=== PATIENT | female | born 1960 | race Caucasian/White ===

== ENCOUNTER 2022-07-31 17:14 | Emergency (ER) | payer MEDICARE, SELFPAY ==
[2022-07-31 18:49] VITALS: BP 125/75; PULSE 125; RESP 18; TEMP 39; O2SAT 95; BMI 28.0
[2022-07-31 18:57] LABS: UTC Influenza A Antigen Negative (Negative); UTC Influenza B Antigen Negative (Negative)
--- NOTE | 2022-07-31 19:20 | EXP.UTC ---
Discharge Plan Disposition Patient Disposition: Home, Self-Care Condition: Good Prescriptions Prescriptions: New benzonatate 100 mg capsule 100 mg PO TID PRN (Reason: cough) Qty: 30 0RF cefdinir 300 mg capsule 300 mg PO BID 7 Days Qty: 14 0RF No Action metformin 500 MG tablet 500 mg PO BID insulin glargine [Lantus U-100 Insulin] 100 UNIT/ML solution 60 unit SQ BID glipizide 10 MG tablet 10 mg PO BID ergocalciferol (vitamin D2) 400 UNIT tablet 400 unit PO DAILY aspirin [Aspir-81] 81 MG tablet,delayed release (DR/EC) 81 mg PO DAILY tramadol [Ultram] 50 MG tablet 50 mg PO BIDP PRN (Reason: PAIN) metoclopramide HCl 10 MG tablet 10 mg PO BID liraglutide [Victoza 2-Yayo] 0.6 MG/0.1 ML pen injector 1.8 ml SQ DAILY red yeast rice 600 MG tablet 600 mg PO DAILY Referrals Follow up/Referrals: Julian Martinez [Primary Care Provider] - See instructions Activity Restrictions/Add. Instructions Additional Instructions/Restrictions: Take medication as prescribed Start oral antibiotics tomorrow Return if needed *Monitor Temp, Over the counter Motrin or Tylenol as directed/as needed Tylenol every 4 hours and Motrin every 6 hours (as long as your family doctor has told you that you can take it) for fever or pain. and straight to ER if unable to lower temp less than 101.0 after medication given *Warm salt water gargles may help to soothe the throat *Throat Lozenges? *Warm fluids like tea with honey may help to soothe the throat? *Sleep elevated *Humidifier/Vaporizer Use your inhaler as prescribed Follow up IMMEDIATELY for new or worsening symptoms or no Noticeable improvement over the next 48-72 hours. 911 for difficulty breathing or swallowing You were tested for today for COVID19 your test result should be back in the next 24-48 hours, you may check your result on the [facility] My Health Portal Make sure to take your Vitamins Vit. C Vit D and Zinc if you can take them Clinical Impressions Clinical Impression: Sinusitis, Bronchitis Instructions Patient Instructions: Sinusitis, Acute Bronchitis, DI for Sinusitis, DI for Fever (Symptom) -- Adult Discharge ED Provider: Irish Allen [facility] [place] HPI General Stated complaint: fever,cough, back pain Mode of Arrival: Ambulatory Source of Information: Patient Limitations: No Limitations Time Seen by Provider: 07/31/22 19:20 Description of Symptoms (Recalled from Triage Doc. by RN): pt comes in with c/o high fever, cough. symptoms began 3 days ago. HEENT Symptoms (Recalled from RN notes): Yes Resp Symptoms (Recalled from RN notes): Yes Skin Symptoms (Recalled from RN notes): No MS Symptoms (Recalled from RN notes): No Functional Status (Recalled from RN notes): n/a History of Present Illness Provider Complaint: Patient states that she has been having sinus pain and pressure, cough, sore throat, fever, headache and hurts at times in her back when she coughs States that today she was feeling worse and was still having fever so she came in to get checked out and wanted to get tested for flu and covid Related Data Home Medications Medication Instructions Recorded Confirmed aspirin 81 mg tablet,delayed 81 mg PO DAILY . 05/02/18 05/02/18 release (Aspir-) ergocalciferol (vitamin D2) 10 mcg 400 unit PO DAILY Supplement 05/02/18 05/02/18 (400 unit) tablet glipizide 10 mg tablet 10 mg PO BID Diabetes 05/02/18 05/02/18 insulin glargine 100 unit/mL 60 unit SQ BID Diabetes 05/02/18 05/02/18 subcutaneous solution (Lantus U-100 Insulin) liraglutide 0.6 mg/0.1 mL (18 mg/3 1.8 ml SQ DAILY Diabetes 05/02/18 05/02/18 mL) subcutaneous pen injector (Victoza 2-Yayo) metformin 500 mg tablet 500 mg PO BID Diabetes 05/02/18 05/02/18 metoclopramide HCl 10 mg tablet 10 mg PO BID Nausea & vomiting 05/02/18 05/02/18 red yeast rice 600 mg tablet 600 mg PO DAILY HIGH CHOLESTEROL\ 05/02/18 05/02/18 tra
[2022-07-31 20:00] VITALS: BP 125/75; PULSE 100; RESP 18; TEMP 37.9
== END 2022-07-31 20:01 | disposition home or self-care (01) ==
PROVIDERS: Emergency Provider Nurse Practitioner; PCP Internal Medicine Cardiovascular Disease
DX: U07.1 COVID-19 (principal)
CPT/HCPCS: 87804; 96372; 99212; C9803; G0463; J0696; U0003; U0005

== ENCOUNTER 2025-08-22 14:41 | Emergency (ER) | payer MEDICARE, SELFPAY ==
[2025-08-22 14:47] VITALS: BP 116/75; PULSE 83; O2SAT 98
[2025-08-22 14:50] VITALS: BP 116/75; PULSE 89; RESP 16; TEMP 36.6; O2SAT 95; BMI 22.4
--- OUTSIDE RECORDS SUMMARY | 2025-08-22 15:04 | XMS_ITS | Clinical Summary ---
Author Organization [employer] [facility] are Address [address] [place] [id number] Phone Care Team Providers Care Lease Operator Name Role Phone Unavailable Unavailable Conditions or Problems No information available. Medications No information available. Medications Administered No information available. Allergies, Adverse Reactions, Alerts No information available. Results No information available. Plan of Care No information available. Procedures No information available. Vital Signs No information available. Immunizations No information available. Advance Directives No information available.
--- OUTSIDE RECORDS SUMMARY | 2025-08-22 15:05 | XMS_ITS | Encounter Summary ---
Author Organization [place] [address] Care Team Providers Care Radiophone Operator Name Role Phone Julian Galvin MD Primary Care Provider [phone] Vincenzo Montiel DPM Unavailable Unavailab le Reason for Visit * Reason Comments Medication Refill Encounter Details Date Type Department Care Team (Late Contact Info) Description 08/01/2025 Refill SEP Juvencio [facility] [address] [address] Julian Galvin MD [facility] [address] Medication Refill Social History Tobacco Use Types Packs/Day Years Used Date Smoking Tobacco: Never Smokeless Tobacco: Never Alcohol Use Standard Drinks/Week Comments No 0 (1 standard drink = 0.6 oz pur e alcohol) [facility] Utilities Answer Date Recorded In the past 12 months has [employer], gas, oil, or water [employer] threatened to shut off services in your home? No 11/13/2023 Overall Financial Resource Strain (CARDIA) Answe r Date Recorded How hard is it for you to pa y for the very basics like food, housing, medical care, and heating? Not hard at all 11/13/2023 PHQ-2 Answer Date Recorded PHQ-2 Total Score 0 02/18/2024 [facility] [place] [facility] - Occupational Stress Questionnaire Answer Date Recorded Do you feel stress - tense, restless, nervous, or anxious, or unable to sleep at night because your mind is troubled all the time - these days? Very much 11/13/2023 Exercise Vital Sign Answer Date Recorde d On average, how many days pe r week do you engage in moderate to strenuous exercise (like a brisk walk)? 0 days 11/13/2023 On average, how many minutes do you engage in exercise at this level? 0 min 11/13/2023 Hunger Vital Sign Answer Date Recorded Within the past 12 months, y ou worried that your food would run out before you got the money to buy more. Never true 11/13/19 24 Within the past 12 months, t he food you bought just didn't last and you didn't have money to get more. Never true 11/13/2023 PRAPARE - Transportation Answer Date Re corded In the past 12 months, has l ack of transportation kept you from medical appointments or from getting medications? No 12/2023 In the past 12 months, has l ack of transportation kept you from meetings, work, or from getting things needed for daily living? No 11/13/2023 [facility] IP Transportation Answer D ate Recorded In the past 12 months, has l ack of reliable transportation kept you from medical appointments, meetings, work or from getting things needed for daily living? 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 Answer Date of Assessment Author No 11/24/2020 1:52 PM Radha Ross CCMA * Is the person blind or does he/she have serious difficulty seeing even when wearing glasses? Answer Date of Assessment Author No 11/24/2020 1:52 PM Radha Ross CCMA * Does this person have serious difficulty walking or climbing stairs? Answer Date of Assessment Author No 11/24/2020 1:52 PM Radha Ross CCMA * Does this person have difficulty dressing or bathing? Answer Date of Assessment Author No 11/24/2020 1:52 PM Radha Ross CCMA * Because of a physical, mental or emotional condition, does this person have difficulty doing errands alone such as visiting a doctor's office or shopping? Answer Date of Assessment Author No 11/24/2020 1:52 PM ASUNCION Radha Godinez CCMA documented as of this encounter Mental Status * Because of a physical, mental or emotional condition, does this person have serious difficulty concentrating, remembering or making decisions? Answer Entry Date Author No 11/24/2020 1:52 PM ASUNCION Radha Godinez CCMA documented in this encounter Ordered Prescriptions Prescription Sig Dispense Quantity Refills Last Filled Start Date End Date traMADoL (ULTRAM) 50 mg Oral Tablet TAKE 1 TABLET BY MOUTH 3 TIMES DAILY NEEDED. FOR PAIN 90 Tablet 2 08/03/2025 documented in this encounter Miscellaneous Notes * Telephone Encounter - Judith Godinez CCMA - 08/03/2025 8:05 AM EDT Last Office Visit reviewing controlled substances: 05/07/2025 Approved Ambien, Gabapentin, Lyrica, Butalbital = must be in last 6 months. All other controlled medications = must be in last 3 months. If visit is not up to date, please call and schedule appointment. Next appointment scheduled?: No SONIDO Last Reviewed by Prescriber: PDMP not electronically reviewed on this encounter. Date of last completed CSA if not included in flowsheet below: 09/18/2012 02/24/2021 2:00 PM 12/19/2021 2:00 PM 07/06/2022 2:00 PM CONTROLLED SUBSTANCE Is Consent for treatment completed? Yes Date consent completed 09/18/2012 SONIDO Reference Number [id number] SONIDO Results as expected as expected as expected If had complete compliance panel: 01/21/2025 Last resulted compliance panel date: 01/21/2025 (If patient had partial drug screen or in-house drug screen, please document date of that below): documented in this encounter Plan of Treatment Upcoming Encounters Date Type Department Care Team (Late st Contact Info) Description 08/25/2025 1:15 PM EDT Appointment [facility] [address] [place] [address] Julian Galvin MD [place] [facility] [place] [phone] 08/25/2025 1:30 PM EDT Appointment [facility] [address] [place] [address] Julian Galvin MD [place] [facility] [place] [phone] documented as of this encounter Goals Goal Patient Goal Type Associated Problems Recent Progress Patient-Stated? Author Blood Pressure < 140/90 Blood Pressure 118/72(2024 10:16 AM EDT) No Haven Patrick LPN BMI (Calculated) < 30 General 22.4(05/07/20 9:09 AM EDT) No Haven Patrick LPN Eat better, exercise, reach an ideal body weight General No Haven Patrick LPN Get CGM supplies through [facility] General Not on track( 023 11:54 AM EDT) Yes Su Lucero, RN HEMOGLOBIN A1C < 7.0 Result Component 9.2( 10:03 AM EDT) No Haven Patrick LPN documented as of this encounter Visit Diagnoses Not on filedocumented in this encounter Discontinued Medications Medication Sig Discontinue Reason Start Date End Da te traMADoL (ULTRAM) 50 mg Oral Tablet Take 1 Tablet by mouth 3 times daily as needed. 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
--- OUTSIDE RECORDS SUMMARY | 2025-08-22 15:05 | XMS_ITS ---
Author Organization [facility] Care Team Providers Care Non Destructive Testing Technician Name Role Phone GregorioRonald rodriguezley Unavailable Unavailable Woompath, Avashkar Unavailable Unavailable Sharon, Bahar Unavailable Unavailable Calico, Deysi Unavailable Unavailable Miranda, Hilaria Unavailable Unavailable Sheets, Sheron Unavailable Unavailable Brennan, Senia Unavailable Unavailable Pavlou, Anayeli Unavailable Unavailable Mac, Robert Unavailable Unavailable Rendon, Sangeeta Unavailable Unavailable Lu, Vincenzo Unavailable Unavailable Allergies and adverse reactions Code CodeSystem Substance Reaction Severity StartDate Concern Status 894032571 SNOMED CT Statins Mild 03/19/2018 active 7052 RXNORM Morphine Moderate 03/19/2018 active Darvon Mild 03/19/2018 active Care Team Name Role Address Phone Organization Dates Anayeli Griffiths PCP [address], [place], [address], [place] (Office): : : [facility] 11/17/2023 - 11/23/2023 Tigist Brendondory [address] [place], [place], [facility], [facility] (Office): [facility] 11/17/2023 - 11/23/2023 Genesis Dodd [address] [place] [address], [facility], [facility] (Office): : : [facility] 11/17/2023 - 11/23/2023 Josiah Doughertytal [address] [place], [facility], [facility] (Office): : [facility] 11/17/2023 - 11/23/2023 Deysi Hill [address] [place] [address], [place], [place], [facility], [facility] (Office): : [facility] 11/17/2023 - 11/23/2023 Hilaria Miranda [address] [place], [place], [facility], [facility] (Office): [facility] 11/17/2023 - 11/23/2023 Sheron Sheets [address] [facility], [address], [place], [place], [facility], [facility] (Office): [facility] 11/17/2023 - 11/23/2023 Senia Amin [address] [facility] [address] [place] [address], [facility], [facility] (Office): : [facility] [place] 11/17/2023 - 11/23/2023 Robert Mac [address] [place] [address], [address], [facility] (Office): : [facility] [place] 11/17/2023 - 11/23/2023 Sangeetaanna marie Mcintyres [address] [place], [place], [facility], [facility] (Office): [facility] [place] 11/17/2023 - 11/23/2023 Vincenzo Lu [address] [place] [address], [facility] (Office): [facility] [place] 11/17/2023 - 11/23/2023 Immunizations Immunization Status Vaccine Details Vaccine Code CodeSystem Date Notes Influenza cancelled Influenza, high-dose, split virus, quadrivalent, injectable, preservative free 197 CVX created date: 11/18/2023 consent date: 11/18/2023 Influenza completed Influenza, high-dose, split virus, quadrivalent, injectable, preservative free 197 CVX created date: 11/18/2023 administer ed date: 07/18/2023 Influenza completed Influenza, high-dose, split virus, quadrivalent, injectable, preservative free 197 CVX created date: 03/19/2018 administer ed date: 08/21/2017 hospital record TB 1 Step Mantoux (PPD) completed tuberculin skin test; unspecified formulation lotNumber: [id number] expiry: 10/23/2026 Mfg: sanifipaster Given 0.1 ml Left Forearm intradermally 98 CVX created date: 11/18/2023 consent date: 11/18/2023 administer ed date: 11/18/2023 Tetanus completed Td(adult) unspecified formulation 139 CVX created date: 11/18/2023 administer ed date: 10/26/2017 TB 2 Step Mantoux Skin Test completed tuberculin skin test; unspecified formulation lotNumber: [id number] expiry: 06/20/2020 Mfg: TUBERSOL Given 0.1 ml Left Forearm intradermally Step 2 of Multi-step with next step required 98 CVX created date: 03/27/2018 consent date: 03/26/2018 administer ed date: 03/27/2018 TB 2 Step Mantoux Skin Test completed tuberculin skin test; unspecified formulation Given 0.1 ml Left Forearm intradermally Step 1 of Multi-step with next step required 98 CVX created date: 03/21/2018 consent date: 03/21/2018 administer ed date: 03/19/2018 Shingles completed created date: 03/21/2018 administer ed date: 10/26/2017 Pneumovax 13 completed pneumococcal conjugate vaccine, 13 valent 133 CVX created date: 11/18/2023 administer ed date: 08/19/2019 Pneumovax 23 completed pneumococcal polysaccharide vaccine, 23 valent 33 CVX created date: 03/19/2018 administer ed date: 03/21/2010 SARS-COV-2 (COVID-19) cancelled SARS-COV-2 (COVID-19) vaccine, mRNA, spike protein, LNP, preservative free, 30 mcg/0.3mL dose, saúl-sucrose formulation 217 CVX created date: 11/18/2023 consent date: 11/18/2023 SARS-COV-2 (COVID-19) completed SARS-COV-2 (COVID-19) vaccine, mRNA, spike protein, LNP, preservative free, 30 mcg/0.3mL dose, saúl-sucrose formulation [facility]: [employer] Step 1 of Multi-step with next step required 217 CVX created date: 11/18/2023 administer ed date: 10/26/2021 PFIZER3/17/ /05/2112 SARS-COV-2 (COVID-19) completed SARS-COV-2 (COVID-19) vaccine, mRNA, spike protein, LNP, preservative free, 30 mcg/0.3mL dose, saúl-sucrose formulation g: [employer] Step 2 of Multi-step with next step required 217 CVX created date: 11/18/2023 administer ed date: 02/16/2021 PFIZER3// SARS-COV-2 (COVID-19) completed SARS-COV-2 (COVID-19) vaccine, mRNA, spike protein, LNP, preservative free, 30 mcg/0.3mL dose, saúl-sucrose formulation [facility]: [employer] Step 1 of Multi-step with next step required 217 CVX created date: 11/18/2023 administer ed date: 01/26/2021 PFIZER3/17/ 214/05/2112 Pneumococcal 20 cancelled Pneumococcal conjugate vaccine 20-valent (PCV20), polysaccharide [id number] conjugate, adjuvant, preservative free 216 CVX created date: 11/18/2023 consent date: 11/18/2023 Medications Section Medication Name Status Code CodeSystem Dose Route Frequency Admin Type Sig Text Start Date End Date Indication Empaglifloz in Oral Tablet 25 MG active 59552 66 RXNORM 1 table t Oral one time a day Routin e Give 1 table t by mouth one time a day for dm 2023 - dm Montelukast Sodium Oral Tablet 10 MG active 4 RXNORM 1 table t Oral at bedtime Routin e Give 1 table t by mouth at bedti me for aller gies 2023 - allergies Ferrous Sulfate Oral Tablet 325 (65 Fe) MG active 98461 5 RXNORM 1 table t Oral one time a day Routin e Give 1 table t by mouth one time a day for supp 2023 - supp Calcium Carbonate-V itamin D Oral Tablet 500-5 MG-MCG active 16259 3 RXNORM 1 table t Oral two times a day Routin e Give 1 table t by mouth two times a day for supp 2023 - supp oxyCODONE HCl Oral Tablet 5 MG active 90561 21 RXNORM 2 table t Oral as needed PRN Give 2 table t by mouth every 6 hours as neede d for pain 2 tabs for sever pain 2023 - pain Ibuprofen Oral Tablet 400 MG active 5 RXNORM 1 table t Oral as needed PRN Give 1 table t by mouth every 6 hours as neede d for pain 2023 - pain Aspirin 81 Oral Tablet Chewable active 81 mg Oral one time a day Routin e Give 81 mg by mouth one time a day for blood thine r may be chewe d or swall owed 2023 - blood thiner Cyanocobala min Oral Tablet 1000 MCG active 46249 3 RXNORM 1 table t Oral one time a day Routin e Give 1 table t by mouth one time a day for supp 2023 - supp Sertraline HCl Oral Tablet 50 MG active 18231 1 RXNORM 1 table t Oral one time a day Routin e Give 1 table t by mouth one time a day for mood 2023 - mood Metoclopram cassia HCl Oral Tablet 5 MG active 51013 8 RXNORM 1 table t Oral three times a day Routin e Give 1 table t by mouth three times a day for gerd 2023 - gerd metFORMIN HCl Oral Tablet 1000 MG active 04048 4 RXNORM 1 table t Oral two times a day Routin e Give 1 table t by mouth two times a day for dm2 2023 - dm2 Modafinil Oral Tablet 100 MG active 68116 8 RXNORM 1 table t Oral one time a day Routin e Give 1 table t by mouth one time a day relat ed to SLEEP APNEA , UNSPE CIFIE D (G47. 30) 2023 - - Ozempic (2 MG/DOSE) Subcutaneou s Solution Pen-injecto r 8 MG/3ML active 84295 65 RXNORM 2 mg Subcut aneous one time a day Routin e Injec t 2 mg subcu taneo usly one time a day every Sun for dm2 2023 - dm2 Pantoprazol e Sodium Oral Tablet Delayed Release 40 MG active 57337 0 RXNORM 1 table t Oral two times a day Routin e Give 1 table t by mouth two times a day for gerd 2023 - gerd Tubersol Solution 5 UNIT/0.1ML active 87814 5 RXNORM 0.1 ml Intrad ermal one time a day Routin e Injec t 0.1 ml intra derma lly one time a day every 12 month (s) start ing on the 1st for 1 day(s ) for ppd 2024 - ppd Methocarbam ol Oral Tablet 500 MG active 77319 3 RXNORM 1 table t Oral as needed PRN Give 1 table t by mouth every 8 hours as neede d for spasa ms relat ed to MUSCL E WEAKN ESS (GENE RALIZ ED) (M62. 81) spsas ms 2023 - spasams oxyCODONE HCl Oral Tablet 5 MG active 56250 21 RXNORM 1 table t Oral as needed PRN Give 1 table t by mouth every 6 hours as neede d for pain 1 tab for mod pain 2023 - pain Ondansetron HCl Oral Tablet 4 MG active 98983 2 RXNORM 1 table t Oral as needed PRN Give 1 table t by mouth every 4 hours as neede d for nause a 2023 - nausea Ezetimibe Oral Tablet 10 MG active 25740 6 RXNORM 1 table t Oral one time a day Routin e Give 1 table t by mouth one time a day relat ed to HYPER LIPID EMIA, UNSPE CIFIE D (E78. 5) 2023 - - Lidocaine HCl External Patch 4 % active 34819 94 RXNORM n/a n/a Topica l one time a day Routin e Apply to L chest topic ally one time a day relat ed to MULTI PLE FRACT URES OF RIBS, LEFT SIDE, SUBSE QUENT ENCOU NTER FOR FRACT URE WITH ROUTI NE HEALI NG (S22. 42XD) and remov e per sched ule 2023 - - Pregabalin Oral Capsule 75 MG active 66796 0 RXNORM 1 capsu le Oral three times a day Routin e Give 1 capsu le by mouth three times a day relat ed to TYPE 2 DIABE FAITH MELLI TUS WITH DIABE TIC POLYN EUROP ATHY (E11. 42) 2023 - - Lantus Subcutaneou s Solution active 15 unit Subcut aneous two times a day Routin e Injec t 15 unit subcu taneo usly two times a day for dm 2023 - dm Midodrine HCl Oral Tablet 5 MG active 97863 0 RXNORM 5 mg Oral as needed PRN Give 5 mg by mouth every 8 hours as neede d for HTN Hold if SBP <100 2023 - HTN Tylenol Extra Strength Oral Tablet 500 MG active 08712 9 RXNORM 1000 mg Oral three times a day Routin e Give 1000 mg by mouth three times a day for pain 2023 - pain Vitamin D3 Oral Tablet active 2000 unit Oral one time a day Routin e Give 2000 unit by mouth one time a day for supp 2023 - supp Mental Status Section Date Assessment Total Score Description 11/23/2023 BIMS 15 cognitively int act CAM 0 No delirium ind icated PHQ-9 00 11/23/2023 BIMS 15 cognitively int act CAM 0 No delirium ind icated PHQ-9 00 Insurance Providers Problems Problem # Description Date of onset Resolved Date Code CodeSystem Concern Status 1 HISTORY OF FALLING 11/17/[address] active 2 MILD INTERMITTENT ASTHMA, UNCOMPLICATED 11/17/[address] active 3 MULTIPLE FRACTURES OF RIBS, LEFT SIDE, SUBSEQUENT ENCOUNTER FOR FRACTURE WITH ROUTINE HEALING 11/17/[address] active 4 MUSCLE WEAKNESS (GENERALIZED) 11/17/[address] active 5 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 11/17/[address] active 6 NEED FOR ASSISTANCE WITH PERSONAL CARE 11/17/[address] active 7 OTHER FATIGUE 11/17/[address] active 8 RETENTION OF URINE, UNSPECIFIED 11/17/[address] active 9 TYPE 2 DIABETES MELLITUS WITH HYPERGLYCEMIA 11/17/[address] active 10 UNSPECIFIED MOOD [AFFECTIVE] DISORDER 11/17/[address] active 11 DIFFICULTY IN WALKING, NOT ELSEWHERE CLASSIFIED 03/19/20 18 11/19/[address] completed 12 ENCOUNTER FOR OTHER SPECIFIED SURGICAL AFTERCARE 03/19/20 18 11/19/[address] completed 13 FUSION OF SPINE, LUMBAR REGION 03/19/20 18 11/17/[address] completed 14 GASTRO-ESOPHAGEAL REFLUX DISEASE WITHOUT ESOPHAGITIS 03/19/[address] active 15 HYPERLIPIDEMIA, UNSPECIFIED 03/19/[address] active 16 LIVER DISEASE, UNSPECIFIED 03/19/[address] active 17 LOW BACK PAIN 03/19/20 18 08/12/[address] completed 18 MUSCLE WEAKNESS (GENERALIZED) 03/19/20 18 11/19/[address] completed 19 OTHER CERVICAL DISC DEGENERATION, UNSPECIFIED CERVICAL REGION 03/19/[address] active 20 SLEEP APNEA, UNSPECIFIED 03/19/[address] active 21 SPINAL STENOSIS, SITE UNSPECIFIED 03/19/[address] active 22 TYPE 2 DIABETES MELLITUS WITH DIABETIC POLYNEUROPATHY 03/19/[address] active 23 UNSTEADINESS ON FEET 03/19/20 18 11/19/[address] completed Reason for Referral No Reasons for Referral Entered Social History Social History Observation Description Start Date End Date Code Code System Current Smoking Status Tobacco smoking consumption unknown 755418647 SNOMED CT Sex Assigned At Female 1960 81758-4 [facility] Gender Identity Sexual Orientation Vital Signs Code Code System Vitals Name Values and Units Timing Information 2339-0 [facility] Blood Sugar Qercz=973.0 Units=mg/dL 11/23/2023 9279-1 [facility] Respiratory Rate Value=16.0 Units=/m in 11/23/2023 8310-5 [facility] Body Temperature Value=98.5 Units= F 11/23/2023 8867-4 [facility] Heart rate Value=70.0 Units=/min 10/2024 05878-6 [facility] O2 % BldC Oximetry Value=97.0 Units= % 11/23/2023 26783-0 [facility] Pain Level Value=0.0 11/23/2023 8462-4 [facility] Blood Pressure-Diastolic Value=68 Un its=mmHg 11/23/2023 8480-6 [facility] Blood Pressure-Systolic Jcwyk=532 Un its=mmHg 11/23/2023 80994-0 [facility] Weight Tibpx=779.2 Units=Lbs 06/2024 8302-2 [facility] Height Value=63.0 Units=Inches 11/17/2023
--- OUTSIDE RECORDS SUMMARY | 2025-08-22 15:05 | XMS_ITS | Clinical Summary ---
Author Organization [facility] Address [address] [place] [address] Phone Care Team Providers Care Security Coordinator Name Role Phone Bindu YU, Nicole [facility] [phone] Conditions or Problems Problem Name Problem Code Onset Date Status Entry Date Provider Comment Standard Description Annotate NECK PAIN 90096806 (SNOMED CT) Active Nicole Ruano MD Neck pain Medications Medication Instructions Start Date Stop Date Generic Name NDC Provider FERROUS SULFATE 325 (65 Fe) MG TABS [facility] 9 FERROUS SULFATE 59307005853 Irish Gresham MA LOPID 600 MG TABS [facility] 9 GEMFIBROZIL 77269720078 Irish Gresham MA NEURONTIN 600 MG TABS [facility] 9 GABAPENTIN 99510053396 Irish Gresham MA ULTRAM 50 MG ORAL TABLET [facility] 9 TRAMADOL HCL 40367998665 Irish Gresham MA LIPITOR 20 MG TABS [facility] 9 ATORVASTATIN CALCIUM 98663548933 Irish Gresham MA PROTONIX 40 MG PACK [facility] 9 PANTOPRAZOLE SODIUM 84829321769 Irish Gresham MA METFORMIN HCL 1000 MG TABS [facility] 9 METFORMIN HCL 57994848649 Irish Gresham MA MOBIC 15 MG ORAL TABLET [facility] 9 MELOXICAM 90373655301 Irish Gresham MA Medications Administered No information available. Allergies, Adverse Reactions, Alerts Allergy Name Reaction Description Start Date Severity Statu s Provider FERMIN Critical Irish Gresham MA Results No information available. Plan of Care No information available. Procedures No information available. Vital Signs Date Name Value Unit Description BMI (Body Mass Index) 29.23 kg/m2 Bod y Mass Index (Ratio) BP Diastolic 60 mm[Hg] blood pressu re, diastolic BP Systolic 110 mm[Hg] blood pressur e, systolic Height 63 [in_us] height E&M Weight Measured 165 [lb_av] weight E& M Weight Measured 165 [lb_av] weight E& M Immunizations No information available. Advance Directives No information available.
--- OUTSIDE RECORDS SUMMARY | 2025-08-22 15:05 | XMS_ITS | Encounter Summary ---
Author Organization [place] [address] Care Team Providers Care Rental Boats Caretaker Name Role Phone Julian Galvin MD Primary Care Provider [phone] Vincenzo Montiel DPM Unavailable Unavailab le Encounter Details Date Type Department Care Team (Late st Contact Info) Description 05/07/2025 Results Follow-Up SEP [facility] [address] [address] Julian Galvin MD [address] [facility] [place] [address] LIPID PANEL REFLEX, CBC WITH DIFF, IRON+TIBC, Additional followed-up results: 3 Social History Tobacco Use Types Packs/Day Years Used Date Smoking Tobacco: Never Smokeless Tobacco: Never Alcohol Use Standard Drinks/Week Comments No 0 (1 standard drink = 0.6 oz pur e alcohol) [facility] Utilities Answer Date Recorded In the past 12 months has [employer], gas, oil, or water [email or web address] threatened to shut off services in your home? No 11/13/2023 Overall Financial Resource Strain (CARDIA) Answe r Date Recorded How hard is it for you to pa y for the very basics like food, housing, medical care, and heating? Not hard at all 11/13/2023 PHQ-2 Answer Date Recorded PHQ-2 Total Score 0 02/18/2024 [facility] [place] of Occupat ional Health - Occupational Stress [...] things needed for daily living? No 11/13/2023 [facility] IP Transportation Answer D ate Recorded In [...] No 11/24/2020 1:52 PM Radha Ross CCMA documented as of this encounter Mental Status * Because of a physical, mental or emotional condition, does this person have serious difficulty concentrating, remembering or making decisions? Answer Entry Date Author No 11/24/2020 1:52 PM Radha Ross CCMA documented in this encounter Plan of Treatment Upcoming Encounters Date Type Department Care Team (Late st Contact Info) Description 08/25/2025 1:15 PM EDT Appointment [facility] [address] [place] [address] Julian Galvin [place] [address] 08/25/2025 1:30 PM EDT Appointment [facility] [address] 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
--- OUTSIDE RECORDS SUMMARY | 2025-08-22 15:05 | XMS_ITS | Clinical Summary ---
Author Organization [facility] Address [facility] [place] [address] Care Team Providers Care Speech Therapist Name Role Phone Julian Galvin MD Primary Care Provider [phone] Source Comments This information has been disclosed to you from confidential records protectedfrom disclosure by state law. You shall make no further disclosure of thisinformation without the specific, written, and informed release of theindividual to whom it pertains, or as otherwise permitted by law. A generalauthorization for the release of medical or other information is not sufficientfor the purposes of therelease of HIV test results or diagnoses. [id number] Social History Tobacco Use Types Packs/Day Years Used Date Smoking Tobacco: Never Assessed Comments Unknown Sex and Gender Information Value Date Recorded Sex Assigned at Not on file Legal Sex Female 5:24 PM EST Gender Identity Not on file Sexual Orientation Not on file Plan of Treatment Not on file Care Teams Speech Therapist Relationship Specialty Start Date End Date Julian Galvin MD [address] [place] [address] PCP - General 08/22/10
--- NOTE | 2025-08-22 15:06 | ED_ITS ---
<Statement entered by Erin Wahl DO - 08/25/25 23:43> I was consulted by the JIMBO, and we discussed the complexity of problems being addressed. I approve the treatment and management plan for this patient's care in the emergency department, thus performing a substantial portion of the medical decision making. Erin Wahl DO Discharge Plan Disposition Patient Disposition: Home, Self-Care Prescriptions Prescriptions: No Action metformin 500 MG tablet 500 mg PO BID insulin glargine [Lantus U-100 Insulin] 100 UNIT/ML solution 60 unit SQ BID glipizide 10 MG tablet 10 mg PO BID ergocalciferol (vitamin D2) 400 UNIT tablet 400 unit PO DAILY aspirin [Aspir-81] 81 MG tablet,delayed release (DR/EC) 81 mg PO DAILY tramadol [Ultram] 50 MG tablet 50 mg PO BIDP PRN (Reason: PAIN) metoclopramide HCl 10 MG tablet 10 mg PO BID liraglutide [Victoza 2-Yayo] 0.6 MG/0.1 ML pen injector 1.8 ml SQ DAILY red yeast rice 600 MG tablet 600 mg PO DAILY benzonatate 100 mg capsule 100 mg PO TID PRN (Reason: cough) Qty: 30 0RF cefdinir 300 mg capsule 300 mg PO BID 7 Days Qty: 14 0RF Referrals Follow up/Referrals: Julian Martinez [Primary Care Provider, Medical] - See instructions Activity Restrictions/Add. Instructions Additional Instructions/Restrictions: Today you were evaluated in the emergency department for bilateral eye pain. You were diagnosed with bilateral corneal abrasion, you were given erythromycin ointment in the ED. Please use 2-3 times a day times several days. Follow-up with the eye doctor in 1 week. Return to the ED for worsening of condition. Clinical Impressions Clinical Impression: Corneal abrasion, bilateral Instructions Patient Instructions: DI for Corneal Abrasion Print Language Print Language: Belgian Discharge ED Provider: Varun Martinez Adult HPI General Chief complaint: Skin/Abscess/Foreign Body Stated complaint: bleach in eyes-bilateral Time Seen by Provider: 08/22/25 14:47 History of Present Illness HPI narrative: patient is a 64-year-old female PMHx vasovagal syncope who presents to the ED for complaints of getting bleach water in her eye. Patient states she was pressure washing when the bleach water fell from the ceiling, getting into her both eyes. Related Data Home Medications ?Medication ?Instructions ?Recorded ?Confirmed aspirin 81 mg tablet,delayed 81 mg PO DAILY . 05/02/18 05/02/18 release (Aspir-) ergocalciferol (vitamin D2) 10 mcg 400 unit PO DAILY S upplement 05/02/18 05/02/18 (400 unit) tablet glipizide 10 mg tablet 10 mg PO BID Diabetes 05/02/18 insulin glargine 100 unit/mL 60 unit SQ BID Diabetes 0 05/02/18 05/02/18 subcutaneous solution (Lantus U-100 Insulin) liraglutide 0.6 mg/0.1 mL (18 mg/3 1.8 ml SQ DAILY Ginny betes 05/02/18 05/02/18 mL) subcutaneous pen injector (Victoza 2-Yayo) metformin 500 mg tablet 500 mg PO BID Diabetes 05/0205/02/18 metoclopramide HCl 10 mg tablet 10 mg PO BID Nausea & vomiting 05/02/18 05/02/18 red yeast rice 600 mg tablet 600 mg PO DAILY HIGH CHOL ESTEROL\ 05/02/18 05/02/18 tramadol 50 mg tablet (Ultram) 50 mg PO BIDP PRN PAIN 05/02/18 05/02/18 Previous Rx's ?Medication ?Instructions ?Recorded benzonatate 100 mg capsule 100 mg PO TID PRN cough #30 caps 07/31/22 cefdinir 300 mg capsule 300 mg PO BID 7 days #14 cap s 07/31/22 Allergies Allergy/AdvReac Type Severity Reaction Status Date / Time DARVON Allergy Intermediate MIGRAINE Uncoded 10/30/17 15:25 SYMPTOMS STATINS AdvReac Uncoded 05/02/18 20:37 PFSH [facility] Disclaimer: The information contained in this section may have been updated after the patient was seen, as this information can be updated by other users. Social History Smoking Status: Never smoker alcohol intake: never current occupational status: unemployed Travel in the last 8 weeks?: None Have you lived/traveled outside [place] in past 30 days?: No Contact w/someone who lives/traveled outside [place] past 30 days?: No Exposure to someone with infectious disease in past 14 days?: No Do you have a fever (greater than 100.4 F or 38 C)?: No Have you tested positive for COVID-19?: No Exposed to someone with COVID-19 in past 14 days?: No Do you have a sore throat?: No Do you have a cough?: No Do you have any weakness?: No Do you have any diarrhea?: No Are you experiencing any unusual bleeding?: No Do you have any muscle aches/pain?: No Do you have any abdominal pain?: No Are you experiencing loss of taste or smell?: No ROS Obtained: Yes Systems reviewed as appropriate & no additional complaints except as documented Physical Exam General General appearance: alert Head Head exam: normocephalic Eye Eye exam: Present PERRL Neck Neck exam: Present full ROM Respiratory Respiratory exam: Present normal lung sounds bilaterally Cardiovascular Cardiovascular exam: Present regular rate Abdominal Exam Abdominal exam: Present soft Extremities Exam Extremities exam: Present full ROM Back Exam Back exam: Present full ROM Neurological Exam Neurological exam: Present alert and oriented X3 Skin Skin exam: Present warm and dry Medical Decision Making Medical Records Screening: Per USPSTF and CDC recommendations, given the prevalence of disease in our region, it is our hospital?s policy to screen for HIV and viral Hepatitis for all patients aged 18 and over and those with ongoing risk factors. Jordan Inquiry Pt receiving controlled substance: No Vital Signs: 08/22/25 14:47 08/22/25 14:50 08/22/25 14:50 Temperature 97.9 F 97.9 F Temperature Source Oral Oral Pulse Rate 83 89 Pulse Rate [Right] 89 Respiratory Rate 16 16 Blood Pressure 116/75 116/75 Blood Pressure [Right Arm] 116/75 Blood Pressure Mean Blood Pressure Mean [Right Arm] 88 Blood Pressure Source Automatic Cuff Blood Pressure Source [Right Arm] Automatic Cuff Blood Pressure Position Supine Blood Pressure Position [Right Arm] Supine 02 Sat by Pulse Oximetry 98 95 95 Oxygen Delivery Method Room Air Room Air 08/22/25 15:25 08/22/25 15:30 08/22/25 16:30 Temperature 98 F Temperature Source Oral Pulse Rate 77 Pulse Rate [Right] Respiratory Rate 17 Blood Pressure 142/71 H 132/75 Blood Pressure [Right Arm] Blood Pressure Mean 80 Blood Pressure Mean [Right Arm] Blood Pressure Source Automatic Cuff Blood Pressure Source [Right Arm] Blood Pressure Position Supine Blood Pressure Position [Right Arm] 02 Sat by Pulse Oximetry 95 Oxygen Delivery Method Room Air Room Air Orders (Tests/Meds): ED MEDICATIONS Discontinued Medications Generic Name Dose Route Start Last Admin Trade Name Jeremy PRN Reason Stop Dose Admin Erythromycin 0.5 gm 08/22/25 16:00 08/22/25 16:28 Erythromycin Base 1 Gm Oint...G. OP 08/22/25 16:01 0.5 gm ONCE ONE Administration Eye Irrigation Solution 120 ml 08/22/25 16:00 08/22/25 16:28 Eye Wash Irrigation Soln 118ml Bottle OP 08/22/25 16:01 20 ml ONCE ONE Administration Fluorescein Sodium 1 mg 08/22/25 15:53 08/22/25 15:55 Fluorescein Sodium 1mg Strip OP 08/22/25 15:54 Not Given ONCE ONE Fluorescein Sodium 1 mg 08/22/25 16:00 08/22/25 16:28 Fluorescein Sodium 1mg Strip OP 08/22/25 16:01 1 mg ONCE ONE Administration Tetracaine HCl 0 ml 08/22/25 15:53 08/22/25 15:55 Tetracaine 0.5% Opth Stacey 15ml OP 08/22/25 15:54 Not Given ONCE ONE Tetracaine HCl 0 ml 08/22/25 16:00 08/22/25 16:26 Tetracaine 0.5% Opth Stacey 15ml OP 08/22/25 16:01 15 ml ONCE ONE Administration Medical Decision Narrative: In summary, patient is a 64-year-old female PMHx vasovagal syncope who presents to the ED for complaints of getting bleach water in her eye. Patient states she was pressure washing when the bleach water fell from the ceiling, getting into her both eyes. Patient states she immediately rinsed both eyes for 10 minutes with water, called poison control who advised her to come to the ED. Patient states that she is having significant pain, worse in her right eye. No previous history of eye issues. Denies fever, chills, headache, visual disturbances, chest pain, shortness of breath. The pH in the left eye is 6, the pH in the right eye is 7. We contacted poison control, they advised to rinse with Torres lens. We used the Torres lens and 1 L fluid in each eye. Retested pH, left eye 7, right eye 7. Eye was numbed with tetracaine, used a fluorescein strip, used a Singleton lamp, patient has a small corneal abrasion on the right eye at approximately 10:00. Patient has a small corneal abrasion on the left eye at approximately 5:00. No visual disturbances. Eye was rinsed with eyewash, I placed erythromycin ointment in the patient's eye. Upon reassessment, patient states her condition has improved. Her bilateral eye pain has improved after the tetracaine. Given this, I feel the patient safe to be discharged home at this time. I gave her the tube of erythromycin ointment, we discussed using it 2-3 times a day times several days. Advised patient she will need to follow-up with the eye doctor next week. We discussed return precautions to the ED and patient verbalized understanding. She was ambulatory without difficulty from the ED. Critical Care Critical Care Time Critical Care Time: No
--- OUTSIDE RECORDS SUMMARY | 2025-08-22 15:07 | XMS_ITS | Continuity of Care Document ---
Author Organization [facility] Address [address] [place] [address] Phone Care Team Providers Care Auto Driver Name Role Phone Jesu Galvin MD Primary Care Provider [phone] Vincenzo Montiel DPM Unavailable Unavailab le Encounters Date Type Department Care Team Description 08/01/2025 Refill [facility] [address] [place] [address] Jesu Galvin MD Medication Refill 05/25/2025 10:20 AM EDT Office Visit [address] [place] [address] Jesu Galvin MD Primary narcolepsy with cataplexy (Primary Dx); Poorly controlled type 2 diabetes mellitus (HCC) 05/07/2025 Results Follow-Up [address] [place] [address] Jesu Galvin MD LIPID PANEL REFLEX, CBC WITH DIFF, IRON+TIBC, Additional followed-up results: 3 05/07/2025 Telephone [facility] [address] [place] [address] Jesu Galvin MD Results (External Results Request - Diabetes Eye Exam ) 05/07/2025 9:20 AM EDT Office Visit [address] [place] [address] Jesu Galvin MD Medicare annual wellness visit, subsequent (Primary Dx); Full code status; Living will, counseling/discussion; Visit for screening mammogram; Drug-induced myopathy; Alcohol screening; Chronic right-sided low back pain with right-sided sciatica; DDD (degenerative disc disease), cervical; Dyslipidemia; Gastroesophageal reflux disease without esophagitis; Living will in place; Mild intermittent asthma without complication; 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 with type 2 diabetes mellitus (HCC); Primary narcolepsy with cataplexy; EAGLE (obstructive sleep apnea); Primary osteoarthritis involving multiple joints; Recurrent major depressive disorder, in partial remission; Screening for depression; Spinal stenosis of lumbar region with neurogenic claudication; Statin intolerance; Type 2 diabetes mellitus with peripheral neuropathy (HCC); Well controlled type 2 diabetes mellitus (HCC); Post-menopausal; Screening for osteoporosis; History of anemia; Vitamin D deficiency 05/04/[address] [place] [address] Jesu Galvin MD Medication Refill 04/07/2025 10:15 AM EDT Office Visit [address] [place] [address] Peg Cadena MD Acute bacterial sinusitis (Primary Dx) 04/06/2025 Nurse Triage [facility] Nurse Now [address] [place] [phone] Yancy Ramon RN 04/03/2025 Results Follow-Up [address] [place] [address] Peg Cadena MD XR CHEST PA AND LATERAL 04/03/2025 1:30 PM EDT Ancillary Procedure [facility] [place] [address] [place] [address] Head, face & neck injury, initial encounter; Rib pain on left side; Cough, unspecified type 04/03/2025 11:30 AM EDT Office Visit [address] [place] [address] Peg Cadena MD Head, face & neck injury, initial encounter (Primary Dx); Rib pain on left side; Cough, unspecified type 01/26/2025 Patient Outreach [facility] [address] [place] [id number] Jesu Galvin MD Central Order Completion Outreach (mammogram) 01/19/2025 3:40 PM EDT Office Visit [address] [place] [address] Jesu Galvin MD Well controlled type 2 diabetes mellitus (HCC) (Primary Dx); Vitamin D deficiency; Type 2 diabetes mellitus with peripheral neuropathy (HCC); Statin intolerance; Spinal stenosis of lumbar region with neurogenic claudication; Recurrent major depressive disorder, in partial remission; Primary narcolepsy with cataplexy; 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 with type 2 diabetes mellitus (HCC); Chronic right-sided low back pain with right-sided sciatica; DDD (degenerative disc disease), cervical; Drug-induced myopathy; Dyslipidemia; Fatty liver; Gastroesophageal reflux disease without esophagitis; EAGLE (obstructive sleep apnea); Mild intermittent asthma without complication; History of anemia; Encounter for long-term current use of high risk medication 12/31/2024 2:15 PM EST Office Visit [address] [place] [address] Suzie Platt APRN Bronchitis (Primary Dx) 12/23/2024 Orders Only [address] [place] [address] Peg Cadena MD Pneumonia of both lungs due to infectious organism, unspecified part of lung (Primary Dx) 12/22/2024 Orders Only [address] [place] [address] Peg Cadena MD UTI (urinary tract infection), uncomplicated (Primary Dx) 12/19/2024 10:30 AM EST Office Visit [address] [place] [address] Peg Cadena MD UTI (urinary tract infection), uncomplicated (Primary Dx); Pneumonia of both lungs due to infectious organism, unspecified part of lung; Poorly controlled type 2 diabetes mellitus (HCC); Burning with urination; Cough, unspecified type 12/05/2024 [address]phone [facility] [address] [place] [address] Jesu Galvin MD Medication Management (Pharmacy change- Several medications ) 12/05/[address] [place] [address] Jesu Galvin MD Refill (LANTUS SOLOSTAR U-100 INSULIN 100 unit/mL (3 mL) SubQ Insulin Pen) 12/02/2024 Refill [facility] [address] [place] [address] Jesu Galvin MD Medication Refill 11/28/2024 Refill [facility] [address] [place] [address] Jesu Galvin MD Medication Refill 11/20/[address] [place] [address] Jesu Galvin MD Medication Management (sertraline (ZOLOFT) 50 mg Oral Tablet) 11/19/2024 Orders Only [address] [place] [address] Judith Hannah APRN Gastroesophageal reflux disease without esophagitis 11/19/2024 Refill [facility] [address] [place] [address] Jesu Galvin MD Medication Refill 11/15/2024 Refill [facility] [address] [place] [address] Jesu Galvin MD Medication Refill; Central Patient Navigator Outreach (Med Refill 30 day ) 10/23/2024 Patient Outreach [facility] [address] [place] [address] Jesu Galvin MD Central Patient Navigator Outreach (MAMMO) 10/11/2024 Refill [facility] [address] [place] [address] Jesu Galvin MD Medication Refill 09/29/[address] [place] [address] Jesu Galvin MD Medication Management (freestyle apoorva 3 meter and everything that goes with it ) 09/24/[address] [place] [address] Jesu Galvin MD Medication Refill 09/17/[address] [place] [address] Jesu Galvin MD Other ([facility]) 09/11/[address] [place] [address] Jesu Galvin MD Medication Refill (sertraline ); Medication Management (sertraline ) 09/09/[address] [place] [address] Jesu Galvin MD Medication Refill 09/09/[address] [place] [address] Jesu Galvin MD Refill (Several ) 09/07/[address] [place] [address] Jesu Galvin MD Medication Refill 09/04/2024 Orders Only [address] [place] [address] Peg Cadena MD 09/02/2024 1:37 PM EDT - 09/02/2024 11:59 PM EDT Hospital Encounter [facility] [address] [place] [address] Rib injury; Injury of back, initial encounter Discharge Disposition: Home or Self Care 09/02/2024 11:15 AM EDT Office Visit [address] [place] [address] Peg Cadena MD UTI (urinary tract infection), uncomplicated (Primary Dx); Type 2 diabetes mellitus with peripheral neuropathy (HCC); Injury of back, initial encounter; Rib injury 08/06/[address] [place] [address] Suzie Platt, BOX FABRICATOR Results 07/16/[address] [place] [address] Jesu Galvin MD Medication Refill 07/15/[address] [place] [address] Jesu Galvin MD Medication Refill 07/09/[address] [place] [address] Jesu Galvin MD Medication Refill 07/03/[address] [place] [address] Jesu Galvin MD Medication Refill 07/02/[address] [place] [address] Jesu Galvin MD Results 07/02/2024 2:07 PM EDT - 07/02/2024 11:59 PM EDT Hospital Encounter [facility] [address] [place] [address] Jesu Galvin MD Flank pain Discharge Disposition: Home or Self Care 07/02/2024 11:10 AM EDT Office Visit [address] [place] [address] Jesu Galvin MD Flank pain (Primary Dx) 06/23/2024 4:50 PM EDT Office Visit [address] [place] [address] Jesu Galvin MD Cough, unspecified type (Primary Dx); UTI (urinary tract infection), uncomplicated; COVID-19 virus infection 06/16/2024 Refill [facility] [address] [place] [address] Jesu Galvin MD Medication Refill 05/21/2024 Nurse Triage [facility] [address] [facility] [place] [address] Alyssa Choudhary RN 05/05/2024 3:40 PM EDT Office Visit [address] [place] [address] Jesu Galvin MD Atypical syncope (Primary Dx) 04/29/2024 8:23 AM EDT - 04/29/2024 11:59 PM EDT Hospital Encounter [facility] [address] [place] [address] Jesu Galvin MD Atypical syncope Discharge Disposition: Home or Self Care 04/29/2024 8:23 AM EDT - 04/29/2024 11:59 PM EDT Hospital Encounter [facility] [address] [place] [address] Jesu Galvin MD Primary narcolepsy with cataplexy; Atypical syncope Discharge Disposition: Home or Self Care 04/29/2024 8:23 AM EDT - 04/29/2024 11:59 PM EDT Hospital Encounter [facility] [address] [place] [address] Jesu Galvin MD Primary narcolepsy with cataplexy; Atypical syncope Discharge Disposition: Home or Self Care 04/24/2024 Refill [facility] [address] [place] [address] Jesu Galvin MD Medication Refill 04/24/2024 4:30 PM EDT Office Visit [address] [place] [address] Jesu Galvin MD UTI (urinary tract infection), uncomplicated (Primary Dx) 04/14/2024 Patient Outreach [facility] [address] [place] [address] Jesu Galvin MD Central Order Completion Outreach (mammogram) 04/03/2024 3:40 PM EDT Office Visit [address] [place] [address] Jesu Galvin MD Atypical syncope (Primary Dx); Primary narcolepsy with cataplexy 03/27/2024 11:40 AM EDT Office Visit [address] [place] [address] Jesu Galvin MD Primary narcolepsy with cataplexy (Primary Dx); Atypical syncope; Polypharmacy 03/26/[address] [place] [address] Jesu Galvin MD 911/Red Flag (spells where she passes out, pt believes its due to anxiety. adv ED, pt declined.3 times on mother's day, 2 times on 03/25 ) 03/13/2024 Patient Outreach [facility] [address] [place] [address] Jesu Galvin MD Results (cologuard ) 02/18/2024 9:20 AM EDT Office Visit [address] 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 with type 2 diabetes mellitus (HCC); Recurrent major depressive disorder, in partial remission; Screening for depression; Spinal stenosis of lumbar region with neurogenic claudication; Statin intolerance; Type 2 diabetes mellitus with peripheral neuropathy (HCC); Vitamin D deficiency; Narcolepsy due to underlying condition without cataplexy; EAGLE (obstructive sleep apnea); Well controlled type 2 diabetes mellitus (HCC); Colon cancer screening 01/30/[address] [place] [address] Jesu Galvin MD Medication Refill 12/20/2023 Telephone [facility] Business Office [address] [facility] [address] [place] [address] Rubi Ferguson Radha Follow-up 12/19/2023 Refill [facility] [address] [place] [address] Jesu Galvin MD Medication Refill 12/13/[address] [place] [address] Jesu Galvin MD Results (All labs but compliance panel ) 12/05/2023 2:00 PM EST Office Visit [address] [place] [address] Jesu Galvin MD Hospital discharge follow-up (Primary Dx); History of falling; Closed fracture of multiple ribs of left side with routine healing, subsequent encounter; Visit for screening mammogram; Vitamin D deficiency; Poorly controlled type 2 diabetes mellitus (HCC); Polyneuropathy ; Chronic right-sided low back pain with right-sided sciatica; History of anemia 11/26/2023 Orders Only [address] [place] [address] Olvin Cadena MD Closed fracture of multiple ribs, unspecified laterality, sequela (Primary Dx) 11/26/2023 Patient Outreach [facility] [address] [facility] [address] [place] [address] Petra Bolivar, МАРИНА Hospital Follow Up; CM - Medication Reconciliation; Skin Ulcer; CM- Consultation 11/22/2023 External Contact [facility] [address] [place] [address] Sheron Marinelli APRN History of falling (Primary Dx); Closed fracture of multiple ribs of left side, sequela; Urinary retention; Hypotension, unspecified hypotension type; Type 2 diabetes mellitus with diabetic nephropathy, unspecified whether longterm insulin use (HCC); Anemia, unspecified type; History of asthma; Gastroesophageal reflux disease with esophagitis, unspecified whether hemorrhage; Hyperlipidemia, unspecified hyperlipidemia type; EAGLE (obstructive sleep apnea); Primary narcolepsy without cataplexy 11/21/2023 Patient Outreach [facility] [address] [place] [address] Petra Bolivar, RN - SNF Navigator 11/19/2023 External Contact [address] [address] Anayeli Griffiths MD Closed fracture of multiple ribs of left side with routine healing, subsequent encounter (Primary Dx); Type 2 diabetes mellitus with peripheral neuropathy (HCC); Poorly controlled type 2 diabetes mellitus (HCC); Urinary retention; Narcolepsy due to underlying condition without cataplexy; Iron deficiency anemia, unspecified iron deficiency anemia type; Mild intermittent asthma without complication; Hypotension, unspecified hypotension type; Dyslipidemia; Gastroesophageal reflux disease without esophagitis 11/19/2023 Patient Outreach [facility] [address] [place] [address] Petra Bolivar, RN Care Management - Chart Review 11/19/2023 Telephone [facility] Nurse Now [facility] [place] [address] Anabel Holland, RN Status Update 11/17/2023 Orders Only [address] [address] Genesis Dodd DO Polyneuropathy (Primary Dx); Primary osteoarthritis involving multiple joints 11/17/2023 Telephone [facility] Nurse Now [facility] [place] [address] Corinna Alexandra, МАРИНА Message Only; New Patient 11/09/2023 7:30 PM EST - 11/17/2023 2:26 PM EST Hospital Encounter [facility] PULMON[facility] [place] [address] [address] [place] MD Hunt, Alexandra R, MD Curi, Kristo, MD Fall, initial encounter (Primary Dx); Closed fracture of multiple ribs of left side, initial encounter; Unspecified mood (affective) disorder; Type 2 diabetes mellitus with hyperglycemia, with long-term current use of insulin (HCC) Discharge Disposition: Detention Facility 11/11/2023 11:50 AM EST Ancillary Procedure [facility] [place] [address] 11/12/2023 2:25 AM EST Anesthesia Event [facility] [place] [address] Geo Rodriguez MD 11/11/2023 6:25 PM EST - 11/11/2023 6:40 PM EST Surgery [facility] [place] [address] Anesthesia, Physician, EPIDURAL INJECTION / REPLACEMENT (DO NOT SCHEDULE IN MAIN OR / OOO ROOM ONLY) 11/09/2023 Travel 10/31/2023 Telephone [facility] [place] [address] [place] [address] Jesu Galvin MD Other (order for Glucose Dexcom G7) 10/12/2023 Patient Outreach [facility] [address] [facility] [address] [place], [place] [id number] Jesu Galvin MD Central Order Completion Outreach (mammogram) 10/10/2023 Refill [facility] [address] [place] [address] Jesu Galvin MD Medication Refill 09/25/2023 Refill [facility] [place] [address] [place] [address] Jesu Galvin MD Medication Refill 09/25/2023 Telephone [facility] [place] [address] [place] [address] Jesu Galvin MD Results 09/24/2023 Travel 09/24/2023 10:30 AM EST - 09/24/2023 10:55 AM EST Surgery [facility] [place] [address] [place] [address] Joel [place] MD CATARACT EXTRACTION WITH PHACOEMULSIFICATION AND INTRAOCULAR LENS 09/24/2023 10:33 AM EST Anesthesia Event [facility] [place] [address] [place] [address] Devonte Villatoro DO [place], Timothy D, MD 09/24/2023 9:17 AM EST - 09/24/2023 11:15 AM EST Hospital Encounter [facility] [place] [address] [place] [address] Joel [place] MD Discharge Disposition: Home or Self Care 09/20/2023 Orders Only [place] [address] [place] [address] Jesu Galvin MD UTI (urinary tract infection), uncomplicated (Primary Dx) 09/19/2023 Refill [place] [place] [address] [place] [address] Jesu Galvin MD Medication Refill 09/19/2023 9:20 AM EST Clinical Support [facility] [place] [address] [place] [address] Magda Bear CCMA Dysuria (Primary Dx) 09/13/2023 Telephone [place] [address] [place] [address] Jesu Galvin MD Other 09/11/2023 Telephone [facility] [place] [address] [place] [address] Jesu Galvin MD Other ([facility]) 09/03/2023 Travel 09/03/2023 10:30 AM EDT - 09/03/2023 10:55 AM EDT Surgery [facility] [place] [address] [address] Joel [place] MD CATARACT EXTRACTION WITH PHACOEMULSIFICATION AND INTRAOCULAR LENS 09/03/2023 11:00 AM EDT Anesthesia Event [facility] [place] [address] [place], [place] [id number] Jer Dinh MD Dickinson, Timothy D, MD 09/03/2023 9:25 AM EDT - 09/03/2023 11:48 AM EDT Hospital Encounter [facility] [place] [address] [place] [id number] Joel [place] MD Discharge Disposition: Home or Self Care 08/27/2023 Travel 08/27/2023 2:20 PM EDT Office Visit [address] [place] [address] Jesu Galvin MD Cataract of both eyes, unspecified cataract type (Primary Dx); Pre-op exam; Poorly controlled type 2 diabetes mellitus (HCC) 08/22/[address] [place] [address] Jesu Galvin MD Medication Refill 08/02/[address] [place] [address] Jesu Galvin MD Symptom Call 07/31/[address] [place] [address] Jesu Galvin MD Paperwork/forms ([facility] - status update requested on this) 07/30/2023 2:40 PM EDT Office Visit [address] [place] [address] Jesu Galvin MD Rhinosinusitis (Primary Dx); Encounter for screening mammogram for breast cancer; Cough, unspecified type 07/30/[address] [place] [address] Jesu Galvin MD Symptom Call ( Dry cough, sore throat/) 07/25/[address] [place] [address] Jesu Galvin MD Paperwork/forms 07/13/2023 Orders Only [facility] [address] [facility] [place] [address] Provider, Unknown 07/11/[address] [place] [address] Jesu Galvin MD Medication Refill 07/05/2023 10:30 AM EDT - 07/05/2023 11:59 PM EDT Hospital Encounter [facility] [address] [place] [address] Jesu Galvin MD Left foot pain Discharge Disposition: Home or Self Care 07/04/2023 3:00 PM EDT Office Visit [address] [place] [address] Jesu Galvin MD Hospital discharge follow-up (Primary Dx); Diabetic ketoacidosis without coma associated with type 2 diabetes mellitus (HCC); Poorly controlled type 2 diabetes mellitus (HCC); UTI (urinary tract infection), uncomplicated; Dehydration; Poorly controlled diabetes mellitus (HCC); Drug-induced myopathy; Dyslipidemia; Vasovagal syncope; Left foot pain 07/02/[address] [place] [address] Jesu Galvin MD Release of Information ([facility] requesting medical records for pt- please advise.); Paperwork/forms ([facility] Supplies/Office notes ) 06/25/2023 Patient Outreach [facility] [address] [place] [address] Aisha Jewell, RN Hospital Follow Up 06/22/2023 5:03 PM EDT - 06/23/2023 3:30 PM EDT [facility] [address] [place] [place] [address] Dunia Diaz MD Varnell, Krista M, MD Cho, Soung H, MD Banks, David, MD Urinary tract infection without hematuria, site unspecified (Primary Dx); Hyperglycemia Discharge Disposition: Home or Self Care 06/22/2023 Travel 06/22/[address] [place] [address] Jesu Galvin MD Symptom Call (911- vomiting x 2 days - advised ER) 06/13/[address] [place] [address] Jesu Galvin MD Medication Refill (modafiniL (PROVIGIL) 100 mg Oral Tablet /Sig - Route: Take 200 mg by mouth 2 times daily. - Oral //) 06/07/[address] [place] [address] Jesu Galvin MD Medication Refill (ozempic and provigil) 06/07/[address] [place] [address] Jesu Galvin MD Medication Problem (Multiple Meds.) 06/06/2023 Patient Outreach [address] [place] [address] Su Lucero, treating inspector; CM- Telephonic Outreach; CM-Resource Coordination 06/01/[address] [place] [address] Jesu Galvin MD Medication Management (Recommendation for pt) 05/23/[address] [place] [address] Jesu Galvin MD Medication Refill 05/22/2023 Patient Outreach [address] [place] [address] NicSu vera, treating inspector; Care Management - Face To Face; CM-Resource Coordination 05/22/[address] [place] [address] Jesu Galvin MD Referral (FreeStyle Glucose Meter & sensor ) 05/16/[address] [place] [address] Jesu Galvin MD Medication Refill 05/14/2023 3:45 PM EDT Office Visit [address] [place] [address] uS Lucero, RN Encounter for support and coordination of transition of care (Primary Dx) 05/11/[address] [place] [address] Jesu Galvin MD Medication Management (flash glucose sensor (FREESTYLE APOORVA 2 SENSOR) [facility]) 04/26/2023 Orders Only [address] [place] [address] Jesu Galvin MD UTI (urinary tract infection), uncomplicated (Primary Dx) 04/24/2023 Patient Outreach [address] [place] [address] Luh Kim, PharmD Medication Management 04/24/2023 2:30 PM EDT Clinical Support [address] [place] [address] Alannah García Dysuria (Primary Dx) 04/24/[address] [place] [address] Jesu Galvin MD Follow-up (UTI) 04/18/[address] [place] [address] Jesu Galvin MD Medication Refill 04/18/2023 3:20 PM EDT Office Visit [address] [place] [address] Jesu Galvin MD Poorly controlled type 2 diabetes mellitus (HCC) (Primary Dx); Polyneuropathy; Vasovagal syncope; Grief reaction; Chronic right-sided low back pain with right-sided sciatica; DDD (degenerative disc disease), cervical; Diabetic polyneuropathy associated with type 2 diabetes mellitus (HCC); Spinal stenosis of lumbar region with neurogenic claudication; Type 2 diabetes mellitus with peripheral neuropathy (HCC) 04/16/2023 Orders Only [address] [place] [address] Jesu Galvin MD Iron deficiency (Primary Dx) 04/04/2023 Refill [facility] [address] [place] [address] Jesu Galvin MD Medication Refill 04/03/2023 9:20 AM EDT Clinical Support [address] [place] [address] Alannah García Malaise and fatigue 04/02/2023 3:20 PM EDT Office Visit [address] [place] [address] Jesu Galvin MD Malaise and fatigue (Primary Dx); BRBPR (bright red blood per rectum); UTI (urinary tract infection), uncomplicated; Incontinence of feces, unspecified fecal incontinence type; Poorly controlled type 2 diabetes mellitus (HCC) 03/30/[address] [place] [address] Jesu Galvin MD Other (Lost phone. ) 03/29/[address] [place] [address] Jesu Galvin MD Other (lost phone) 03/27/2023 2:14 PM EDT - 03/27/2023 11:59 PM EDT Hospital Encounter [facility] [address] [place] [address] Jesu Galvin MD Discharge Disposition: Home or Self Care 03/23/[address] [place] [address] Jesu Galvin MD Other (CT scan; insurance issues) 03/22/2023 Travel 03/21/2023 Refill [facility] [address] [place] [address] Jesu Galvin MD Medication Refill 03/13/2023 Patient Outreach [place] [address] [address] [place] [address] Jesu Galvin MD Central Order Completion Outreach (mammogram) 02/21/2023 2:20 PM EDT Clinical Support [address] [place] [address] Alannah García UTI (urinary tract infection), uncomplicated (Primary Dx) 02/21/[address] [place] [address] Jesu Galvin MD Symptom Call (Burning on urination ) 02/15/2023 11:10 AM EDT Office Visit [address] [place] [address] Jesu Galvin MD Pneumonia of right lower lobe due to infectious organism (Primary Dx); Subacute cough 02/15/[address] [place] [address] Jesu Galvin MD Appointment Needed (1 wk f/u Pneumonia /) 02/08/2023 10:20 AM EDT Office Visit [address] [place] [address] Jesu Galvin MD Hospital discharge follow-up (Primary Dx); Community acquired pneumonia of right lower lobe of lung; Poorly controlled type 2 diabetes mellitus (HCC); Sepsis, due to unspecified organism, unspecified whether acute organ dysfunction present (HCC) 02/07/2023 Patient Outreach [facility] [address] [place] [address] Jesu Galvin MD Central Order Completion Outreach (mammogram) 02/06/2023 Patient Outreach [facility] [address] [place] [address] Lynne Rodriguez, RN Hospital Follow Up (2nd attempt) 01/29/2023 9:02 PM EDT - 02/05/2023 4:05 PM EDT Hospital Encounter [facility] [address] [address] [place] [place] [address] Jose Solis MD Alexis, Jacques Feres, MD Pneumonia of right lower lobe due to infectious organism (Primary Dx); Delirium; Syncope and collapse Discharge Disposition: Home or Self Care 01/29/2023 Travel 01/29/2023 4:50 PM EDT Office Visit [address] [place] [address] Jesu Galvin MD Pneumonia of right lower lobe due to infectious organism (Primary Dx); Acute cough; Poorly controlled type 2 diabetes mellitus (HCC) 01/15/2023 10:00 AM EST Office Visit [address] [place] [address] Jesu Galvin MD Medicare annual wellness visit, subsequent (Primary Dx); Poorly controlled type 2 diabetes mellitus (HCC); Visit for screening mammogram; Adverse effect of antihyperlipidemic and antiarteriosclerotic drugs, initial encounter; Alcohol screening; Chronic right-sided low back pain with right-sided sciatica; DDD (degenerative disc disease), cervical; Diabetic polyneuropathy associated with type 2 diabetes mellitus (HCC); Drug-induced myopathy; Dyslipidemia; Fatty liver; Full code status; Gastroesophageal reflux disease without esophagitis; History of cervical dysplasia; Living will in place; Mild intermittent asthma without complication; 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 with type 2 diabetes mellitus (HCC); Polyneuropathy (HCC); EAGLE (obstructive sleep apnea); Primary osteoarthritis involving multiple joints; Retinal edema; Screening for depression; Spinal stenosis of lumbar region with neurogenic claudication; Type 2 diabetes mellitus with peripheral neuropathy (HCC); Vitamin D deficiency; Chronic fatigue; Chest pain, unspecified type; Poorly controlled type 2 diabetes mellitus (HCC); Encounter for long-term current use of high risk medication 12/13/2022 Patient Outreach [facility] [address] [place] [address] Jane Rodarte, PharmJavy Medication Management (SUPD) 11/28/2022 8:30 AM EST Office Visit [address] [place] [address] Suzie Platt APRN Herpes simplex vulvovaginitis (Primary Dx); Vaginal yeast infection; Inguinal lymphadenopathy 11/27/2022 Patient Outreach [address] [place] [address] Su Lucero, RN CM- Longitudinal Graduation; CM- Telephonic Outreach 11/22/[address] [place] [address] Jesu Galvin MD Medication Refill 11/22/[address] [place] [address] Peg Cadena MD Medication Refill 11/14/[address] [place] [address] Jesu Galvin MD Non-scheduled Referral 10/13/[address] [place] [address] Jesu Galvin MD Symptom Call 09/15/[address] [place] [address] Jesu Galvin MD Prior Authorization (modafiniL (PROVIGIL) 100 mg Oral Tablet 30 Tablet 2 09/14/2022 10/14/2022 /Sig - Route: Take 1 Tablet by mouth daily for 30 days. - Oral //); Follow-up 09/11/[address] [place] [address] Jesu Galvin MD Medication Management (solriamfetoL (SUNOSI) 75 mg Oral Tablet /) 09/07/[address] [place] [address] Jesu Galvin MD Medication Management (statin ) 08/25/2022 Patient Outreach [address] [place] [address] Su Lucero, treating inspector; Care Management - Face To Face; CM-Medication Assistance 08/18/2022 Patient Outreach [address] [place] [address] Su Lucero, treating inspector; CM-Medication Assistance; CM- Telephonic Outreach 08/17/[address] [place] [address] Jesu Galvin MD Medication Management 08/15/2022 Refill [facility] [address] [place] [address] Olvin Cadena MD Medication Refill 08/08/2022 1:40 PM EDT Clinical Support [address] [place] [address] Tricia Mckinley RMA Poorly controlled type 2 diabetes mellitus (HCC) (Primary Dx) 08/07/2022 3:30 PM EDT Office Visit [address] [place] [address] NicSu vera, RN Encounter for support and coordination of transition of care (Primary Dx) 08/07/2022 4:00 PM EDT Office Visit [address] [place] [address] Jesu Galvin MD History of COVID-19 (Primary Dx); Poorly controlled type 2 diabetes mellitus (HCC) 08/04/[address] [place] [address] Jesu Galvin MD Symptom Call (Acute chest pain, coughing, nose running, fever 102. Patient diagnosed with Bronchitis/Sinusitis x 4 days ) 07/31/[address] [place] [address] Jesu Galvin MD Release of Information (Insurance information /) 07/24/[address] [place] [address] Jesu Galvin MD Medication Management 07/11/[address] [place] [address] Jesu Galvin MD Medication Management (SUNOSI 75 mg Oral Tablet/flash glucose scanning reader (FREESTYLE APOORVA [address] READ[address]) [facility]) 07/05/2022 Refill [facility] [address] [place] [address] Peg Cadena MD Medication Refill 07/05/2022 Refill [facility]P [address] [place] [address] Jesu Galvin MD Medication Refill 06/29/[address] [place] [address] Jesu Galvin MD Medication Refill (Free style karen patch ) 06/28/[address] [place] [address] Olvin Cadena MD Medication Refill 06/28/[address] [place] [address] Peg Cadena MD Medication Refill 06/28/[address] [place] [address] Jesu Galvin MD Medication Refill 06/20/[address] [place] [address] Jesu Galvin MD Medication Refill 06/13/[address] [place] [address] Peg Cadena MD Medication Refill 06/05/2022 2:30 PM EDT Clinical Support [address] [place] [address] Anita Wyman, A Type 2 diabetes mellitus without complication, unspecified whether clay miner insulin use (HCC) (Primary Dx) 05/31/[address] [place] [address] Jesu Galvin MD Medication Management (freestyle apoorva 2) 05/25/2022 Orders Only [address] [place] [address] Su Lucero, RN Poorly controlled type 2 diabetes mellitus (HCC) (Primary Dx) 05/21/[address] [place] [address] Peg Cadena MD Medication Refill 05/19/2022 10:15 AM EDT Office Visit [address] [place] [address] Su Lucero, RN Encounter for support and coordination of transition of care (Primary Dx) 05/17/[address] [place] [address] Jesu Galvin MD Medication Refill 05/17/[address] [place] [address] Jesu Galvin MD Prior Authorization (Blood-Glucose Sensor (DEXCOM G6 SENSOR) ) 05/17/[address] [place] [address] Olvin Cadena MD Medication Refill 05/11/2022 Orders Only [address] [place] [address] Suzie Platt APRN 05/09/2022 Travel 05/09/2022 8:30 AM EDT - 05/09/2022 11:59 PM EDT Hospital Encounter [facility] [place] [address] [place] [address] Suzie Platt APRN Postmenopausal; Screening for osteoporosis Discharge Disposition: Home or Self Care 05/04/2022 Patient Outreach [facility] [address] [place] [id number] Jesu Galvin MD Results (IRIS) 05/03/2022 3:00 PM EDT Office Visit [address] [place] [address] Su Lucero, RN Poorly controlled type 2 diabetes mellitus (HCC) (Primary Dx) 05/03/2022 3:40 PM EDT Office Visit [address] [place] [address] Suzie Platt APRN Encounter for routine gynecological examination with Papanicolaou smear of cervix (Primary Dx); Vaginal prolapse 04/25/2022 9:00 AM EDT Office Visit [address] [place] [address] Su Lucero, RN Type 2 diabetes mellitus without complication, unspecified whether clay miner insulin use (HCC) (Primary Dx); Encounter for support and coordination of transition of care 04/25/2022 8:40 AM EDT Office Visit [address] [place] [address] Peg Cadena MD Seasonal allergic rhinitis, unspecified trigger (Primary Dx); Type 2 diabetes mellitus with peripheral neuropathy (HCC) 04/17/[address] [place] [address] Jesu Galvin MD Prior Authorization (Dexcom) 04/12/2022 Patient Outreach [address] [place] [address] Su Lucero, treating inspector; CM- Telephonic Outreach 04/07/[address] [place] [address] Jesu Galvin MD Results (pt returning call ) 03/30/[address] [place] [address] Jesu Galvin MD Symptom Call (Vomitting and dizziness ) 03/29/2022 2:00 PM EDT Office Visit [address] [place] [address] Suzie Platt APRN Cervical cancer screening (Primary Dx); Postmenopausal; Screening for osteoporosis 03/22/2022 Patient Outreach [address] [place] [address] Su Lucero RN CM- Telephonic Outreach; CM-Resource Coordination 03/21/[address] [place] [address] Jesu Galvin MD Other (dexcom); Orders (Freestyle Apoorva ) 03/20/2022 Patient Outreach [address] [place] [address] Su Lucero RN Cm- Longitudinal Initiation; CM- In office handoff; CM- Telephonic Outreach (patient left before RN could speak with her /) 03/20/2022 8:00 AM EDT Office Visit [address] [place] [address] Jesu Galvin MD Low vitamin B12 level (Primary Dx); Poorly controlled type 2 diabetes mellitus (HCC); Diabetic polyneuropathy associated with type 2 diabetes mellitus (HCC); Type 2 diabetes mellitus with peripheral neuropathy (HCC); 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 with type 2 diabetes mellitus (HCC); EAGLE (obstructive sleep apnea); Polyneuropathy (HCC); Mild intermittent asthma without complication; Dyslipidemia; Primary osteoarthritis involving multiple joints; History of cervical dysplasia; DDD (degenerative disc disease), cervical; Gastroesophageal reflux disease without esophagitis; Fatty liver; Statin intolerance; Chronic right-sided low back pain with right-sided sciatica; Spinal stenosis of lumbar region with neurogenic claudication; Vitamin D deficiency; Narcolepsy due to underlying condition without cataplexy; Retinal edema; Poorly controlled type 2 diabetes mellitus (HCC) 03/18/[address] [place] [address] Olvin Cadena MD Medication Refill 03/15/[address] [place] [address] Jesu Galvin MD Symptom Call (not improving still dizzy and swollen glands ) 03/09/[address] [place] [address] Peg Cadena MD Medication Refill 03/06/[address] [place] [address] Jesu Galvin MD Other (Missed call from the office has appt at 4:40) 03/06/[address] [place] [address] Jesu Galvin MD Prior Authorization (Cologuard ) 03/06/2022 4:40 PM EDT Office Visit [address] [place] [address] Jesu Galvin MD Poorly controlled type 2 diabetes mellitus (HCC) (Primary Dx); Dysuria; Rhinosinusitis; Vertigo 02/17/[address] [place] [address] Jesu Galvin MD Medication Refill 02/07/[address] [place] [address] Jesu Galvin MD Other (fbw and dexcom) 01/23/[address] [place] [address] Jesu Galvin MD Follow-up ([facility] ) 01/15/[address] [place] [address] Olvin Cadena MD Medication Refill 12/19/2021 1:20 PM EST Office Visit [address] [place] [address] Jesu Galvin MD Medicare annual wellness visit, subsequent (Primary Dx); Polyneuropathy; Poorly controlled type 2 diabetes mellitus (HCC); Diabetic polyneuropathy associated with type 2 diabetes mellitus (HCC); Type 2 diabetes mellitus with peripheral neuropathy (HCC); 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 with type 2 diabetes mellitus (HCC); Mild intermittent asthma without complication; Dyslipidemia; Primary osteoarthritis involving multiple joints; History of cervical dysplasia; Gastroesophageal reflux disease without esophagitis; DDD (degenerative disc disease), cervical; Fatty liver; Statin intolerance; Screening for depression; Alcohol screening; Chronic right-sided low back pain with right-sided sciatica; Spinal stenosis of lumbar region with neurogenic claudication; Full code status; Living will on file; Retinal edema; Vitamin D deficiency; Narcolepsy due to underlying condition without cataplexy 12/13/[address] [place] [address] Jesu Galvin MD Results (Vit B / Lipid / A1C / CMP) 12/05/[address] [place] [address] Jesu Galvin MD Medication Refill 12/05/2021 11:20 AM EST Office Visit [address] [place] [address] Jesu Galvin MD Cough (Primary Dx); Poorly controlled type 2 diabetes mellitus (HCC); Dyslipidemia; Tinnitus of right ear 10/27/[address] [place] [address] Peg Cadena MD Medication Refill 10/27/[address] [place] [address] Olvin Cadena MD Medication Refill 10/19/2021 Travel 10/19/2021 9:20 AM EST Office Visit [address] [place] [address] Jesu Galvin MD Cellulitis of right eyelid (Primary Dx); Tinnitus of right ear; Poorly controlled type 2 diabetes mellitus (HCC); Dyslipidemia 10/17/2021 11:40 AM EST Office Visit [address] [place] [address] Peg Cadena MD Cellulitis of right eyelid (Primary Dx); Acute bacterial conjunctivitis of right eye 09/26/2021 Orders Only [address] [place] [address] Olvin Cadena MD Dysuria (Primary Dx) 09/26/2021 3:30 PM EST Clinical Support [address] [place] [address] Tricia Mckinley RMA UTI (urinary tract infection), uncomplicated (Primary Dx) 09/26/[address] [place] [address] Jesu Galvin MD Symptom Call (Urgency and burning with urination ) 09/23/[address] [place] [address] Jesu Galvin MD Medication Management (statin ) 09/14/[address] [place] [address] Jesu Galvin MD Medication Management (pt need med dose change for early refill ) 09/14/[address] [place] [address] Olvin Cadena MD Medication Refill 09/11/[address] [place] [address] Peg Cadena MD Medication Refill 09/11/[address] [place] [address] Jesu Galvin MD Medication Refill 08/27/[address] [place] [address] Jesu Galvin MD Medication Refill 08/10/[address] [place] [address] Jesu Galvin MD Cough 08/09/2021 Patient Outreach [facility] [address] [place] [address] Jesu Galvin MD Results (cologuard ) 07/28/2021 3:00 PM EDT Office Visit [address] [place] [address] Peg Cadena MD Mild persistent asthma with exacerbation (Primary Dx); Acute bacterial sinusitis; Cough 07/14/[address] [place] [address] Jesu Galvin MD Results 07/08/2021 Patient Outreach [place] [address] [facility] [place] [address] Jesu Galvin MD Results (Cologuard Results) 07/06/2021 Refill [facility] [address] [place] [address] Olvin Cadena MD Medication Refill 06/23/2021 Patient Outreach [facility] [address] [facility] [place] [address] Jesu Galvin MD Results (Cologuard Results) 06/04/[address] [place] [address] Suzie Platt APRN Medication Refill 06/03/[address] [place] [address] Jesu Galvin MD Medication Refill 06/02/2021 2:00 PM EDT - 06/02/2021 11:59 PM EDT Hospital Encounter [facility] [place] [address] [address] [facility] [place] [address] Jesu Galvin MD Encounter for screening mammogram for malignant neoplasm of breast Discharge Disposition: Home or Self Care 05/23/2021 3:00 PM EDT Office Visit [address] [place] [address] Jesu Galvin MD Poorly controlled type 2 diabetes mellitus (HCC) (Primary Dx); Colon cancer screening; UTI (urinary tract infection), uncomplicated; Dyslipidemia; Diabetic polyneuropathy associated with type 2 diabetes mellitus (HCC); Tinnitus of right ear; Polyneuropathy; Type 2 diabetes mellitus with peripheral neuropathy (HCC); Chronic right-sided low back pain with right-sided sciatica; EAGLE (obstructive sleep apnea); Narcolepsy due to underlying condition without cataplexy; Encounter for long-term current use of high risk medication 05/22/2021 Refill [facility] [address] [place] [address] Jesu Galvin MD Medication Refill 05/22/[address] [place] [address] Olvin Cadena MD Medication Refill 04/26/[address] [place] [address] Jesu Galvin MD Medication Refill 04/25/[address] [place] [address] Jesu Galvin MD Prior Authorization (COLOGUARD ) 04/18/[address] [place] [address] Jesu Galvin MD Medication Refill 04/15/2021 Travel 04/15/2021 8:20 AM EDT Clinical Support [address] [place] [address] Peg Cadena MD Gastroesophageal reflux disease, unspecified whether esophagitis present (Primary Dx); Immunity status testing; Vitamin D deficiency; Poorly controlled type 2 diabetes mellitus (HCC); Dyslipidemia 03/25/[address] [place] [address] Jesu Galvin MD COVID-19 Rapid Testing (needs covis test for travel going to [place] clic non symptomatic ) 03/21/[address] [place] [address] Jesu Galvin MD Medication Refill 03/11/2021 11:20 AM EDT Office Visit [address] [place] [address] [place], Suzie, BOX FABRICATOR Dysuria (Primary Dx); Acute lower UTI 03/11/[address] [place] [address] Jesu Galvin MD Results (urine test results) 03/11/2021 Travel 03/06/[address] [place] [address] Jesu Galvin MD Medication Refill 02/24/2021 2:20 PM EDT Office Visit [address] [place] [address] Jesu Galvin MD Encounter for long-term current use of high risk medication (Primary Dx); Diabetic polyneuropathy associated with type 2 diabetes mellitus (HCC); Narcolepsy due to underlying condition without cataplexy; Malaise and fatigue; Poorly controlled type 2 diabetes mellitus (HCC) 01/24/[address] [place] [address] Jesu Galvin MD Medication Refill 01/11/2021 Travel 01/11/2021 10:40 AM EST Office Visit [facility] N[facility] [address] [place] [address] Petra Roe MD Incomplete bladder emptying (Primary Dx); Urinary urgency; Urge urinary incontinence; ANITA (stress urinary incontinence, female); Poorly controlled type 2 diabetes mellitus (HCC) 12/27/[address] [place] [address] Jesu Galvin MD Medication Reaction (modafinil 100 mg ) 11/24/2020 2:00 PM EST Office Visit [address] [place] [address] Jesu Galvin MD Medicare annual wellness visit, subsequent (Primary Dx); Diabetic polyneuropathy associated with type 2 diabetes mellitus (HCC); Vitamin D deficiency; Narcolepsy due to underlying condition without cataplexy; Type 2 diabetes mellitus with peripheral neuropathy (HCC); Spinal stenosis of lumbar region with neurogenic claudication; Screening for depression; Retinal edema; Primary osteoarthritis involving multiple joints; Poorly controlled type 2 diabetes mellitus (HCC); Polyneuropathy (HCC); EAGLE (obstructive sleep apnea); 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 with type 2 diabetes mellitus (HCC); Mild intermittent asthma without complication; Living will on file; Gastroesophageal reflux disease without esophagitis; Full code status; Fatty liver; Dyslipidemia; DDD (degenerative disc disease), cervical; Chronic right-sided low back pain with right-sided sciatica; Alcohol screening 11/23/[address] [place] [address] Olvin Cadena MD Medication Refill 11/22/2020 2:20 PM EST Clinical Support [address] [place] [address] Alannah García Need for hepatitis B vaccination (Primary Dx); Poorly controlled diabetes mellitus (HCC) 11/19/[address] [place] [address] Jesu Galvin MD Other (Blood Type) 10/28/2020 2:00 PM EST Clinical Support [address] [place] [address] Alannah García History of UTI (Primary Dx) 10/26/[address] [place] [address] Jesu Galvin MD Medication Refill 09/28/[address] [place] [address] Jesu Galvin MD Results (lab results on 09/23/20) 09/27/2020 Orders Only [place] [address] [place] [address] [place], Suzie, BOX FABRICATOR UTI (urinary tract infection), uncomplicated (Primary Dx) 09/27/2020 Travel 09/27/2020 2:15 PM EST - 09/27/2020 11:59 PM EST Hospital Encounter [facility] [place] [facility] [place] [address] [place], Suzie, BOX FABRICATOR Recurrent UTI (urinary tract infection) Discharge Disposition: Home or Self Care 09/23/2020 10:30 AM EST Office Visit [facility] [place] [address] [place] [address] [place], Suzie, BOX FABRICATOR Recurrent UTI (urinary tract infection) (Primary Dx) 09/23/2020 Travel 09/13/2020 4:40 PM EST Office Visit [place] [address] [place] [address] Jesu Galvin MD Cough (Primary Dx); Rhinosinusitis 09/13/2020 Travel 09/13/2020 Telephone [facility] [place] [address] [place] [address] Jesu Galvin MD Symptom Call (Cough, Diarrhea, Headache) 09/05/2020 Refill [place] [address] [place] [address] Olvin Cadena MD Medication Refill 08/30/2020 Orders Only [facility] [address] [place] [address] Petra Roe MD E. coli UTI (Primary Dx) 08/26/2020 Travel 08/26/2020 10:00 AM EDT Office Visit [facility] [address] [place] [address] Petra Roe MD Incomplete bladder emptying (Primary Dx); Urinary urgency; Urge urinary incontinence; ANITA (stress urinary incontinence, female); Frequent UTI 08/13/2020 Travel 07/29/2020 Abstract [facility] [address] [place] [address] Mesha Turner, NOEMI 07/21/2020 Travel 07/21/2020 2:20 PM EDT Office Visit [address] [place] [address] Jesu Galvin MD Burning with urination (Primary Dx); Need for hepatitis B vaccination 07/12/[address] [place] [address] Jesu Galvin MD Medication Refill (traMADoL (ULTRAM) 50 mg Oral Tablet [[id number]]) 07/06/[address] [place] [address] Sheila Almaraz MD Medication Refill 06/04/2020 Orders Only [facility] [address] [place] [address] Jesu Galvin MD Screening for colon cancer; Screening for cancer of the rectum 06/01/[address] [place] [address] Jesu Galvin MD Medication Refill 05/25/[address] [place] [address] Jesu Galvin MD Medication Refill 05/21/[address] [place] [address] Jesu Galvin MD Medication Management (Insulin glargine (LANTUS SOLOSTAR U-100 INSULIN) 100 unit/mL (3 mL) SubQ Insulin Pen) 05/19/[address] [place] [address] Jesu Galvin MD Medication Refill (2 refills ) 05/19/2020 Travel 05/19/2020 3:20 PM EDT Office Visit [address] [place] [address] Jesu Galvin MD Urinary incontinence, unspecified type (Primary Dx); Poorly controlled type 2 diabetes mellitus (HCC); UTI (urinary tract infection), uncomplicated 05/18/2020 Travel 05/18/2020 12:42 PM EDT - 05/18/2020 11:59 PM EDT Hospital Encounter [facility] [place] [facility] [address] [place], [place] [id number] Jesu Galvin MD Visit for screening mammogram; Family history of breast cancer Discharge Disposition: Home or Self Care 05/17/[address] [place] [address] Jesu Galvin MD Medication Refill (victoza, lantus); Medication Refill 05/17/[address] [place] [address] Jesu Galvin MD Medication Refill 05/08/2020 Refill [place] [address] [place] [address] Jesu Galvin MD Medication Refill 05/06/2020 Travel 05/04/2020 Travel 04/29/[address] [place] [address] Jesu Galvin MD Medication Refill 04/27/[address] [place], [place] [id number] Johnson Young MD Colonoscopy 04/15/2020 11:00 AM EDT Office Visit [address] [place] [address] Jesu Galvin MD Rhinosinusitis (Primary Dx) 04/15/2020 Travel 04/15/[address] 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 with type 2 diabetes mellitus (HCC); Poorly controlled type 2 diabetes mellitus (HCC); Retinal edema; Dyslipidemia 03/29/2020 Travel 02/23/[address] [place] [address] Jesu Galvin MD Medication Refill 02/10/[address] [place] [address] Jesu Galvin MD Medication Refill 01/29/[address] [place] [address] Olvin Cadena MD Medication Refill 01/21/2020 Travel 01/21/2020 2:00 PM EDT - 01/21/2020 11:59 PM EDT Hospital Encounter [facility] Physical Therapy [place] [address] [place] [address] Sterling Flores PT Open fracture of left wrist with routine healing, subsequent encounter Discharge Disposition: Home or Self Care 01/16/2020 Patient Outreach [facility] [address] [place] [id number] Jesu Galvin MD Central Patient Navigator Outreach 01/14/2020 Travel 12/29/2019 Travel 12/29/2019 10:41 AM EST - 12/29/2019 11:59 PM EST Hospital Encounter [facility] Physical Therapy [place] [id number] [place] [place] [id number] Pramod Grove PTA Open fracture of left wrist with routine healing, subsequent encounter Discharge Disposition: Home or Self Care 12/19/2019 Telephone [place] [address] [place] [address] Jesu Galvin MD Results 12/19/2019 Telephone [facility] [address] [place] [address] Jesu Galvin MD Symptom Call (vomiting, diarrhea, stomach cramps) 12/17/2019 Travel 12/17/2019 11:51 AM EST - 12/17/2019 11:59 PM EST Hospital Encounter [facility] Physical Therapy [address] [place] [address] Pramod Grove PTA Open fracture of left wrist with routine healing, subsequent encounter Discharge Disposition: Home or Self Care 12/10/2019 12:14 PM EST - 12/10/2019 11:59 PM [facility] Hospital Encounter [facility] Physical Therapy [address] [place], [place] [address] Sterling Flores, SHIRLEY Open fracture of left wrist with routine healing, subsequent encounter Discharge Disposition: Home or Self Care 12/05/2019 Telephone [facility] [id number] [place] [address] Lyly Alexandra RN Results (IRIS Results. ) 12/04/2019 3:22 PM EST - 12/04/2019 11:59 PM EST Hospital Encounter [facility] [place] [address] Type 2 diabetes mellitus with peripheral neuropathy (HCC); Encounter for long-term current use of high risk medication Discharge Disposition: Home or Self Care 12/04/2019 10:00 AM EST Office Visit [facility] [address] [place] [address] Jesu Galvin MD Type 2 diabetes mellitus without complication, unspecified whether clay miner insulin use (HCC) (Primary Dx); Well adult exam; Exercise counseling; Encounter for dietary counseling and surveillance; Full code status; Living will, counseling/discussion; Screening for depression; Alcohol screening; Anemia, unspecified type; Colon cancer screening; Vitamin D deficiency; Immunity status testing; Dyslipidemia; Poorly controlled type 2 diabetes mellitus (HCC); Type 2 diabetes mellitus with peripheral neuropathy (HCC); Statin intolerance; Encounter for long-term current use of high risk medication; Spinal stenosis of lumbar region with neurogenic claudication; Retinal edema; Polyneuropathy (HCC); EAGLE (obstructive sleep apnea); Open fracture of left wrist with routine healing, subsequent encounter; 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 with type 2 diabetes mellitus (HCC); Mild intermittent asthma without complication; History of cervical dysplasia; Gastroesophageal reflux disease without esophagitis; Fatty liver; Diabetic polyneuropathy associated with type 2 diabetes mellitus (HCC); DDD (degenerative disc disease), cervical; Chronic right-sided low back pain with right-sided sciatica; Polyneuropathy 12/03/2019 11:45 AM EST - 12/03/2019 11:59 PM EST Hospital Encounter [facility] Physical Therapy [address] [place], [place] [address] Pramod Grove PTA Open fracture of left wrist with routine healing, subsequent encounter Discharge Disposition: Home or Self Care 11/26/2019 10:25 AM EST - 11/26/2019 11:59 PM [facility] Hospital Encounter [facility] Physical Therapy [address] [place], [place] [address] Sterling Flores PT Open fracture of left wrist, initial encounter Discharge Disposition: Home or Self Care 11/14/2019 Refill [facility] [place] [place] [address] Jesu Galvin MD Medication Refill 11/11/2019 Abstract [facility] [place] [address] [place] [address] Sheila Almaraz MD 11/02/2019 Refill [facility] [place] [place] [address] Olvin Cadena MD Medication Refill 10/28/2019 Refill [facility] [place] [place] [address] Olvin Cadena MD Medication Refill 09/15/2019 Refill [facility] [address] [place] [address] Jesu Galvin MD Medication Refill 09/02/2019 Telephone [facility] [address] [place], [place] [id number] Jesu Galvin MD Diabetes (Due lab work) 08/27/2019 Refill [facility] [address] [place] [address] Olvin Cadena MD Medication Refill 08/04/2019 Orders Only SEP [facility] [address] [place] [address] Kathe Valdez RN Poorly controlled diabetes mellitus (HCC) (Primary Dx) 07/09/[address] [place] [address] Jesu Galvin MD Medication Refill 06/24/2019 1:40 PM EDT Office Visit [address] [place] [address] Sheila Almaraz MD Well woman exam with routine gynecological exam (Primary Dx); Diabetic polyneuropathy associated with type 2 diabetes mellitus (HCC); 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 with type 2 diabetes mellitus (HCC); Type 2 diabetes mellitus with peripheral neuropathy (HCC); Hyperlipidemia with target LDL less than 70; Screening for deficiency anemia; Screening for thyroid disorder; Vitamin D deficiency; Fatty liver; Bartholin gland cyst; Generalized osteoarthritis of multiple sites; Irritable bowel syndrome with constipation and diarrhea; Abnormal cytological finding in specimen from cervix uteri 05/23/[address] [place] [address] Jesu Galvin MD Medication Refill 05/10/2019 Refill [facility] [address] [place] [address] Jesu Galvin MD Medication Refill 05/02/2019 Refill [facility] [address] [place] [address] Jesu Galvin MD Medication Refill 04/15/2019 11:00 AM EDT - 04/15/2019 11:59 PM EDT Hospital Encounter [facility] [address] [place] [address] Jesu Galvin MD Visit for screening mammogram Discharge Disposition: Home or Self Care 04/02/2019 10:20 AM EDT Office Visit [address] [place] [address] Jesu Galvin MD Allergic rhinitis, unspecified seasonality, unspecified trigger (Primary Dx); Post-nasal drainage; Cough 03/17/[address] [place] [address] Jesu Galvin MD Other 03/13/2019 11:41 AM EDT - 03/13/2019 11:59 PM EDT Hospital Encounter [facility] [address] [place] [id number] Acute bronchitis, unspecified organism Discharge Disposition: Home or Self Care 03/12/2019 11:40 AM EDT Office Visit [address] [place] [address] Dary Pyle APRN Acute bronchitis, unspecified organism (Primary Dx); Type 2 diabetes mellitus with peripheral neuropathy (HCC) 03/05/[address] [place] [address] Jesu Galvin MD Diarrhea 03/01/[address] [place] [address] Dary Pyle APRN Superintendent Horticulture Note 02/24/[address] [place] [address] Jesu Galvin MD Medication Refill 02/17/2019 5:00 PM EDT Office Visit [address] [place] [address] Jesu Galvin MD Rhinosinusitis (Primary Dx); Poorly controlled diabetes mellitus (HCC) 02/06/[address] [place] [address] Jesu Galvin MD Medication Refill 01/01/2019 10:04 PM EST - 01/01/2019 11:59 PM EST Hospital Encounter [facility] [address] [place] [address] High risk medications (not anticoagulants) long-term use Discharge Disposition: Home or Self Care 01/01/2019 2:40 PM EST Clinical Support [address] [place] [address] Alannah García High risk medications (not anticoagulants) long-term use (Primary Dx) 01/01/2019 Orders Only [address] [place] [address] Jesu Galvin MD Polyneuropathy 12/27/[address] [place] [address] Jesu Galvin MD Medication Refill 12/25/[address] [place] [address] Jesu Galvin MD Medication Refill 12/25/2018 4:00 PM EST Office Visit [address] [place] [address] Jesu Galvin MD Rash (Primary Dx) 12/02/[address] [place] [address] Jesu Galvin MD Orders (knee brace) 11/29/[address] [place] [address] Jesu Galvin MD Other 11/22/[address] [place] [address] Jesu Galvin MD Medication Management 11/21/2018 5:00 PM EST Office Visit [address] [place] [address] Jesu Galvin MD Poorly controlled type 2 diabetes mellitus (HCC) (Primary Dx); Folliculitis; Diabetic polyneuropathy associated with type 2 diabetes mellitus (HCC) 11/07/[address] [place] [address] Jesu Galvin MD Medication Refill 10/15/2018 Patient Outreach [place] [address] [facility] [address] [place] [address] Che Santo LPN Care Management - Chart Review (Colorectal Cancer Screening ) 10/12/[address] [place] [address] Jesu Galvin MD Medication Refill 10/10/2018 11:20 AM EST Office Visit [address] [place] [address] Suzie Platt APRN Rhinosinusitis (Primary Dx) 09/19/2018 Telephone [facility] IP [address] [facility] [place] [address] Denise Simpson, МАРИНА 09/13/[address] [place] [address] Jesu Galvin MD Medication Refill 09/12/2018 8:40 AM EDT Office Visit [address] [place] [address] Jesu Galvin MD Well controlled diabetes mellitus (HCC) (Primary Dx); Gastroesophageal reflux disease without esophagitis; Vasovagal syncope; Grief reaction; Visit for screening mammogram; 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 with type 2 diabetes mellitus (HCC); Type 2 diabetes mellitus with peripheral neuropathy (HCC); Spinal stenosis of lumbar region with neurogenic claudication; Primary osteoarthritis involving multiple joints; Polyneuropathy (HCC); EAGLE (obstructive sleep apnea); Mild intermittent asthma without complication; Living will, counseling/discussion; History of cervical dysplasia; Fatty liver; Dyslipidemia; Diabetic polyneuropathy associated with type 2 diabetes mellitus (HCC); DDD (degenerative disc disease), cervical; Chronic right-sided low back pain with right-sided sciatica; Chronic pain syndrome; Bereavement reaction; Alcohol screening; Need for shingles vaccine 09/01/[address] [place] [address] Jesu Galvin MD Medication Refill 08/28/[address] [place] [address] Jesu Galvin MD Medication Refill 08/24/[address] [place] [address] Jesu Galvin MD Medication Refill 08/12/[address] [place] [address] Jesu Galvin MD Medication Refill 08/12/[address] [place] [address] Jesu Galvin MD Medication Refill 07/04/2018 2:20 PM EDT Office Visit [address] [place] [address] Jesu Galvin MD Bereavement reaction 06/10/[address] [place] [address] Jesu Galvin MD Medication Refill 06/04/[address] [place] [address] Jesu Galvin MD Medication Refill 05/29/2018 Orders Only [address] [place] [address] Jesu Galvin MD Thyroid nodule (Primary Dx) 05/28/2018 1:01 PM EDT - 05/28/2018 11:59 PM EDT Hospital Encounter [facility] [place] [address] [place] [address] Jesu Galvin MD Thyroid nodule Discharge Disposition: Home or Self Care 05/22/2018 1:20 PM EDT Office Visit [address] [place] [address] Jesu Galvin MD Thyroid nodule (Primary Dx); Vasovagal syncope; Grief reaction 05/16/[address] [place] [address] Jesu Galvin MD Medication Refill 05/06/2018 1:40 PM EDT Office Visit [address] [place] [address] Jesu Galvin MD Well adult exam (Primary Dx); Polyneuropathy; Diabetic polyneuropathy associated with type 2 diabetes mellitus (HCC); Poorly controlled diabetes mellitus (HCC); DDD (degenerative disc disease), cervical; DDD (degenerative disc disease), lumbar; Gastroesophageal reflux disease without esophagitis; Visit for screening mammogram; Type 2 diabetes mellitus with peripheral neuropathy (HCC); Hospital discharge follow-up; Vasovagal syncope; Bereavement reaction; Spinal stenosis of lumbar region with neurogenic claudication; Chronic right-sided low back pain with right-sided sciatica; EAGLE (obstructive sleep apnea); Mild intermittent asthma without complication; Dyslipidemia; Primary osteoarthritis involving multiple joints; History of cervical dysplasia; Fatty liver; Statin intolerance; Chronic pain syndrome; Screening for depression; Alcohol screening; Exercise counseling; Encounter for dietary counseling and surveillance; Full code status; Living will, counseling/discussion 05/02/[address] [place] [address] Jesu Galvin MD Medication Refill 05/01/[address] [place] [address] Jesu Galvin MD Medication Refill 04/14/[address] [place] [address] Jesu Galvin MD Medication Refill 04/05/[address] [place] [address] Jesu Galvin MD Medication Refill 04/02/2018 External Contact [facility] [address] [facility] [place] [address] Peg Mendoza MD S/P lumbar laminectomy (Primary Dx); Poorly controlled diabetes mellitus (HCC); Diabetic polyneuropathy associated with type 2 diabetes mellitus (HCC); EGALE (obstructive sleep apnea); Bereavement reaction 04/01/2018 External Contact [facility] [address] [facility] [place] [address] Peg Mendoza MD Confusion caused by a drug (HCC) (Primary Dx); Chronic right-sided low back pain with right-sided sciatica; Type 2 diabetes mellitus with peripheral neuropathy (HCC) 03/29/2018 10:06 AM EDT - 03/29/2018 1:19 PM EDT Emergency [facility] [place] [address] Chantel Echeverria MD Altered level of consciousness (Primary Dx) Discharge Disposition: Detention Facility 03/25/2018 External Contact [facility] [address] [facility] [place] [address] Peg Mendoza MD Chronic right-sided low back pain with right-sided sciatica (Primary Dx); Chronic pain syndrome; Diabetic polyneuropathy associated with type 2 diabetes mellitus (HCC) 03/20/2018 External Contact [facility] [address] [facility] [place] [address] Peg Mendoza MD Chronic right-sided low back pain with right-sided sciatica (Primary Dx); Spinal stenosis of lumbar region with neurogenic claudication; Chronic pain syndrome; Diabetic polyneuropathy associated with type 2 diabetes mellitus (HCC); Type 2 diabetes mellitus with peripheral neuropathy (HCC); EAGLE (obstructive sleep apnea); Bereavement reaction 03/20/2018 Abstract [facility] [address] [place] [address] Jesu Galvin MD 03/14/2018 5:34 AM EDT - 03/19/2018 2:00 PM EDT Hospital [facility] IP [address] [place] [address] Zachery Mccoy MD Discharge Disposition: Detention Facility 03/14/2018 7:30 AM EDT - 03/14/2018 12:45 PM EDT Surgery [facility] [address] [place] [address] Zachery Mccoy MD POSTERIOR LUMBAR INTERBODY FUSION (PLIF) 03/14/2018 7:25 AM EDT Anesthesia Event [facility] [address] [place] [address] John Alexandre MD Zehnder Agustina, BOX FABRICATOR 03/06/2018 12:00 PM EDT - 03/06/2018 11:59 PM EDT Hospital Encounter [facility] [address] [place] [address] Pat, Carrie Preop testing (Primary Dx); DDD (degenerative disc disease), cervical; Vitamin D deficiency Discharge Disposition: Home or Self Care 03/02/2018 Refill [facility] [place] [address] [place] [address] Jesu Galvin MD Medication Refill 03/01/2018 Orders Only [facility]P [facility] [address] [place] [address] Jesu Galvin MD Poorly controlled diabetes mellitus (HCC) (Primary Dx) 02/28/2018 Telephone [place] [address] [place] [address] Jesu Galvin MD Paperwork/forms 02/28/2018 Telephone [place] [address] [place] [address] Jesu Galvin MD Paperwork/forms 02/28/2018 10:00 AM EDT Office Visit [place] [address] [place] [address] Jesu Galvin MD Pre-op examination (Primary Dx); DDD (degenerative disc disease), lumbar; Poorly controlled diabetes mellitus (HCC); Dyslipidemia 02/26/2018 12:45 PM EDT Office Visit [facility] Sleep Medicine [address] [address] Harriett Jackson MD Obstructive sleep apnea (Primary Dx); Poorly controlled diabetes mellitus (HCC) 02/26/2018 Telephone [facility] Sleep Disorder Center [address] [place] [address] Holley Cao Annie 02/25/[address] [place] [address] Jesu Galvin MD Medication Management 02/18/2018 Refill [facility] [address] [place] [address] Jesu Galvin MD Medication Refill 02/16/2018 Refill [facility] [address] [place] [address] Jesu Galvin MD Medication Refill 02/13/2018 3:40 PM EDT Office Visit [address] [place] [address] Suzie Platt APRN Chronic right-sided low back pain with right-sided sciatica (Primary Dx) 02/13/2018 Refill [facility] [address] [place] [address] Sheila Almaraz MD Medication Refill 02/09/2018 Refill [facility] [address] [place] [address] Jesu Galvin MD Medication Refill 02/04/2018 Refill [facility] [address] [place] [address] Jesu Galvin MD Medication Refill 01/28/2018 Refill [facility] [address] [place] [address] Jesu Galvin MD Medication Refill 01/26/2018 Refill [facility] [address] [place] [address] Jesu Galvin MD Medication Refill 01/23/2018 8:00 PM EDT - 01/23/2018 11:59 PM EDT Hospital Encounter [facility] Sleep Disorder Center [place] [address] [place] [address] Obstructive sleep apnea (Primary Dx) Discharge Disposition: Home or Self Care 01/18/2018 Refill [facility] [address] [place] [address] Jesu Galvin MD Medication Refill 12/25/2017 5:10 PM EST Office Visit [address] [place] [address] Suzie Platt APRN Herpes zoster without complication (Primary Dx) 12/25/2017 1:30 PM EST Office Visit [facility] Sleep Medicine [address] [id number] Harriett Jackson MD Obstructive sleep apnea (Primary Dx); Poorly controlled diabetes mellitus (HCC); Diabetic polyneuropathy associated with type 2 diabetes mellitus (HCC) 12/11/[address] [place] [address] Jesu Galvin MD Other 11/15/2017 Refill [facility] [address] [place] [address] Jesu Galvin MD Medication Refill 11/15/[address] [place] [address] Jesu Galvin MD Medication Refill 11/10/2017 Refill [facility] [address] [place] [address] Sheila Almaraz MD Medication Refill 11/08/2017 Refill [facility] [address] [place] [address] Jesu Galvin MD Medication Refill 10/26/[address] [place] [address] Jesu Galvin MD Results 10/26/2017 3:03 PM EST - 10/26/2017 11:59 PM EST Hospital Encounter [facility] [place] [address] Polyneuropathy (HCC); Primary osteoarthritis involving multiple joints; DDD (degenerative disc disease), cervical; DDD (degenerative disc disease), lumbar; Encounter for long-term current use of high risk medication Discharge Disposition: Home or Self Care 10/26/2017 8:20 AM EST Office Visit [address] [place] [address] Jesu Galvin MD Diabetic polyneuropathy associated with type 2 diabetes mellitus (HCC) (Primary Dx); Poorly controlled diabetes mellitus (HCC); EAGLE (obstructive sleep apnea); Polyneuropathy (HCC); Mild intermittent asthma without complication; Dyslipidemia; Primary osteoarthritis involving multiple joints; History of cervical dysplasia; DDD (degenerative disc disease), cervical; DDD (degenerative disc disease), lumbar; Gastroesophageal reflux disease without esophagitis; Statin intolerance; Screening for depression; Alcohol screening; Encounter for dietary counseling and surveillance; Exercise counseling; Visit for screening mammogram; Right foot pain; Encounter for long-term current use of high risk medication; Need for prophylactic vaccination with combined [id number] is (DTP) vaccine; Dysuria 10/22/2017 2:20 PM EST Office Visit [address] [place] [address] Jesu Galvin MD Chronic right-sided low back pain with right-sided sciatica (Primary Dx) 10/15/2017 Refill [address] [address] [place] [address] Jesu Galvin MD Medication Refill 09/30/[address] [place] [address] Jesu Galvin MD Medication Refill 09/25/2017 Patient Outreach [place] [address] [place] [address] Carmen Borrero emergency response officer Orders (lab orders) 09/03/[address] [place] [address] Jesu Galvin MD Medication Refill 08/27/[address] [place] [address] Jesu Galvin MD 08/21/[address] [place] [address] Jesu Galvin MD Medication Refill 08/09/[address] [place] [address] Jesu Galvin MD Medication Refill 06/14/2017 3:40 PM EDT Office Visit [address] [place] [address] Jesu Galvin MD Acute right-sided low back pain with bilateral sciatica (Primary Dx) 06/09/[address] [place] [address] Jesu Galvin MD Medication Refill 06/01/2017 Patient Outreach [address] [place] [address] Haven Patrick LPN Care Transition; Care Management - Chart Review 05/30/[address] [place] [address] Jesu Galvin MD Medication Refill 05/30/[address] [place] [address] Sheila Almaraz MD Medication Refill 05/27/[address] [place] [address] Sheila Almaraz MD Medication Refill 04/17/2017 Patient Outreach [address] [place] [address] Haven Patrick LPN Care Transition; Care Management - Chart Review 04/16/[address] [place] [address] Jesu Galvin MD Visit Follow Up 04/12/2017 4:05 PM EDT - 04/12/2017 11:59 PM EDT Hospital Encounter [facility]G LAB RUFUS PROCESSING [facility] [place] [id number] Diabetic polyneuropathy associated with type 2 diabetes mellitus (HCC); Polyneuropathy; Dyslipidemia Discharge Disposition: Home or Self Care 04/12/2017 8:40 AM EDT Office Visit [address] [place] [address] Jesu Galvin MD Well adult exam (Primary Dx); Diabetic polyneuropathy associated with type 2 diabetes mellitus (HCC); Visit for screening mammogram; Polyneuropathy; Dyslipidemia; Poorly controlled diabetes mellitus (HCC); Mild intermittent asthma without complication; Primary osteoarthritis involving multiple joints; DDD (degenerative disc disease), cervical; DDD (degenerative disc disease), lumbar; Gastroesophageal reflux disease without esophagitis; Fatty liver; Statin intolerance; Chronic pain syndrome; Alcohol screening; Screening for depression; Encounter for dietary counseling and surveillance; Exercise counseling; EAGLE (obstructive sleep apnea); Cough 04/04/[address] [place] [address] Jesu Galvin MD Medication Refill 03/18/[address] [place] [address] Jesu Galvin MD Medication Refill 03/12/2017 4:40 PM EDT Office Visit [place] [address] Jesu Galvin MD Flank pain (Primary Dx) 03/06/2017 Patient Outreach [address] [place] [address] Haven Patrick LPN Care Transition; Care Management - Chart Review; Diabetes 02/01/2017 Patient Outreach [address] [place] [address] Haven Patrick LPN Care Transition; Care Management - Chart Review; Diabetes 01/29/2017 9:40 AM EDT Office Visit [address] [place] [address] Dary Pyle, RANDA Isabel, left (Primary Dx); Well controlled type 2 diabetes mellitus (HCC) 01/16/2017 Patient Outreach [address] [place] [address] Haven Patrick LPN Care Transition; Care Management - Chart Review; Diabetes 01/10/[address] [place] [address] Anh Lew, EDELMIRA 01/10/[address] [place] [address] Jesu Galvin MD Medication Refill 01/09/2017 Orders Only [facility] [address] [place] [address] Provider, Unknown 12/26/[address] [place] [address] Jesu Galvin MD Otalgia 12/22/2016 4:50 PM EST Office Visit [address] [place] [address] Jesu Galvin MD Acute bacterial sinusitis (Primary Dx) 12/22/[address] [place] [address] Jesu Galvin MD Influenza 12/15/[address] [place] [address] Jesu Galvin MD Medication Refill 12/07/[address] [place] [address] Jesu Galvin MD Medication Refill 12/04/[address] [place] [address] Jesu Galvin MD Visit Follow Up 12/01/2016 4:57 PM EST - 12/01/2016 11:59 PM EST Hospital Encounter EDG LAB RUFUS PROCESSING [facility] [address] [place] [address] Well controlled type 2 diabetes mellitus (HCC) Discharge Disposition: Home or Self Care 12/01/2016 10:40 AM EST Office Visit [address] [place] [address] Jesu Galvin MD Well controlled type 2 diabetes mellitus (HCC) (Primary Dx); Diabetic polyneuropathy associated with type 2 diabetes mellitus (HCC); Polyneuropathy; Visit for screening mammogram; Statin intolerance; Primary osteoarthritis involving multiple joints; Mild intermittent asthma without complication; Gastroesophageal reflux disease without esophagitis; Fatty liver; Dyslipidemia; DDD (degenerative disc disease), lumbar; DDD (degenerative disc disease), cervical; Chronic pain syndrome; Screening for depression 11/30/[address] [place] [address] Jesu Galvin MD 11/28/2016 Patient Outreach [address] [place] [address] Haven Patrick LPN Care Transition; Care Management - Chart Review; Asthma; Diabetes 11/23/[address] [place] [address] Jesu Galvin MD Visit Follow Up 10/19/2016 Patient Outreach [address] [place] [address] Haven Patrick LPN Care Transition; Care Management - Chart Review; Diabetes 10/16/[address] [place] [address] Jesu Galvin MD Medication Refill 10/16/[address] [place] [address] Sheila Almaraz MD Medication Refill 10/15/[address] [place] [address] Jesu Galvin MD Medication Refill 10/11/2016 Patient Outreach [address] [place] [address] Haven Patrick LPN Care Transition; Care Management - Chart Review; Diabetes 09/29/2016 Patient Outreach [address] [place] [address] Haven Patrick LPN Care Transition; Care Management - Chart Review; Diabetes 09/20/2016 Patient Outreach [address] [place] [address] Haven Patrick LPN Care Transition; Care Management - Chart Review; Diabetes 08/21/[address] [place] [address] Jesu Galvin MD Medication Refill 08/10/2016 9:00 AM EDT Office Visit [address] [place] [address] Dary Pyle APRN Acute non-recurrent maxillary sinusitis (Primary Dx); Need for influenza vaccination 07/21/[address] [place] [address] Jesu Galvin MD Medication Refill 07/18/[address] [place] [address] Sheila Almaraz MD Medication Refill 07/13/[address] [place] [address] Jesu Galvin MD Medication Refill 07/13/[address] [place] [address] Jesu Galvin MD Neck Pain; Headache 06/27/2016 Orders Only [facility] [address] [place] [address] Provider, Unknown 06/14/[address] [place] [address] Jesu Galvin MD Medication Refill 06/09/[address] [place] [address] Jesu Galvin MD Medication Refill 06/09/[address] [place] [address] Jesu Galvin MD Medication Refill 06/05/[address] [place] [address] Sheila Almaraz MD Medication Refill 05/24/[address] [place] [address] Jesu Galvin MD Medication Refill 05/24/[address] [place] [address] Jesu Galvin MD Medication Refill 05/20/[address] [place] [address] Jesu Galvin MD Medication Refill 05/01/2016 11:00 AM EDT Office Visit [address] [place] [address] Dary Pyle APRN Acute bacterial sinusitis (Primary Dx); Acute bronchitis, unspecified organism 04/26/[address] [place] [address] Jesu Galvin MD Medication Refill 04/21/2016 Orders Only [address] [place] [address] Jesu Galvin MD Acute bronchitis, unspecified organism (Primary Dx) 04/21/[address] [place] [address] Jesu Galvin MD Other 04/17/2016 4:00 PM EDT Office Visit [address] [place] [address] Jesu Galvin MD Other allergic rhinitis (Primary Dx); Acute bronchitis, unspecified organism 04/05/2016 3:25 PM EDT - 04/05/2016 11:59 PM EDT Hospital Encounter EDG LAB RUFUS PROCESSING [facility] [address] [place] [id number] Screening for HIV (human immunodeficiency virus); Need for hepatitis C screening test; Well controlled type 2 diabetes mellitus (HCC); Dyslipidemia Discharge Disposition: Home or Self Care 04/05/2016 10:00 AM EDT Office Visit [address] [place] [address] Jesu Galvin MD Well adult exam (Primary Dx); Health care maintenance; Visit for screening mammogram; Screening for depression; Alcohol screening; Encounter for dietary counseling and surveillance; Exercise counseling; Need for hepatitis C screening test; Screening for HIV (human immunodeficiency virus); Chronic pain syndrome; DDD (degenerative disc disease), cervical; DDD (degenerative disc disease), lumbar; Diabetic polyneuropathy associated with type 2 diabetes mellitus (HCC); Dyslipidemia; Fatty liver; Gastroesophageal reflux disease without esophagitis; History of cervical dysplasia; Mild intermittent asthma without complication; EAGLE (obstructive sleep apnea); Polyneuropathy; Primary osteoarthritis involving multiple joints; Statin intolerance; Well controlled type 2 diabetes mellitus (HCC) 03/31/[address] [place] [address] Sheila Almaraz MD Medication Refill 03/14/[address] [place] [address] Jesu Galvin MD Medication Refill 03/06/[address] [place] [address] Jesu Galvin MD Medication Management 03/03/[address] [place] [address] Jesu Galvin MD Medication Refill 03/02/[address] [place] [address] Jesu Galvin MD Medication Refill 02/28/2016 Refill [facility] [address] [place] [address] Jesu Galvin MD Medication Refill 02/26/2016 Refill [facility] [address] [place] [address] Sheila Almaraz MD Medication Refill 02/09/2016 Refill [facility] [address] [place] [address] Jesu Galvin MD Medication Refill 01/31/2016 Refill [facility] [address] [place] [address] Jesu Galvin MD Medication Refill 01/29/2016 Refill [facility] [address] [place] [address] Jesu Galvin MD Medication Refill 01/27/2016 Refill [facility] [address] [place] [address] Sheila Almaraz MD Medication Refill 12/27/[address] [place] [address] Jesu Galvin MD Other 12/23/[address] [place] [address] Jesu Galvin MD Other 12/22/2015 Patient Outreach [address] [place] [address] Galina Melvin, treating inspector 12/21/[address] [place] [address] Jesu Galvin MD Other 12/20/2015 10:58 AM EST - 12/20/2015 11:59 PM EST Hospital Encounter [facility] ED XRAY [address] [place] [address] Jesu Galvin MD Cough Discharge Disposition: Home or Self Care 12/20/2015 9:20 AM EST Office Visit [address] [place] [address] Jesu Galvin MD Statin intolerance (Primary Dx); Well controlled type 2 diabetes mellitus (HCC); Primary osteoarthritis involving multiple joints; Polyneuropathy; EAGLE (obstructive sleep apnea); Mild intermittent asthma without complication; History of cervical dysplasia; Gastroesophageal reflux disease without esophagitis; Fatty liver; Dyslipidemia; Diabetic polyneuropathy associated with type 2 diabetes mellitus (HCC); DDD (degenerative disc disease), lumbar; DDD (degenerative disc disease), cervical; Chronic pain syndrome; Health care maintenance; Cough 12/15/2015 11:40 AM EST Office Visit [address] [place] [address] Jesu Galvin MD Cough (Primary Dx); Diabetic polyneuropathy associated with type 2 diabetes mellitus (HCC); Acute bronchitis, unspecified organism 12/13/[address] [place] [address] Jesu Galvin MD Other 12/08/[address] [place] [address] Sheila Almaraz MD Medication Refill 12/04/[address] [place] [address] Jesu Galvin MD Medication Refill 11/29/[address] [place] [address] Jesu Galvin MD Results 11/26/[address] [place] [address] Jesu Galvin MD Medication Refill 10/25/[address] [place] [address] Jesu Galvin MD Other 10/15/[address] [place] [address] Sheila Almaraz MD Medication Refill 10/11/[address] [place] [address] Jesu Galvin MD Medication Management 10/03/[address] [place] [address] Jesu Galvin MD Medication Refill 10/01/2015 4:40 PM EST Office Visit [address] [place] [address] Jesu Gavlin MD Acute bronchitis, unspecified organism (Primary Dx) 09/24/2015 4:37 PM EST - 09/24/2015 11:59 PM EST Hospital Encounter EDG LAB RUFUS PROCESSING [facility] [place] [address] Dyslipidemia; Poorly controlled type 2 diabetes mellitus (HCC) Discharge Disposition: Home or Self Care 09/24/2015 Patient Outreach [address] [place] [address] Galina Melvin, МАРИНА Care Management - Face To Face 09/24/2015 10:40 AM EST Office Visit [address] [place] [address] Jesu Galvin MD Poorly controlled type 2 diabetes mellitus (HCC) (Primary Dx); History of cervical dysplasia; DDD (degenerative disc disease), cervical; Polyneuropathy; Primary osteoarthritis involving multiple joints; DDD (degenerative disc disease), lumbar; Dyslipidemia; Mild intermittent asthma without complication; Gastroesophageal reflux disease without esophagitis; Polypharmacy; Fatty liver; Diabetic polyneuropathy associated with type 2 diabetes mellitus (HCC) 09/13/[address] [place] [address] Jesu Galvin MD Medication Refill 09/13/[address] [place] [address] Jesu Galvin MD Medication Refill 09/12/[address] [place] [address] Jesu Galvin MD Medication Refill 09/10/[address] [place] [address] Jesu Galvin MD Medication Refill 08/21/[address] [place] [address] Jesu Galvni MD Medication Refill 08/19/2015 Patient Outreach [address] [place] [address] Galina Melvin, treating inspector (Diabetes follow up call) 08/09/[address] [place] [address] Jesu Galvin MD Medication Refill 08/06/2015 3:20 PM EDT Clinical Support [address] [place] [address] GroMackenzie amaral, CCMA Pain of right upper extremity (Primary Dx) 08/06/[address] [place] [address] Jesu Galvin MD Shoulder Pain 07/17/[address] [place] [address] Jesu Galvin MD Medication Refill 06/28/2015 12:10 PM EDT Office Visit [facility] Gen Surgery [address] [address] Eliseo Flowers MD Arm mass, left (Primary Dx) 06/25/[address] [place] [address] Sheila Almaraz MD Visit Follow Up 06/15/2015 10:05 AM EDT - 06/15/2015 10:50 AM EDT Surgery EDG [address] [place] [address] Eliseo Flowers MD EXCISION OF MASS OR SKIN LESION 06/15/2015 10:12 AM EDT Anesthesia Event EDG [address] [place] [address] Rosalio Payne MD Klanke, Justin L, MD 06/15/2015 8:18 AM EDT - 06/15/2015 11:28 AM EDT Hospital Encounter EDG [address] [place] [address] Eliseo Flowers MD Discharge Disposition: Home or Self Care 06/11/2015 8:13 PM EDT - 06/11/2015 11:59 PM EDT Hospital Encounter EDG LAB RUFUS PROCESSING [facility] [place] [address] Type 2 diabetes mellitus with other specified complication (HCC); HLD (hyperlipidemia); Cramp of both lower extremities Discharge Disposition: Home or Self Care 06/11/2015 1:00 PM EDT Office Visit [facility] [address] [place] [address] Sheila Almaraz MD Pre-op evaluation (Primary Dx); Type 2 diabetes mellitus with other specified complication (HCC); HLD (hyperlipidemia) 06/02/2015 Telephone [facility] Gen Surg EDG [address] [facility] [address] [place] [address] Eliseo Flowers MD Surgery; Visit Follow Up 05/27/2015 Orders Only [facility] [place] [address] [place] [address] Jesu Galvin MD Benign neoplasm of choroid, unspecified laterality (Primary Dx) 05/20/2015 Patient Outreach [facility] [address] [place] [address] Galina Melvin, МАРИНА Care Management - Face To Face (Diabetes education and management) 05/20/2015 10:40 AM EDT Office Visit [facility] [address] [place] [address] Jesu Galvin MD Poorly controlled type 2 diabetes mellitus (HCC) (Primary Dx); Gastroparesis; Dyspepsia 05/10/2015 2:20 PM EDT Office Visit [facility] Gen Surgery [facility] [address] [place] [address] Eliseo Flowers MD Arm mass, left (Primary Dx) 04/25/[address] [place] [address] Jesu Galvin MD Medication Refill 04/22/2015 Refill [place] [address] [place] [address] Jesu Galvin MD Medication Refill 04/21/2015 2:15 PM EDT Office Visit [facility] Pod[place] [address] [facility] [address] [place] [address] Vincenzo Montiel DPM Plantar fascial fibromatosis (Primary Dx); Arch pain, unspecified laterality 04/20/2015 9:04 AM EDT - 04/20/2015 9:10 AM EDT Hospital Encounter [facility] [address] [facility] [place] [address] Jesu Galvin MD Nausea and vomiting; Other constipation; Epigastric pain; Diabetes mellitus type 2 with neurological manifestations (HCC) Discharge Disposition: Home or Self Care 04/20/2015 9:44 AM EDT - 04/20/2015 11:59 PM EDT Hospital Encounter [facility] [address] [place] [address] Jesu Galvin MD Other screening mammogram Discharge Disposition: Home or Self Care 04/20/2015 9:11 AM EDT - 04/20/2015 9:43 AM EDT Hospital Encounter [facility] [address] [place] [address] Jesu Galvin MD Nausea and vomiting; Epigastric pain Discharge Disposition: Home or Self Care 04/15/2015 4:45 PM EDT Office Visit [place] [address] [place] [address] Jesu Galvin MD Nausea and vomiting (Primary Dx); Other constipation; Gastroesophageal reflux disease with esophagitis; Visit for screening mammogram; Epigastric pain; Diabetes mellitus type 2 with neurological manifestations (HCC) 04/09/[address] [place] [address] Jesu Galvin MD Other (leg cramps) 04/07/2015 7:46 PM EDT - 04/07/2015 11:59 PM EDT Hospital Encounter EDG LAB RUFUS PROCESSING [facility] [place] [address] Diabetes mellitus type 2 with neurological manifestations (HCC); Encounter for long-term (current) use of other medications Discharge Disposition: Home or Self Care 04/07/2015 2:40 PM EDT Office Visit [address] [place] [address] Jesu Galvin MD Diabetes mellitus type 2 with neurological manifestations (HCC) (Primary Dx); Polyneuropathy; Encounter for long-term (current) use of other medications; Foot pain, unspecified laterality; Lipoma 04/06/[address] [place] [address] Jesu Galivn MD Medication Refill 04/01/[address] [place] [address] Jesu Galvin MD Medication Refill 03/31/[address] [place] [address] Jesu Galvin MD Medication Refill 02/24/2015 Patient Outreach [address] [place] [address] Galina Melvin, МАРИНА Care Management - Face To Face (Diabetes education and management) 02/24/2015 1:40 PM EDT Office Visit [address] [place] [address] Jesu Galvin MD Polyneuropathy in diabetes(357.2) (HCC) (Primary Dx); Diabetes mellitus with complication (HCC); Poorly controlled diabetes mellitus (HCC) 02/13/[address] [place] [address] Sheila Almaraz MD Visit Follow Up (labs) 02/09/2015 9:15 PM EDT - 02/09/2015 11:59 PM EDT Hospital Encounter [facility]G LAB RUFUS PROCESSING [facility] [address] [place] [address] Dyslipidemia; Anemia; DM w/o complication type II; Screening for malignant neoplasm of the cervix Discharge Disposition: Home or Self Care 02/09/2015 1:00 PM EDT Office Visit [address] [place] [address] Sheila Almaraz MD Screening for malignant neoplasm of the cervix (Primary Dx); Diabetes mellitus type 2, uncontrolled (HCC) 01/27/[address] [place] [address] Jesu Galvin MD Medication Refill 01/16/[address] [place] [address] Jesu Galvin MD Medication Refill 01/12/[address] [place] [address] Jesu Galvin MD Medication Refill 01/07/[address] [place] [address] Jesu Galvin MD Herpes Zoster 01/06/2015 11:15 AM EST Office Visit [address] [place] [address] Jesu Galvin MD DM w/o complication type II (Primary Dx); Shingles; Sinusitis; Dyslipidemia; Anemia; AR (allergic rhinitis) 01/04/[address] [place] [address] Jesu Galvin MD Medication Refill 12/18/[address] [place] [address] Jesu Galvin MD Medication Refill 11/19/2014 Refill [facility] [address] [place] [address] Jesu Galvin MD Medication Refill 11/09/2014 4:30 PM EST Office Visit [address] [place] [address] Olvin Cadena MD Influenza A (Primary Dx); Bronchitis 10/29/[address] [place] [address] Jesu Galvin MD Medication Refill 10/26/[address] [place] [address] Jesu Galvin MD Visit Follow Up 10/15/[address] [place] [address] Jesu Galvin MD Medication Refill 09/10/[address] [place] [address] Jesu Galvin MD Medication Refill 09/09/2014 3:52 PM EDT - 09/09/2014 11:59 PM EDT Hospital Encounter EDG LAB RUFUS PROCESSING [facility] [place] [address] DM w/o complication type II; Other screening mammogram; Diabetes mellitus (HCC); Anemia; Dyslipidemia; GERD (gastroesophageal reflux disease); Neck pain Discharge Disposition: Home or Self Care 09/09/2014 9:40 AM EDT Office Visit [address] [place] [address] Jesu Galvin MD Other screening mammogram (Primary Dx); Diabetes mellitus (HCC); Anemia; DM w/o complication type II; Dyslipidemia; GERD (gastroesophageal reflux disease); Neck pain 08/13/[address] [place] [address] Jesu Galvin MD Medication Refill 08/10/[address] [place] [address] Jesu Galvin MD Medication Problem 07/18/[address] [place] [address] Jesu Galvin MD Medication Refill 06/15/2014 3:34 PM EDT - 06/15/2014 11:59 PM EDT Hospital Encounter [facility] [address] [place] [address] Jesu Galvin MD Neck pain Discharge Disposition: Home or Self Care 06/12/[address] [place] [address] Jesu Galvin MD Medication Refill 06/10/2014 11:15 AM EDT Office Visit [address] [place] [address] Jesu Galvin MD Diabetes mellitus (HCC) (Primary Dx); Neck pain 06/08/2014 Orders Only [address] [place] [address] Jesu Galvin MD Dyslipidemia (Primary Dx) 06/06/[address] [place] [address] Jesu Galvin MD Medication Refill 06/01/2014 6:50 PM EDT - 06/01/2014 11:59 PM EDT Hospital Encounter [facility] LAB RUFUS PROCESSING [facility] [address] [place] [id number] DM w/o complication type II Discharge Disposition: Home or Self Care 06/01/2014 9:40 AM EDT Office Visit [address] [place] [address] Jesu Galvin MD DM w/o complication type II (Primary Dx); Anemia; Dyslipidemia; GERD (gastroesophageal reflux disease) 05/26/[address] [place] [address] Jesu Galvin MD Other 05/22/2014 11:37 PM EDT - 05/23/2014 1:07 AM EDT Emergency [facility] [address] [place] [address] Riaz Ruiz MD Cervical strain, acute, initial encounter (Primary Dx) Discharge Disposition: Home or Self Care 05/08/2014 Telephone [place] [address] [place] [address] Galina Melvin, МАРИНА Visit Follow Up 04/25/2014 Refill SEP [address] [place] [address] Jesu Galvin MD Medication Refill 04/23/2014 Refill SEP [address] [place] [address] Jesu Galvin MD Medication Refill 04/14/2014 Refill SEP [address] [place] [address] Jesu Galvin MD Medication Refill 03/27/[address] [place] [address] Jesu Galvin MD Medication Refill 03/25/[address] [place] [address] Jesu Galvin MD Medication Refill 02/17/2014 11:00 AM EDT Office Visit [address] [place] [address] Jesu Galvin MD Diabetes mellitus (HCC) (Primary Dx); Dyslipidemia; Neck pain; Neuropathy 02/11/[address] [place] [address] Jesu Galvin MD Medication Management 02/09/2014 7:32 PM EDT - 02/09/2014 11:59 PM EDT Hospital Encounter [facility]G LAB RUFUS PROCESSING [facility] [place] [address] Type II or unspecified type diabetes mellitus without mention of complication, not stated as uncontrolled (HCC) (Primary Dx); Other and unspecified hyperlipidemia Discharge Disposition: Home or Self Care 02/09/2014 11:45 AM EDT Office Visit [address] [place] [address] Jesu Galvin MD Low back pain (Primary Dx); Neck pain; Drowsiness 02/07/[address] [place] [address] Jesu Galvin MD Medication Refill 01/19/[address] [place] [address] Jesu Galvin MD Medication Refill 01/14/[address] [place] [address] Jesu Galvin MD Medication Refill 12/21/[address] [place] [address] Jesu Galvin MD Medication Refill 12/14/[address] [place] [address] Jesu Galvin MD Medication Refill 11/18/[address] [place] [address] Jesu Galvin MD Medication Refill 10/22/[address] [place] [address] Jesu Galvin MD Medication Refill 09/22/2013 Orders Only [address] [place] [address] Jesu Galvin MD Shingles (Primary Dx) 09/18/[address] [place] [address] Jesu Galvin MD Medication Refill 09/18/[address] [place] [address] Jesu Galvin MD Letter for School/Work 09/17/2013 9:20 AM EST Office Visit [address] [place] [address] Jesu Galvin MD Cellulitis (Primary Dx); Dyslipidemia; DM w/o complication type II 09/16/[address] [place] [address] Jesu Galvin MD Otalgia 09/01/2013 Refill SEP [address] [place] [address] Jesu Galvin MD Medication Refill 08/27/2013 9:04 AM EDT - 08/27/2013 11:59 PM EDT Hospital Encounter [facility] [address] [place] [address] Jesu Galvin MD Other screening mammogram Discharge Disposition: Home or Self Care 08/12/2013 3:00 PM EDT Office Visit [address] [place] [address] Jesu Galvin MD Diabetes mellitus (Primary Dx); Anemia; Low back pain; Back pain; Peripheral neuropathy 08/06/[address] [place] [address] Jesu Galvin MD Medication Refill 07/21/[address] [place] [address] Alannah Gaitan, RMA Other 05/30/2013 Refill SEP [address] [place] [address] Jesu Galvin MD Medication Refill 05/23/[address] [place] [address] Jesu Galvin MD Referral 05/21/2013 5:13 PM EDT - 05/21/2013 11:59 PM EDT Hospital Encounter EDG LAB RUFUS PROCESSING [facility] [place] [address] Diabetes mellitus (HCC) Discharge Disposition: Home or Self Care 05/21/2013 8:40 AM EDT Office Visit [address] [place] [address] Jesu Galvin MD Diabetes mellitus (HCC) (Primary Dx); Arthritis; Low back pain; Foot pain; Dyslipidemia; Neuropathy; Narcolepsy; EAGLE (obstructive sleep apnea) 05/14/[address] [place] [address] Jesu Galvin MD Other (wants phone call concerning feet from Dr. Galvin) 04/21/2013 Refill SEP [address] [place] [address] MA Medication Refill 04/21/2013 Refill [facility] [address] [address] Pramod Jolly MD Medication Refill 03/19/2013 Telephone [facility] [address] [address] Pramod Jolly MD Medication Refill 03/18/[address] [place] [address] Jesu Galvin MD Medication Refill 03/11/2013 Refill SEP [address] [place] [address] Jesu Galvin MD Medication Refill 03/07/2013 11:29 PM EDT - 03/10/2013 4:29 PM EDT Hospital Encounter [facility] [address] [place] [address] Rico Real MD Hollis, Robert E., MD Chest pain (Primary Dx) Discharge Disposition: Home or Self Care 02/12/2013 1:40 PM EDT Office Visit [address] [place] [address] Jesu Galvin MD Diabetes mellitus (HCC) (Primary Dx); Arthritis 02/03/[address] [place] [address] Jesu Galvin MD Other (Finished antibotics this am and still has bronchitis would you call in more antibotics hurts to breath cough non productive no fever ) 01/29/2013 4:28 PM EDT - 01/29/2013 11:59 PM EDT Hospital Encounter EDG LAB RUFUS PROCESSING [facility] [place] [address] DM w/o complication type II; Anemia; Elevated liver function tests; Dyslipidemia Discharge Disposition: Home or Self Care 01/29/2013 8:00 AM EDT Office Visit [address] [place] [address] Jesu Galvin MD DM w/o complication type II (Primary Dx); Other screening mammogram; Dyslipidemia; Anemia; Elevated liver function tests 01/02/[address] [place] [address] Jesu Galvin MD Medication Refill 12/24/[address] [place] [address] Jesu Galvin MD Other 11/04/[address] [place] [address] Jesu Galvin MD Medication Refill 09/20/[address] [place] [address] MA Medication Management 09/18/2012 6:34 PM EST - 09/18/2012 11:59 PM EST Hospital Encounter EDG LAB RUFUS PROCESSING [facility] [place] [address] Diabetes mellitus (HCC); Dyslipidemia Discharge Disposition: Home or Self Care 09/18/2012 1:00 PM EST Office Visit [address] [place] [address] Jesu Galvin MD Low back pain (Primary Dx); Arthritis; Encounter for long-term (current) use of other medications; DDD (degenerative disc disease); Radiculopathy; Diabetes mellitus (HCC); Dyslipidemia; Anemia 07/25/[address] [place] [address] Jesu Galvin MD Medication Refill 06/12/2012 3:34 PM EDT - 06/12/2012 11:59 PM EDT Hospital Encounter [facility] [address] [place] [address] Jesu Galvin MD Low back pain Discharge Disposition: Home or Self Care 06/07/2012 11:45 AM EDT Office Visit [address] [place] [address] Jesu Galvin MD Low back pain (Primary Dx) 06/06/[address] [place] [address] Jesu Galvin MD Back Pain; Leg Pain 05/10/2012 3:00 PM EDT Office Visit [address] [place] [address] Jesu Galvin MD Low back pain (Primary Dx) 05/07/[address] [place] [address] MA Tingling 05/02/2012 7:01 PM EDT - 05/02/2012 11:59 PM EDT Hospital Encounter EDG LAB RUFUS PROCESSING [facility] [place] [address] Diabetes mellitus (HCC); Elevated liver enzymes; Dyslipidemia Discharge Disposition: Home or Self Care 05/02/2012 1:00 PM EDT Office Visit [address] [place] [address] Jesu Galvin MD Other screening mammogram (Primary Dx); Eczema, allergic; Dyslipidemia; Elevated liver enzymes; Diabetes mellitus (HCC); Back pain; Dental caries 03/13/[address] [place] [address] Jesu Galvin MD Other 02/13/[address] [place] [address] MA Other 02/08/2012 6:25 PM EDT - 02/08/2012 11:59 PM EDT Hospital Encounter EDG LAB RUFUS PROCESSING [facility] [place] [address] Elevated LFTs Discharge Disposition: Home or Self Care 02/08/2012 10:40 AM EDT Office Visit [address] [place] [address] Jesu Galvin MD Diabetes mellitus (HCC); Elevated LFTs 01/26/[address] [place] [address] MA Blood Sugar Problem 01/24/[address] [place] [address] Jesu Galvin MD Other 01/07/[address] [place] [address] Jesu Galvin MD Medication Refill 12/27/[address] [place] [address] MA Results 12/21/2011 3:29 PM EST - 12/21/2011 11:59 PM EST Hospital Encounter EDG LAB RUFUS PROCESSING [facility] [place] [address] Elevated liver function tests Discharge Disposition: Home or Self Care 12/21/[address] [place] [address] Jesu Galvin MD Referral 12/21/2011 12:00 PM EST Office Visit [address] [place] [address] Johnson Young MD Elevated liver function tests (Primary Dx) 12/20/2011 Refill SEP [address] [place] [address] Jesu Galvin MD Medication Refill 12/20/[address] [place] [address] MA Blood Sugar Problem 12/13/[address] [place] [address] Jesu Galvin MD Results 12/11/2011 Refill SEP [address] [place] [address] Jesu Galvin MD Medication Refill 12/06/2011 4:02 PM EST - 12/06/2011 11:59 PM EST Hospital Encounter EDG LAB RUFUS PROCESSING [facility] [place] [address] Elevated liver function tests Discharge Disposition: Home or Self Care 12/06/2011 9:40 AM EST Clinical Support [address] [place] [address] Alannah García Elevated liver function tests (Primary Dx) 12/03/2011 Refill SEP [address] [place] [address] Jesu Galvin MD Medication Refill 11/29/[address] [place] [address] MA Referral 11/24/[address] [place] [address] MA Results 11/20/2011 4:16 PM EST - 11/20/2011 11:59 PM EST Hospital Encounter EDG LAB RUFUS PROCESSING [facility] [place] [address] Elevated liver function tests Discharge Disposition: Home or Self Care 11/20/2011 10:40 AM EST Clinical Support [address] [place] [address] Alannah García Elevated liver function tests (Primary Dx) 11/16/2011 6:52 PM EST - 11/16/2011 11:59 PM EST Hospital Encounter EDG LAB RUFUS PROCESSING [facility] [address] [place] [address] Diabetes mellitus (HCC); Dyslipidemia; Anemia Discharge Disposition: Home or Self Care 11/16/2011 10:00 AM EST Office Visit [address] [place] [address] Jesu Galvin MD Folliculitis; Rash; Diabetes mellitus (HCC); Dyslipidemia; Anemia; Other screening mammogram; Rotator cuff disorder; Need for prophylactic vaccination and inoculation against influenza 11/01/[address] [place] [address] Jesu Galvin MD Medication Refill 10/12/[address] [place] [address] Jesu Galvin MD Medication Refill 10/08/[address] [place] [address] Jesu Galvin MD Medication Refill 09/22/[address] [place] [address] Magda Dodson MA Other 09/12/[address] [place] [address] Jesu Galvin MD Medication Refill 08/11/[address] [place] [address] Jesu Galvin MD Medication Refill 05/12/[address] [place] [address] Jesu Galvin MD Other (sores in head) 05/08/[address] [place] [address] Jesu Galvin MD Medication Refill 04/14/2011 7:43 PM EDT - 04/14/2011 11:59 PM EDT Hospital Encounter EDG LAB RUFUS PROCESSING [facility] [address] [place] [address] DM w/o complication type II (HCC); Dyslipidemia Discharge Disposition: Home or Self Care 04/14/2011 9:40 AM EDT Office Visit [address] [place] [address] Jesu Galvin MD Screening mammogram for high-risk patient (Primary Dx); Dyslipidemia; DM w/o complication type II (HCC); Hamstring injury 02/09/[address] [place] [address] Jesu Galvin MD Other 12/23/[address] [place] [address] MA Other (Sore in nose) 12/13/2010 Refill SEP [address] [place] [address] Jesu Galvin MD Medication Refill 12/12/2010 Refill SEP [address] [place] [address] Jesu Galvin MD Medication Refill 12/05/[address] [place] [address] MA Medication Refill 11/28/2010 10:00 AM EST Office Visit [address] [place] [address] Jesu Galvin MD Flu (Primary Dx) 10/20/[address] [place] [address] Mackenzie Caicedo CCMA Other 10/19/2010 11:00 AM EST Office Visit [address] [place] [address] Ekaterina Alarcon, RANDA Conjunctivitis of both eyes (Primary Dx) 10/14/[address] [place] [address] Maxine Parada LPN Medication Refill 09/27/[address] [place] [address] Magda Dodson MA Medication Change 09/21/2010 11:00 AM EST - 09/21/2010 11:59 PM EST Hospital Encounter EDG LAB RUFUS PROCESSING [facility] [place] [address] Jesu Galvin MD Hyperlipidemia NEC/NOS; DM w/o complication type II, uncontrolled (HCC); Joint pain-unspec; Encounter for long-term (current) use of other medications Discharge Disposition: Home or Self Care 09/21/2010 10:45 AM EST Clinical Support [address] [place] [address] Alannah García Other and unspecified hyperlipidemia; DM w/o complication type II, uncontrolled (HCC); Encounter for long-term (current) use of anticoagulants; Pain in joint, site unspecified 09/16/2010 1:40 PM EDT Office Visit [address] [place] [address] Jesu Galvin MD Diabetes; Rash; Hyperlipemia; Arthritis 07/13/[address] [place] [address] [facility] [employer] Cervical dysplasia; Narcolepsy; EAGLE (obstructive sleep apnea); DM w/o complication type II (HCC); DDD (degenerative disc disease); Osteoarthritis, knee; Dyslipidemia; Venous insufficiency; Asthma; Carpal tunnel syndrome; Arthropathy of shoulder region 05/02/2010 Orders Only [facility] [address] [facility] [address] [place] [address] Johnson Young MD 05/02/2010 Orders Only [facility] [address] [facility] [address] [facility] [place] [address] Johnson Young MD 05/02/2010 3:56 PM EDT - 05/02/2010 11:59 PM EDT Hospital Encounter [facility]ST PFDC EDG Johnson Young MD Discharge Disposition: Home or Self Care 04/13/2010 9:03 AM EDT - 04/13/2010 5:30 PM EDT Hospital Encounter [facility] CCR Nils Gordon MD 04/12/2010 10:03 AM EDT - 04/12/2010 11:59 PM EDT Hospital Encounter [facility] CARD EDG Nils Gordon MD 03/21/2010 12:47 PM EDT - 03/21/2010 11:59 PM EDT Hospital Encounter [facility]ST PFPD EDG Jesu Galvin MD 01/10/2010 Hospital Encounter [facility] MEDICINE FTT 10/08/2009 - 10/08/2009 11:59 PM EST Hospital Encounter [facility] MEDICINE FTT Discharge Disposition: Home or Self Care 09/20/2009 1:58 PM EST - 09/20/2009 11:59 PM EST Hospital Encounter [facility] EPIC CON UNK EDG Jackson Thomson MD 06/08/2008 Hospital Encounter [facility] MEDICINE FTT Generic, Historical Provider 04/07/2008 Hospital Encounter [facility] AMBULANCE FTT Generic, Historical Provider 11/14/2007 12:36 PM EST - 11/14/2007 3:37 PM EST Emergency [facility] EMERGENCY FTT Generic, Historical Provider 08/15/2007 Hospital Encounter [facility] GYNECOLOGY FTT Generic, Historical Provider 04/18/2007 Hospital Encounter HST HSTFAMFTT Generic, Historical Provider 08/10/2006 Hospital Encounter [facility] MEDICINE FTT Generic, Historical Provider 09/05/2005 11:57 AM EDT - 09/07/2005 11:30 AM EDT Hospital Encounter [facility]ST E3SW FTT Generic, Historical Provider 12/07/2004 1:30 PM EST - 12/07/2004 4:30 PM EST Hospital Encounter [facility] ESDS FTT Generic, Historical Provider 12/06/2004 9:39 AM EST - 12/06/2004 4:51 PM EST Hospital Encounter [facility]ST CCR Nils Gordon MD 10/12/2004 - 11/11/2004 Hospital Encounter [facility] MEDICINE FTT Generic, Historical Provider 11/09/2004 Hospital Encounter [facility] CARDIOLOGY FTT Generic, Historical Provider 10/21/2004 9:28 PM EST - 10/25/2004 11:15 AM EST Hospital Encounter [facility]ST E3SW FTT Generic, Historical Provider 10/14/2004 8:08 PM EST - 10/18/2004 5:00 PM EST Hospital Encounter [facility]ST E3SW FTT Generic, Historical Provider 07/25/2004 Hospital Encounter [facility] MEDICINE FTT Generic, Historical Provider 03/01/2004 8:03 AM EDT - 03/01/2004 9:55 AM EDT Emergency [facility] EMERGENCY FTT Generic, Historical Provider 10/01/2003 4:57 PM EST - 10/01/2003 6:10 PM EST Emergency [facility]ST EMERGENCY FTT Generic, Historical Provider 07/24/2001 Hospital Encounter HST UNKNFTT Generic, Historical Provider 07/15/2001 3:38 PM EDT - 07/15/2001 4:40 PM EDT Emergency HST ER CARRIE Generic, Historical Provider 08/07/2000 1:40 PM EDT - 08/07/2000 3:50 PM EDT Emergency HST EMERGENCY FTT Generic, Historical Provider Allergies Active Allergy Reactions Criticality Noted Date Comments Propoxyphene Blurred vision/migraine Uocxcve-Oea-Rbi Reductase Inhibitors Other (See Comments) 09/09/2014 ELEVATES LIVER ENZYMES Lactose Other (See Comments) 06/24/2019 Bloating, diarrhea Morphine Hives Medium 03/19/2018 Medications Insulin [place], Disposable, (TIANA PEN NEEDLE) 32 gauge x 5/32 [facility] NeedleIndications :diabetes mellitus,E11.65 USE WITH LANTUS 1 TIME DAILY. Indications: DIABETES MELLITUS, E11.65 1 box 2 016 Active Lancets [facility] Misc 1 Each by [facility]Non-Drug; Combo Route) route 3 times daily. Dx: E11.65 1 box 11 019 Active cyanocobalamin 1,000 mcg Oral Tablet Take 1 Tablet by mouth daily. 0 022 Active aspirin 81 mg Oral Tablet, Delayed Release (E.C.) Take 1 Tablet by mouth daily. 022 Active flash glucose scanning reader [facility] Misc 1 device by [facility] non drug combo 2 Each 11 022 Active calcium carbonate-vitamin D (CALCIUM-VITAMIN D) 500 mg-5 mcg (200 unit) Oral Tablet Take 1 Tablet by mouth 2 times daily. 180 Tablet 3 022 Active montelukast (SINGULAIR) 10 mg Oral TabletIndications :Seasonal allergic rhinitis, unspecified trigger TAKE 1 TABLET BY MOUTH NIGHTLY 90 Tablet 023 Active Blood-Glucose Meter [facility] Kit Dx:E11.65 accu-check radha 1 Kit Active Blood Sugar Diagnostic Mis Strip On insulin for type 2 DM checks blood sugar 3 times daily 100 Strip 6 023 Active BD TIANA 2ND GEN PEN NEEDLE 32 gauge x Misc Needle USE WITH LANTUS ONCE DAILY 100 Each 2 023 Active lidocaine (ASPERCREME) 4 % Top Adhesive Patch, Medicated Place 1 Patch onto the skin daily. 024 Active acetaminophen (TYLENOL) 500 mg Oral TabletIndications :pain Take 1,000 mg by mouth 3 times daily. Indications: pain Active ferrous sulfate 325 mg (65 mg iron) Oral Tablet Take 1 Tablet by mouth daily. 90 Tablet 3 024 Active ezetimibe (ZETIA) 10 mg Oral TabletIndications :Dyslipidemia TAKE 1 TABLET BY MOUTH EVERY DAY 90 Tablet 3 Active Additional Information Patient not taking.Reported on 05/25/2025 semaglutide (OZEMPIC) 2 mg/dose (8 mg/3 mL) SubQ Pen InjectorIndicatio ns:Type 2 diabetes mellitus with peripheral neuropathy (HCC) Subcutaneous (Inject under the skin) 2 mg once a week. 9 mL 3 024 Active JARDIANCE 25 mg Oral TabletIndications :Poorly controlled type 2 diabetes mellitus (HCC) TAKE 1 TABLET BY MOUTH EVERY DAY 90 Tablet 3 024 Active metFORMIN (GLUCOPHAGE) 1,000 mg Oral TabletIndications :Diabetic polyneuropathy associated with type 2 diabetes mellitus (HCC) TAKE 1 TABLET BY MOUTH TWICE A DAY 180 Tablet 2 024 Active FREESTYLE APOORVA 3 SENSOR Misc Device 1 Each by [facility]Non-Drug; Combo Route) route every 14 days. Follow package directions to apply sensor for continuous blood glucose monitoring. Change sensor every 14 days. 2 Each 5 Active FREESTYLE APOORVA 3 READER Misc Misc 1 Each by [facility].(Non-Drug; Combo Route) route as needed. Use as directed for continuous blood glucose monitoring. 1 Each Active pantoprazole (PROTONIX) 40 mg Oral Tablet, Delayed Release (E.C.)Indications :Gastroesophageal reflux disease without esophagitis Take 1 Tablet by mouth 2 times daily. 180 Tablet 3 025 Active sertraline (ZOLOFT) 100 mg Oral Tablet Take 1 Tablet by mouth daily. 90 Tablet 3 025 Active venlafaxine (EFFEXOR-XR) 37.5 mg Oral Capsule, Sust. Release 24 hrIndications:Mercedes watters narcolepsy with cataplexy Take 1 Capsule by mouth daily. 90 Capsule 3 025 Active methocarbamoL (ROBAXIN) 500 mg Oral Tablet Take by mouth. Active metoclopramide HCl (REGLAN) 5 mg Oral Tablet Take by mouth every 8 hours. Active pregabalin (LYRICA) 75 mg Oral Capsule Take by mouth every 8 hours. 024 Active ipratropium (ATROVENT) 21 mcg (0.03 %) Nasl [place], Non-AerosolIndica tions:Acute bacterial sinusitis 2 Sprays by Nasal route 3 times daily. 30 mL 2 025 Active glipiZIDE (GLUCOTROL) 5 mg Oral Tablet Take 0.5 Tablets by mouth 2 times daily (before meals). 90 Tablet 3 025 Active traMADoL (ULTRAM) 50 mg Oral Tablet TAKE 1 TABLET BY MOUTH 3 TIMES DAILY NEEDED. FOR PAIN 90 Tablet 2 025 Active traMADoL (ULTRAM) 50 mg Oral Tablet Take 1 Tablet by mouth 3 times daily as needed. for pain 90 Tablet 2 025 2024 Discontinued Active Problems Patient Care Coordination No te Formatting of this note migh t be different from the original. Controlled Substance Agreement reviewed/signed yes 09/18/12 Comprehensive Urine Drug Screen: yes 02/09/14 [place] 01/06/15 [place] 12/27/18 as expected [id number] Utilization audit completed by Iris Rogers RN on 12/04/2023. Problem Noted Date Diagnosed Date Recurrent major depressive disorder, in partial remission 01/30/2023 Overview (02/18/2024): Denies HSI, AVH, anhedonia, despair Stable on zoloft continue same. 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 Symptoms improved with increased dose of Provigil and addition of Effexor. Insurance has a quantity limit on Provigil will change to 200 mg tabs Has sleep medicine follow up. Vitamin D deficiency 12/04/2019 Overview (01/15/2023): On replacement. 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 Last IRIS eval showed possible macular degeneration. Recently had cataract surgery. 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 Type 2 diabetes mellitus with peripheral neuropa thy 03/20/2018 Overview (02/18/2024): Stable intermittent control on tramadol and lyrica no adverse effects. Legal issues: Family or personal history of substance abuse: Psych hx: Risks and benefits of chronic narcotic / stimulant treatment discussed including anorexia, insomnia, constipation, dependence, tolerance, diversion, and addiction. Treatment plan: Lowest effective dose with respect to pain, performance, behavior, and disability. CSA discussed and reviewed. Attempt to get JORDAN UDS periodically Pill counts Assessment & Plan (09/02/2024 11:46 AM EDT): Orders: semaglutide (OZEMPIC) 2 mg/dose (8 mg/3 mL) SubQ Pen Injector; Subcutaneous (Inject under the skin) 2 mg once a week. HEMOGLOBIN A1C; Future BASIC METABOLIC PANEL; Future HEMOGLOBIN A1C BASIC METABOLIC PANEL Due for follow-up labs for diabetes. Will follow-up A1c and adjust diabetic regimen based on results. Compliant with current medications. Refill for Ozempic sent in. -Up-to-date on diabetic eye exam and microalbumin -Diabetes is managed longitudinally requires prescription management. Requires follow-up every 3 to 4 months for repeat labs and medication adjustments Spinal stenosis 03/15/2018 Overview (01/19/2025): Pain is intermittent but improved following surgery with tramadol Walks regularly. Chronic right-sided low back pain with right-kendell ed sciatica 10/22/2017 Overview (02/18/2024): Improved after surgery 03/2018. L5/S1 LAMINECTOMY WITH POSTERIOR FUSION AND ILIAC CREST BONE GRAFT Pain is intermittent but manageable. Tramadol and lyrica helps no adverse reaction. Also uses tylenol. Legal issues: none Family or personal history of substance abuse: family hx Psych hx: intermittent mood disorder Risks and benefits of chronic narcotic / stimulant treatment discussed including anorexia, insomnia, constipation, dependence, tolerance, diversion, and addiction. Treatment plan: Lowest effective dose with respect to pain, performance, behavior, and disability. CSA discussed and reviewed. Attempt to get JORDAN UDS periodically Pill counts Screening for depression 04/05/2016 Overview (10/26/2017): Depression Screening: In the past two weeks, how often have you felt down, depressed, or hopeless? None Have you felt little interest or pleasure in doing things? no Alcohol screening 04/05/2016 Overview (10/26/2017): Does not drink alcohol Screening for HIV (human immunodeficiency virus) 04/05/2016 Overview (04/05/2016): 04/05/16 Statin intolerance 12/20/2015 Overview (01/19/2025): Stable on zetia and red yeast rice DDD (degenerative disc disease), cervical 2014 Overview (05/07/2025): Stable PRN tramadol, lyrica, and NSAID's, MRI CERVICAL SPINE WO CONTRAST Jun 15, 2014 04:31:08 PM HISTORY: 723.3-[id number]-CM Alignment is normal. Marrow signal is normal. There is no fracture, subluxation, or destructive lesion. Intervertebral discs are mildly degenerative in the mid cervical spine. There is mild disc bulge present at C5-C6. There is no evidence of disc protrusion, canal stenosis, foraminal narrowing. IMPRESSION: Disc bulge at C5-C6. Otherwise normal MRI of the cervical spine. Normal cord. Normal canal. No canal stenosis or foraminal pathology. Gastroesophageal reflux disease without esophagi tis 09/24/2015 Overview (02/18/2024): Well controled no dysphagia. Denies dark stools, BPR, and hemopytsis. Stable on reglan and protonix. Continue same. EGD 2013 Yellowish plaques (cytology) Otherwise normal EGD to second part of the duodenum Fatty liver 09/24/2015 Overview (02/18/2024): Does not have cirrhosis Unable to tolerate statin Calorie restrict attempt 5398-9309 calories per day. Decrease starches like bread pasta and processed potatoes and simple sugars. Daily exercise. Vit E Poorly controlled type 2 diabetes mellitus 08/25 Overview (05/25/2025): Lab Results Component Value Date HGBA1C 7.8 (H) 09/02/2024 HGBA1C 7.3 (H) 12/05/2023 HGBA1C 10.1 (H) 07/04/2023 FSBS less than 160-220. Not compliant with diabetic diet. No open wounds. Had eye exam in 2022. No low blood sugars. Has paresthesias. Jardiance, metformin,, and ozempic. Will work on diet and exercise. Add glipizide. Follow up in 3 months. Mild intermittent asthma without complication Overview (04/12/2017): Stable on PRN albuterol, cont same Dyslipidemia 08/25/2015 Overview (02/18/2024): Statin intolerance. Recommend Red yeast rice. Stable on zetia Stable continue same. Primary osteoarthritis involving multiple joints 08/25/2015 Overview (11/24/2020): Stable on tylenol and tramadol. EAGLE (obstructive sleep apnea) Overview (05/23/2021): Not using CPAP Recommend using CPAP Resolved Problems Problem Noted Date Diagnosed Date Resolved Date Atypical syncope 03/27/2024 01/19/2025 Overview (05/05/2024): multifactorial. has vasovagal character has evidience of orthostatics has hx of narcolpsy, could be cataplexy Cardiogenic/neurogenic workup negative so far. Has EAGLE but unable to tolerate PAP. Symptoms improved with change in provigil dose and addition of Effexor. Scheduled to see sleep medicine. Multiple closed fractures of ribs of left side 11/17/2023 02/18/2024 Urinary retention 11/17/2023 02/18/2024 Fall, initial encounter 11/09/2023 04/06/2024 Diabetic ketoacidosis withou t coma associated with type 2 diabetes mellitus 06/23/2023 02/18/2024 Urinary tract infection with out hematuria, site unspecified 06/22/2023 12/05/2023 Sepsis without acute organ dysfunction 01/30/2023 04/18/2023 Pneumonia of right lower lob e due to infectious organism 01/29/2023 02/08/2023 Adverse effect of antihyperl ipidemic and antiarteriosclerotic drugs, initial encounter 12/13/2022 05/07/2025 Open fracture of left wrist 11/26/2019 11/24/2020 Overview (12/04/2019): S/p ORIF, doing PT. 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 Thyroid nodule 05/29/2018 12/04/2019 Bereavement reaction 03/20/2018 020 Overview (07/04/2018): Improved on zoloft. Continue the same. Right foot pain 10/26/2017 05/06/2018 Overview (10/26/2017): Fell 2 days ago. Twisted her right foot and ankle. Has swelling and pain over 4- 5 metatarsals. Ice, immobilize, xrays. Given air splint surround gel Ankle Reg 10 Ref# [id number] History of cervical dysplasia 09/24/2015 02/18/2024 Overview (02/18/2024): S/p colposcopy, last PAP 01/2019 shira sullivan. Now aged out. DDD (degenerative disc disease), lumbar 09/24/2015 02/13/2018 Overview (04/12/2017): PRN NSAID's, tramadol, and PT. Has had increased pain recently, no new activity or injury. Pain does not radiate to legs. Denies incontinence. Has done PT in the past with some benefit. Will try PT if not helpful will recheck MRI. MRI lumbosacral spine, 06/12/2012 history: Spasms extending into the left leg. Pinched nerve. There may be a transitional vertebra present. The most inferiorly positioned L5 vertebral body is referred to as S1 because of its orientation. The images and levels are annotated. Direct review of the images suggested prior to any intervention. Given this nomenclature, there is a spondylolisthesis present at L5-S1. This measures approximately 4 mm in the neutral supine position. Flexion-extension views may add further information. This appears to relate to advanced facet joint osteoarthritis, which is present at this level. The combination of processes of facet joint osteoarthritis, spondylolisthesis and broad-based subligamentous disc protrusion which does extend into the foramina, results in moderately severe spinal stenosis at L5-S1. There is narrowing of the left foramen that is mild to moderate and narrowing of the right foramen that is moderate. The subligamentous disc protrusion is broad-based and mild but does extend into the right foramen and is the primary cause of the right foraminal narrowing. At L4-L5, a broad-based subligamentous disc protrusion is noted. There is mild mass effect on the thecal sac. There is mild extension into the right foramen with a probable annular tear. There is no significant canal stenosis at this level. At L3-L4, L2-L3 and L1-L2 levels, no obvious abnormalities are seen. Impression: Possible transitional vertebra. There appears to be partial lumbarization of S1. Please see images, as the levels are annotated. Image review recommended if spinal injection or surgery planned. Given this nomenclature, there are subligamentous disc protrusions noted at L4- L5 and L5-S1. In addition, at L5-S1, there is advanced facet joint osteoarthritis and spondylolisthesis, which results in spinal stenosis that is moderately severe. The foramina are narrowed but most prominently narrowed at L5-S1 on the right. Diabetic polyneuropathy asso ciated with type 2 diabetes mellitus 09/24/2015 02/18/2024 Overview (02/18/2024): Intermittent controled with lyrica and tramadol prn. No adverse effects. Legal issues: none Family or personal history of substance abuse: family hx Psych hx: intermittent mood disorder Risks and benefits of chronic narcotic / stimulant treatment discussed including anorexia, insomnia, constipation, dependence, tolerance, diversion, and addiction. Treatment plan: Lowest effective dose with respect to pain, performance, behavior, and disability. CSA discussed and reviewed. Attempt to get JORDAN UDS periodically Pill counts Polyneuropathy 05/26/2015 02/18/2024 Overview (12/05/2023): Improved pain control on tramadol and lyrica. No adverse effects. Legal issues: none Family or personal history of substance abuse: none Psych hx: depression and anxiety. Risks and benefits of chronic narcotic / stimulant treatment discussed including anorexia, insomnia, constipation, dependence, tolerance, diversion, and addiction. Treatment plan: Lowest effective dose with respect to pain, performance, behavior, and disability. CSA discussed and reviewed. Attempt to get JORDAN UDS periodically Pill counts Arm mass 05/15/2015 08/25/2015 Overview (08/25/2015): S/p removal Benign lipoma Elevated liver function tests 12/06/2011 09/24/2015 Overview (08/25/2015): Resolved, related to statin use and fatty liver disease. Has seen GI. Folliculitis 11/16/2011 08/25/2015 Rash 11/16/2011 08/25/2015 Anemia 11/16/2011 08/25/2015 Overview (08/25/2015): Resoled, plan stop iron Venous insufficiency 015 Carpal tunnel syndrome 08/25 Arthropathy of shoulder region 08/25/2015 Immunizations Immunization Administration Dates Next Due Hepatitis B, Adult 11/22/2020,07/21/2020, 020 Influenza High Dose 08/16/2024 Influenza Nasal, Unspecified Formulation 07/18/2023 Influenza Patient Reported 08/19/2019 Influenza Vaccine Quadrivalent 09/24/2015,2013 Influenza Vaccine Quadrivalent PF 10/26/2021,08/2017,08/10/2016 Influenza Vaccine, Unspecifi ed Formulation 10/26/2021,10/30/2020,08/19/2019,08/28,11/16/2011 Influenza Virus Vaccine Quad rivalant, Flublok 10/30/2020 Influenza, Injectable, MDCK, PF, Quadrivalent 07/18/2023,08/28/2018 Pfizer SARS-CoV-2 Vaccine 12 + Yrs (Purple Cap) 10/26/2021,02/16/2021,01/26/2021 Pfizer SARS-CoV-2 Vaccine Tr is-sucrose 12+ Yrs 08/16/2024 Pneumococcal Conjugate Vacci ne 13 Valent 08/19/2019 Pneumococcal Conjugate Vacci ne 20 Valent 12/05/2023 Pneumococcal Polysaccharide 23 Valent 03/21/2010 RSV Bilvalent PF (Abrysvo) 10/28/2024 TST,Unspecified Formulation 11/18/2023, 8,03/19/2018 Td, Unspecified Formulation 10/26/2017 Tdap 03/20/2022,10/26/2017,11/12/2005 Zoster 08/12/2015 Zoster Recombinant 10/30/2020,11/07/2018 Family History Medical History Relation Name Comments Arthritis Brother 1 Diabetes Brother 1 High Blood Pressure Brother 1 Learning Disabilities Brother 1 Stroke Brother 1 Early Brother 2 Hearing Loss Brother 2 High Blood Pressure Brother 2 Learning Disabilities Brother 2 High Blood Pressure Brother 3 Learning Disabilities Brother 3 High Blood Pressure Brother 4 Arthritis Sister 1 Developmental Disability Sister 1 Diabetes Sister 1 Heart Disease Sister 1 High Blood Pressure Sister 1 Learning Disabilities Sister 1 Mental Illness Sister 1 Arthritis Sister 2 Diabetes Sister 2 Heart Disease Sister 2 High Blood Pressure Sister 2 Learning Disabilities Sister 2 Arthritis Sister 3 Diabetes Sister 3 Heart Disease Sister 3 High Blood Pressure Sister 3 Learning Disabilities Sister 3 Arthritis Sister 4 Diabetes Sister 4 Heart Disease Sister 4 High Blood Pressure Sister 4 Asthma Sister 5 Diabetes Sister 5 Heart Disease Sister 5 High Blood Pressure Sister 5 Asthma Sister 6 Diabetes Sister 6 Heart Disease Sister 6 High Blood Pressure Sister 6 Substance Abuse Sister 7 Diabetes Sister 8 Heart Disease Sister 8 High Blood Pressure Sister 8 Relation Name Status Comments Brother 1 Alive Brother 2 Alive Brother 3 Alive Brother 4 Alive Father Mother Sister 1 Alive Sister 2 Alive Sister 3 Alive Sister 4 Alive Sister 5 Alive Sister 6 Alive Sister 7 Alive Sister 8 Social History Smoking Status as of 08/22/2025 Tobacco Use Types Packs/Day Years Used Date Smoking Tobacco: Never Assessed [facility] Utilities Answer Date Recorded In the past 12 months has e electric, gas, oil, or water company threatened to shut off services in your home? No 11/13/2023 Overall Financial Resource Strain (CARDIA) Answe r Date Recorded How hard is it for you to pa y for the very basics like food, housing, medical care, and heating? Not hard at all 11/13/2023 PHQ-2 Answer Date Recorded PHQ-2 Total Score 0 02/18/2024 [facility] - Occupational Stress [...] things needed for daily living? No 11/13/2023 [facility] H[facility]N [facility] IP Transportation Answer D ate Recorded In the past 12 months, has l ack of reliable transportation kept you from medical appointments, meetings, work or from getting things needed for daily living? No 11/13/2023 Sex and Gender Information Value Date Recorded Sex Assigned at Not on file Legal Sex Female 6:55 AM EDT Gender Identity Not on file Sexual Orientation Not on file Last Filed Vital Signs Vital Sign Reading Time Taken Comments Blood Pressure 118/72 05/25/2025 10:16 AM EDT Pulse 89 05/25/2025 10:16 AM EDT Temperature 36.6 C (97.9 F) 05/25/2025 10:16 AM EDT Respiratory Rate 20 05/25/2025 10:16 AM EDT Oxygen Saturation 98% 05/25/2025 10:16 AM EDT Inhaled Oxygen Concentration - - Weight 56.7 kg (125 lb) 05/25/2025 10:16 AM EDT Height 160 cm (5' 3 ) 05/07/2025 9:09 AM EDT Body Mass Index 22.14 05/07/2025 9:09 AM EDT Plan of Treatment Upcoming Encounters Date Type Department Care Team (Late st Contact Info) Description 08/25/2025 1:15 PM EDT Appointment [facility] [address] [place] [id number] [address] [place] [address] 08/25/2025 1:30 PM EDT Appointment [facility] [address] [id number] Jesu Galvin MD [address] [place] [address] Medical Devices Implanted Type Area Assistant Professor Of Radiology Device Identifier Shelf Expiration Date Model / Serial / Lot Putty I-Factor 2.5cc Syringe - [id number] Implanted:Qty : 1 on 03/14/2018 by Zachery Mccoy MD at [facility]: Spine Lumbar [employer] 01/09/2021 [id number] / / [id number] Bone Cancellous Chips 5cc - [id number] Implanted:Qty : 1 on 03/14/2018 by Zachery Mccoy MD at [facility]: Spine Lumbar UNKNOWN 11/08/2022 [id number] / / [id number] Screw Poly 6.5 X 40mm - [id number] Implanted:Qty : 3 on 03/14/2018 by Zachery Mccoy MD at [facility]: Spine Lumbar [employer]:SOFAM OR DANEK [id number] / / Screw Poly 7.5 X 40mm - [id number] Implanted:Qty : 1 on 03/14/2018 by Zachery Mccoy MD at [facility]: Spine Lumbar [employer]:SOFAM OR DANEK [id number] / / Screw Poly 6.5x35mm - [id number] Implanted:Qty : 1 on 03/14/2018 by Zachery Mccoy MD at [facility]: Spine Lumbar [employer]:SOFAM OR DANEK [id number] / / Screw 7.5mm X 35mm - [id number] Implanted:Qty : 1 on 03/14/2018 by Zachery Mccoy MD at [facility] N/A: Spine Lumbar [employer]:SOFAM OR DANEK [id number] /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 01/30/2023 5:57 AM EDT PROCALCITONIN Routine 01/30/2023 5:57 AM EDT ECG AND WAVEFORMS - TELEMETRY Routine 01/30/2023 12:00 AM EDT GLUCOSE METER POC Routine 01/29/2023 11:28 PM EDT TROPONIN-T HIGH SENSITIVITY 2HR Timed 01/29/2023 10:47 PM EDT BLOOD CULTURE (NO STAIN) STAT 01/29/2023 10:47 PM EDT BLOOD CULTURE (NO STAIN) STAT 01/29/2023 10:47 PM EDT ADMIT STAT 01/29/2023 10:27 PM EDT XR CHEST AP PORTABLE BETTINA 01/29/2023 9:48 PM EDT URINALYSIS REFLEX Routine 01/29/2023 9:37 PM EDT UA W/REFLEX TO CULTURE Routine 9:37 PM EDT URINE CULTURE (NO STAIN) Routine 01/29/2023 9:37 PM EDT EXTRA BRADSHAW URINE CX Routine 01/29/2023 9:37 PM EDT [id number] A/B Routine 01/29/2023 9:37 PM EDT GLUCOSE METER POC Routine 01/29/2023 8:34 PM EDT SALINE LOCK IV Routine 01/29/2023 8:30 PM EDT TROPONIN-T HIGH SENSITIVITY BASELINE W/ REFLEX STAT 01/29/2023 8:30 PM EDT EXTRA LIGHT BLUE STAT 01/29/2023 8:30 PM EDT BLOOD GAS, VENOUS STAT 01/29/2023 8:30 PM EDT LACTIC ACID STAT 01/29/2023 8:30 PM EDT BASIC METABOLIC PANEL STAT 01/29/2023 8:30 PM EDT CBC WITH DIFF STAT 01/29/2023 8:30 PM EDT EK EKG 12 LEAD STAT 01/29/2023 8:00 PM EDT POCT KAY SARS ANTIGEN Routine 01/29/2023 5:21 PM EDT Acute cough POCT KAY INFLUENZA A/B Routine 01/29/2023 4:12 PM EDT Pneumonia of right lower lobe due to infectious organism COMPLIANCE PANEL, URINE Routine 01/15/2023 11:39 AM EST Polyneuropathy (HCC) Primary osteoarthritis involving multiple joints Spinal stenosis of lumbar region with neurogenic claudication Encounter for long-term current use of high risk medication THYROID STIMULATING HORMONE Routine 01/15/2023 10:59 AM EST Chronic fatigue VITAMIN B12 LEVEL Routine 01/15/2023 10:59 AM EST Chronic fatigue LIPID PANEL REFLEX Routine 01/15/2023 10:59 AM EST Poorly controlled type 2 diabetes mellitus (HCC) CBC WITH DIFF Routine 01/15/2023 10:59 AM EST Chronic fatigue VITAMIN D 25 HYDROXY Routine 01/15/2023 10:59 AM EST Vitamin D deficiency COMPREHENSIVE METABOLIC PANEL Routine 01/15/2023 10:59 AM EST Poorly controlled type 2 diabetes mellitus (HCC) HEMOGLOBIN A1C Routine 01/15/2023 10:59 AM EST Poorly controlled type 2 diabetes mellitus (HCC) POCT URINE MICROALBUMIN Routine 08/08/2022 11:26 AM EDT DX BONE DENSITY AXIAL SKELETON Routine 05/09/2022 9:10 AM EDT Postmenopausal Screening for osteoporosis SET ILLUSTRATOR CYTOLOGY REQUEST (PAP ONLY) Routine 05/03/2022 3:48 PM EDT Encounter for routine gynecological examination with Papanicolaou smear of cervix [facility] SET ILLUSTRATOR CYTOLOGY ORDER Routine 3:48 PM EDT Encounter for routine gynecological examination with Papanicolaou smear of cervix IRIS DIABETIC RETINOPATHY EXAM Routine 05/03/2022 3:21 PM EDT Type 2 diabetes mellitus with peripheral neuropathy (HCC) SET ILLUSTRATOR CYTOLOGY REQUEST (PAP ONLY) Routine 03/29/2022 2:28 PM EDT Cervical cancer screening [facility] SET ILLUSTRATOR CYTOLOGY ORDER Routine 2:28 PM EDT Cervical cancer screening VITAMIN D 25 HYDROXY Routine 03/20/2022 8:48 AM EDT Vitamin D deficiency COMPREHENSIVE METABOLIC PANEL Routine 03/20/2022 8:48 AM EDT Poorly controlled type 2 diabetes mellitus (HCC) HEMOGLOBIN A1C Routine 03/20/2022 8:48 AM EDT Poorly controlled type 2 diabetes mellitus (HCC) SEP URINALYSIS POC Routine 03/06/2022 4:39 PM EDT Dysuria POCT KAY SARS ANTIGEN Routine 12/05/2021 12:07 PM EST Cough POCT INFLUENZA A/B Routine 12/05/2021 12:07 PM EST Cough VITAMIN B12 LEVEL Routine 12/05/2021 12:03 PM EST Tinnitus of right ear LIPID PANEL REFLEX Routine 12/05/2021 12:03 PM EST Dyslipidemia HEMOGLOBIN A1C Routine 12/05/2021 12:03 PM EST Poorly controlled type 2 diabetes mellitus (HCC) COMPREHENSIVE METABOLIC PANEL Routine 12/05/2021 12:03 PM EST Poorly controlled type 2 diabetes mellitus (HCC) POCT URINE MICROALBUMIN Routine 10/19/2021 12:02 PM EST Poorly controlled type 2 diabetes mellitus (HCC) URINE CULTURE (NO STAIN) Routine 09/26/2021 3:26 PM EST UTI (urinary tract infection), uncomplicated SEP URINALYSIS POC Routine 09/26/2021 3:18 PM EST UTI (urinary tract infection), uncomplicated COLOGUARD Routine 08/04/2021 8:30 AM EDT Colon cancer screening POCT KAY SARS ANTIGEN Routine 07/28/2021 3:38 PM EDT Cough MM MAMMO DIGITAL NED SCREEN BILAT Routine 06/02/2021 2:44 PM EDT Encounter for screening mammogram for malignant neoplasm of breast COMPLIANCE PANEL, URINE Routine 05/23/2021 3:55 PM EDT Poorly controlled type 2 diabetes mellitus (HCC) Chronic right-sided low back pain with right-sided sciatica Encounter for long-term current use of high risk medication URINE CULTURE (NO STAIN) Routine 05/23/2021 3:55 PM EDT UTI (urinary tract infection), uncomplicated SEP URINALYSIS POC Routine 05/23/2021 3:18 PM EDT UTI (urinary tract infection), uncomplicated CORONAVIRUS 2019 Routine 04/15/2021 8:13 AM EDT Immunity status testing HEMOGLOBIN A1C Routine 04/15/2021 8:02 AM EDT Poorly controlled type 2 diabetes mellitus (HCC) LIPID PANEL REFLEX Routine 04/15/2021 8:02 AM EDT Dyslipidemia COMPREHENSIVE METABOLIC PANEL Routine 04/15/2021 8:02 AM EDT Poorly controlled type 2 diabetes mellitus (HCC) VITAMIN D 25 HYDROXY Routine 04/15/2021 8:02 AM EDT Vitamin D deficiency URINE CULTURE (NO STAIN) Routine 03/11/2021 11:19 AM EDT Acute lower UTI SEP URINALYSIS POC Routine 03/11/2021 11:15 AM EDT Dysuria COMPLIANCE PANEL, URINE Routine 02/24/2021 3:17 PM EDT Diabetic polyneuropathy associated with type 2 diabetes mellitus (HCC) Encounter for long-term current use of high risk medication POCT BLADDER SCAN Routine 01/11/2021 10:47 AM EST Incomplete bladder emptying Urinary urgency Urge urinary incontinence ANITA (stress urinary incontinence, female) SEP URINALYSIS POC Routine 01/11/2021 10:45 AM EST Urinary urgency Urge urinary incontinence ANITA (stress urinary incontinence, female) POCT GLYCATED HEMOGLOBIN, TOTAL Routine 11/22/2020 3:10 PM EST Poorly controlled diabetes mellitus (HCC) SEP URINALYSIS POC Routine 10/28/2020 2:13 PM EST History of UTI US RENAL AND BLADDER Routine 09/27/2020 2:33 PM EST Recurrent UTI (urinary tract infection) URINE CULTURE (NO STAIN) Routine 09/23/2020 4:29 PM EST Recurrent UTI (urinary tract infection) POCT URINE MICROALBUMIN Routine 09/23/2020 11:09 AM EST Recurrent UTI (urinary tract infection) SEP URINALYSIS POC Routine 09/23/2020 10:39 AM EST Recurrent UTI (urinary tract infection) POCT KAY SARS ANTIGEN Routine 09/13/2020 5:08 PM EST Cough URINALYSIS Routine 08/26/2020 2:35 PM EDT Frequent UTI URINE CULTURE (NO STAIN) Routine 08/26/2020 2:35 PM EDT Frequent UTI SEP URINALYSIS POC Routine 08/26/2020 10:15 AM EDT Urinary urgency Urge urinary incontinence ANITA (stress urinary incontinence, female) Frequent UTI URINE CULTURE (NO STAIN) Routine 07/21/2020 2:45 PM EDT Burning with urination SEP URINALYSIS POC Routine 07/21/2020 2:32 PM EDT Burning with urination HM FIT Routine 07/07/2020 URINE CULTURE (NO STAIN) Routine 05/19/2020 5:04 PM EDT Urinary incontinence, unspecified type SEP URINALYSIS POC Routine 05/19/2020 3:14 PM EDT Urinary incontinence, unspecified type MM MAMMO DIGITAL SCREENING W CAD BILAT Routine 05/18/2020 12:58 PM EDT Visit for screening mammogram Family history of breast cancer LIPID PANEL REFLEX Routine 03/30/2020 8:39 AM EDT Poorly controlled type 2 diabetes mellitus (HCC) Dyslipidemia HEMOGLOBIN A1C Routine 03/30/2020 8:39 AM EDT Poorly controlled type 2 diabetes mellitus (HCC) COMPREHENSIVE METABOLIC PANEL Routine 03/30/2020 8:39 AM EDT Poorly controlled type 2 diabetes mellitus (HCC) POCT URINALYSIS DIPSTICK Routine 03/29/2020 4:55 PM EDT Dysuria URINE CULTURE (NO STAIN) Routine 03/29/2020 3:44 PM EDT Dysuria HB-1 CUSTOM UDS PANEL-QUEST Routine 12/04/2019 3:22 PM EST Type 2 diabetes mellitus with peripheral neuropathy (HCC) Encounter for long-term current use of high risk medication HEPATITIS B SURFACE ANTIBODY Routine 12/04/2019 10:41 AM EST Type 2 diabetes mellitus without complication, unspecified whether longterm insulin use (HCC) TSH REFLEX TO FT4 Routine 12/04/2019 10:41 AM EST Type 2 diabetes mellitus without complication, unspecified whether clay miner insulin use (HCC) VITAMIN B12/ FOLIC ACID Routine 12/04/2019 10:41 AM EST Anemia, unspecified type IRON/UIBC Routine 12/04/2019 10:41 AM EST Anemia, unspecified type CBC WITH DIFF Routine 12/04/2019 10:41 AM EST Anemia, unspecified type VITAMIN D 25 HYDROXY Routine 12/04/2019 10:41 AM EST Vitamin D deficiency MICROALBUMIN/CREATININ E RATIO URINE Routine 12/04/2019 10:41 AM EST Type 2 diabetes mellitus without complication, unspecified whether clay miner insulin use (HCC) HEMOGLOBIN A1C Routine 12/04/2019 10:41 AM EST Type 2 diabetes mellitus without complication, unspecified whether longterm insulin use (HCC) LIPID PANEL REFLEX Routine 12/04/2019 10:41 AM EST Dyslipidemia COMPREHENSIVE METABOLIC PANEL Routine 12/04/2019 10:41 AM EST Type 2 diabetes mellitus without complication, unspecified whether longterm insulin use (HCC) IRIS DIABETIC RETINOPATHY EXAM Routine 12/04/2019 10:29 AM EST Type 2 diabetes mellitus without complication, unspecified whether longterm insulin use (HCC) SET ILLUSTRATOR CYTOLOGY REQUEST (PAP ONLY) Routine 06/24/2019 4:32 PM EDT Abnormal cytological finding in specimen from cervix uteri Well woman exam with routine gynecological exam [facility] SET ILLUSTRATOR CYTOLOGY ORDER Routine 9 4:32 PM EDT Abnormal cytological finding in specimen from cervix uteri Well woman exam with routine gynecological exam MM MAMMO DIGITAL SCREENING W CAD BILAT Routine 04/15/2019 11:51 AM EDT Visit for screening mammogram XR CHEST PA AND LATERAL Routine 03/13/2019 12:15 PM EDT Acute bronchitis, unspecified organism HB-1 CUSTOM UDS PANEL-QUEST Routine 01/01/2019 10:05 PM EST High risk medications (not anticoagulants) long-term use MICROALBUMIN/CREATININ E RATIO URINE Routine 09/12/2018 4:04 PM EDT Well controlled diabetes mellitus (HCC) COMPREHENSIVE METABOLIC PANEL Routine 09/12/2018 10:20 AM EDT Well controlled diabetes mellitus (HCC) LIPID SCREEN Routine 09/12/2018 10:20 AM EDT Dyslipidemia HEMOGLOBIN A1C Routine 09/12/2018 10:20 AM EDT Well controlled diabetes mellitus (HCC) US THYROID Routine 05/28/2018 1:45 PM EDT Thyroid nodule TSH REFLEX TO FT4 Routine 05/22/2018 2:07 PM EDT Thyroid nodule TROPONIN-T STAT 03/29/2018 11:08 AM EDT BASIC METABOLIC PANEL STAT 03/29/2018 11:08 AM EDT CBC WITH DIFF STAT 03/29/2018 11:08 AM EDT URINALYSIS STAT 03/29/2018 10:51 AM EDT EXTRA BRADSHAW URINE CX STAT 03/29/2018 10:51 AM EDT EK EKG 12 LEAD STAT 03/29/2018 10:14 AM EDT SCANNED RHYTHM STRIPS 03/20/2018 9:50 PM EDT GLUCOSE METER POC Routine 03/19/2018 7:54 AM EDT GLUCOSE METER POC Routine 03/19/2018 7:14 AM EDT GLUCOSE METER POC Routine 03/18/2018 10:19 PM EDT GLUCOSE METER POC Routine 03/18/2018 5:00 PM EDT GLUCOSE METER POC Routine 03/18/2018 11:26 AM EDT GLUCOSE METER POC Routine 03/18/2018 7:37 AM EDT GLUCOSE METER POC Routine 03/17/2018 8:27 PM EDT GLUCOSE METER POC Routine 03/17/2018 4:23 PM EDT GLUCOSE METER POC Routine 03/17/2018 11:15 AM EDT GLUCOSE METER POC Routine 03/17/2018 7:11 AM EDT GLUCOSE METER POC Routine 03/16/2018 9:56 PM EDT GLUCOSE METER POC Routine 03/16/2018 4:16 PM EDT GLUCOSE METER POC Routine 03/16/2018 11:17 AM EDT GLUCOSE METER POC Routine 03/16/2018 9:39 AM EDT GLUCOSE METER POC Routine 03/16/2018 7:30 AM EDT GLUCOSE METER POC Routine 03/15/2018 8:24 PM EDT GLUCOSE METER POC Routine 03/15/2018 4:54 PM EDT GLUCOSE METER POC Routine 03/15/2018 10:58 AM EDT GLUCOSE METER POC Routine 03/15/2018 7:58 AM EDT GLUCOSE METER POC Routine 03/14/2018 10:55 PM EDT GLUCOSE METER POC Routine 03/14/2018 4:34 PM EDT GLUCOSE METER POC Routine 03/14/2018 1:17 PM EDT GLUCOSE METER POC Routine 03/14/2018 12:28 PM EDT FL LUMBAR O-ARM BETTINA 03/14/2018 11:53 AM EDT INTRAOP AIRWAY PLACEMENT Routine 03/14/2018 9:33 AM EDT ILIAC CREST BONE GRAFT 8 7:28 AM EDT Spinal stenosis, lumbar region with neurogenic claudication Spondylolisthesis, lumbar region Special Needs MEDTRONIC PEDICLE SCREWSBMP/O'ARM & STEALTHINTERBODY CAGEMEDTRONICJACKSON WITH WILSONJACKSON WITH PADSASSIST/FLUORORep Megan and Valentín notified-DT/EM POSTERIOR LUMBAR INTERBODY FUSION (PLIF) 03/14/2018 7:28 AM EDT Spinal stenosis, lumbar region with neurogenic claudication Spondylolisthesis, lumbar region Special Needs MEDTRONIC PEDICLE SCREWSBMP/O'ARM & STEALTHINTERBODY CAGEMEDTRONICJACKSON WITH WILSONJACKSON WITH PADSASSIST/FLUORORep Megan and Valentín notified-DT/EM GLUCOSE METER POC Routine 03/14/2018 6:01 AM EDT BB HISTORY CHECK Routine 03/06/2018 12:12 PM EDT Preop testing SURGERY DATE Routine 03/06/2018 12:12 PM EDT Preop testing ANTIBODY SCREEN IGG Routine 03/06/2018 12:12 PM EDT Preop testing ABORH Routine 03/06/2018 12:12 PM EDT Preop testing PREADMISSION TYPE AND SCREEN Routine 03/06/2018 12:12 PM EDT Preop testing VITAMIN D 25 HYDROXY Routine 03/06/2018 12:12 PM EDT Vitamin D deficiency CBC WITH DIFF Routine 03/06/2018 12:12 PM EDT Preop testing DDD (degenerative disc disease), cervical STAPHYLOCOCCUS AUREUS SCREEN Routine 03/06/2018 12:12 PM EDT HEMOGLOBIN A1C Routine 02/28/2018 10:29 AM EDT Poorly controlled diabetes mellitus (HCC) LIPID PANEL REFLEX Routine 02/28/2018 10:29 AM EDT Dyslipidemia COMPREHENSIVE METABOLIC PANEL Routine 02/28/2018 10:29 AM EDT Dyslipidemia POCT EKG Routine 02/28/2018 10:08 AM EDT Pre-op examination SCANNED RADIOLOGY REPORT 10/30/2017 11:08 AM EST HB-1 CUSTOM UDS PANEL-QUEST Routine 10/26/2017 3:03 PM EST Polyneuropathy (HCC) Primary osteoarthritis involving multiple joints DDD (degenerative disc disease), cervical DDD (degenerative disc disease), lumbar Encounter for long-term current use of high risk medication MICROALBUMIN/CREATININ E RATIO URINE Routine 10/26/2017 10:45 AM EST Poorly controlled diabetes mellitus (HCC) POCT URINALYSIS DIPSTICK Routine 10/26/2017 10:44 AM EST Dysuria HEMOGLOBIN A1C Routine 10/26/2017 10:24 AM EST Poorly controlled diabetes mellitus (HCC) LIPID PANEL REFLEX Routine 10/26/2017 10:24 AM EST Dyslipidemia COMPREHENSIVE METABOLIC PANEL Routine 10/26/2017 10:24 AM EST Poorly controlled diabetes mellitus (HCC) LDL DIRECT Routine 04/12/2017 9:35 AM EDT LIPID PANEL REFLEX Routine 04/12/2017 9:35 AM EDT Dyslipidemia HEMOGLOBIN A1C Routine 04/12/2017 9:35 AM EDT Diabetic polyneuropathy associated with type 2 diabetes mellitus (HCC) Polyneuropathy COMPREHENSIVE METABOLIC PANEL Routine 04/12/2017 9:35 AM EDT Diabetic polyneuropathy associated with type 2 diabetes mellitus (HCC) POCT URINALYSIS DIPSTICK Routine 03/12/2017 5:20 PM EDT Flank pain DIABETIC RETINAL EXAM Routine 01/09/2017 6:50 PM EST LDL, CALCULATED Routine 12/01/2016 11:28 AM EST LIPID PANEL REFLEX Routine 12/01/2016 11:28 AM EST Well controlled type 2 diabetes mellitus (HCC) COMPREHENSIVE METABOLIC PANEL Routine 12/01/2016 11:28 AM EST Well controlled type 2 diabetes mellitus (HCC) HEMOGLOBIN A1C Routine 12/01/2016 11:28 AM EST Well controlled type 2 diabetes mellitus (HCC) MICROALBUMIN/CREATININ E RATIO URINE Routine 12/01/2016 11:28 AM EST Well controlled type 2 diabetes mellitus (HCC) DIABETIC RETINAL EXAM Routine 06/27/2016 10:24 PM EDT LDL, CALCULATED Routine 04/05/2016 10:29 AM EDT MICROALBUMIN/CREATININ E RATIO URINE Routine 04/05/2016 10:29 AM EDT Well controlled type 2 diabetes mellitus (HCC) LIPID PANEL REFLEX Routine 04/05/2016 10:29 AM EDT Dyslipidemia COMPREHENSIVE METABOLIC PANEL Routine 04/05/2016 10:29 AM EDT Dyslipidemia HEMOGLOBIN A1C Routine 04/05/2016 10:29 AM EDT Well controlled type 2 diabetes mellitus (HCC) HEPATITIS C ANTIBODY IGM + IGG Routine 04/05/2016 10:29 AM EDT Need for hepatitis C screening test HIV AG/AB Routine 04/05/2016 10:29 AM EDT Screening for HIV (human immunodeficiency virus) XR CHEST PA AND LATERAL Routine 12/20/2015 11:12 AM EST Cough POCT ALERE I INFLUENZA Routine 6 12:10 PM EST Cough LDL, CALCULATED Routine 09/24/2015 4:49 PM EST LIPID PANEL REFLEX Routine 09/24/2015 4:49 PM EST Dyslipidemia HEMOGLOBIN A1C Routine 09/24/2015 4:49 PM EST Poorly controlled type 2 diabetes mellitus (HCC) COMPREHENSIVE METABOLIC PANEL Routine 09/24/2015 4:49 PM EST Dyslipidemia PATHOLOGY TISSUE REPORT Routine 06/15/2015 11:13 AM EDT GLUCOSE METER POC Routine 06/15/2015 10:54 AM EDT EXCISION OF MASS OR SKIN LESION 06/15/2015 10:13 AM EDT Localized superficial swelling, mass, or lump Special Needs NABOR CPT;[id number]; DATE CHG FROM 06/01 TO 06/15 PER NABOR RP 05/20 GLUCOSE METER POC Routine 06/15/2015 8:48 AM EDT BASIC METABOLIC PANEL Routine 06/11/2015 2:09 PM EDT Cramp of both lower extremities LIPID SCREEN Routine 06/11/2015 2:09 PM EDT HLD (hyperlipidemia) FRUCTOSAMINE -REF LAB Routine 06/11/2015 2:09 PM EDT Type 2 diabetes mellitus with other specified complication (HCC) POCT EKG Routine 06/11/2015 1:50 PM EDT Type 2 diabetes mellitus with other specified complication (HCC) HLD (hyperlipidemia) Pre-op evaluation MM MAMMO DIGITAL SCREENING W CAD BILAT Routine 04/20/2015 10:11 AM EDT Other screening mammogram US RIGHT UPPER QUADRANT Routine 04/20/2015 9:32 AM EDT Nausea and vomiting Epigastric pain DIFFERENTIAL Routine 04/20/2015 9:10 AM EDT HEMOGLOBIN A1C Routine 04/20/2015 9:10 AM EDT Diabetes mellitus type 2 with neurological manifestations (HCC) LIPASE LEVEL Routine 04/20/2015 9:10 AM EDT Nausea and vomiting Epigastric pain HEPATIC FUNCTION PANEL Routine 5 9:10 AM EDT Nausea and vomiting Other constipation Epigastric pain CBC WITH DIFF Routine 04/20/2015 9:10 AM EDT Nausea and vomiting Other constipation Epigastric pain BASIC METABOLIC PANEL Routine 04/20/2015 9:10 AM EDT Nausea and vomiting Other constipation Epigastric pain HB-1 CUSTOM UDS PANEL-QUEST Routine 04/07/2015 9:02 PM EDT Encounter for long-term (current) use of other medications MICROALBUMIN/CREATININ E RATIO URINE Routine 04/07/2015 3:52 PM EDT Diabetes mellitus type 2 with neurological manifestations (HCC) SET ILLUSTRATOR CYTOLOGY REPORT Routine 02/09/2015 10:18 PM EDT LDL, CALCULATED Routine 02/09/2015 2:53 PM EDT DIFFERENTIAL Routine 02/09/2015 2:53 PM EDT HEMOGLOBIN A1C Routine 02/09/2015 2:53 PM EDT DM w/o complication type II CBC WITH DIFF Routine 02/09/2015 2:53 PM EDT Anemia LIPID PANEL REFLEX Routine 02/09/2015 2:53 PM EDT Dyslipidemia HEPATIC FUNCTION PANEL Routine 5 2:53 PM EDT Dyslipidemia BASIC METABOLIC PANEL Routine 02/09/2015 2:53 PM EDT Dyslipidemia SCANNED RADIOLOGY REPORT 01/21/2015 9:00 AM EDT LDL, CALCULATED Routine 09/09/2014 10:13 AM EDT HEMOGLOBIN A1C Routine 09/09/2014 10:13 AM EDT DM w/o complication type II Other screening mammogram Diabetes mellitus (HCC) Anemia Dyslipidemia GERD (gastroesophageal reflux disease) Neck pain LIPID PANEL REFLEX Routine 09/09/2014 10:13 AM EDT Dyslipidemia Other screening mammogram Diabetes mellitus (HCC) Anemia DM w/o complication type II GERD (gastroesophageal reflux disease) Neck pain HEPATIC FUNCTION PANEL Routine 4 10:13 AM EDT Dyslipidemia Other screening mammogram Diabetes mellitus (HCC) Anemia DM w/o complication type II GERD (gastroesophageal reflux disease) Neck pain BASIC METABOLIC PANEL Routine 09/09/2014 10:13 AM EDT DM w/o complication type II Other screening mammogram Diabetes mellitus (HCC) Anemia Dyslipidemia GERD (gastroesophageal reflux disease) Neck pain MRI CERVICAL SPINE WO CONTRAST Routine 06/15/2014 4:31 PM EDT Neck pain LDL DIRECT Routine 06/01/2014 11:00 AM EDT DIFFERENTIAL Routine 06/01/2014 11:00 AM EDT MICROALBUMIN/CREATININ E RATIO URINE Routine 06/01/2014 11:00 AM EDT DM w/o complication type II THYROID STIMULATING HORMONE Routine 06/01/2014 11:00 AM EDT DM w/o complication type II COMPREHENSIVE METABOLIC PANEL Routine 06/01/2014 11:00 AM EDT DM w/o complication type II LIPID PANEL REFLEX Routine 06/01/2014 11:00 AM EDT DM w/o complication type II CBC WITH DIFF Routine 06/01/2014 11:00 AM EDT DM w/o complication type II HEMOGLOBIN A1C Routine 06/01/2014 11:00 AM EDT DM w/o complication type II XR CERVICAL SPINE AP LATERAL ODONTOID AND OBLIQUE BETTINA 05/22/2014 11:59 PM EDT LDL, CALCULATED Routine 02/09/2014 1:41 PM EDT LIPID PANEL REFLEX Routine 02/09/2014 1:41 PM EDT Type II or unspecified type diabetes mellitus without mention of complication, not stated as uncontrolled (HCC) Other and unspecified hyperlipidemia HEPATIC FUNCTION PANEL Routine 4 1:41 PM EDT Type II or unspecified type diabetes mellitus without mention of complication, not stated as uncontrolled (HCC) Other and unspecified hyperlipidemia BASIC METABOLIC PANEL Routine 02/09/2014 1:41 PM EDT Type II or unspecified type diabetes mellitus without mention of complication, not stated as uncontrolled (HCC) Other and unspecified hyperlipidemia HEMOGLOBIN A1C Routine 02/09/2014 1:41 PM EDT Type II or unspecified type diabetes mellitus without mention of complication, not stated as uncontrolled (HCC) Other and unspecified hyperlipidemia POCT URINALYSIS AUTOMATED Routine 02/09/2014 1:33 PM EDT Low back pain Neck pain Drowsiness PDM, HEROIN METAB,QN,W/MEDMATCH,U- QUEST Routine 02/09/2014 1:27 PM EDT PDM,METHYLPHENIDATE METAB,QN,W/MEDMATCH,U- QUEST Routine 02/09/2014 1:27 PM EDT PDM, COCAINE METAB, W/CONF,W/MEDMATCH,U-QU EST Routine 02/09/2014 1:27 PM EDT PDM,BENZODIAZEPINES W/CONF,W/MEDMATCH,U-QU EST Routine 02/09/2014 1:27 PM EDT PDM, AMPHETAMINES, W/CONF,W/MEDMATCH,U-QU EST Routine 02/09/2014 1:27 PM EDT PDM, OXYCODONE, W/CONF,W/MEDMATCH,U-QU EST Routine 02/09/2014 1:27 PM EDT PDM, OPIATES, W/CONF,W/MEDMATCH,U-QU EST Routine 02/09/2014 1:27 PM EDT PDM, METHADONE, W/CONF,W/MEDMATCH,U-QU EST Routine 02/09/2014 1:27 PM EDT PDM,MARIJUANA METAB W/CONF,W/MEDMATCH,U-QU EST Routine 02/09/2014 1:27 PM EDT SPECIMEN VALIDITY TEST PANEL-QUEST Routine 02/09/2014 1:27 PM EDT MM MAMMO DIGITAL SCREENING W CAD BILAT Routine 08/27/2013 9:42 AM EDT Other screening mammogram MICROALBUMIN/CREATININ E RATIO URINE Routine 05/21/2013 9:30 AM EDT Diabetes mellitus (HCC) THYROID STIMULATING HORMONE Routine 05/21/2013 9:30 AM EDT Diabetes mellitus (HCC) HEMOGLOBIN A1C Routine 05/21/2013 9:30 AM EDT Diabetes mellitus (HCC) BASIC METABOLIC PANEL Routine 05/21/2013 9:30 AM EDT Diabetes mellitus (HCC) SCANNED RADIOLOGY REPORT 03/10/2013 2:10 PM EDT NM MYOCARDIAL PERFUSION SPECT STRESS AND REST BETTINA 03/10/2013 11:[address] STRESS TEST EXERCISE Routine 03/10/2013 10:29 AM EDT SCANNED RHYTHM STRIPS 03/10/2013 4:49 AM EDT EK EKG 12 LEAD Routine 03/09/2013 7:23 AM EDT SCANNED RHYTHM STRIPS 03/09/2013 4:29 AM EDT EK EKG 12 LEAD STAT 03/08/2013 1:05 PM EDT IP CONSULT TO CARDIOLOGY Routine 03/08/2013 9:39 AM EDT Procedure Note - Pramod Jolly MD - 03/09/2013 2:52 PM EDTThis note is in progress. [facility] [place] [facility] Cardiology Consultation ADMISSION: 03/09/2013 PATIENT: Lindy Bunch [id number] PCP: Jesu Galvin MD I would like to thank Idris Melgar Jr., MD for requesting me to seeyour Lindy Bunch in consultation for chest pain. Normal cors 2009. Severe GERD with frequent antacid use. Severe burning in chest and throat. Progressed to chest pressure No prior endoscopy. No dysphagia. No exertional chest pain. Past Medical History Past Medical History Diagnosis Date Diabetes mellitus Anemia Arthritis Asthma Carpal tunnel syndrome Screening mammogram 2009 Benign cyst Unspecified sleep apnea Heart abnormality chest pain 7 yrs ago, told she has spider veins too small to handleheart attack Hyperlipidemia Liver disease fatty liver after being on Crestor Heartburn Cervical cancer 2005 Medication No current facility-administered medications on file prior to encounter. Current Outpatient Prescriptions on File Prior to Encounter Medication Sig Dispense Refill HYDROcodone-acetaminophen (VICODIN) 5-500 mg per tablet Take 1 Tab bymouth every 6 hours as needed. meloxicam (MOBIC) 15 mg tablet Take 1 Tab by mouth daily. 90 Tab 3 glipiZIDE (GLUCOTROL) 5 mg tablet Take 1 Tab by mouth 3 times daily.270 Tab 3 gemfibrozil (LOPID) 600 mg tablet Take 1 Tab by mouth 2 times daily.180 Tab 3 traMADol (ULTRAM) 50 mg tablet Take 1 Tab by mouth every 8 hours asneeded for Pain. 90 Tab 3 Ferrous Sulfate 325 mg (65 mg iron) CpSR Take 325 mg by mouth 2 timesdaily. 180 Cap 3 cyclobenzaprine (FLEXERIL) 10 mg tablet Take 1 Tab by mouth 3 timesdaily as needed for Muscle spasms. 90 Tab 3 metFORMIN (GLUCOPHAGE) 1,000 mg Take 1,000 mg by mouth 2 times daily. desoximetasone (TOPICORT) 0.25 % Apply topically 2 times daily. 1 [id number] Scheduled Meds: nitroGLYCERIN 1 Inch Topical Q6H RODDY insulin aspart 1-10 Units Subcutaneous QID WM glipiZIDE 5 mg Oral TID WM metFORMIN 1,000 mg Oral BID WM gemfibrozil 600 mg Oral BID Continuous Infusions: Past Surgical History Past Surgical History Procedure Laterality Date Colonoscopy 2009 WNL Allergy Allergies Allergen Reactions Darvon (Propoxyphene) Blurred vision/migraine Family History Family History Problem Relation Age of Onset Arthritis Sister Diabetes Sister Heart Disease Sister High Blood Pressure Sister Learning Disabilities Sister Mental Illness Sister Mental Retardation Sister Arthritis Brother Diabetes Brother High Blood Pressure Brother Learning Disabilities Brother Stroke Brother Arthritis Sister Diabetes Sister Heart Disease Sister High Blood Pressure Sister Learning Disabilities Sister Arthritis Sister Diabetes Sister Heart Disease Sister High Blood Pressure Sister Learning Disabilities Sister Arthritis Sister Diabetes Sister Heart Disease Sister High Blood Pressure Sister Asthma Sister Diabetes Sister Heart Disease Sister High Blood Pressure Sister Asthma Sister Diabetes Sister Heart Disease Sister High Blood Pressure Sister Substance Abuse Sister High Blood Pressure Sister Diabetes Sister Heart Disease Sister Early Brother Hearing Loss Brother High Blood Pressure Brother Learning Disabilities Brother High Blood Pressure Brother Learning Disabilities Brother High Blood Pressure Brother Social History History Substance Use Topics Smoking status: Never Smoker Smokeless tobacco: Never Used Alcohol Use: No Review of Systems Per [facility] nursing notes ,remainder of ROS was reviewed and negative Objective: BP 118/60 Pulse 71 Temp(Src) 98.1 F (36.7 C) (Oral) Resp 18 Ht5' 3.5 (1.613 m) Wt 146 lb (66.225 kg) BMI 25.45 kg/m2 SpO2 95% ? No General: alert, appears stated age and cooperative Oropharynx: normal Neck: nontender Lung: clear to auscultation bilaterally Heart: regular rate and rhythm, S1, S2 normal, no murmur, click, rub orgallop Abdomen: soft, non-tender. Bowel sounds normal. No masses, no organomegaly Extremities: extremities normal, atraumatic, no cyanosis or edema Pulses: 2+ and symmetric bilaterally,brachial, radial, inquinal,popliteal, posterior tibial and dorsalis pedis Skin: warm and dry, no hyperpigmentation, vitiligo, or suspicious lesionsand Warm and dry. no hyperpigmentation, vitiligo, or suspicious lesions Neuro: normal without focal findings, ARMANDO, reflexes normal and symmetricand mental status, speech normal, alert and oriented x iii Diagnostic tests Lab Results Component Value Date WBC 6.4 03/07/2013 HGB 12.5 03/07/2013 HCT 38.0 03/07/2013 PLT 334 03/07/2013 Lab Results Component Value Date CREATININE 0.7 03/07/2013 BUN 12 03/07/2013 NA 133* 03/07/2013 K 4.2 03/07/2013 CL 97* 03/07/2013 CO2 25 03/07/2013 Lab Results Component Value Date CHOLESTEROL 143 03/08/2013 TRIG 122 03/08/2013 HDL 37* 03/08/2013 LDLCALC 82 03/08/2013 Lab Results Component Value Date ALT 22 03/07/2013 AST 16 03/07/2013 Lab Results Component Value Date TSH 0.808 09/21/2010 No results found for this basename: INR Lab Results Component Value Date TROPONINI <0.01 03/08/2013 TROPONINI <0.01 03/07/2013 Ek Ekg 12 Lead 03/09/2013 NOTICE: Preliminary Tracing available for review; FinalInterpretation by physician to follow. Scanned Rhythm Strips 03/09/2013 Ordered by an unspecified provider. EKG: Interpreted by mE normal EKG, normal sinus rhythm, unchanged fromprevious tracings. Telemetry Interpreted by me normal sinus The most recent cardiovascular imaging studies availabe in [facility] EMR werereviewed at time of consultation Assessment: Code Status No Order Active Problems: * No active hospital problems. * severe GERD Normal cors three years ago Multiple CRF Plan: GXT For complete plan of care please also refer to orders TROPONIN-I Timed 03/08/2013 5:36 AM EDT SCANNED RHYTHM STRIPS 03/08/2013 4:41 AM EDT LIPID SCREEN Timed 03/08/2013 3:12 AM EDT EK EKG 12 LEAD STAT 03/08/2013 2:53 AM EDT SALINE LOCK IV STAT 03/08/2013 12:06 AM EDT XR CHEST AP PORTABLE BETTINA 03/08/2013 12:00 AM EDT EK EKG 12 LEAD STAT 03/07/2013 11:35 PM EDT LIPASE LEVEL STAT 03/07/2013 11:35 PM EDT HEPATIC FUNCTION PANEL STAT 3 11:35 PM EDT D-DIMER STAT 03/07/2013 11:35 PM EDT DIFFERENTIAL STAT 03/07/2013 11:35 PM EDT BASIC METABOLIC PANEL STAT 03/07/2013 11:35 PM EDT TROPONIN-I STAT 03/07/2013 11:35 PM EDT CBC WITH DIFF STAT 03/07/2013 11:35 PM EDT LDL, CALCULATED Routine 01/29/2013 8:36 AM EDT DIFFERENTIAL Routine 01/29/2013 8:36 AM EDT HEMOGLOBIN A1C Routine 01/29/2013 8:36 AM EDT DM w/o complication type II LIPID PANEL REFLEX Routine 01/29/2013 8:36 AM EDT Dyslipidemia HEPATIC FUNCTION PANEL Routine 3 8:36 AM EDT Elevated liver function tests CBC WITH DIFF Routine 01/29/2013 8:36 AM EDT Anemia BASIC METABOLIC PANEL Routine 01/29/2013 8:36 AM EDT DM w/o complication type II PDM, TRAMADOL, QN,W/MEDMATCH,U-QUEST Routine 09/18/2012 1:56 PM EST PDM PROFILE 1 W/ CONF, URINE-QUEST Routine 09/18/2012 1:56 PM EST Encounter for long-term (current) use of other medications LDL, CALCULATED Routine 09/18/2012 1:39 PM EST DIFFERENTIAL Routine 09/18/2012 1:39 PM EST LIPID PANEL REFLEX Routine 09/18/2012 1:39 PM EST Dyslipidemia HEPATIC FUNCTION PANEL Routine 2 1:39 PM EST Dyslipidemia HEMOGLOBIN A1C Routine 09/18/2012 1:39 PM EST Diabetes mellitus (HCC) CBC WITH DIFF Routine 09/18/2012 1:39 PM EST Diabetes mellitus (HCC) BASIC METABOLIC PANEL Routine 09/18/2012 1:39 PM EST Diabetes mellitus (HCC) MRI LUMBAR SPINE WO CONTRAST Routine 06/12/2012 4:54 PM EDT Low back pain LDL, CALCULATED Routine 05/02/2012 1:03 PM EDT HEMOGLOBIN A1C Routine 05/02/2012 1:03 PM EDT Diabetes mellitus (HCC) LIPID PANEL REFLEX Routine 05/02/2012 1:03 PM EDT Dyslipidemia HEPATIC FUNCTION PANEL Routine 2 1:03 PM EDT Elevated liver enzymes BASIC METABOLIC PANEL Routine 05/02/2012 1:03 PM EDT Diabetes mellitus (HCC) HEPATIC FUNCTION PANEL Routine 2 11:35 AM EDT Elevated LFTs SCANNED RADIOLOGY REPORT 01/02/2012 12:00 AM EST F-ACTIN (SMOOTH MUSCLE) AB, IGG W/RFLX -REF LAB Routine 12/21/2011 12:27 PM EST Elevated liver function tests CERULOPLASMIN -REF LAB Routine 2 12:27 PM EST Elevated liver function tests [id number] -REF LAB Routine 12/21/2011 12:27 PM EST Elevated liver function tests ANTINUCLEAR ANTIBODIES (MARK) SCREEN BY FRANCISCO W/ REFLEX TO IFA Routine 12/21/2011 12:27 PM EST Elevated liver function tests IRON LEVEL AND TIBC Routine 12/21/2011 12:27 PM EST Elevated liver function tests HEPATITIS C VIRUS ANTIBODY, RIBA-ARUP Routine 12/21/2011 12:27 PM EST Elevated liver function tests HEPATITIS B SURFACE ANTIGEN Routine 12/21/2011 12:27 PM EST Elevated liver function tests HEPATIC FUNCTION PANEL Routine 2 12:27 PM EST Elevated liver function tests HEPATIC FUNCTION PANEL Routine 2 11:42 AM EST Elevated liver function tests HEPATIC FUNCTION PANEL Routine 2 11:37 AM EST Elevated liver function tests LDL, CALCULATED Routine 11/16/2011 11:15 AM EST DIFFERENTIAL Routine 11/16/2011 11:15 AM EST LIPID PANEL REFLEX Routine 11/16/2011 11:15 AM EST Dyslipidemia HEPATIC FUNCTION PANEL Routine 2 11:15 AM EST Dyslipidemia HEMOGLOBIN A1C Routine 11/16/2011 11:15 AM EST Diabetes mellitus (HCC) CBC WITH DIFF Routine 11/16/2011 11:15 AM EST Anemia BASIC METABOLIC PANEL Routine 11/16/2011 11:15 AM EST Diabetes mellitus (HCC) Dyslipidemia LIPID SCREEN Routine 04/14/2011 10:09 AM EDT Dyslipidemia HEPATIC FUNCTION PANEL Routine 1 10:09 AM EDT Dyslipidemia HEMOGLOBIN A1C Routine 04/14/2011 10:09 AM EDT DM w/o complication type II (HCC) BASIC METABOLIC PANEL Routine 04/14/2011 10:09 AM EDT DM w/o complication type II (HCC) MICROALBUMIN/CREATININ E RATIO URINE Routine 04/14/2011 10:09 AM EDT DM w/o complication type II (HCC) SCANNED RADIOLOGY REPORT 09/28/2010 12:00 AM EST LDL, CALCULATED Routine 09/21/2010 11:00 AM EST HEPATIC FUNCTION PANEL Routine 0 11:00 AM EST Hyperlipidemia NEC/NOS DM w/o complication type II, uncontrolled (HCC) Joint pain-unspec Encounter for long-term (current) use of other medications LIPID PANEL REFLEX Routine 09/21/2010 11:00 AM EST Hyperlipidemia NEC/NOS DM w/o complication type II, uncontrolled (HCC) Joint pain-unspec Encounter for long-term (current) use of other medications THYROID STIMULATING HORMONE Routine 09/21/2010 11:00 AM EST Hyperlipidemia NEC/NOS DM w/o complication type II, uncontrolled (HCC) Joint pain-unspec Encounter for long-term (current) use of other medications BASIC METABOLIC PANEL Routine 09/21/2010 11:00 AM EST Hyperlipidemia NEC/NOS DM w/o complication type II, uncontrolled (HCC) Joint pain-unspec Encounter for long-term (current) use of other medications ANTINUCLEAR ANTIBODIES (MARK) SCREEN BY FRANCISCO W/ REFLEX TO IFA Routine 09/21/2010 11:00 AM EST Hyperlipidemia NEC/NOS DM w/o complication type II, uncontrolled (HCC) Joint pain-unspec Encounter for long-term (current) use of other medications HEMOGLOBIN A1C Routine 09/21/2010 11:00 AM EST Hyperlipidemia NEC/NOS DM w/o complication type II, uncontrolled (HCC) Joint pain-unspec Encounter for long-term (current) use of other medications SCANNED LABS 09/06/2010 12:00 AM EDT SCANNED LABS 09/06/2010 12:00 AM EDT SCANNED LABS 09/02/2010 12:00 AM EDT SCANNED RADIOLOGY REPORT 09/01/2010 12:00 AM EDT SCANNED PATHOLOGY REPORT 08/18/2010 12:00 AM EDT SCANNED CARDIAC SVP RESEARCH & EBUSINESS OPERATIONS 05/31/2010 12:00 AM EDT SCANNED CARDIAC SVP RESEARCH & EBUSINESS OPERATIONS 05/31/2010 12:00 AM EDT NON-SET ILLUSTRATOR CYTOLOGY REPORT Routine 05/02/2010 10:47 AM EDT GMED COLONOSCOPY Routine 05/02/2010 12:00 AM EDT GMED EGD Routine 05/02/2010 12:00 AM EDT CC CARDIAC PROCEDURE Routine 04/13/2010 1:07 PM EDT BASIC METABOLIC PANEL Routine 04/12/2010 9:05 AM EDT DIFFERENTIAL Routine 04/12/2010 9:05 AM EDT CBC WITH DIFF Routine 04/12/2010 9:05 AM EDT SCANNED OR REPORT STL 04/08/2010 12:00 AM EDT IRON LEVEL AND TIBC Routine 03/21/2010 10:56 AM EDT MICROALBUMIN/CREATININ E RATIO URINE Routine 03/21/2010 10:56 AM EDT THYROID STIMULATING HORMONE Routine 03/21/2010 10:56 AM EDT LDL, CALCULATED Routine 03/21/2010 10:56 AM EDT BASIC METABOLIC PANEL Routine 03/21/2010 10:56 AM EDT LIPID PANEL REFLEX Routine 03/21/2010 10:56 AM EDT HEPATIC FUNCTION PANEL Routine 0 10:56 AM EDT HEMOGLOBIN A1C Routine 03/21/2010 10:56 AM EDT DIFFERENTIAL Routine 03/21/2010 10:56 AM EDT CBC WITH DIFF Routine 03/21/2010 10:56 AM EDT REMIGIO SCREENING DIRECT DIGITAL Routine 10/01/2009 12:00 AM EST MRI UPPER EXTREMITY JNT W/O CONTRAST LT Routine 06/08/2008 12:00 AM EDT DIAG ANKLE - MIN 3 VIEWS LT Routine 11/14/2007 12:00 AM EST DIAG TIBIA AND FIBULA 2 VIEWS LT Routine 11/14/2007 12:00 AM EST US PELVIS NON-OB COMPLETE Routine 08/15/2007 12:00 AM EDT US TRANSVAGINAL Routine 08/15/2007 12:00 AM EDT US ABDOMEN-COMPLETE Routine 04/26/2007 12:00 AM EDT US PELVIS NON-OB COMPLETE Routine 04/26/2007 12:00 AM EDT REMIGIO SCREENING Routine 08/09/2006 12:[address] CHEST W CONTRAST Routine 09/06/2005 12:00 AM EDT DIAG CHEST PA & LAT Routine 09/05/2005 12:00 AM EDT DIAG CHEST PA & LAT Routine 09/05/2005 12:00 AM EDT CC CARDIAC PROCEDURE Routine 12/06/2004 11:03 AM EST Results * IRON+TIBC (05/07/2025 10:03 AM EDT) Only the most recent of3 resultswithin the time period is included. Iron 79 30 - 160 mcg/dL 05/07/2025 3:52 PM EDT [facility] Transferrin 273 200 - 360 mg/dL 05/07/2025 3:52 PM EDT [facility], [facility] Transferrin Saturation 21 20 - 50 % 05/07/2025 3:52 PM EDT [facility], [facility] TIBC 382 250 - 400 mcg/dL 05/07/2025 3:52 PM EDT [facility], [facility] Blood VENOUS BLOOD / Unknown Venipuncture / Unknown 05/07/2025 10:03 AM EDT 05/07/2025 10:03 AM EDT Jesu Galvin MD CHEMISTRY ORDERABLES Final Result [facility], [facility] [address] [facility] , [address] [address] * (ABNORMAL) LIPID PANEL REFLEX (05/07/2025 10:03 AM EDT) Only the most recent of23 resultswithin the time period is included. Cholesterol 239(H) <200 mg/dL 05/07/2025 3:52 PM EDT [facility], [facility] Comment: < 200 Desirable 200 - 239 Borderline High >= 240 High Triglyceride 220(H) <150 mg/dL 05/07/2025 3:52 PM EDT [facility] Comment: < 150 Normal 150 - 199 Borderline High 200 - 499 High >= 500 Very High HDL 46 >=40 mg/dL 05/07/2025 3:52 PM EDT [facility] Comment: > 60 Optimal 40 - 60 Acceptable < 40 Low LDL Calculated 153(H) <100 mg/dL 05/07/2025 3:52 PM EDT [facility] Comment: < 100 Optimal 100 - 129 Near or above optimal 130 - 159 Borderline High 160 - 189 High >= 190 Very High The National Institutes of Health (NIH) equation is used for all lipid panels that report calculated LDL (LDL-C). Non-HDL-C Calculated 193(H) <=129 mg/dL 05/07/2025 3:52 PM EDT [facility] Comment: <130 Desirable 130-159 Above Desirable 160-189 Borderline High 190-219 High >= 220 Very High Fasting Specimen? Yes None 025 3:52 PM EDT [facility] Blood VENOUS BLOOD / Unknown Venipuncture / Unknown 05/07/2025 10:03 AM EDT 05/07/2025 10:03 AM EDT Jesu Galvin MD CHEMISTRY ORDERABLES Final Result [facility] [address] [facility] , [place] [address] * (ABNORMAL) VITAMIN D 25 HYDROXY (05/07/2025 10:03 AM EDT) Only the most recent of7 resultswithin the time period is included. Pathologist [facility] Vit D 25 OH 28.9(L) 30.0 - 150.0 ng/mL 05/07/2025 4:05 PM EDT [facility], [facility] Comment: Preferred: >= 30 ng/mL Insufficient: 21-29 ng/mL Deficient <= 20 ng/mL Possible Toxicity: >150 ng/mL Samples should not be taken from patients receiving therapy with high biotin doses (i.e. > 5 mg/day) until at least 8 hours following the last biotin administration. Blood VENOUS BLOOD / Unknown Venipuncture / Unknown 05/07/2025 10:03 AM EDT 05/07/2025 10:03 AM EDT us Jesu Galivn MD CHEMISTRY ORDERABLES Final Result [facility] [address] [facility] [facility] , [place] [address] * CBC WITH DIFF (05/07/2025 10:03 AM EDT) Only the most recent of30 resultswithin the time period is included. [facility] WBC 8.5 3.7 - 10.3 x10(3)/mcL 05/07/2025 3:44 PM EDT [facility] RBC 4.30 3.90 - 5.20 x10(6)/mcL 05/07/2025 3:44 PM EDT [facility] Hgb 12.4 11.2 - 15.7 g/dL 05/07/2025 3:44 PM EDT [facility] Hct 39.3 34.0 - 45.0 % 05/07/2025 3:44 PM EDT [facility] MCV 91.4 80.0 - 100.0 fL 05/07/2025 3:44 PM EDT [facility] MCH 28.8 26.0 - 34.0 pg 05/07/2025 3:44 PM EDT [facility] MCHC 31.6 30.7 - 35.5 g/dL 05/07/2025 3:44 PM EDT [facility] RDW 13.3 <=14.9 % 05/07/2025 3:44 PM EDT [facility] Platelet 266 155 - 369 x10(3)/mcL 05/07/2025 3:44 PM EDT [facility] MPV 10.3 8.8 - 12.5 fL 05/07/2025 3:44 PM EDT [facility] Neut Percent 59.8 % 05/07/2025 3:44 PM EDT [facility] Comment:Neutrophils equals s egs plus bands Imm Gran% 1.1 % 05/07/2025 3:44 PM EDT [facility] Comment:Automated count of m etamyelocytes, myelocytes and promyelocytes. IG >1% represents a left shift and provides an early indication of an infection or inflammatory process. Lymph Percent 29.4 % 05/07/2025 3:44 PM EDT [facility] Roosevelt Percent 8.0 % 05/07/2025 3:44 PM EDT [facility] Eos Percent 1.3 % 05/07/2025 3:44 PM EDT [facility] Baso Percent 0.4 % 05/07/2025 3:44 PM EDT [facility], [facility] Neut # 5.1 1.6 - 6.1 x10(3)/[facility] 05/07/2025 3:44 PM EDT [facility], [facility] Comment:Neutrophils equals s egs plus bands IMMGRAN# 0.1 0.0 - 0.1 x10(3)/[facility] 05/07/2025 3:44 PM EDT [facility], [facility] Comment:Automated count of m etamyelocytes, myelocytes and promyelocytes. An absolute IG <0.1 is reported as 0.0. Lymph # 2.5 1.2 - 3.9 x10(3)/[facility] 05/07/2025 3:44 PM EDT [facility] [place] # 0.7 0.3 - 0.9 x10(3)/[facility] 05/07/2025 3:44 PM EDT [facility] Eos# 0.1 0.0 - 0.5 x10(3)/[facility] 05/07/2025 3:44 PM EDT [facility], [facility] Baso # 0.0 0.0 - 0.1 x10(3)/[facility] 05/07/2025 3:44 PM EDT [facility], [facility] Blood VENOUS BLOOD / Unknown Venipuncture / Unknown 05/07/2025 10:03 AM EDT 05/07/2025 10:03 AM EDT Jesu Galvin MD HEMATOLOGY ORDERABLES Final Result [facility] [address] [facility] , [place] [address] * (ABNORMAL) HEMOGLOBIN A1C (05/07/2025 10:03 AM EDT) Only the most recent of30 resultswithin the time period is included. Pathologist [facility] Hgb A1C 9.2(H) 4.2 - 5.6 % 05/07/2025 4:32 PM EDT [facility] Est. Avg Glucose 217 mg/dL 05/07/2025 4:32 PM EDT [facility], [facility] Blood VENOUS BLOOD / Unknown Venipuncture / Unknown 05/07/2025 10:03 AM EDT 05/07/2025 10:03 AM EDT Narrative [facility] - 05/07/2025 4:32 PM EDT REFERENCE RANGE: Normal: 4.0-5.6% Pre-diabetes: 5.7-6.4% Provisional diagnosis of diabetes: >6.4% Hgb F>10% and anything which shortens red cell survival, such as hemolytic anemia, or unstable hemoglobin variants such as HbSS, HbSC, or HbCC, will lower the HbA1c value associated with a given level of glycemic control. us Jesu Galvin MD CHEMISTRY ORDERABLES Final Result [facility] [address] [facility] , [place] [address] * (ABNORMAL) COMPREHENSIVE METABOLIC PANEL (05/07/2025 10:03 AM EDT) Only the most recent of17 resultswithin the time period is included. Pathologist [facility] Sodium 136 136 - 145 mmol/L 05/07/2025 3:52 PM EDT [facility] Potassium 4.4 3.5 - 5.0 mmol/L 05/07/2025 3:52 PM EDT [facility] Chloride 99 98 - 107 mmol/L 05/07/2025 3:52 PM EDT [facility] Total CO2 25 22 - 29 mmol/L 05/07/2025 3:52 PM EDT [facility] Anion Gap 12 7 - 16 mmol/L 05/07/2025 3:52 PM EDT [facility], [facility] Calcium 9.9 8.8 - 10.4 mg/dL 05/07/2025 3:52 PM EDT [facility] Glucose Lvl 152(H) 70 - 99 mg/dL 05/07/2025 3:52 PM EDT [facility] BUN 13 8 - 23 mg/dL 05/07/2025 3:52 PM EDT [facility] Creatinine 0.59 0.51 - 1.30 mg/dL 05/07/2025 3:52 PM EDT [facility] Albumin 4.5 3.2 - 4.6 gm/dL 05/07/2025 3:52 PM EDT [facility] Total Protein 7.0 6.4 - 8.3 gm/dL 05/07/2025 3:52 PM EDT [facility] Bili Total 0.6 0.2 - 1.3 mg/dL 05/07/2025 3:52 PM EDT [facility] ALT 17 <=41 U/L 05/07/2025 3:52 PM EDT [facility] AST 16 <=40 U/L 05/07/2025 3:52 PM EDT [facility] Alk Phos 107 36 - 123 U/L 05/07/2025 3:52 PM EDT [facility] eGFR (CKD-EPIcr 2020) 99 >=60 mL/min/1.7 3 m2 05/07/2025 3:52 PM EDT [facility] Comment:Estimated GFR was ca lculated using the CKD-EPIcr (2020) equation refit without race. The equation is recommended by the National Kidney Foundation - [place] [employer]ph[employer] Task Force. Blood VENOUS BLOOD / Unknown Venipuncture / Unknown 05/07/2025 10:03 AM EDT 05/07/2025 10:03 AM EDT us Jesu Galvin MD CHEMISTRY ORDERABLES Final Result [facility] [address] [facility] , [address] [place], [place] [id number] * XR RIBS LEFT 2 VW (04/03/2025 1:59 PM EDT) Only the most recent of2 resultswithin the time period is included. Anatomical Region Laterality Modality Chest Radiographic Reanna ging 04/03/2025 1:59 PM EDT Impressions 04/03/2025 2:15 PM EDT No acute finding. - Note: Radiology results need to be interpreted within a comprehensive clinical context. If you have questions about the radiology report, please contact the office of the ordering clinician. Narrative 04/03/2025 2:15 PM EDT XR RIBS LEFT 2 VW, 04/03/2025 1:59 PM CLINICAL HISTORY: R07.81-Kmrfoqraejb-BNI-10-CM COMPARISON: None. PROCEDURE COMMENTS: Minimum of two views per protocol with unilateral rib detail. FINDINGS: No acute rib fracture. No pneumothorax or effusion. Procedure Note Peg Bazzi MD - 04/03/2025 XR RIBS LEFT 2 VW, 04/03/2025 1:59 PM CLINICAL HISTORY: R07.70-Sykzoplhvgf-MMJ-10-CM COMPARISON: None. PROCEDURE COMMENTS: Minimum of two views per protocol with unilateralrib detail. FINDINGS: No acute rib fracture. No pneumothorax or effusion. IMPRESSION: No acute finding. - Note: Radiology results need to be interpreted within a comprehensiveclinical context. If you have questions about the radiology report, please contactthe office of the ordering clinician. us Peg Cadena MD IMG DIAGNOSTIC IMAGING ORDERAB LES Final Result * XR CHEST PA AND LATERAL (04/03/2025 1:59 PM EDT) Only the most recent of3 resultswithin the time period is included. Anatomical Region Laterality Modality Chest Radiographic Reanna ging 04/03/2025 1:59 PM EDT Impressions 04/03/2025 2:14 PM EDT No acute finding. - Note: Radiology results need to be interpreted within a comprehensive clinical context. If you have questions about the radiology report, please contact the office of the ordering clinician. Narrative 04/03/2025 2:14 PM EDT PA AND LATERAL CHEST X-RAY, 04/03/2025 1:59 PM CLINICAL HISTORY: R05.9-Cough, [id number]-65-CM COMPARISON: 09/02/2024 PROCEDURE COMMENTS: Frontal and lateral views of the chest. FINDINGS: Heart and mediastinal contours within normal limits for technique. No active failure, pneumonia, or visible effusion. No visible pneumothorax. Procedure Note Peg Bazzi MD - 04/03/2025 PA AND LATERAL CHEST X-RAY, 04/03/2025 1:59 PM CLINICAL HISTORY: R05.9-Cough, [id number]-ZAY-17-CM COMPARISON: 09/02/2024 PROCEDURE COMMENTS: Frontal and lateral views of the chest. FINDINGS: Heart and mediastinal contours within normal limits for technique. Noactive failure, pneumonia, or visible effusion. No visible pneumothorax. IMPRESSION: No acute finding. - Note: Radiology results need to be interpreted within a comprehensiveclinical context. If you have questions about the radiology report, please contactthe office of the ordering clinician. Peg Cadena MD IMG DIAGNOSTIC IMAGING ORDERAB LES Final Result * XR NASAL BONES (04/03/2025 1:59 PM EDT) Anatomical Region Laterality Modality Head Radiographic Reanna ging 04/03/2025 1:59 PM EDT Impressions 04/03/2025 2:16 PM EDT No acute bony abnormality. - Note: Radiology results need to be interpreted within a comprehensive clinical context. If you have questions about the radiology report, please contact the office of the ordering clinician. Narrative 04/03/2025 2:16 PM EDT X-RAY OF THE NASAL BONES, 04/03/2025 1:59 PM CLINICAL HISTORY: S19.9XXA-Unspecified injury of neck, initial udyefjlsi-CUG-89-CM S09.93XA-Unspecified injury of face, initial yxetewubt-MTM-69-CM S09.90XA-Unspecified injury of head, initial olczhyytw-WOY-11-CM COMPARISON: None. PROCEDURE COMMENTS: AP view of the face and bilateral lateral views of the nose. FINDINGS: No fracture identified. Normal sutural markings present. Regional sinuses and mastoids are aerated. Procedure Note Peg Bazzi MD - 04/03/2025 X-RAY OF THE NASAL BONES, 04/03/2025 1:59 PM CLINICAL HISTORY: S19.9XXA-Unspecified injury of neck, initial dbknvstjj-ELT-51-CM S09.93XA-Unspecified injury of face, initial mnkxbjimr-YFF-82-CM S09.90XA-Unspecified injury of head, initial byafunrrd-DRX-60-CM COMPARISON: None. PROCEDURE COMMENTS: AP view of the face and bilateral lateral views of thenose. FINDINGS: No fracture identified. Normal sutural markings present.Regional sinuses and mastoids are aerated. IMPRESSION: No acute bony abnormality. - Note: Radiology results need to be interpreted within a comprehensiveclinical context. If you have questions about the radiology report, please contactthe office of the ordering clinician. us Peg Cadena MD IMG DIAGNOSTIC IMAGING ORDERAB LES Final Result * XR FACIAL BONES < 3 VW (04/03/2025 1:59 PM EDT) Anatomical Region Laterality Modality Head Radiographic Reanna ging 04/03/2025 1:59 PM EDT Impressions 04/03/2025 2:15 PM EDT No acute finding. If there is strong concern for facial bone fracture CT would be significantly more sensitive - Note: Radiology results need to be interpreted within a comprehensive clinical context. If you have questions about the radiology report, please contact the office of the ordering clinician. Narrative 04/03/2025 2:15 PM EDT XR FACIAL BONES < 3 VW, 04/03/2025 1:59 PM CLINICAL HISTORY: S19.9XXA-Unspecified injury of neck, initial wkcjbpedz-VZI-46-CM S09.93XA-Unspecified injury of face, initial vfhsuqlhl-NLY-46-CM S09.90XA-Unspecified injury of head, initial eupsqroue-LGS-89-CM COMPARISON: None. PROCEDURE COMMENTS: XR FACIAL BONES < 3 VW FINDINGS: No visible acute fracture. Orbital and zygomatic structure grossly preserved. No sinus fluid level. Procedure Note Peg Bazzi MD - 04/03/2025 XR FACIAL BONES < 3 VW, 04/03/2025 1:59 PM CLINICAL HISTORY: S19.9XXA-Unspecified injury of neck, initial hjmwjkjip-OXM-58-CM S09.93XA-Unspecified injury of face, initial nnakazfwl-UMX-57-CM S09.90XA-Unspecified injury of head, initial ubgvbsuuy-YLS-26-CM COMPARISON: None. PROCEDURE COMMENTS: XR FACIAL BONES < 3 VW FINDINGS: No visible acute fracture. Orbital and zygomatic structuregrossly preserved. No sinus fluid level. IMPRESSION: No acute finding. If there is strong concern for facial bone fracture CT would be significantly more sensitive - Note: Radiology results need to be interpreted within a comprehensiveclinical context. If you have questions about the radiology report, please contactthe office of the ordering clinician. us Peg Cadena MD IMG DIAGNOSTIC IMAGING ORDERAB LES Final Result * COMPLIANCE PANEL, URINE (01/19/2025 4:46 PM EDT) Only the most recent of5 resultswithin the time period is included. Medications Expected Tramadol 01/10 8:23 PM EDT [facility] Barbiturates Absent Cutoff 200 ng/mL 01/21/2025 8:23 PM EDT [facility] THC <10 Cutoff 10 ng/mL ng/mL 01/21/2025 8:23 PM EDT [facility] Comment:9-prbqlij-civrmqoeyh cannabinol; does not distinguish between prescribed and illicit forms THC Glucuronide <10 Cutoff 10 ng/mL ng/mL 01/21/2025 8:23 PM EDT [facility] Comment:Metabolite of THC Amphetamine <50 Cutoff 50 ng/mL ng/mL 01/21/2025 8:23 PM EDT [facility] Comment:e.g., Adderall, Vyva nse, Dexedrine, Obetrol MDA <50 Cutoff 50 ng/mL ng/mL 01/21/2025 8:23 PM EDT [facility] Comment:Metabolite of MDMA, and MDEA MDEA <50 Cutoff 50 ng/mL ng/mL 01/21/2025 8:23 PM EDT [facility] Comment:e.g., Tiarra MDMA <50 Cutoff 50 ng/mL ng/mL 01/21/2025 8:23 PM EDT [facility] Comment:e.g., Ecstasy, Alisia Methamphetamine <50 Cutoff 50 ng/mL ng/mL 01/21/2025 8:23 PM EDT [facility] Comment:d- and l- isomers ar e not distinguished by this test; may reflect Mike's inhaler, Desoxyn, Selegiline, or illicit source Phentermine <50 Cutoff 50 ng/mL ng/mL 01/21/2025 8:23 PM EDT [facility] Comment:e.g., Adipex, Lomair a, Ionamin,Fastin,Zantryl Gabapentin <50 Cutoff 50 ng/mL ng/mL 01/21/2025 8:23 PM EDT [facility] Comment:e.g, Neurontin Pregabalin <50 Cutoff 50 ng/mL ng/mL 01/21/2025 8:23 PM EDT [facility] Comment:Lyrica Alprazolam <8 Cutoff 8 ng/mL ng/mL 01/21/2025 8:23 PM EDT [facility] Comment:e.g, Xanax, Niravam alpha-Hydroxyalprazolam <25 Cutoff 25 ng/mL ng/mL 01/21/2025 8:23 PM EDT [facility] Comment:Metabolite of Alpraz olam Clonazepam <10 Cutoff 10 ng/mL ng/mL 01/21/2025 8:23 PM EDT [facility] Comment:e.g., Klonopin, Clon opin 7-Aminoclonazepam <25 Cutoff 25 ng/mL ng/mL 01/21/2025 8:23 PM EDT [facility] Comment:Metabolite of Clonaz epam Diazepam <10 Cutoff 10 ng/mL ng/mL 01/21/2025 8:23 PM EDT [facility] Comment:e.g, Valium, Diastat Nordiazepam <25 Cutoff 25 ng/mL ng/mL 01/21/2025 8:23 PM EDT [facility] Comment:Metabolite of Chlord iazepoxide(Librium), Clorazepate(Tranxene), Diazepam, Halazepam, (Alapryl), Prazepam(Centrax) Flunitrazepam <50 Cutoff 50 ng/mL ng/mL 01/21/2025 8:23 PM EDT [facility] Comment:e.g.,Rohypnol, Narco zep 7-Aminoflunitrazepam <50 Cutoff 50 ng/mL ng/mL 01/21/2025 8:23 PM EDT [facility] Comment:Metabolite of Flunit razepam Flurazepam <50 Cutoff 50 ng/mL ng/mL 01/21/2025 8:23 PM EDT [facility] Comment:e.g., Dalmane Hydroxyethylflurazepam <50 Cutoff 50 ng/mL ng/mL 01/21/2025 8:23 PM EDT [facility] Comment:Metabolite of Fluraz epam Lorazepam <50 Cutoff 50 ng/mL ng/mL 01/21/2025 8:23 PM EDT [facility] Comment:e.g., Ativan Lorazepam Glucuronide <50 Cutoff 50 ng/mL ng/mL 01/21/2025 8:23 PM EDT [facility] Comment:Metabolite of Loraze pete Midazolam <50 Cutoff 50 ng/mL ng/mL 01/21/2025 8:23 PM EDT [facility] Comment:e.g., Versed alpha-hydroxymidazolam <50 Cutoff 50 ng/mL ng/mL 01/21/2025 8:23 PM EDT [facility] Comment:Metabolite of Versed Oxazepam <50 Cutoff 50 ng/mL ng/mL 01/21/2025 8:23 PM EDT [facility] Comment:e.g., Serax; also Me tabolite of Temazepam, and Nordiazepam Oxazepam Glucuronide <50 Cutoff 50 ng/mL ng/mL 01/21/2025 8:23 PM EDT [facility] Comment:Metabolite of Oxazep am Temazepam <50 Cutoff 50 ng/mL ng/mL 01/21/2025 8:23 PM EDT [facility] Comment:e.g., Restoril; also Metabolite of Diazepam Temazepam Glucuronide <50 Cutoff 50 ng/mL ng/mL 01/21/2025 8:23 PM EDT [facility] Comment:Metabolite of Temaze pete and Diazepam Triazolam <50 Cutoff 50 ng/mL ng/mL 01/21/2025 8:23 PM EDT [facility] Comment:e.g., Halcion alpha-hydroxytriazolam <50 Cutoff 50 ng/mL ng/mL 01/21/2025 8:23 PM EDT [facility] Comment:Metabolite of Triazo calvo Buprenorphine <5 Cutoff 5 ng/mL ng/mL 01/21/2025 8:23 PM EDT [facility] Comment:e.g., Suboxone, Subu kris,Sublocade, Buprenex Buprenorphine Glucuronide <10 Cutoff 10 ng/mL ng/mL 01/21/2025 8:23 PM EDT [facility] Comment:Buprenorphine Metabo lite Norbuprenorphine <5 Cutoff 5 ng/mL ng/mL 01/21/2025 8:23 PM EDT [facility] Comment:Buprenorphine Metabo lite Norbuprenorphine Glucuronide <10 Cutoff 10 ng/mL ng/mL 01/21/2025 8:23 PM EDT [facility] Comment:Buprenorphine Metabo lite Benzoylecgonine <50 Cutoff 50 ng/mL ng/mL 01/21/2025 8:23 PM EDT [facility] Comment:Cocaine Metabolite Fentanyl <1 Cutoff 1 ng/mL ng/mL 01/21/2025 8:23 PM EDT [facility] Comment:e.g.,Duragesic, Oral et, Actiq, Sublimaze, Innovar, Lazanda Norfentanyl <1 Cutoff 1 ng/mL ng/mL 01/21/2025 8:23 PM EDT [facility] Comment:Metabolite of Fentan yl 6-Monoacetylmorphine (6MAM) <10 Cutoff 10 ng/mL ng/mL 01/21/2025 8:23 PM EDT [facility] Comment:Metabolite of Heroin ; Morphine is expected Methadone <50 Cutoff 50 ng/mL ng/mL 01/21/2025 8:23 PM EDT [facility] Comment:e.g., Dolophine, Met hadose, Amidone EDDP <50 Cutoff 50 ng/mL ng/mL 01/21/2025 8:23 PM EDT [facility] Comment:Methadone Metabolite Carisoprodol <100 Cutoff 100 ng/mL ng/mL 01/21/2025 8:23 PM EDT [facility] Comment:e.g., Soma Meprobamate <100 Cutoff 100 ng/mL ng/mL 01/21/2025 8:23 PM EDT [facility] Comment:e.g., Lumpkin, Equa nil, Micrainin, Equagesic; Metabolite of Carisoprodol Codeine <50 Cutoff 50 ng/mL ng/mL 01/21/2025 8:23 PM EDT [facility] Comment:e.g., Acetaminophen w/Codeine, Tylenol3 w/ Codeine Codeine Glucuronide <50 Cutoff 50 ng/mL ng/mL 01/21/2025 8:23 PM EDT [facility] Comment:Metabolite of Codein e Meperidine <50 Cutoff 50 ng/mL ng/mL 01/21/2025 8:23 PM EDT [facility] Comment:e.g., Demerol, Pethi dine Normeperidine <50 Cutoff 50 ng/mL ng/mL 01/21/2025 8:23 PM EDT [facility] Comment:Metabolite of Meperi dine Morphine <50 Cutoff 50 ng/mL ng/mL 01/21/2025 8:23 PM EDT [facility] Comment:e.g., MS Contin, Radha anol; Metabolite of Codeine and Heroin; may reflect poppy seed ingestion Vantmfmp-6-Thkuawusojh <25 Cutoff 25 ng/mL ng/mL 01/21/2025 8:23 PM EDT [facility] Comment:Metabolite of [place] ne. Cqhlqliu-9-Mxfgtcokgzw <25 Cutoff 25 ng/mL ng/mL 01/21/2025 8:23 PM EDT [facility] Comment:Metabolite of [place] ne. Naloxone <25 Cutoff 25 ng/mL ng/mL 01/21/2025 8:23 PM EDT [facility] Comment:e.g., Narcan, Evzio Hydrocodone <50 Cutoff 50 ng/mL ng/mL 01/21/2025 8:23 PM EDT [facility] Comment:e.g., Lorcet, Lortab , Vicodin, [place]; Minor Metabolite of Codeine Dihydrocodeine <50 Cutoff 50 ng/mL ng/mL 01/21/2025 8:23 PM EDT [facility] Comment:e.g., Didrate, Parzo ne, Parlor, Synalgos; Metabolite of Hydrocodone Norhydrocodone <50 Cutoff 50 ng/mL ng/mL 01/21/2025 8:23 PM EDT [facility] Comment:Metabolite of Hydroc odone Hydromorphone <50 Cutoff 50 ng/mL ng/mL 01/21/2025 8:23 PM EDT [facility] Comment:e.g., Dilaudid; also Metabolite of Hydrocodone and Minor Metabolite of Morphine Hydromorphone Glucuronide <50 Cutoff 50 ng/mL ng/mL 01/21/2025 8:23 PM EDT [facility] Comment:Metabolite of Hydrom orphone Oxycodone <50 Cutoff 50 ng/mL ng/mL 01/21/2025 8:23 PM EDT [facility] Comment:e.g., Oxycontin, Per cocet, Endocet, Percodan, Roxicet Noroxycodone <50 Cutoff 50 ng/mL ng/mL 01/21/2025 8:23 PM EDT [facility] Comment:Metabolite of Oxycod one Oxymorphone <50 Cutoff 50 ng/mL ng/mL 01/21/2025 8:23 PM EDT [facility] Comment:e.g., Opana; Metabol ite of Oxycodone Oxymorphone Glucuronide <50 Cutoff 50 ng/mL ng/mL 01/21/2025 8:23 PM EDT [facility] Comment:Metabolite of Oxycod one Noroxymorphone <50 Cutoff 50 ng/mL ng/mL 01/21/2025 8:23 PM EDT [facility] Comment:Metabolite of Oxycod one, and Oxymorphone, Noroxycodone Metabolite Tramadol <50 Cutoff 50 ng/mL ng/mL 01/21/2025 8:23 PM EDT [facility] Comment:e.g., Ultram, ConZip T-Cxxkydfat-iqy-Tramadol <50 Cutoff 50 ng/mL ng/mL 01/21/2025 8:23 PM EDT [facility] Comment:Metabolite of Tramad ol Tapentadol <50 Cutoff 50 ng/mL ng/mL 01/21/2025 8:23 PM EDT [facility] [employer], [facility] Comment:Nucynta Tapentadol-Glucuronide <50 Cutoff 50 ng/mL ng/mL 01/21/2025 8:[address] [facility] [employer], [facility] Comment:Metabolite of Tapent adol Urine Creatinine 16.3 mg/dL 01/22/20 25 8:23 PM EDT [facility] Comment: Greater than 20: Consistent with valid sample Greater than 2 but less than 20: Possible dilution Less than 2: Questionable valid sample Urine STRUCTURE OF URINARY TRACT PROPER / Unknown 01/19/2025 4:46 PM EDT 01/19/2025 4:46 PM EDT Narrative [facility] - 01/21/2025 8:23 PM EDT The absence of expected drug(s), and/or drug metabolite(s), may indicate non-compliance, diluted or adulterated urine, poor drug absorption, concentration of drug below the cut-off, timing of specimen collection relative to administration of drug, or limitations of testing. Specimens are held for 7 days. This test was developed, and its performance characteristics determined by [facility] ([facility]). It has not been cleared or approved by the FDA. This test is used for clinical purposes. It should not be regarded as investigational or for research. [facility] is certified under the Clinical Laboratory Improvement Amendments (CLIA) as qualified to perform high complexity clinical laboratory testing. Jesu Galvin MD URINE ORDERABLES Final Resu lt [facility] [employer] , [address] [place], [place] [id number] [facility] [address] [place] [id number] * MICROALBUMIN/CREATININE RATIO URINE (12/19/2024 10:50 AM EST) Only the most recent of13 resultswithin the time period is included. Urine Microalb <12.0 mg/L 12/19/2024 5:02 PM EST [facility] [employer], [facility] Urine Creatinine 33.0 mg/dL 12/19/19 5:02 PM EST [facility] [employer] Ur Microalb/Creat 025 5:02 PM EST [employer] Comment: Because the albumin level is below the level of detection in this urine specimen, the laboratory is unable to calculate a reliable albumin/creatinine ratio. Microalbuminuria is unlikely if the urine albumin concentration is less than 20- 30 mg/L in a random specimen. Urine URINE SPECIMEN COLLECTION / Unknown 12/19/2024 10:50 AM EST 12/19/2024 10:50 AM EST us Peg Cadena MD URINE ORDERABLES Final Result [facility] [employer] [address] [facility] , [place] [address] * (ABNORMAL) URINE CULTURE (NO STAIN) (12/19/2024 10:50 AM EST) Only the most recent of20 resultswithin the time period is included. Culture Positive Growth(A) 12/21/2024 9:25 AM EST [employer] Culture >100,000 CFU/mL Escherichia coli SUSCEPTIBI LITY RESULT 12/21/2024 9:25 AM EST [facility] [employer] Urine URINE SPECIMEN COLLECTION, CLEAN CATCH / Unknown 12/19/2024 10:50 AM EST 12/19/2024 10:50 AM EST Narrative Organism Antibiotic Method Susceptibility Escherichia coli Amikacin SUSCEPTIBILITY RESULT Escherichia coli Amoxicillin/Clavulanate SUSCEPTIBILIT Y RESULT 16/8 ug/mL: Intermediate Escherichia coli Ampicillin SUSCEPTIBILITY RESULT >16 ug/mL: Resistant Escherichia coli Ampicillin/Sulbactam SUSCEPTIBILITY R ESULT >16/8 ug/mL: Resistant Escherichia coli Aztreonam SUSCEPTIBILITY RESULT <=4 ug/mL: Susceptible Escherichia coli Cefazolin SUSCEPTIBILITY RESULT 16 ug/mL: Susceptible Escherichia coli Cefepime SUSCEPTIBILITY RESULT Escherichia coli Cefotaxime SUSCEPTIBILITY RESULT Escherichia coli Cefoxitin SUSCEPTIBILITY RESULT <=8 ug/mL: Susceptible Escherichia coli Ceftazidime SUSCEPTIBILITY RESULT Escherichia coli Ceftazidime/Avibactam SUSCEPTIBILITY RESULT Escherichia coli Ceftolozane/Tazobactam SUSCEPTIBILITY RESULT Escherichia coli Ceftriaxone SUSCEPTIBILITY RESULT Escherichia coli Cefuroxime SUSCEPTIBILITY RESULT Escherichia coli Ciprofloxacin SUSCEPTIBILITY RESULT <=0.25 ug/mL: Susceptible Escherichia coli Ertapenem SUSCEPTIBILITY RESULT <=0.5 ug/mL: Susceptible Escherichia coli Gentamicin SUSCEPTIBILITY RESULT <=2 ug/mL: Susceptible Escherichia coli Imipenem SUSCEPTIBILITY RESULT <=1 ug/mL: Susceptible Escherichia coli Levofloxacin SUSCEPTIBILITY RESULT <=0.5 ug/mL: Susceptible Escherichia coli Meropenem SUSCEPTIBILITY RESULT <=1 ug/mL: Susceptible Escherichia coli Meropenem/Vaborbactam SUSCEPTIBILITY RESULT Escherichia coli Minocycline SUSCEPTIBILITY RESULT Escherichia coli Moxifloxacin SUSCEPTIBILITY RESULT Escherichia coli Nitrofurantoin SUSCEPTIBILITY RESULT <=32 ug/mL: Susceptible Escherichia coli Piperacillin/Tazobactam SUSCEPTIBILIT Y RESULT <=8 ug/mL: Susceptible Escherichia coli Tetracycline SUSCEPTIBILITY RESULT >8 ug/mL: Resistant Escherichia coli Tigecycline SUSCEPTIBILITY RESULT Escherichia coli Tobramycin SUSCEPTIBILITY RESULT <=2 ug/mL: Susceptible Escherichia coli Trimethoprim/Sulfame tho xazole SUSCEPTIBILITY RESULT >2/38 ug/mL: Resistant us Peg Cadena MD MICROBIOLOGY - GENERAL ORDERAB LES Final Result Performing Organization Address City/State/[facility] Co de Phone Number [facility] [email or web address] [facility] [address] [facility], [place] [address] * (ABNORMAL) SEP URINALYSIS POC (12/19/2024 10:43 AM EST) Only the most recent of19 resultswithin the time period is included. UA Color POC Yellow Color 12/19/2024 10:45 [address] [facility] Appear POC Clear Clear 12/19/2024 10:45 AM EST [facility] Gluc POC >=1000(A) Negative mg/dL 12/19/2024 10:45 AM EST [facility] Bili POC Negative Negative 12/19/2024 10:45 AM EST [facility] Ketones POC Negative Negative mg/dL 12/19/2024 10:45 AM EST [facility] SG POC 1.010 1.001 - 1.035 no units 12/19/2024 10:45 AM EST [facility] Blood POC Negative Negative 12/19/2024 10:45 AM EST [facility] pH POC 6.0 5.0 - 8.0 pH 12/19/2024 10:45 AM EST [facility] Protein POC Negative Negative mg/dL 12/19/2024 10:45 AM EST [facility] Urobilinogen POC 0.2 0.2, 1.0 12/19/2024 10:45 AM EST [facility] Nitrite POC Negative Negative 12/19/2024 10:45 AM EST [facility] Leuk Est POC Negative Negative 10:45 AM EST [facility] Urine URINE SPECIMEN COLLECTION / Unknown 12/19/2024 10:43 AM EST 12/19/2024 10:45 AM EST us Peg Cadena MD POINT OF CARE TEST ORDERABLES Final Result [facility] [address] [place], [place] [address] * XR THORACIC SPINE AP AND LATERAL (09/02/2024 2:01 PM EDT) Anatomical Region Laterality Modality T-spine Radiographic Reanna ging 09/02/2024 2:01 PM EDT Impressions 09/02/2024 2:10 PM EDT Mild degenerative change and dextroscoliosis. No fracture. - Note: Radiology results need to be interpreted within a comprehensive clinical context. If you have questions about the radiology report, please contact the office of the ordering clinician. Narrative 09/02/2024 2:10 PM EDT XR THORACIC SPINE AP AND LATERAL, 09/02/2024 2:01 PM CLINICAL HISTORY: S39.92XA-Unspecified injury of lower back, initial toebfergz-ZHI-49-CM COMPARISON: None. PROCEDURE COMMENTS: Frontal, lateral, and swimmers views of the thoracic spine per ordered protocol. FINDINGS: Mild dextroscoliosis mid thoracic region. Vertebral height maintained. No fractures. Mild degenerative changes mid thoracic spine. Procedure Note Arturo Bacon MD - 09/02/2024 XR THORACIC SPINE AP AND LATERAL, 09/02/2024 2:01 PM CLINICAL HISTORY: S39.92XA-Unspecified injury of lower back, initial auqsuvxdf-DLF-51-CM COMPARISON: None. PROCEDURE COMMENTS: Frontal, lateral, and swimmers views of the thoracicspine per ordered protocol. FINDINGS: Mild dextroscoliosis mid thoracic region. Vertebral heightmaintained. No fractures. Mild degenerative changes mid thoracic spine. IMPRESSION: Mild degenerative change and dextroscoliosis. No fracture. - Note: Radiology results need to be interpreted within a comprehensiveclinical context. If you have questions about the radiology report, please contactthe office of the ordering clinician. Peg Cadena MD [facility] DIAGNOSTIC IMAGING ORDERAB LES Final Result * XR RIBS BILATERAL MINIMUM 4 VW W PA CHEST (09/02/2024 2:01 PM EDT) Anatomical Region Laterality Modality Chest Radiographic Reanna ging 09/02/2024 2:01 PM EDT Impressions 09/02/2024 6:40 PM EDT No acute findings. Note: Radiology results need to be interpreted within a comprehensive clinical context. If you have questions about the radiology report, please contact the office of the ordering clinician. Narrative 09/02/2024 6:40 PM EDT CLINICAL HISTORY: S29.9XXA-Unspecified injury of thorax, initial xsrwioxvl-BOI-76-CM. COMPARISON: 11/14/2023. TECHNIQUE: XR RIBS BILATERAL MINIMUM 4 VW W PA CHEST on 09/02/2024 2:01 PM. FINDINGS: The lungs are clear. There is no pneumothorax or pleural effusion. The heart size and pulmonary vascularity are normal. The upper abdomen and osseous structures are unremarkable. Procedure Note Zachery Kearney MD - 09/02/2024 CLINICAL HISTORY: S29.9XXA-Unspecified injury of thorax, initial azmmchswj-DCZ-28-CM. COMPARISON: 11/14/2023. TECHNIQUE: XR RIBS BILATERAL MINIMUM 4 VW W PA CHEST on 09/02/2024 2:01PM. FINDINGS: The lungs are clear. There is no pneumothorax or pleuraleffusion. The heart size and pulmonary vascularity are normal. The upper abdomen andosseous structures are unremarkable. IMPRESSION: No acute findings. Note: Radiology results need to be interpreted within a comprehensiveclinical context. If you have questions about the radiology report, please contactthe office of the ordering clinician. Peg Cadena MD IMG DIAGNOSTIC IMAGING ORDERAB LES Final Result * (ABNORMAL) BASIC METABOLIC PANEL (09/02/2024 11:44 AM EDT) Only the most recent of33 resultswithin the time period is included. Sodium 140 136 - 145 mmol/L 09/02/2024 5:42 PM EDT [facility] Potassium 4.6 3.5 - 5.0 mmol/L 09/02/2024 5:42 PM EDT [facility] Chloride 101 98 - 107 mmol/L 09/02/2024 5:42 PM EDT [facility] Total CO2 25 22 - 29 mmol/L 09/02/2024 5:42 PM EDT [facility] Anion Gap 14 7 - 16 mmol/L 09/02/2024 5:42 PM EDT [facility] Calcium 9.9 8.8 - 10.4 mg/dL 09/02/2024 5:42 PM EDT [facility] Glucose Lvl 188(H) 70 - 99 mg/dL 09/02/2024 5:42 PM EDT [facility] BUN 14 8 - 23 mg/dL 09/02/2024 5:42 PM EDT [facility] Creatinine 0.61 0.51 - 1.30 mg/dL 09/02/2024 5:42 PM EDT [facility] eGFR (CKD-EPIcr 2020) 98 >=60 mL/min/1.7 3 m2 09/02/2024 5:42 PM EDT [facility] Comment:Estimated GFR was ca lculated using the CKD-EPIcr (2020) equation refit without race. The equation is recommended by the National Kidney Foundation - [place] [employer] of Nephrology Task Force. Blood VENOUS BLOOD / Unknown Venipuncture / Unknown 09/02/2024 11:44 AM EDT 09/02/2024 11:44 AM EDT us Peg Cadena MD CHEMISTRY ORDERABLES Final Res ult [facility] [address] [facility] , [place] [address] [facility] [address] [place], [place] [id number] * GENETIC SCANNING (08/01/2024 1:18 PM EDT) Only the most recent of2 resultswithin the time period is included. 08/01/2024 1:18 PM EDT us Unknown Provider HEMATOLOGY ORDERABLES Final Res ult * CT ABDOMEN PELVIS WO ORAL OR IV CONTRAST (07/02/2024 2:21 PM EDT) Anatomical Region Laterality Modality Abdomen, Pelvis Computed Tomogra phy 07/02/2024 2:21 PM EDT Impressions 07/02/2024 2:45 PM EDT 1. No acute intra-abdominal pathology. Narrative 07/02/2024 2:[address] ABDOMEN PELVIS WO ORAL OR IV CONTRAST 07/02/2024 2:21 PM HISTORY: R10.9-Unspecified abdominal nong-HYP-45-CM PROCEDURE: CT abdomen pelvis noncontrast. Comparison 11/09/2023. FINDINGS: Lung bases are unremarkable. Liver spleen pancreas adrenals and kidneys are normal. Visualized bowel and mesentery are unremarkable. No retroperitoneal or abdominal lymph node enlargement. Prior lumbar fixation surgery stable. Procedure Note Diony Gilmore MD - 07/02/2024 CT ABDOMEN PELVIS WO ORAL OR IV CONTRAST 07/02/2024 2:21 PM HISTORY: R10.9-Unspecified abdominal pkjz-GHU-15-CM PROCEDURE: CT abdomen pelvis noncontrast. Comparison 11/09/2023. FINDINGS: Lung bases are unremarkable. Liver spleen pancreas adrenals and kidneys are normal. Visualized boweland mesentery are unremarkable. No retroperitoneal or abdominal lymph node enlargement. Prior lumbar fixation surgery stable. IMPRESSION: 1. No acute intra-abdominal pathology. us Jesu Galvin MD IMG CT ORDERABLES Final Res ult * (ABNORMAL) POCT KAY SARS ANTIGEN (06/23/2024 4:53 PM EDT) Only the most recent of6 resultswithin the time period is included. SARS Antigen Positive(A ) Negative SEP OFFICE Lot Number SEP OFFICE Expiration Date SEP OFFICE SeriAl # SEP OFFICE Control Line SEP OFFICE 06/23/2024 4:53 PM EDT Jesu Galvin MD POINT OF CARE TEST ORDERABL ES Final Result [facility] * POCT KAY INFLUENZA A/B (06/23/2024 3:39 PM EDT) Only the most recent of3 resultswithin the time period is included. Influenza A Antigen Negative Negative 06/23/2024 4:[address] [address] Influenza B Antigen Negative Negative 06/23/2024 4:53 [address] ED[address] [facility] Swab SPECIMEN FROM NASOPHARYNGEAL STRUCTURE / Unknown 06/23/2024 3:39 PM EDT 06/23/2024 4:53 PM EDT Jesu Galvin MD POINT OF CARE TEST ORDERABL ES Final Result Performing Organization Address [facility] Co de Phone Number [facility] [address] [place] [address] * EEG AWAKE AND ASLEEP (04/29/2024 10:35 AM EDT) Anatomical Region Laterality Modality Electroencephalo graphy Narrative 04/29/2024 12:24 PM EDT REFERRING MD: Jesu Galvin MD REASON FOR EE yo F with narcolepsy and atypical syncope CURRENT MEDICATIONS: Tylenol, Jardiance, Zetia, ASA, Glucaphage, Reglan, Provigil, Ozempic, Vibra, Effexor, Ultram and Zoloft. TECHNICAL SUMMARY: This is a 20 channel referential and bipolar EEG recorded in a digital format in a patient who is reported to be awake and drowsy during the recording. While awake and maximally stimulated the background rhythm consisted of a fairly well developed, well regulated moderate voltage activity in the 8 Hz frequency range, maximum over the posterior head regions and reactive to eye opening and closure. During the recording the patient becomes drowsy, however stage II sleep was not seen. Photic stimulation was performed and elicited no abnormalities. Hyperventilation was not able to be performed due to medical reasons. No cardiac rhythm abnormalities were seen in the EKG monitoring channel. EEG INTERPRETATION: This EEG is within normal limits for a patient of this age in the awake and drowsy conditions. No focal, lateralizing, or epileptiform features were seen. A normal EEG does not exclude the diagnosis of a seizure disorder. Should seizures remain of strong clinical concern a prolonged (digitrace) or repeat study is recommended. 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 Jesu Galvin MD Patient was monitored for 48 hours. INDICATIONS: Syncope and collapse CONCLUSION: Patient monitored for 2d 1h, analyzable time was 2d starting on 04/29/2024 08:44 am. Primary rhythm was Sinus Rhythm. Average heart rate was 84 bpm, Minimum heart rate was 64 bpm on Day 1 / :19:12 am, Max heart rate was 119 bpm on Day 2 / :18:01 am APB(s): [place] was < 0.01 %, 21 total APB(s) VPB(s): [place] was 0.08 %, 205 total VPB(s), of uniform morphology Electronically Signed On 05-05-2024 07:00:18 EDT by Idris Garcia MD Narrative Procedure Note Idris Garcia MD - 05/05/[address] 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 Jesu Galvin MD Patient was monitored for 48 hours. INDICATIONS: Syncope and collapse CONCLUSION: Patient monitored for 2d 1h, analyzable time was 2d starting on04/29/2024 08:44 am. Primary rhythm was Sinus Rhythm. Average heart rate was 84 bpm, Minimumheart rate was 64 bpm on Day :19:12 am, Max heart rate was 119 bpm on Day:18:01 am APB(s): [place] was < 0.01 %, 21 total APB(s) VPB(s): [place] was 0.08 %, 205 total VPB(s), of uniform morphology Electronically Signed On 05-05-2024 07:00:18 EDT by Idris Garcia MD us Jesu Galvin MD IMG HOLTER MONITOR ORDERABL ES Final Result * CT HEAD WO CONTRAST (04/29/2024 8:34 AM EDT) Anatomical Region Laterality Modality Head Computed Tomogra phy 04/29/2024 8:34 AM EDT Impressions 04/29/2024 8:58 AM EDT No acute intracranial abnormality. Partially empty sella turcica noted. - Note: Radiology results need to be interpreted within a comprehensive clinical context. If you have questions about the radiology report, please contact the office of the ordering clinician. 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 COMPARISON: None. PROCEDURE COMMENTS: Routine noncontrast head CT with multiplanar reconstructions. Dose 1 : CT DLP Total : 817.3 mGycm DLP Spiral Max : 812.2 mGycm Maximum CTDI Vol : 48.15 mGy FINDINGS: No evidence of acute stroke, mass, or hemorrhage. No fracture or extra-axial collection. Mild white matter density alteration is nonspecific, but compatible with chronic small vessel ischemia. Partially empty sella turcica. This can be seen as normal variation but can also be associated with pseudotumor cerebri and pituitary hypofunction. Included portions of the paranasal sinuses, mastoids, and orbits unremarkable. Procedure Note Peg Ron MD - 04/29/2024 CT HEAD WO CONTRAST 04/29/2024 8:34 AM CLINICAL HISTORY: G47.411-Narcolepsy with atrekyjui-LHD-61-CM M51-Lhjvfvq and uhruzbfh-AIQ-98-CM. COMPARISON: None. PROCEDURE COMMENTS: Routine noncontrast head CT with multiplanar reconstructions. Dose 1 : CT DLP Total : 817.3 mGycm DLP Spiral Max : 812.2 mGycm Maximum CTDI Vol : 48.15 mGy FINDINGS: No evidence of acute stroke, mass, or hemorrhage. No fracture orextra-axial collection. Mild white matter density alteration is nonspecific, butcompatible with chronic small vessel ischemia. Partially empty sella turcica. This can be seen as normal variation butcan also be associated with pseudotumor cerebri and pituitary hypofunction. Included portions of the paranasal sinuses, mastoids, and orbitsunremarkable. IMPRESSION: No acute intracranial abnormality. Partially empty sella turcica noted. - Note: Radiology results need to be interpreted within a comprehensiveclinical context. If you have questions about the radiology report, please contactthe office of the ordering clinician. Jesu Galvin MD IMG CT ORDERABLES Final Res ult * POCT EKG (03/27/2024 11:21 AM EDT) Only the most recent of3 resultswithin the time period is included. 03/27/2024 11:2 1 AM EDT Impressions SEP OFFICE - 03/27/2024 11:21 AM EDT Sinus rhythm us Jesu Galvin MD POINT OF CARE CARDIOLOGY Fi nal Result SEP OFF[facility] * COLOGUARD (03/03/2024 9:30 AM EDT) Only the most recent of2 resultswithin the time period is included. COLOGUARD CLINICAL REPORT Negative Negative [facility] Comment: NEGATIVE TEST RESULT. A negative Cologuard result indicates a low likelihood that a colorectal cancer (CRC) or advanced adenoma (adenomatous polyps with more advanced pre-malignant features) is present. The chance that a person with a negative Cologuard test has a colorectal cancer is less than 1 in 1500 (negative predictive value >99.9%) or has an advanced adenoma is less than 5.3% (negative predictive value 94.7%). These data are based on a prospective cross-sectional study of 10,000 individuals at average risk for colorectal cancer who were screened with both Cologuard and colonoscopy. (Dennis Roper. et al, N Engl J Med 2014;370(14):0058-3841) The normal value (reference range) for this assay is negative. COLOGUARD RE-SCREENING RECOMMENDATION: Periodic colorectal cancer screening is an important part of preventive healthcare for asymptomatic individuals at average risk for colorectal cancer. Following a negative Cologuard result, the [place] Cancer Society and U.S. Multi-Society Task Force screening guidelines recommend a Cologuard re-screening interval of 3 years. References: [place] Cancer Society Guideline for Colorectal Cancer Screening: https://www.cancer.org/cancer/hvdtk-czjcdm-plylip/gxoexxmog-lfpbfrrzl-kgkdpfh/ac s-rec ommendations.html.; Brennan HINSON, Nelsy AGUILA, Mana BillingsK, Colorectal Cancer Screening: Recommendations for Physicians and Patients from the U.S. Multi-Society Task Force on Colorectal Cancer Screening , Am J Gastroenterology 2017; 112:2637-5933. TEST DESCRIPTION: Composite algorithmic analysis of stool DNA-biomarkers with hemoglobin immunoassay. Quantitative values of individual biomarkers are not reportable and are not associated with individual biomarker result reference ranges. Cologuard is intended for colorectal cancer screening of adults of either sex, 45 years or older, who are at average-risk for colorectal cancer (CRC). Cologuard has been approved for use by the U.S. FDA. The performance of Cologuard was established in a cross sectional study of average-risk adults aged 50-84. Cologuard performance in patients ages 45 to 49 years was estimated by sub-group analysis of near-age groups. Colonoscopies performed for a positive result may find as the most clinically significant lesion: colorectal cancer [4.0%], advanced adenoma (including sessile serrated polyps greater than or equal to 1cm diameter) [20%] or non- advanced adenoma [31%]; or no colorectal neoplasia [45%]. These estimates are derived from a prospective cross-sectional screening study of 10,000 individuals at average risk for colorectal cancer who were screened with both Cologuard and colonoscopy. (Dennis White et al, N Engl J Med 2014;370(14):2393-8666.) Cologuard may produce a false negative or false positive result (no colorectal cancer or precancerous polyp present at colonoscopy follow up). A negative Cologuard test result does not guarantee the absence of CRC or advanced adenoma (pre-cancer). The current Cologuard screening interval is every 3 years. ([place] and U.S. Multi-Society Task Force). Cologuard performance data in a 10,000 patient pivotal study using colonoscopy as the reference method can be accessed at the following location: [email or web address]. Additional description of the Cologuard test process, warnings and precautions can be found at [email or web address]. Stool 03/03/2024 9:30 AM EDT 03/06/2024 12:56 PM EDT Jesu Galvin MD SpeechTrans - ORDERABLES Final Result [employer] [facility] [address] [place] [address], [facility] [employer] [address] [place] [address] * (ABNORMAL) GLUCOSE METER POC (11/17/2023 12:53 PM EST) Only the most recent of95 resultswithin the time period is included. Glucose Meter POC 118(H) 70 - 100 mg/dL 11/17/2023 12:55 PM EST [facility] Sample Type Capillary 11/17/2023 12:55 PM EST [facility] Patient Status Non-Critical Patient 11/17/2023 12:55 PM EST [facility] Blood BLOOD SPECIMEN / Unknown 11/17/2023 12:53 PM EST 11/17/2023 12:55 PM EST Daja Santizo MD POINT OF CARE TEST ORDERABLES Fi nal Result Performing Organization Address City/[facility]/ZIP Co de Phone Number [facility] [address] [place] [address] * PHOSPHORUS LEVEL (11/16/2023 5:47 AM EST) Only the most recent of4 resultswithin the time period is included. Phosphorus 3.6 2.5 - 4.5 mg/dL 11/16/2023 6:30 AM EST [facility] [employer] Blood VENOUS BLOOD / Unknown Venipuncture / Unknown 11/16/2023 5:47 AM EST 11/16/2023 5:57 AM EST Olvin Olmstead MD CHEMISTRY ORDERABLES Lula l Result Performing Organization Address [facility] Co de Phone Number [employer] [address] [place] [address], [place] [address] * MAGNESIUM LEVEL (11/16/2023 5:47 AM EST) Only the most recent of4 resultswithin the time period is included. Magnesium 2.1 1.6 - 2.4 mg/dL 11/16/2023 6:30 AM EST [employer] Blood VENOUS BLOOD / Unknown Venipuncture / Unknown 11/16/2023 5:47 AM EST 11/16/2023 5:57 AM EST Olvin Olmstead MD CHEMISTRY ORDERABLES Lula l Result Performing Organization Address City/[facility]/ZIP Co de Phone Number [employer] [address] [place] [address] , [address] [place], [place] [id number] * XR CHEST AP PORTABLE (11/14/2023 9:43 AM EST) Only the most recent of5 resultswithin the time period is included. Anatomical Region Laterality Modality Chest Radiographic Reanna ging 11/14/2023 9:43 AM EST Impressions 11/14/2023 10:36 AM EST fractures not well visualized on this study. IMPRESSION: No pneumothorax on the left in this patient with a history of recent left rib fractures. Bibasilar areas of linear atelectasis. Mild blunting right costophrenic angle. - Note: Radiology results need to be interpreted within a comprehensive clinical context. If you have questions about the radiology report, please contact the office of the ordering clinician. Narrative 11/14/2023 10:36 AM EST XR CHEST AP PORTABLE, 11/14/2023 9:43 AM CLINICAL HISTORY: -F/U rib fx. COMPARISON: 11/12/2023 PROCEDURE COMMENTS: AP portable technique. FINDINGS: Support devices: No visible support devices. The cardiopericardial silhouette mediastinum are within normal limits. There are bibasilar linear and strandy densities consistent areas of linear atelectasis or scarring. Mild blunting right costophrenic angle with elevation right diaphragm unchanged. No new infiltrates. No pneumothorax. The patient has known left rib Procedure Note Samy Downs III, MD - 11/14/2023 XR CHEST AP PORTABLE, 11/14/2023 9:43 AM CLINICAL HISTORY: -F/U rib fx. COMPARISON: 11/12/2023 PROCEDURE COMMENTS: AP portable technique. FINDINGS: Support devices: No visible support devices. The cardiopericardial silhouette mediastinum are within normal limits.There are bibasilar linear and strandy densities consistent areas of linearatelectasis or scarring. Mild blunting right costophrenic angle with elevation rightdiaphragm unchanged. No new infiltrates. No pneumothorax. The patient has known leftrib IMPRESSION: fractures not well visualized on this study. IMPRESSION: No pneumothoraxon the left in this patient with a history of recent left rib fractures.Bibasilar areas of linear atelectasis. Mild blunting right costophrenic angle. - Note: Radiology results need to be interpreted within a comprehensiveclinical context. If you have questions about the radiology report, please contactthe office of the ordering clinician. us Moy Kelly SVP [employer] IMG DIAGNOSTIC IMAGING O RDERABLES Final Result * SCANNED EKG (11/13/2023 12:15 PM EST) Only the most recent of2 resultswithin the time period is included. Anatomical Region Laterality Modality Other 11/13/2023 12:1 5 PM EST us Unknown Provider IMG ECG ORDERABLES Final Result * CT CERVICAL SPINE WO CONTRAST (11/12/2023 2:45 PM EST) Anatomical Region Laterality Modality C-spine Computed Tomogra phy 11/12/2023 2:45 PM EST Impressions 11/12/2023 3:24 PM EST No acute bony abnormality of the cervical spine. - Note: Radiology results need to be interpreted within a comprehensive clinical context. If you have questions about the radiology report, please contact the office of the ordering clinician. Narrative 11/12/2023 3:[address] CERVICAL SPINE WITHOUT CONTRAST, 11/12/2023 2:45 PM CLINICAL HISTORY: -neck pain after fall. COMPARISON: None. PROCEDURE COMMENTS: Multidetector CT of the cervical spine with multiplanar reformatting per protocol. Dose 1 : CT DLP Total : 632.37 mGycm DLP Spiral Max : 630.92 mGycm Maximum CTDI Vol : 27.37 mGy FINDINGS: No acute fracture or traumatic malalignment. Prevertebral soft tissues unremarkable. Multilevel degenerative changes noted. Procedure Note Samy Downs III, MD - 11/12/2023 CT CERVICAL SPINE WITHOUT CONTRAST, 11/12/2023 2:45 PM CLINICAL HISTORY: -neck pain after fall. COMPARISON: None. PROCEDURE COMMENTS: Multidetector CT of the cervical spine withmultiplanar reformatting per protocol. Dose 1 : CT DLP Total : 632.37 mGycm DLP Spiral Max : 630.92 mGycm Maximum CTDI Vol : 27.37 mGy FINDINGS: No acute fracture or traumatic malalignment. Prevertebral soft tissues unremarkable. Multilevel degenerative changes noted. IMPRESSION: No acute bony abnormality of the cervical spine. - Note: Radiology results need to be interpreted within a comprehensiveclinical context. If you have questions about the radiology report, please contactthe office of the ordering clinician. us Mark (Clay) Zane YU IMG CT ORDERABLES Final Re sult * (ABNORMAL) URINALYSIS REFLEX (11/12/2023 8:35 AM EST) Only the most recent of3 resultswithin the time period is included. UA Color Yellow 11/12/2023 10:39 AM [facility] UA Appear Turbid(A) Clear 11/12/2023 10:39 AM EST [facility] UA Glucose >=1000(A) Negative mg/dL 11/12/2023 10:39 AM [facility] UA Ketones 2+ (40 mg/dL)(A) Negative mg/dL 11/12/2023 10:39 AM EST [facility] UA Blood Large(A) Negative 11/12/2023 10:39 AM EST [facility] UA pH 6.0 5.0 - 8.0 pH 11/12/2023 10:39 AM [facility] UA Protein 300(A) Negative mg/dL 11/12/2023 10:39 AM [facility] UA Urobilinogen 0.2 <=1 mg/dL 10:39 AM EST [facility] UA Bili Negative Negative 11/12/2023 10:39 AM EST [facility] UA Nitrite Positive(A) Negative 11/12/2023 10:39 AM EST [facility] UA Leuk Est Large(A) Negative 11/12/2023 10:39 AM [facility] UA Spec Grav 1.025 1.001 - 1.035 no units 11/12/2023 10:39 AM EST [facility] Comment:Reference range jojo d for random specimens only. UA WBC >182(H) 0 - 4 /HPF 11/12/2023 10:39 AM EST [facility] UA RBC 39(H) 0 - 3 /HPF 11/12/2023 10:39 AM EST [facility] UA Squam Epi 3+ /LPF 11/12/2023 10:39 AM EST [facility] UA Bacteria 4+(A) Negative /HPF 11/12/2023 10:39 AM EST [facility] Urine URINE SPECIMEN COLLECTION, CLEAN CATCH / Unknown 11/12/2023 8:35 AM EST 11/12/2023 8:47 AM EST us Daja Santizo MD URINE ORDERABLES Final Result Performing Organization Address [facility]/State/[place] Number [place] [address] [facility], [address], [place] [address] * EXTRA BRADSHAW URINE CX (11/12/2023 8:35 AM EST) Only the most recent of4 resultswithin the time period is included. Urine URINE SPECIMEN COLLECTION, CLEAN CATCH / Unknown 11/12/2023 8:35 AM EST 11/12/2023 8:47 AM EST us Daja Santizo MD MICROBIOLOGY - GENERAL ORDERABLE S Final Result Performing Organization Address City/[facility]/[place] [address] * Peripheral Block by Anesthesia (11/11/2023 12:15 PM EST) Narrative [facility] - 11/11/2023 12:15 PM EST Geo Rodriguez MD 11/11/2023 12:20 PM Peripheral Block by Anesthesia Procedure Date/Time: 11/11/2023 12:15 PM Patient location during procedure: PACU Reason for block: procedure for pain Staff and Pre-procedure checks Anesthesiologist: Geo Rdoriguez MD Performed: anesthesiologist Preanesthetic Checklist: Allergies confirmed, Block plan confirmed, Necessary block equipment present, Supplemental O2 applied, if needed, Anticoagulant confirmed, Block site marked, Patient identified- 2 criteria, Surgical procedure consent verified, Aseptic technique used, Drug/solution labeled, Resuscitaion equipment available, MEREDITH recommended monitors applied, IV access functioning, Sedation given, if needed and Resuscitation equipment available Immediate perianesthetic assessment completed: Yes Patient position: Sitting Prep: Chloraprep and Patient Draped Monitoring: O2 Sat, EKG, BP and Mental status assessed Peripheral Block Block type: Thoracic Paravertebral Block Laterality: Left Injection technique: single-shot Thoracic Paravertebral Block Approach: Erectus Spinae Approach Medication(s) Administered: fentaNYL (SUBLIMAZE) injection - Intravenous 50 mcg - 11/11/2023 12:15:00 PM midazolam (VERSED) injection - Intravenous 1 mg - 11/11/2023 12:15:00 PM bupivacaine (MARCAINE) injection 0.5% (PF) - Infiltration 20 mL - 11/11/2023 12:15:00 PM bupivacaine liposome (pf) 266 mg/20ml (EXPAREL) suspension - Infiltration 133 mg - 11/11/2023 12:15:00 PM Needle Needle type: Pajunk Needle size: 21Gx4 Nerve localization: ultrasound guidance and anatomical landmarks (The transverse process of the vertebrae was identified and local was administered in incremental doses underneath the erector spinae plane. Negative aspiration for blood or air. No evidence of pneumothorax verified with ultrasound. Ultrasound image documentation is attached/scanned in [employer] chart. No anatomical pathology noted during block placement.) Ultrasound probe: linear Ultrasound needle approach: in-plane Assessment Block success: a full evaluation pending Events: Uneventful Heart rate change: no Blood aspirated: no Paresthesia pain: none Resistance on injection: normal Intermittent incremental injection LA at 5ml Ultrasound Image of the block is attached/scanned to the epic chart. us Geo Rodirguez MD ANESTHESIA ORDERABLES Final Resu lt [facility] [address] [place] [address] * US ANES GUIDANCE FOR NERVE BLOCK (11/11/2023 11:49 AM EST) Narrative Genericuser, Audit - 11/11/2023 11:49 AM EST Ultrasound guided nerve block performed by Anesthesiologist The study image(s) are for reference only and will not be interpreted by a Radiologist. Refer to the Anesthesia procedure note for image description and procedure details. us Geo Rodriguez MD [facility] US ORDERABLES Final Result * CT TRAUMA CHEST ABDOMEN PELVIS W CONTRAST (11/09/2023 9:52 PM EST) Anatomical Region Laterality Modality Chest, Abdomen, Pelvis Computed Tomography 11/09/2023 9:52 PM EST Impressions 11/09/2023 10:03 PM EST Fractures of the anterior lateral aspect of the left sixth and seventh ribs without pneumothorax. - Note: Radiology results need to be interpreted within a comprehensive clinical context. If you have questions about the radiology report, please contact the office of the ordering clinician. Narrative 11/09/2023 10:[address] CHEST, ABDOMEN, AND PELVIS WITH CONTRAST FOR TRAUMA, 11/09/2023 9:52 PM CLINICAL HISTORY: -L rib pain, LUQ pain, fall. COMPARISON: None. PROCEDURE COMMENTS: Multidetector CT chest, abdomen, and pelvis with multiplanar reconstructions. Isovue 370 IV contrast given as recorded in EPIC. Dose 1 : CT DLP Total : 502.57 mGycm DLP Spiral Max : 376.86 mGycm Maximum CTDI Vol : 7.3 mGy FINDINGS: CT CHEST: There is a fracture of the anterior lateral aspect of the left sixth and seventh ribs. There is no pneumothorax. No large effusion. No mediastinal hematoma. Tracheobronchial tree is patent. Coronary artery calcification: Mild. CT ABDOMEN AND PELVIS: The liver, spleen, and remaining upper abdominal viscera appear intact. No acute lumbar spine fracture. No intraperitoneal free air. No free fluid or adenopathy within the pelvis. Lumbar postsurgical changes from L4 to S1 noted. No acute lumbar compression fracture or pelvic fracture identified. Procedure Note Justino Rajan MD - 11/09/2023 CT CHEST, ABDOMEN, AND PELVIS WITH CONTRAST FOR TRAUMA, 11/09/2023 9:52PM CLINICAL HISTORY: -L rib pain, LUQ pain, fall. COMPARISON: None. PROCEDURE COMMENTS: Multidetector CT chest, abdomen, and pelvis withmultiplanar reconstructions. Isovue 370 IV contrast given as recorded in EPIC. Dose 1 : CT DLP Total : 502.57 mGycm DLP Spiral Max : 376.86 mGycm Maximum CTDI Vol : 7.3 mGy FINDINGS: CT CHEST: There is a fracture of the anterior lateral aspect of the leftsixth and seventh ribs. There is no pneumothorax. No large effusion. No mediastinal hematoma. Tracheobronchial tree is patent. Coronary artery calcification: Mild. CT ABDOMEN AND PELVIS: The liver, spleen, and remaining upper abdominalviscera appear intact. No acute lumbar spine fracture. No intraperitoneal freeair. No free fluid or adenopathy within the pelvis. Lumbar postsurgical changes from L4 to S1 noted. No acute lumbarcompression fracture or pelvic fracture identified. IMPRESSION: Fractures of the anterior lateral aspect of the left sixth and seventh ribs without pneumothorax. - Note: Radiology results need to be interpreted within a comprehensiveclinical context. If you have questions about the radiology report, please contactthe office of the ordering clinician. us Sandra Wilkins MD IMG CT ORDERABLES Final Resu lt * XR ELBOW LEFT AP LATERAL AND OBLIQUES (11/09/2023 8:30 PM EST) Anatomical Region Laterality Modality Elbow Radiographic Reanna ging 11/09/2023 8:30 PM EST Impressions 11/09/2023 8:41 PM EST No acute bony abnormality of the elbow. - Note: Radiology results need to be interpreted within a comprehensive clinical context. If you have questions about the radiology report, please contact the office of the ordering clinician. Narrative 11/09/2023 8:41 PM EST XR ELBOW LEFT AP LATERAL AND OBLIQUES, 11/09/2023 8:30 PM CLINICAL HISTORY: -FALL COMPARISON: None. PROCEDURE COMMENTS: XR ELBOW LEFT AP LATERAL AND OBLIQUES FINDINGS: No visible fracture or malalignment. No fat pad displacement to suggest effusion. 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 Procedure Note Peg Ron MD - 11/09/2023 XR ELBOW LEFT AP LATERAL AND OBLIQUES, 11/09/2023 8:30 PM CLINICAL HISTORY: -FALL COMPARISON: None. PROCEDURE COMMENTS: XR ELBOW LEFT AP LATERAL AND OBLIQUES FINDINGS: No visible fracture or malalignment. No fat pad displacementto suggest effusion. 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 IMPRESSION: No acute bony abnormality of the elbow. - Note: Radiology results need to be interpreted within a comprehensiveclinical context. If you have questions about the radiology report, please contactthe office of the ordering clinician. us Sandra Wilkins MD IMG DIAGNOSTIC IMAGING ORDER ALAN Final Result * EK EKG 12 LEAD (11/09/2023 5:00 PM EST) Only the most recent of7 resultswithin the time period is included. Anatomical Region Laterality Modality Electrocardiogra phy 11/09/2023 5:07 PM EST Impressions 11/10/2023 12:[address] 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 : 1960 Requested By: [facility] Order Number: [id number] Reading MD: Claudio Fernandez Measurements Intervals [place] Rate: 76 P: 17 ME: 148 QRS: 6 QRSD: 98 T: 50 QT: 364 QTc: 412 Interpretive Statements SINUS RHYTHM Electronically Signed On 11-10-2023 12:10:55 EST by Claudio Fernandez us Jacy Aviles MD IMG ECG ORDERABLES Final Resu lt * INTRAOP AIRWAY PLACEMENT (09/24/2023 10:47 AM EST) Narrative [facility] - 09/24/2023 10:47 AM EST Jesu Pettit, BALING PRESS OPERATOR 09/24/2023 10:47 AM Intraop Airway Placement: Date/Time: 09/24/2023 10:47 AM Airway type: Nasal cannula salter us Jesu Pettit CRNA ME ANESTHESIA Final Res ult Performing Organization Address [facility] Co de Phone Number [facility] [address] [place] [address] * INTRAOP AIRWAY PLACEMENT (09/03/2023 11:00 AM EDT) Narrative [facility] - 09/03/2023 11:00 AM EDT Jose Solomon, SALAZAR 09/03/2023 11:04 AM Intraop Airway Placement: Date/Time: 09/03/2023 11:00 AM Airway type: Nasal cannula salter us Jer Dinh MD ME ANESTHESIA Final Result Performing Organization Address [facility] Co de Phone Number [facility] [address] [place] [address] * DIABETIC RETINAL EXAM (07/13/2023 9:33 AM EDT) [facility] VISUAL ACUITY SCREEN OD 20/50 07/13/2023 9:[address] [facility] OCULAR BLOOD FLOW MEASURE OD 30 07/13/2023 9:[address] [facility] VISUAL ACUITY SCREEN OS 20/125 07/13/2023 9:[address] [facility] OCULAR BLOOD FLOW MEASURE OS 32 07/13/2023 9:[address] [facility] DIABETIC RETINOPATHY NEGATIVE 07/13/2023 9:[address] [facility] CATARACTS POSITIVE 07/13/2023 9:[address] [facility] GLAUCOMA NEGATIVE 07/13/2023 9:[address] [facility] 07/13/2023 9:33 AM EDT us Unknown Provider OPHTHALMOLOGY SERVICES ORDERABL ES Final Result Performing Organization Address [facility] Co de Phone Number [facility] * XR FOOT LEFT AP LATERAL AND OBLIQUE (07/05/2023 10:37 AM EDT) Anatomical Region Laterality Modality Foot Radiographic Reanna ging 07/05/2023 10:3 7 AM EDT Impressions 07/05/2023 12:52 PM EDT No acute bony abnormality of the foot. - Note: Radiology results need to be interpreted within a comprehensive clinical context. If you have questions about the radiology report, please contact the office of the ordering clinician. Narrative 07/05/2023 12:52 PM EDT XR FOOT LEFT AP LATERAL AND OBLIQUE, 07/05/2023 10:37 AM CLINICAL HISTORY: M79.672-Pain in left [id number] COMPARISON: None. PROCEDURE COMMENTS: XR FOOT LEFT AP LATERAL AND OBLIQUE FINDINGS: There is no fracture or traumatic malalignment. Joint spaces overall well-maintained for age. No periostitis. Procedure Note Lori Parker MD - 07/05/2023 XR FOOT LEFT AP LATERAL AND OBLIQUE, 07/05/2023 10:37 AM CLINICAL HISTORY: M79.672-Pain in left [id number] COMPARISON: None. PROCEDURE COMMENTS: XR FOOT LEFT AP LATERAL AND OBLIQUE FINDINGS: There is no fracture or traumatic malalignment. Joint spaces overall well-maintained for age. No periostitis. IMPRESSION: No acute bony abnormality of the foot. - Note: Radiology results need to be interpreted within a comprehensiveclinical context. If you have questions about the radiology report, please contactthe office of the ordering clinician. Jesu Galvin MD [facility] DIAGNOSTIC IMAGING DAYSI CHAO Final Result * (ABNORMAL) CBC (06/23/2023 11:54 AM EDT) [facility] WBC 8.9 3.7 - 10.3 x10(3)/mcL 06/23/2023 12:29 PM EDT [facility] RBC 4.23 3.90 - 5.20 x10(6)/mcL 06/23/2023 12:29 PM EDT [facility] Hgb 11.7 11.2 - 15.7 g/dL 06/23/2023 12:29 PM EDT [facility] Hct 38.3 34.0 - 45.0 % 06/23/2023 12:29 PM EDT [facility] MCV 90.5 80.0 - 100.0 fL 06/23/2023 12:29 PM EDT [facility] MCH 27.7 26.0 - 34.0 pg 06/23/2023 12:29 PM EDT [facility] MCHC 30.5(L) 30.7 - 35.5 g/dL 06/23/2023 12:29 PM EDT [facility] RDW 13.6 <=14.9 % 06/23/2023 12:29 PM EDT [facility] Platelet 268 155 - 369 x10(3)/mcL 06/23/2023 12:29 PM EDT [facility] MPV 10.0 8.8 - 12.5 fL 06/23/2023 12:29 PM EDT [facility] Blood VENOUS BLOOD / Unknown Venipuncture / Unknown 06/23/2023 11:54 AM EDT 06/23/2023 12:10 PM EDT us Moy Aviles MD HEMATOLOGY ORDERABLES Final Resu lt [facility] [address] [place] [address] * CT ABD PEL ED FAST W CONTRAST (06/22/2023 7:14 PM EDT) Anatomical Region Laterality Modality Abdomen, Pelvis Computed Tomogra phy 06/22/2023 7:14 PM EDT Impressions 06/22/2023 7:24 PM EDT No acute abnormality of the abdomen or pelvis. Incidentals as described. - Note: Radiology results need to be interpreted within a comprehensive clinical context. If you have questions about the radiology report, please contact the office of the ordering clinician. Narrative 06/22/2023 7:[address] ABDOMEN AND PELVIS WITH CONTRAST (FAST), 06/22/2023 7:14 PM CLINICAL HISTORY: -abdominal pain, vomiting, leukocytosis. COMPARISON: 03/27/2023, 01/30/2023 PROCEDURE COMMENTS: Multi-detector CT scanning of the abdomen and pelvis with multiplanar reformatting per expedited protocol. Isovue 370 IV contrast given as recorded in EPIC. Dose 1 : CT DLP Total : 328.9 mGycm DLP Spiral Max : 324.6 mGycm Maximum CTDI Vol : 6.63 mGy SSDE : 4.9062 mGy SSDE Diameter : 43.7 cm SSDE Source : Lat FINDINGS: LOWER THORAX: Lung bases unremarkable. ABDOMEN AND PELVIS: Fatty liver, no focal hepatic, splenic, adrenal, pancreatic mass. No biliary dilation. Gallbladder is unremarkable. No renal mass. No hydronephrosis. No focal bladder wall thickening. No dilated or inflamed loops of bowel. Colonic diverticulosis without evidence of diverticulitis. The appendix is normal. No abnormal mass, fluid, or adenopathy in the pelvis. No acute osseous abnormality. Laminectomy, fusion L4-S1. Procedure Note Claudio Judd MD - 06/22/2023 CT ABDOMEN AND PELVIS WITH CONTRAST (FAST), 06/22/2023 7:14 PM CLINICAL HISTORY: -abdominal pain, vomiting, leukocytosis. COMPARISON: 03/27/2023, 01/30/2023 PROCEDURE COMMENTS: Multi-detector CT scanning of the abdomen and pelviswith multiplanar reformatting per expedited protocol. Isovue 370 IV contrastgiven as recorded in EPIC. Dose 1 : CT DLP Total : 328.9 mGycm DLP Spiral Max : 324.6 mGycm Maximum CTDI Vol : 6.63 mGy SSDE : 4.9062 mGy SSDE Diameter : 43.7 cm SSDE Source : Lat FINDINGS: LOWER THORAX: Lung bases unremarkable. ABDOMEN AND PELVIS: Fatty liver, no focal hepatic, splenic, adrenal,pancreatic mass. No biliary dilation. Gallbladder is unremarkable. No renal mass. No hydronephrosis. No focal bladder wall thickening. No dilated or inflamed loops of bowel. Colonic diverticulosis withoutevidence of diverticulitis. The appendix is normal. No abnormal mass, fluid, or adenopathy in the pelvis. No acute osseous abnormality. Laminectomy, fusion L4-S1. IMPRESSION: No acute abnormality of the abdomen or pelvis. Incidentals as described. - Note: Radiology results need to be interpreted within a comprehensiveclinical context. If you have questions about the radiology report, please contactthe office of the ordering clinician. us Sheron Soto MD IMG CT ORDERABLES Final Resu lt * LACTIC ACID (06/22/2023 6:59 PM EDT) Only the most recent of2 resultswithin the time period is included. Lactic Acid 1.2 0.5 - 1.9 mmol/L 06/22/2023 7:24 PM EDT [facility] Blood VENOUS BLOOD / Unknown Venipuncture / Unknown 06/22/2023 6:59 PM EDT 06/22/2023 7:07 PM EDT us Sheron Soto MD CHEMISTRY ORDERABLES Final R esult Performing Organization Address [facility] de Phone Number [address] [address] * PH-VENOUS (06/22/2023 5:58 PM EDT) Pathologist [facility] pH Venous 7.33 7.32 - 7.42 pH 06/22/2023 6:07 PM EDT [facility] Blood VENOUS BLOOD / Unknown Venipuncture / Unknown 06/22/2023 5:58 PM EDT 06/22/2023 6:01 PM EDT us Sheron Soto MD CHEMISTRY ORDERABLES Final R esult Performing Organization Address City/[facility] de Phone Number [facility] [address] [place] [address] * (ABNORMAL) BETA-HYDROXYBUTYRIC ACID (06/22/2023 5:20 PM EDT) BHB 4.18(H) 0.00 - 0.30 mmol/L 06/22/2023 6:08 PM EDT [facility] Blood VENOUS BLOOD / Unknown Venipuncture / Unknown 06/22/2023 5:20 PM EDT 06/22/2023 5:23 PM EDT Sheron Soto MD CHEMISTRY ORDERABLES Final R esult Performing Organization Address City/[facility] Co de Phone Number [facility] [address] [place] [phone] * LIPASE LEVEL (06/22/2023 5:20 PM EDT) Only the most recent of3 resultswithin the time period is included. Lipase Lvl 19 13 - 60 U/L 06/22/2023 5:44 PM EDT [facility] Blood VENOUS BLOOD / Unknown Venipuncture / Unknown 06/22/2023 5:20 PM EDT 06/22/2023 5:23 PM EDT Sheron Soto MD CHEMISTRY ORDERABLES Final R [facility] Performing Organization Address [facility] de Phone Number [facility] [address] [place] [phone] * THYROID STIMULATING HORMONE (04/03/2023 9:14 AM EDT) Only the most recent of6 resultswithin the time period is included. Pathologist [facility] TSH 0.676 0.270 - 4.200 mcIU/mL 04/03/2023 6:49 PM EDT [facility] Blood VENOUS BLOOD / Unknown Venipuncture / Unknown 04/03/2023 9:14 AM EDT 04/03/2023 9:14 AM EDT Narrative PREFERRED [employer] - 04/03/2023 6:49 PM EDT Ingestion of jade doses of biotin (>5 mg/day) taken within 8 hours of drawing blood sample can interfere with this immunoassay test. Jesu Galvin MD CHEMISTRY ORDERABLES Final Result Performing Organization Address [facility] Co de Phone Number [facility] [address] [place] [address] , [address] [place] [phone] * (ABNORMAL) VITAMIN B12 LEVEL (04/03/2023 9:14 AM EDT) Only the most recent of3 resultswithin the time period is included. Vitamin B12 1,545(H) 232 - 1,245 pg/mL 04/03/2023 4:16 PM EDT [facility] Blood VENOUS BLOOD / Unknown Venipuncture / Unknown 04/03/2023 9:14 AM EDT 04/03/2023 9:14 AM EDT Narrative [facility]REF[facility] [employer] - 04/03/2023 4:16 PM EDT Ingestion of jade doses of biotin (>5 mg/day) taken within 8 hours of drawing blood sample can interfere with this immunoassay test. us Jesu Galvin MD CHEMISTRY ORDERABLES Final Result [facility] [address] [facility] , [place] [address] * CT CHEST WO CONTRAST (03/27/2023 2:34 PM EDT) Only the most recent of2 resultswithin the time period is included. Anatomical Region Laterality Modality Chest Computed Tomogra phy 03/27/2023 2:34 PM EDT Impressions 03/27/2023 3:26 PM EDT Interval clearing of dense consolidation and pneumonia in the right lower lobe. Some minimal residual linear densities and groundglass opacity. - Note: Radiology results need to be interpreted within a comprehensive clinical context. If you have questions about the radiology report, please contact the office of the ordering clinician. Narrative 03/27/2023 3:[address] CHEST WITHOUT CONTRAST, 03/27/2023 2:34 PM CLINICAL HISTORY: J18.9-Pneumonia, unspecified [id number]. COMPARISON: 02/03/2023 PROCEDURE COMMENTS: Multi-detector CT of the chest with multiplanar reconstructions per protocol. No contrast given. Dose 1 : CT DLP Total : 418.2 mGycm DLP Spiral Max : 418.2 mGycm Maximum CTDI Vol : 13.9 mGy SSDE : 18.348 mGy SSDE Diameter : 28 cm SSDE Source : [employer] FINDINGS: There is no mediastinal or hilar mass or adenopathy. Few scattered slightly prominent mediastinal lymph nodes which are stable. Mild cardio mainly. Hepatomegaly with diffuse fatty infiltration liver. The tracheobronchial tree is patent. Previous area of dense consolidation involving the right lower lobe has completely cleared. There is some mild groundglass opacity medial aspect of the right lower lobe paraspinal location. Some minimal linear densities in this region.. Some minimal linear density in this region. Right lower lobe bronchi are patent. Some mild groundglass opacity strandy densities in left lower lobe.. No pleural fluid collections. Coronary artery calcification: Mild. Procedure Note Samy Downs III, MD - 03/27/2023 CT CHEST WITHOUT CONTRAST, 03/27/2023 2:34 PM CLINICAL HISTORY: J18.9-Pneumonia, unspecified [id number]. COMPARISON: 02/03/2023 PROCEDURE COMMENTS: Multi-detector CT of the chest with multiplanar reconstructions per protocol. No contrast given. Dose 1 : CT DLP Total : 418.2 mGycm DLP Spiral Max : 418.2 mGycm Maximum CTDI Vol : 13.9 mGy SSDE : 18.348 mGy SSDE Diameter : 28 cm SSDE Source : [employer] FINDINGS: There is no mediastinal or hilar mass or adenopathy. Fewscattered slightly prominent mediastinal lymph nodes which are stable. Mild cardiomainly. Hepatomegaly with diffuse fatty infiltration liver. The tracheobronchial tree is patent. Previous area of dense consolidation involving the right lower lobe has completely cleared. There is some mild groundglass opacity medial aspectof the right lower lobe paraspinal location. Some minimal linear densities inthis region.. Some minimal linear density in this region. Right lower lobebronchi are patent. Some mild groundglass opacity strandy densities in left lowerlobe.. No pleural fluid collections. Coronary artery calcification: Mild. IMPRESSION: Interval clearing of dense consolidation and pneumonia in the right lower lobe. Some minimal residual linear densities and groundglassopacity. - Note: Radiology results need to be interpreted within a comprehensiveclinical context. If you have questions about the radiology report, please contactthe office of the ordering clinician. us Jesu Galvin MD [facility] CT ORDERABLES Final Res ult * XR HIP RIGHT AP LATERAL W AP PELVIS (02/04/2023 11:36 AM EDT) Anatomical Region Laterality Modality Hip Radiographic Reanna ging 02/04/2023 11:3 6 AM EDT Impressions 02/04/2023 11:43 AM EDT No acute abnormality of the hip or pelvis. - Note: Radiology results need to be interpreted within a comprehensive clinical context. If you have questions about the radiology report, please contact the office of the ordering clinician. Narrative 02/04/2023 11:43 AM EDT XR HIP RIGHT AP LATERAL W AP PELVIS, 02/04/2023 11:36 AM CLINICAL HISTORY: -Right hip pain COMPARISON: None. PROCEDURE COMMENTS: AP view of the pelvis with AP and frog-leg views of the hip. FINDINGS: Bony structure of the pelvis and hips intact. No fracture or dislocation. Joint spaces overall well-maintained. No periostitis. Procedure Note Justino Rajan MD - 02/04/2023 XR HIP RIGHT AP LATERAL W AP PELVIS, 02/04/2023 11:36 AM CLINICAL HISTORY: -Right hip pain COMPARISON: None. PROCEDURE COMMENTS: AP view of the pelvis with AP and frog-leg views ofthe hip. FINDINGS: Bony structure of the pelvis and hips intact. No fracture ordislocation. Joint spaces overall well-maintained. No periostitis. IMPRESSION: No acute abnormality of the hip or pelvis. - Note: Radiology results need to be interpreted within a comprehensiveclinical context. If you have questions about the radiology report, please contactthe office of the ordering clinician. Bradley Watt MD [facility] DIAGNOSTIC IMAGING ORDERABLE S Final Result * CT CHEST W CONTRAST (02/03/2023 2:31 PM EDT) Anatomical Region Laterality Modality Chest Computed Tomogra phy 02/03/2023 2:31 PM EDT Impressions 02/03/2023 2:55 PM EDT In the short four-day interval there has been some improvement in the RIGHT lower lobe consolidation and collapse although significant consolidation remains but that is not unexpected and it may take up to 6 weeks for complete radiographic clearing. Continued follow-up recommended - Note: Radiology results need to be interpreted within a comprehensive clinical context. If you have questions about the radiology report, please contact the office of the ordering clinician. Narrative 02/03/2023 2:[address] CHEST WITH CONTRAST, 02/03/2023 2:31 PM CLINICAL HISTORY: -Follow-up for pneumonia. COMPARISON: CT 01/30/2023 PROCEDURE COMMENTS: Multi detector CT scanning of the chest. Multiplanar reconstructions per protocol. Isovue 370 IV contrast given as recorded in EPIC. Dose 1 : CT DLP Total : 271.06 mGycm DLP Spiral Max : 267.42 mGycm Maximum CTDI Vol : 7.79 mGy SSDE : 5.6088 mGy SSDE Diameter : 44.5 cm SSDE Source : Lat FINDINGS: The dense consolidation in the RIGHT lower lobe has shown some improvement although there is still extensive opacity with some volume loss but this is only 4 days after the most recent CT images The mucous plugging in the RIGHT lower lobe appears to be improved. No new infiltrates. No new mediastinal or hilar adenopathy. No pleural or pericardial effusion. Procedure Note Peg Bazzi MD - 02/03/2023 CT CHEST WITH CONTRAST, 02/03/2023 2:31 PM CLINICAL HISTORY: -Follow-up for pneumonia. COMPARISON: CT 01/30/2023 PROCEDURE COMMENTS: Multi detector CT scanning of the chest. Multiplanar reconstructions per protocol. Isovue 370 IV contrast given as recorded inEPIC. Dose 1 : CT DLP Total : 271.06 mGycm DLP Spiral Max : 267.42 mGycm Maximum CTDI Vol : 7.79 mGy SSDE : 5.6088 mGy SSDE Diameter : 44.5 cm SSDE Source : Lat FINDINGS: The dense consolidation in the RIGHT lower lobe has shownsome improvement although there is still extensive opacity with some volumeloss but this is only 4 days after the most recent CT images The mucous plugging in the RIGHT lower lobe appears to be improved. No new infiltrates. No new mediastinal or hilar adenopathy. No pleuralor pericardial effusion. IMPRESSION: In the short four-day interval there has been some improvement in the RIGHT lower lobe consolidation and collapse although significant consolidation remains but that is not unexpected and it may take up to 6weeks for complete radiographic clearing. Continued follow-up recommended - Note: Radiology results need to be interpreted within a comprehensiveclinical context. If you have questions about the radiology report, please contactthe office of the ordering clinician. us Bradley Watt MD IMG CT ORDERABLES Final Result * ECG AND WAVEFORMS - TELEMETRY (02/02/2023 7:00 AM EDT) Only the most recent of11 resultswithin the time period is included. [facility] ECG INTERPRET NSR [facility] 02/02/2023 7:00 AM EDT Narrative [facility] - 02/02/2023 10:10 AM EDT /EJ/HICUITY/ROUTINE ME 0.16 QRS 0.09 QT 0.38 See Clinical Report link for waveform capture us Unknown Provider POINT OF CARE CARDIOLOGY Final Result Performing Organization Address City/State/[facility] Co de Phone Number [facility] [address] [place] [address] * STAPHYLOCOCCUS AUREUS SCREEN (01/31/2023 5:08 PM EDT) Only the most recent of2 resultswithin the time period is included. [facility] Staph aureus PCR Not Detected Not Detected 01/31/2023 11:38 PM EDT PREFERRED LAB [employer], ASSET4 MRSA PCR Not Detected Not Detected 01/31/2023 11:38 PM EDT [facility] [employer], [facility] Swab BOTH ANTERIOR NARES / Unknown 01/31/2023 5:08 PM EDT 01/31/2023 6:07 PM EDT Narrative [facility] [employer], [facility] - 01/31/2023 11:38 PM EDT Staphylococcus aureus target DNA sequence is not detected. This qualitative assay is intended for the detection of Staphylococcus aureus proprietary sequences for the staphylococcal protein A (spa) gene, the gene for methicillin resistance (mecA), and the staphylococcal cassette chromosome mec (SCCmec) inserted into the SA chromosomal attB site. This assay utilizes real time PCR on the [employer] GeneXpert Infinity, and its performance has been verified by the [facility]. A negative result does not rule out the presence of the Staphylococcus aureus or Methicillin resistant Staphylococcus aureus in concentrations below the limit of detection for the assay. This assay is FDA cleared to test on nares swabs collected on patients >21 years of age. Testing on patients < 21 years of age and on umbilicus sources is not FDA approved by this methodology, but has been developed and validated by the [facility] laboratory. Detailed methodology is available upon request. us Brdaley Watt MD MICROBIOLOGY - GENERAL ORDERABLE S Final Result [facility] [employer], [address], [place] [address] * FL MODIFIED BARIUM SWALLOW (01/31/2023 12:00 PM EDT) Narrative PACS - 01/31/2023 12:12 PM EDT Modified Barium Swallow was performed in the Radiology department by Speech Pathology. No Radiologist in attendance. No charge from [facility]. Refer to Speech Pathology for further information. us Marcel Billings MD IMG FLUOROSCOPY ORDERABL ES Final Result Performing Organization Address City/[facility]/ZIP Co de Phone Number PACS * (ABNORMAL) PROCALCITONIN (01/30/2023 5:57 AM EDT) Procalcitonin 0.84(H) <=0.49 ng/mL 01/30/2023 8:01 AM EDT [facility] Blood VENOUS BLOOD / Unknown Venipuncture / Unknown 01/30/2023 5:57 AM EDT 01/30/2023 7:16 AM EDT Narrative [facility] - 01/30/2023 8:01 AM EDT Procalcitonin <0.50 ng/mL: Procalcitonin levels below 0.50 ng/mL on the first day of ICU admission represent a low risk for progression to severe sepsis and/or septic shock Procalcitonin >=0.50 ng/mL and <=2.00 ng/mL: If the procalcitonin measurement is performed shortly after the systemic infection process has started (usually less than 6 hours), this value may still be low. As various non-infectious conditions are known to induce procalcitonin as well, procalcitonin levels between 0.50 ng/mL and 2.00 ng/mL should be reviewed carefully to take into account the specific clinical background and condition(s) of the patient. Procalcitonin >2.00 ng/mL: Procalcitonin levels above 2.00 ng/mL on the first day of ICU admission represent a high risk for progression to severe sepsis and/or septic shock. Eli Hugo MD CHEMISTRY ORDERABLES Final Resu Performing Organization Address [facility] de Phone Number [facility] [address] [place] [phone] * TROPONIN-T HIGH SENSITIVITY 2HR (01/29/2023 10:47 PM EDT) [facility] Signature [id number]-[id number] 2HR 11 <14 ng/L 01/29/2023 11:08 PM EDT [facility] Comment:See the website [employer] 3225 films for rule out SC care pathway, conditions other than AMI that can cause elevated hs cTnT, and comparison of values from the 4th and 5th generation Johana tests. https://[email or web address]/topic/clinical-answers/gnt-91428885/cpm-[email or web address] 08886 hs-cTnT 2Hr Delta from Baseline -3 <4 ng/L 01/29/2023 11:08 PM EDT [facility] Blood VENOUS BLOOD / Unknown Venipuncture / Unknown 01/29/2023 10:47 PM EDT 01/29/2023 10:51 PM EDT Narrative [facility] - 01/29/2023 11:08 PM EDT Ingestion of jade doses of biotin (>5 mg/day) taken within 8 hours of drawing blood sample can interfere with this immunoassay test. Jose Solis MD CHEMISTRY ORDERABLES Final Resu Performing Organization Address [facility] Co de Phone Number [facility] [address] [place] [phone] * BLOOD CULTURE (NO STAIN) (01/29/2023 10:47 PM EDT) Only the most recent of2 resultswithin the time period is included. Pathologist [facility] Culture Result No Growth at 120 hours. BLOOD CULTURE (NO STAIN) 02/04/2023 5:01 AM EDT [employer] Blood VENOUS BLOOD / Unknown Venipuncture / Unknown 01/29/2023 10:47 PM EDT 01/29/2023 10:51 PM EDT Jose Solis MD MICROBIOLOGY - GENERAL ORDERABL ES Final Result [facility] [address] [facility] , [place] [address] * [id number] A/B (01/29/2023 9:37 PM EDT) [facility] CORONAVIRUS [id number] Not Detected Not Detected 01/29/2023 10:11 PM EDT [facility] Influenza A DNA Not Detected Not Detected 01/29/2023 10:11 PM EDT [facility] Influenza B DNA Not Detected Not Detected 01/29/2023 10:11 PM EDT [facility] Swab BOTH ANTERIOR NARES / Unknown 01/29/2023 9:37 PM EDT 01/29/2023 9:44 PM EDT Narrative [facility] - 01/29/2023 10:11 PM EDT This test is a real-time RT-PCR test that simultaneously detects and differentiates nucleic acids from SARS-CoV-2, influenza A and influenza B in individuals suspected of a respiratory viral infection. Not Detected results do not preclude COVID-19 or influenza virus infection or other respiratory viruses and should not be used as the sole basis for treatment or other patient management decisions. Test is performed on the [employer] ILYA platform under the FDA's Emergency Use Authorization (EUA). ILYA Fact Sheet for Providers and Patients: ILYA Fact Sheet for Providers: https://www.fda.gov/media/691826/download ILYA Fact Sheet for Patients: https://www.fda.gov/media/290315/download Derick Edmonds MD MICROBIOLOGY - GENERAL DAYSI CHAO Final Result Performing Organization Address [facility] de Phone Number [facility] [address] [place] [address] * (ABNORMAL) TROPONIN-T HIGH SENSITIVITY BASELINE W/ REFLEX (01/29/2023 8:30 PM EDT) Pathologist [facility] [id number] 14(H) <14 ng/L 01/29/2023 10:33 PM EDT [facility] Comment:See the website [facility] 3225 films for rule out SC care pathway, conditions other than AMI that can cause elevated hs cTnT, and comparison of values from the 4th and 5th generation Johana tests. https://[email or web address]/topic/clinical-answers/gnt-03529924/[email or web address] [address]296 Blood VENOUS BLOOD / Unknown Venipuncture / Unknown 01/29/2023 8:30 PM EDT 01/29/2023 10:13 PM EDT Narrative [facility] - 01/29/2023 10:33 PM EDT Ingestion of jade doses of biotin (>5 mg/day) taken within 8 hours of drawing blood sample can interfere with this immunoassay test. us Jose Solis MD CHEMISTRY ORDERABLES Final Resu lt Performing Organization Address [facility] de Phone Number [facility] [address] [place] [address] * (ABNORMAL) BLOOD GAS, VENOUS (01/29/2023 8:30 PM EDT) pH Venous 7.42 7.32 - 7.42 pH 01/29/2023 8:41 PM EDT [facility] pCO2 Venous 31(L) 41 - 51 mmHg 01/29/2023 8:41 PM EDT [facility] pO2 Venous 44(H) 25 - 40 mmHg 01/29/2023 8:41 PM EDT [facility] Comment:Interpret with cauti on. Not recommended to evaluate patient's oxygenation status. Base Excess Carlos -3.5 mmol/L 8:41 PM EDT [facility] Hco3 Venous 20.1(L) 24.0 - 28.0 mmol/L 01/29/2023 8:41 PM EDT [facility] CO2 Total Carlos 18(L) 25 - 29 mmol/L 01/29/2023 8:41 PM EDT [facility] O2 Sat. Venous 83.0(H) 40.0 - 70.0 % 01/29/2023 8:41 PM EDT [facility] Blood VENOUS BLOOD / Unknown Venipuncture / Unknown 01/29/2023 8:30 PM EDT 01/29/2023 8:35 PM EDT Jose Solis MD CHEMISTRY ORDERABLES Final Resu lt Performing Organization Address [facility]/ZIP Co de Phone Number [facility] [address] [place] [address] * EXTRA LIGHT BLUE (01/29/2023 8:30 PM EDT) Blood VENOUS BLOOD / Unknown Venipuncture / Unknown 01/29/2023 8:30 PM EDT 01/29/2023 8:35 PM EDT Jose Solis MD HEMATOLOGY ORDERABLES Final Res ult Performing Organization Address [facility]/ZIP Co de Phone Number [facility] [address] [place] [address] * POCT URINE MICROALBUMIN TELCOR (08/08/2022 11:26 AM EDT) Only the most recent of3 resultswithin the time period is included. Microalb, Ur 10 mg/L 08/08/2022 11:[address] [facility] Creatinine Urine 50 mg/dL 08/08/20 11:[address] [facility] Microalb/[employer]. Ratio <30 <30 mg/g 08/08/2022 11:[address] [facility] Urine URINE SPECIMEN COLLECTION / Unknown 08/08/2022 11:26 AM EDT 08/08/2022 11:28 AM EDT Tricia Ramirezquardt RMA POINT OF CARE TEST ORD ERABLES Final Result [facility] [address] [place] [address] * DX BONE DENSITY AXIAL SKELETON (05/09/2022 9:10 AM EDT) Anatomical Region Laterality Modality Dexa Scan 05/09/2022 Narrative 05/09/2022 3:19 PM EDT Indication: The patient is a post-menopausal female under age 65 with clinical risk factors for an osteoporotic fracture that requires a bone density assessment. Study was performed on [employer] 5. Bone Density: Region BMD T-score Z-score AP Spine (L1, L2) 0.925 -0.5 1.1 Femoral Neck (Left) 0.696 -1.4 0.1 Total Hip (Left) 0.927 -0.1 1.0 Femoral Neck (Right) 0.694 -1.4 0.0 Total Hip (Right) 0.907 -0.3 0.9 1/3 Radius (Right) 0.712 0.3 1.9 World Health Organization criteria for BMD interpretation classify patients as: Normal (T-score at or above -1.0), Low Bone Density (T-score between -1.0 and -2.5), or Osteoporotic (T-score at or below -2.5). T Scores are reported in Postmenopausal women and in men age 50 and older. Z-scores are reported in females prior to menopause and in males younger than age 50. 10-year Fracture Risk(1): Major Osteoporotic Fracture 27% Hip Fracture 1.4% Reported Risk Factors: [place] (), Neck BMD=0.694, BMI=26.9, previous fracture, parental fracture (1) FRAX(R) Version 3.08. Fracture probability calculated for an untreated patient. Fracture probability may be lower if the patient has received treatment. Clinical Information Provided by Patient: Has had a low trauma fracture Parent has had a hip fracture Has used or is currently using the following medications: Calcium, Vitamin D, [place] Has had or currently has the following medical conditions: Asthma, Emphysema or COPD, Diabetes Mellitus, Back pain, Vitamin D Insufficiency, Liver disease, Depression Patient maximum height was 63.5 Menopause Age: 47 Patient is Postmenopausal. Interpretation: Bone mineral density is in the low bone density range. Medical evaluation for secondary causes of low bone mineral density may be appropriate. A minimum of two years may be required between bone density studies due to inherent testing precision limitations. Intervals between BMD testing should be determined according to each patient's clinical status: typically one year after initiation or change in therapy is appropriate, with longer intervals once therapeutic effect is established. Patient's FRAX score indicates the patient is at increased risk for a fragility fracture in the next 10 years. Patient's FRAX score is included in the body of this report. The National Osteoporosis Foundation recommends treating patients with FRAX scores of greater than or equal to 3% for hip fracture or greater than or equal to 20% for major osteoporotic fracture. The spine portion of the study is limited by surgical hardware with associated vertebra deleted. Reported by: Bev Jones PA-C, CCD on 05/09/2022 9:17:00 AM. Suzie Platt APRN IMG DEXA ORDERABLES Final R esult * SET ILLUSTRATOR CYTOLOGY REQUEST (PAP ONLY) (05/03/2022 3:48 PM EDT) Only the most recent of3 resultswithin the time period is included. CASE REPORT Gynecologic Cytology Report Case: [id number] Authorizing Provider: Suzie Platt APRN Collected: 05/03/2022 1548 Ordering Location: [facility] Received: 05/03/2022 1548 First Screen: [facility]ch [facility] CT Rescreen: [facility] CT Specimen: LIQUID-BASED PAP - CERVICAL/ENDOCERV ICAL, Cervix, Endocervical 05/04/2022 1:56 PM EDT [facility] PAP FINAL DIAGNOSIS Unsatisfactory specimen. 05/04/2022 1:56 PM EDT [facility] at 1356 EDT MICROSCOPIC DESCRIPTION Microscopic examination is performed and the findings corroborate the diagnosis. 05/04/2022 1:56 PM EDT [facility] PAP SMEAR ADEQUACY Unsatisfactory for evaluation 05/04/2022 1:56 PM EDT [facility] SPECIMEN LIMITATIONS Scant cells/lubricant 05/04/2022 1:56 PM EDT [facility] EMBEDDED IMAGES 05/04/2022 1:56 PM EDT [facility] PAP DISCLAIMER The Pap Smear is a screening test that aids in the detection of cervical cancer and cancer precursors. Both false positive and false negative results can occur. The test should be used at regular intervals, and positive results should be confirmed before definitive therapy. Processed using the ThinPrep Bus Person Dishwasher Automated cytology screening device ([employer]). 05/04/2022 1:56 PM EDT [facility] Thin Prep ENDOCERVICAL STRUCTURE / Unknown 05/03/2022 3:48 PM EDT 05/03/2022 3:48 PM EDT Suzie Platt BOX FABRICATOR CYTOLOGY ORDERABLES Final R esult [facility] [address] [place] [address] * (ABNORMAL) IRIS DIABETIC RETINOPATHY EXAM (05/03/2022 3:21 PM EDT) Retinopathy Exam Severity ALERT(A) [facility] Right Diabetic Retinopathy None [facility] Right Macular Edema None [facility] Right Other Retina None [facility] Right Eye Image Quality Gradable Image [facility] Left Diabetic Retinopathy Moderate(A) [facility] Left Macular Edema None [facility] Left Other Retina Suspected Dry AMD, Other(A) [facility] Left Eye Image Quality Gradable Image [facility] 05/03/2022 3:21 PM EDT 05/03/2022 3:21 PM EDT Impressions [facility] - 05/03/2022 9:42 PM EDT Retinal Study Result for LINDY BUNCH, a 61 y/o, F (: 1960, ) presented to [facility] on 05-03-2022 for a retinal imaging study of the left and right eyes. Based on the findings of the study, the following is recommended for LINDYWhitley BUNCH Priority Appointment Needed 0-2 Months: Refer patient to Ophthalmology. Advise appointment needed in 0-2 months or with decline in vision. 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 NOTE: Any pathology noted on this diabetic retinal evaluation should be confirmed by an appropriate ophthalmic examination. Peg Cadena MD OPHTHALMOLOGY SERVICES ORDERAB LES Final Result Performing Organization Address [facility]/[place] [address] * POCT INFLUENZA A/B (12/05/2021 12:07 PM EST) Influenza A Ag neg SEP OFFICE Influenza B Ag neg SEP OFFICE Lot Number 0 SEP OFFICE Expiration Date 0 SEP OFFICE Flu Blue Control Line (positive internal control) Yes SEP OFFICE Clear Background (negative internal control) Yes Yes/No SEP OFFICE 12/05/2021 12:0 7 PM EST us Jesu Galvin MD POINT OF CARE TEST ORDERABL ES Final Result Performing Organization Address [facility] Co de Phone Number SEP OFFICE * MM MAMMO DIGITAL NED SCREEN BILAT (06/02/2021 2:44 PM EDT) Anatomical Region Laterality Modality Breast Bilateral Mammography 06/02/2021 4:20 PM EDT Impressions 06/02/2021 4:20 PM EDT Negative (NTX-Lzlngmgd-6) ~ RECOMMENDATION: Routine screening mammogram in 1 year. ~ DISCLAIMER * Any patient with a palpable abnormality, unexplained by breast imaging, should be managed on clinical basis by the attending physician. * Breast imaging has a false negative rate of 15%. * The patient was notified by mail of the results of this examination. *The patient's information was entered into a reminder system with a target due date for the next mammogram, in accordance with the [employer] and the Society of Breast Imaging recommendations. Narrative 06/02/2021 4:20 PM EDT Procedure:MM MAMMO DIGITAL NED SCREEN BILAT ~ Reason for exam: screening, asymptomatic. Z12.31-Encounter for screening mammogram for malignant neoplasm of pedord-OST-61-CM ~ MM MAMMO DIGITAL NED SCREEN BILAT Bilateral CC and MLO view(s) were taken. There are scattered fibroglandular densities. Prior study comparison: Compared with prior studies the most recent being 05/18/20, 04/15/19 , 04/20/2015. No mammographic evidence of malignancy. No suspicious calcifications. ~ Procedure Note Francisco Javier Macdonald DO - 06/02/2021 Procedure:MM MAMMO DIGITAL NED SCREEN BILAT ~ Reason for exam: screening, asymptomatic. Z12.31-Encounter for screening mammogram for malignant neoplasm of lpjhjk-HCH-88-CM ~ MM MAMMO DIGITAL NED SCREEN BILAT Bilateral CC and MLO view(s) were taken. There are scattered fibroglandular densities. Prior study comparison: Compared with prior studies the most recentbeing 05/18/20, 04/15/19 , 04/20/2015. No mammographic evidence of malignancy. No suspicious calcifications. ~ IMPRESSION: Negative (DKB-Uyxacfhk-1) ~ RECOMMENDATION: Routine screening mammogram in 1 year. ~ DISCLAIMER * Any patient with a palpable abnormality, unexplained by breast imaging, should be managed on clinical basis by the attending physician. * Breast imaging has a false negative rate of 15%. * The patient was notified by mail of the results of this examination. *The patient's information was entered into a reminder system with atarget due date for the next mammogram, in accordance with the [employer] and the Society of Breast Imaging recommendations. us Jesu Galvin MD IMG MAMMOGRAPHY ORDERABLES Final Result * CORONAVIRUS 2019 (04/15/2021 8:13 AM EDT) CORONAVIRUS [id number] Not Detected Not Detected 04/15/2021 7:35 PM EDT [facility] Comment:Caution should be ex ercised when interpreting a result of 'Not Detected'. A result of 'Not Detected' does not rule out COVID-19 and cannot be used as sole basis for treatment or patient management decisions. If COVID-19 is still suspected following a 'Not Detected' result, re-testing should be considered. Swab BOTH ANTERIOR NARES / Unknown 04/15/2021 8:13 AM EDT 04/15/2021 8:13 AM EDT Narrative [facility] - 04/15/2021 7:35 PM EDT This test is a nucleic acid amplification test intended for the qualitative detection of nucleic acid from the SARS-CoV-2 in upper respiratory samples collected from individuals suspected of COVID-19. Test is performed on the [employer] platform under the FDA's Emergency Use Authorization (EUA). [employer] Provider Fact Sheet: https://www.fda.gov/media/934917/download [employer] Patient Fact Sheet: https://www.fda.gov/media/227774/download us Jesu Galvin MD MICROBIOLOGY - GENERAL ORDE [facility] Final Result [employer] [address] [place] [address] , [place] [address] * POCT BLADDER SCAN (01/11/2021 10:47 AM EST) Urine Volume (Preservative) 18 SEP OFFICE 01/11/2021 10:4 7 AM EST Petra Roe MD POINT OF CARE IMAGING Final Result SEP OFFICE * (ABNORMAL) POCT GLYCATED HEMOGLOBIN, TOTAL (11/22/2020 3:10 PM EST) Hemoglobin A1C 11.4(A) 4 - 6 % SEP OFFICE Lot Number SEP OFFICE Expiration Date SEP OFFICE SeriAl # SEP OFFICE 11/22/2020 3:10 PM EST us Jesu Galvin MD POINT OF CARE TEST ORDERABL ES Final Result SEP OFFICE * US RENAL AND BLADDER (09/27/2020 2:33 PM EST) Anatomical Region Laterality Modality Abdomen, Pelvis Ultrasound 09/27/2020 2:33 PM EST Impressions 09/27/2020 3:11 PM EST No evidence of active obstructive uropathy or other acute finding. - Narrative 09/27/2020 3:11 PM EST US KIDNEYS AND BLADDER, 09/27/2020 2:33 PM CLINICAL HISTORY: N39.0-Urinary tract infection, site not xoucutjae-DRM-33-CM COMPARISON: None. PROCEDURE COMMENTS: Routine sonographic evaluation of the kidneys and bladder with technical services representative images and production trainer notes sent to PACS for radiologist review. FINDINGS: RIGHT: 12 x 4.6 x 5.4 cm. No obstruction, mass, or obvious calcification. LEFT: 10.9 x 5.2 x 5.4 cm.. No hydronephrosis, solid-appearing mass, or shadowing stone. PELVIS: The bladder is sonographically normal. Bilateral ureteral jets seen. Procedure Note Tushar Lowery MD - 09/27/2020 US KIDNEYS AND BLADDER, 09/27/2020 2:33 PM CLINICAL HISTORY: N39.0-Urinary tract infection, site etxorfgebmlg-DHG-33-CM COMPARISON: None. PROCEDURE COMMENTS: Routine sonographic evaluation of the kidneys andbladder with technical services representative images and production trainer notes sent to PACS forradiologist review. FINDINGS: RIGHT: 12 x 4.6 x 5.4 cm. No obstruction, mass, or obviouscalcification. LEFT: 10.9 x 5.2 x 5.4 cm.. No hydronephrosis, solid-appearing mass,or shadowing stone. PELVIS: The bladder is sonographically normal. Bilateral ureteral jetsseen. IMPRESSION: No evidence of active obstructive uropathy or other acute finding. - us Suzie Platt APRN IMG US ORDERABLES Final Res ult * URINALYSIS (08/26/2020 2:35 PM EDT) Only the most recent of2 resultswithin the time period is included. UA Color Colorless 08/26/2020 7:38 PM EDT [facility] UA Appear Clear Clear 08/26/2020 7:38 PM EDT [facility] UA Glucose Negative Negative mg/dL 08/26/2020 7:38 PM EDT [facility] UA Ketones Negative Negative mg/dL 08/26/2020 7:38 PM EDT [facility] UA Blood Negative Negative 08/26/2020 7:38 PM EDT [facility] UA pH 6.0 5.0 - 8.0 pH 08/26/2020 7:38 PM EDT [facility] UA Protein Negative Negative mg/dL 08/26/2020 7:38 PM EDT [facility] UA Urobilinogen Normal <=1 mg/dL 0 7:38 PM EDT [facility] UA Bili Negative Negative 08/26/2020 7:38 PM EDT [facility] UA Nitrite Negative Negative 08/26/2020 7:38 PM EDT [facility] UA Leuk Est Negative Negative 08/26/2020 7:38 PM EDT [facility] UA Spec Grav 1.008 1.001 - 1.035 no units 08/26/2020 7:38 PM EDT [facility] Comment:Reference range jojo d for random specimens only. Urine URINARY BLADDER STRUCTURE / Unknown 08/26/2020 2:35 PM EDT 08/26/2020 2:35 PM EDT us Petra Roe MD URINE ORDERABLES Final Resul t [facility] [address] [facility] , [place] [address] * HM FIT (07/07/2020) Impressions SEP OFFICE - 07/07/2020 Normal FIT-Completed through insurance us Historical Provider HEALTH MAINTENANCE Final Res ult SEP OFFICE * MM MAMMO DIGITAL SCREENING W CAD BILAT (05/18/2020 12:58 PM EDT) Only the most recent of4 resultswithin the time period is included. Anatomical Region Laterality Modality Breast Bilateral Mammography 05/18/2020 1:02 PM EDT Impressions 05/18/2020 1:02 PM EDT Negative (NLQ-Isqugmlv-1) ~ RECOMMENDATION: Routine screening mammogram in 1 year. ~ DISCLAIMER * Any patient with a palpable abnormality, unexplained by breast imaging, should be managed on clinical basis by the attending physician. * Breast imaging has a false negative rate of 15%. * The patient was notified by mail of the results of this examination. *The patient's information was entered into a reminder system with a target due date for the next mammogram, in accordance with the [employer] and the Society of Breast Imaging recommendations. The mammogram was reviewed by a Radiologist and CAD. Narrative 05/18/2020 1:02 PM EDT Procedure:MM MAMMO DIGITAL SCREENING W CAD BILAT ~ Reason for exam: screening, asymptomatic. Z12.31-Encounter for screening mammogram for malignant neoplasm of xlykxz-WOB-47-CM Z80.3-Family history of malignant neoplasm of jzkhcp-JLB-85-CM ~ MM MAMMO DIG SCREEN CAD BILAT Bilateral CC and MLO view(s) were taken. There are scattered fibroglandular densities. Prior study comparison: 04/15/19, 04/20/15 Symmetric breast architecture without discrete mass or architectural distortion. No suspicious calcifications. ~ Procedure Note Zachery Power MD - 05/18/2020 Procedure:MM MAMMO DIGITAL SCREENING W CAD BILAT ~ Reason for exam: screening, asymptomatic. Z12.31-Encounter for screening mammogram for malignant neoplasm of uffgpj-FJV-93-CM Z80.3-Family history of malignant neoplasm of dgdcpc-WHM-71-CM ~ MM MAMMO DIG SCREEN CAD BILAT Bilateral CC and MLO view(s) were taken. There are scattered fibroglandular densities. Prior study comparison: 04/15/19, 04/20/15 Symmetric breast architecture without discrete mass or architectural distortion. No suspicious calcifications. ~ IMPRESSION: Negative (LNC-Iakjimme-1) ~ RECOMMENDATION: Routine screening mammogram in 1 year. ~ DISCLAIMER * Any patient with a palpable abnormality, unexplained by breast imaging, should be managed on clinical basis by the attending physician. * Breast imaging has a false negative rate of 15%. * The patient was notified by mail of the results of this examination. *The patient's information was entered into a reminder system with atarget due date for the next mammogram, in accordance with the [employer] and the Society of Breast Imaging recommendations. The mammogram was reviewed by a Radiologist and CAD. us Jesu Galvin MD IMG MAMMOGRAPHY ORDERABLES Final Result * (ABNORMAL) POCT URINALYSIS DIPSTICK (03/29/2020 4:55 PM EDT) Only the most recent of3 resultswithin the time period is included. Color, UA yellow CLEAR,YELL OW,ORANGE, RUST SEP OFFICE Clarity, UA clear CLEAR,CLOU DY SEP OFFICE Glucose, UA neg G/DL% SEP OFFICE Bilirubin, UA neg POS/NEG SEP OFFICE Ketones, UA neg POS/NEG SEP carousel operator Grav, UA 1.025 1.001 - 1.035 G/DL SEP OFFICE Blood, UA neg POS/NEG SEP OFFICE pH, UA 6.5 5.0 - 8 SEP OFFICE Protein, UA neg POS/NEG SEP OFFICE Urobilinogen, UA 0.2 0.2 - 1.0 MG/DL SEP OFFICE Leukocytes, UA small POS/NEG SEP OFFICE Nitrite, UA neg POS/NEG SEP OFFICE UA Appear POC SEP OFFICE Lot Number SEP OFFICE Expiration Date SEP OFFICE SeriAl # SEP OFFICE Urine 03/29/2020 4:55 PM EDT us Jesu Galvin MD POINT OF CARE TEST ORDERABL ES Final Result SEP OFFICE * HB-1 CUSTOM UDS PANEL-QUEST (12/04/2019 3:22 PM EST) Only the most recent of4 resultswithin the time period is included. Prescribed Drug 1 Tramadol [facility] [place] Prescribed Drug 2 [facility] Ritalinic Acid NEGATIVE <100 ng/mL [facility] [place] Comment:See Note 1 med[facility] Ritalinic Acid CONSISTENT [facility] medMatch Comments [facility] [place] Comment:See Note 2 Prescribed Drug 1 Tramadol [facility] [place] Prescribed Drug 2 [facility] 6-Acetylmorphine,GC /MS NEGATIVE <10 ng/mL [facility] 6 Acetylmorphine CONSISTENT [employer] [facility] medMatch Comments [facility] [place] Comment:See Note 2 Prescribed Drug 1 Tramadol Qu [facility] [place] Prescribed Drug 2 Gabapentin [facility] Creatinine, Urine 50.1 > or = 20.0 mg/dL [facility] UA Spec Grav 1.014 > or = 1.003 [facility] UA pH 8.5 4.5 - 9.0 [facility] Oxidant NEGATIVE <200 mcg/mL [facility] Amphetamines NEGATIVE <500 ng/mL [facility] Amphetamines [facility]STENT [facility] Barbiturates NEGATIVE <300 ng/mL [facility] Barbiturates [facility]STENT [facility] Benzodiazepines NEGATIVE <100 ng/mL [facility] Benzodiazepines CONSISTENT [facility] Marijuana Metabolite NEGATIVE <20 ng/mL [facility] Marijuana Metab CONSISTENT [facility] Cocaine Metabolite NEGATIVE <150 ng/mL [facility] Cocaine Metab [facility]SISTENT [facility] Methadone NEGATIVE <100 ng/mL [facility]MATCH Methadone CONSISTENT [facility] Opiates NEGATIVE <100 ng/mL [facility]MATCH Opiates CONSISTENT [facility] Oxycodone NEGATIVE <100 ng/mL [employer] [facility] medMATCH Oxycodone CONSISTENT [facility] medMatch Comments [facility] Comment: See Note 2 Note 1 This test was developed and its analytical performance characteristics have been determined by [facility]. It has not been cleared or approved by the FDA. This assay has been validated pursuant to the CLIA regulations and is used for clinical purposes. Note 2 This drug testing is for medical treatment only. Analysis was performed as non-forensic testing and these results should be used only by healthcare providers to render diagnosis or treatment, or to monitor progress of medical conditions. medMATCH comments are: - present when drug test results may be the result of metabolism of one or more drugs or when results are inconsistent with prescribed medication(s) listed. - may be blank when drug results are consistent with prescribed medication(s) listed. For assistance with interpreting these drug results, please contact a [facility] Toxicology Specialist: [phone] ( ), M-F, 8am-6pm EST. 12/04/2019 3:22 PM EST 12/04/2019 8:29 PM EST Jesu Galvin MD [facility]-PDM ORDERABLE (NON-SE H) Final Result Performing Organization Address City/State/[facility] Co de Phone Number [facility] [address] [facility] [place] [phone] [facility] [address] [place] [address] * (ABNORMAL) IRON/UIBC (12/04/2019 10:41 AM EST) Iron 54 30 - 160 mcg/dL 12/04/2019 3:41 PM EST [facility] UIBC 374(H) 112 - 347 mcg/dL 12/04/2019 3:41 PM EST [facility] Transferrin Sat 13(L) 20 - 50 % 0 3:41 PM EST [facility] ASSET4 Blood Venipuncture / Unknown 12/04/2019 10:41 AM EST 12/04/2019 10:41 AM EST Jesu Galvin MD CHEMISTRY ORDERABLES Final Result Performing Organization Address City/[facility] Co de Phone Number [facility] [address] [facility] , [place] [address] * (ABNORMAL) VITAMIN B12/ FOLIC ACID (12/04/2019 10:41 AM EST) Vitamin B12 1,335(H) 211 - 946 pg/mL 12/04/2019 3:54 PM EST [facility] Folate >16.00(H) 4.50 - 16.00 ng/mL 12/04/2019 3:54 PM EST [facility] Blood VENOUS BLOOD / Unknown Venipuncture / Unknown 12/04/2019 10:41 AM EST 12/04/2019 10:41 AM EST Narrative [facility] - 12/04/2019 3:54 PM EST Ingestion of jade doses of biotin (>5 mg/day) taken within 8 hours of drawing blood sample can interfere with this immunoassay test. Jesu Galvin MD CHEMISTRY ORDERABLES Final Result Performing Organization Address [facility] de Phone Number [facility] [address] [facility] , [place] [address] * TSH REFLEX (12/04/2019 10:41 AM EST) Only the most recent of2 resultswithin the time period is included. TSH Reflex 2.010 0.270 - 4.200 mcIU/mL 12/04/2019 4:11 PM EST [facility] Blood VENOUS BLOOD / Unknown Venipuncture / Unknown 12/04/2019 10:41 AM EST 12/04/2019 10:41 AM EST Narrative [facility] - 12/04/2019 4:11 PM EST Ingestion of jade doses of biotin (>5 mg/day) taken within 8 hours of drawing blood sample can interfere with this immunoassay test. Jesu Galvin MD CHEMISTRY ORDERABLES Final Result Performing Organization Address [facility] Co de Phone Number [facility] [address] [address] * HEPATITIS B SURFACE ANTIBODY (12/04/2019 10:41 AM EST) Hep Bs Ab <3.08 mIU/mL 12/04/2019 4:38 PM EST [facility] Comment: < 8.00 mIU/mL - NON REACTIVE (Not immune to HBV infection) 8.0 - 11.99 mIU/mL - GRAYZONE (Immune status should be further assessed by considering other factors such as clinical status, follow up testing, associated risk factors, and the use of additional diagnostic information.) >= 12.00 mIU/mL - REACTIVE (Immune to HBV infection.) Blood VENOUS BLOOD / Unknown Venipuncture / Unknown 12/04/2019 10:41 AM EST 12/04/2019 10:41 AM EST Jesu Galvin MD IMMUNOLOGY ORDERABLES Final Result [facility] [address] [place] [address] , [place] [address] * (ABNORMAL) IRIS DIABETIC RETINOPATHY EXAM (12/04/2019 10:29 AM EST) Retinopathy Exam Severity ALERT(A) [facility] LAB Right Diabetic Retinopathy None [facility] Right Macular Edema None [facility] Right Other Retina None [facility] Right Eye Image Quality Gradable Image [facility] Left Diabetic Retinopathy None [facility] Left Macular Edema None [facility] Left Other Retina Suspected Dry AMD(A) [facility] Left Eye Image Quality Gradable Image [facility] 12/04/2019 10:2 9 AM EST 12/04/2019 10:29 AM EST Impressions SE [facility] - 12/04/2019 3:36 PM EST Retinal Study Result for LINDY BUNCH PEARL, a 59 y/o, F (: 1960, ) presented to [facility] on 12-04-2019 for a retinal imaging study of the left and right eyes. Based on the findings of the study, the following is recommended for LINDY BUNCH Dry Age Related Macular Degeneration Suspected: Refer patient to ophthalmology. Advise appointment needed for suspicion of macular degeneration 0-3 months or with decline in vision. Interpreting Provider's Comments: No comments provided Diagnoses Present: E11.9 - Type 2 diabetes mellitus without complications Right Eye Findings: Normal Result. Negative for Diabetic Retinopathy. Left Eye Findings: Negative for Diabetic Retinopathy. Other: Suspected Dry AMD This result was electronically signed by Arvin Becker MD, , Taxonomy: [id number] on 12-04-2019 08:36:04 [facility] time. NOTE: Any pathology noted on this diabetic retinal evaluation should be confirmed by an appropriate ophthalmic examination. us Jesu Galvin MD OPHTHALMOLOGY SERVICES DAYSI CHAO Final Result [facility] [address] [place], [place] [id number] * (ABNORMAL) LIPID SCREEN (09/12/2018 10:20 AM EDT) Only the most recent of4 resultswithin the time period is included. Cholesterol 239(H) <=200 mg/dL 09/12/2018 4:08 PM EDT [facility] Comment: < 200 Desirable 200 - 239 Borderline High >= 240 High Triglyceride 268(H) <=150 mg/dL 09/12/2018 4:08 PM EDT [facility] Comment: < 150 Normal 150 - 199 Borderline High 200 - 499 High >= 500 Very High HDL 48 >=40 mg/dL 09/12/2018 4:08 PM EDT [facility] Comment: > 60 Optimal 40 - 60 Acceptable < 40 Low LDL Calculated 137(H) <=100 mg/dL 09/12/2018 4:08 PM EDT [facility] Comment: < 100 Optimal 100 - 129 Near or above optimal 130 - 159 Borderline High 160 - 189 High >= 190 Very High Non-HDL-C Calculated 191(H) <=129 mg/dL 09/12/2018 4:08 PM EDT [facility] Comment: <130 Desirable 130-159 Above Desirable 160-189 Borderline High 190-219 High >= 220 Very High Blood VENOUS BLOOD / Unknown Venipuncture / Unknown 09/12/2018 10:20 AM EDT 09/12/2018 10:20 AM EDT us Jesu Galvin MD CHEMISTRY ORDERABLES Final Result [facility] [address] [facility] , [address] [address] * US THYROID (05/28/2018 1:45 PM EDT) Anatomical Region Laterality Modality Neck Ultrasound 05/28/2018 1:45 PM EDT Impressions 05/28/2018 2:14 PM EDT There are multiple subcentimeter bilateral thyroid nodules, the majority of which are cystic. Ultrasound follow-up of these nodules is recommended to assess for stability, as detailed above. SILVER GUIDELINES: High suspicion pattern: 70-90% risk. Solid hypoechoic nodule or solid hypoechoic component of a partially cystic nodule with at least one of the following features: Microcalcifications, irregular margins, extra thyroidal extension, taller than wide, rim calcifications with extraosseous soft tissue component, adjacent lymphadenopathy. Biopsy at 1 cm or greater. Intermediate suspicion pattern: 10-20% risk. Hypoechoic nodule with smooth margins. None of the following features: Microcalcifications, irregular margins, extrathyroidal extension, taller than wide. Biopsy at 1 cm or greater. Low suspicion pattern: 5-10% risk. Isoechoic or hyperechoic nodule. Partially cystic nodule with a peripheral solid component. None of the following features: Microcalcifications, irregular margins, extrathyroidal extension, taller than wide. Biopsy at 1.5 cm or greater. Very low suspicion pattern: 3% risk. Spongiform nodules and nodules with interspersed cystic spaces without any aggressive features. Observe or biopsy at 2 cm or greater. Benign pattern: 0% risk. Pure cyst. Biopsy not necessary. 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 PROCEDURE COMMENTS: Routine sonographic evaluation of the thyroid gland was carried out by the production trainer with technical services representative images acquired and sent to PACS along with tech notes. FINDINGS: RIGHT thyroid: 4.2 x 1.1 x 1.6 cm LEFT thyroid: 4.4 x 1.1 x 1.5 cm Isthmus: 7 mm in thickness. There are multiple nodules in the thyroid bilaterally, the majority of which are cystic. The largest of these include an oval circumscribed mildly complex cystic nodule in the right thyroid upper pole measuring 0.9 x 0.6 x 0.8 cm. There are 2 rim calcified cystic and hypoechoic nodules in the right thyroid lower pole measuring up to 0.8 x 0.5 x 0.5 cm. Small benign-appearing colloid cysts in the left thyroid lobe measure up to 0.3 cm in size. RECOMMENDATION CATEGORY: Category 3: Probably Benign, 6-12 mo followup US. 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 PROCEDURE COMMENTS: Routine sonographic evaluation of the thyroid glandwas carried out by the production trainer with technical services representative images acquired andsent to PACS along with tech notes. FINDINGS: RIGHT thyroid: 4.2 x 1.1 x 1.6 cm LEFT thyroid: 4.4 x 1.1 x 1.5 cm Isthmus: 7 mm in thickness. There are multiple nodules in the thyroid bilaterally, the majority ofwhich are cystic. The largest of these include an oval circumscribed mildly complexcystic nodule in the right thyroid upper pole measuring 0.9 x 0.6 x 0.8 cm. Thereare 2 rim calcified cystic and hypoechoic nodules in the right thyroid lowerpole measuring up to 0.8 x 0.5 x 0.5 cm. Small benign-appearing colloid cystsin the left thyroid lobe measure up to 0.3 cm in size. RECOMMENDATION CATEGORY: Category 3: Probably Benign, 6-12 mo followup US. IMPRESSION: There are multiple subcentimeter bilateral thyroid nodules, the majorityof which are cystic. Ultrasound follow-up of these nodules is recommended toassess for stability, as detailed above. SILVER GUIDELINES: High suspicion pattern: 70-90% risk. Solid hypoechoic nodule or solid hypoechoic component of a partiallycystic nodule with at least one of the following features: Microcalcifications, irregular margins, extra thyroidal extension, taller than wide, rim calcifications with extraosseous soft tissue component, adjacent lymphadenopathy. Biopsy at 1 cm or greater. Intermediate suspicion pattern: 10-20% risk. Hypoechoic nodule with smooth margins. None of the following features: Microcalcifications, irregular margins, extrathyroidal extension, tallerthan wide. Biopsy at 1 cm or greater. Low suspicion pattern: 5-10% risk. Isoechoic or hyperechoic nodule. Partially cystic nodule with a peripheralsolid component. None of the following features: Microcalcifications,irregular margins, extrathyroidal extension, taller than wide. Biopsy at 1.5 cmor greater. Very low suspicion pattern: 3% risk. Spongiform nodules and nodules with interspersed cystic spaces withoutany aggressive features. Observe or biopsy at 2 cm or greater. Benign pattern: 0% risk. Pure cyst. Biopsy not necessary. Jesu Galvin MD [facility] ORDERABLES Final Res ult * TROPONIN-T (03/29/2018 11:08 AM EDT) Troponin-T <0.01 <0.01 ng/mL 03/29/2018 11:51 AM T [facility] Blood VENOUS BLOOD / Unknown Venipuncture / Unknown 03/29/2018 11:08 AM EDT 03/29/2018 11:27 AM EDT Narrative [facility] - 03/29/2018 11:51 AM EDT Ingestion of jade doses of biotin (>5 mg/day) taken within 8 hours of drawing blood sample can interfere with this immunoassay test. us Chantel Echeverria MD CHEMISTRY ORDERABLES Final Result Performing Organization Address City/[facility] Co de Phone Number [address] [address] * SCANNED RHYTHM STRIPS (03/20/2018 9:50 PM EDT) Only the most recent of4 resultswithin the time period is included. Anatomical Region Laterality Modality Other 03/20/2018 9:50 PM EDT us Unknown Unknown IMG ECG ORDERABLES Final Result * FL LUMBAR O-ARM (03/14/2018 11:53 AM EDT) Narrative PACS - 03/14/2018 11:54 AM EDT Fluoroscopy was performed. The radiologist was not in attendance. Permanent images were obtained for reference. This dictation is being made for record keeping purposes. us Zachery Mccoy MD IMG FLUOROSCOPY ORDERABLES F inal Result PACS * INTRAOP AIRWAY PLACEMENT (03/14/2018 9:33 AM EDT) Narrative [facility] - 03/14/2018 9:33 AM EDT Neha Nj CRNA 03/14/2018 9:34 AM Intraop Airway Placement: Date/Time: 03/14/2018 7:36 AM Induction type: IV Mask size: Standard adult Pre-Oxygenation: Standard Mask ventilation: Easy mask ventilation Technique: Video laryngoscope Laryngoscope blade: Max Blade size: 3 Grade view: I Airway type: ETT- cuffed Topical Anesthetic/Lubricant: LTA 4% Lidocaine Intubation assist devices: Stylet 14fr Airway location: Oral Device size: 7mm Secured at: 20 cm Secured by: Tape Measured from: Lips Placement verified: Auscultation, End tidal CO2 and Symmetric chest wall motion Condition: Atraumatic and Unchanged Insertion attempts: 1 Attempt 1 by: hansel Title: BALING PRESS OPERATOR Procedure Note Neha Nj CRNA - 03/14/2018 9:33 AM EDT Intraop Airway Placement: Date/Time: 03/14/2018 7:36 AM Induction type: IV Mask size: Standard adult Pre-Oxygenation: Standard Mask ventilation: Easy mask ventilation Technique: Video laryngoscope Laryngoscope blade: Max Blade size: 3 Grade view: I Airway type: ETT- cuffed Topical Anesthetic/Lubricant: LTA 4% Lidocaine Intubation assist devices: Stylet 14fr Airway location: Oral Device size: 7mm Secured at: 20 cm Secured by: Tape Measured from: Lips Placement verified: Auscultation, End tidal CO2 and Symmetric chestwall motion Condition: Atraumatic and Unchanged Insertion attempts: 1 Attempt 1 by: hansel Title: BALING PRESS OPERATOR us John Alexandre MD ME ANESTHESIA Final Res ult Performing Organization Address City/[facility] Co de Phone Number [facility] [address] [place] [address] * BB HISTORY CHECK (03/06/2018 12:12 PM EDT) BB HISTORY CHECK (1) No Previous History 03/06/2018 12:36 PM EDT [facility] Blood VENOUS BLOOD / Unknown Venipuncture / Unknown 03/06/2018 12:12 PM EDT 03/06/2018 12:19 PM EDT Zachery Mccoy MD BLOOD BANK ORDERABLES Final Result Performing Organization Address [facility] Co de Phone Number [facility] [address] [place] [address] * SURGERY DATE (03/06/2018 12:12 PM EDT) Surgery Date (1) Complete 03/06/2018 12:37 PM EDT [facility] Blood VENOUS BLOOD / Unknown Venipuncture / Unknown 03/06/2018 12:12 PM EDT 03/06/2018 12:19 PM EDT Zachery Mccoy MD BLOOD BANK ORDERABLES Final Result Performing Organization Address [facility] Co de Phone Number [facility] [address] [place] [address] * ABORH (03/06/2018 12:12 PM EDT) Pathologist [facility] ABORH Int A POS 03/06/2018 1:0 5 PM EDT [facility] Blood VENOUS BLOOD / Unknown Venipuncture / Unknown 03/06/2018 12:12 PM EDT 03/06/2018 12:19 PM EDT Zachery Mccoy MD BLOOD BANK ORDERABLES Final Result Performing Organization Address [facility] Co de Phone Number [facility] [address] [place] [address] * ANTIBODY SCREEN IGG (03/06/2018 12:12 PM EDT) [facility] ABSC IgG Int Negative 03/06/2018 1:10 PM EDT [facility] Blood VENOUS BLOOD / Unknown Venipuncture / Unknown 03/06/2018 12:12 PM EDT 03/06/2018 12:19 PM EDT Zachery Mccoy MD BLOOD BANK ORDERABLES Final Result Performing Organization Address [facility] de Phone Number [facility] [address] [place] [address] * SCANNED RADIOLOGY REPORT (10/30/2017 11:08 AM EST) Only the most recent of6 resultswithin the time period is included. Anatomical Region Laterality Modality Other 10/30/2017 11:0 8 AM EST us Unknown Unknown IMG DIAGNOSTIC IMAGING ORDERABLE S Final Result * (ABNORMAL) LDL DIRECT (04/12/2017 9:35 AM EDT) Only the most recent of2 resultswithin the time period is included. Pathologist [facility] LDL Direct 131(H) <=100 mg/dL [facility] Comment: < 100 Optimal 100 - 129 Near or above optimal 130 - 159 Borderline High 160 - 189 High >= 190 Very High Blood specimen (specimen) 04/12/2017 9:35 AM EDT 04/12/2017 4:26 PM EDT us Jesu Galvin MD CHEMISTRY ORDERABLES Final Result Performing Organization Address City/[facility] Co de Phone Number [facility] [address] [place] [address] * DIABETIC RETINOPATHY EXAM (01/09/2017 6:50 PM EST) VISUAL ACUITY SCREEN OD 20/20 01/09/2017 6:[address] [facility] VISUAL ACUITY SCREEN OS 20/30 01/09/2017 6:[address] [facility] OCULAR BLOOD FLOW MEASURE OD 26 01/09/2017 6:[address] [facility] OCULAR BLOOD FLOW MEASURE OS 24 01/09/2017 6:[address] [facility] DIABETIC RETINOPATHY NEGATIVE 01/09/2017 6:[address] [facility] CATARACTS NEGATIVE 01/09/2017 6:[address] [facility] GLAUCOMA NEGATIVE 01/09/2017 6:[address] [facility] 01/09/2017 6:50 PM EST us Unknown Provider OPHTHALMOLOGY SERVICES ORDERABL ES Final Result Performing Organization Address [facility] de Phone Number [facility] * (ABNORMAL) LDL, CALCULATED (12/01/2016 11:28 AM EST) Only the most recent of12 resultswithin the time period is included. LDL Calculated 130(H) <=100 mg/dL [facility] Comment: < 100 Optimal 100 - 129 Near or above optimal 130 - 159 Borderline High 160 - 189 High >= 190 Very High Blood specimen (specimen) 12/01/2016 11:28 AM EST 12/01/2016 5:43 PM EST us Jesu Galvin MD CHEMISTRY ORDERABLES Final Result Performing Organization Address City/[facility] Co de Phone Number [facility] [address] [place] [address] * DIABETIC RETINOPATHY EXAM (06/27/2016 10:24 PM EDT) Pathologist [facility] VISUAL ACUITY SCREEN OD 20/20 06/27/2016 10:[address] [facility] VISUAL ACUITY SCREEN OS 20/20 06/27/2016 10:[address] [facility] OCULAR BLOOD FLOW MEASURE OD 18 06/27/2016 10:[address] [facility] OCULAR BLOOD FLOW MEASURE OS 20 06/27/2016 10:[address] [facility] DIABETIC RETINOPATHY NEGATIVE 06/27/2016 10:[address] [facility] CATARACTS NEGATIVE 06/27/2016 10:[address] [facility] GLAUCOMA NEGATIVE 06/27/2016 10:[address] [facility] 06/27/2016 10:2 4 PM EDT us Unknown Provider OPHTHALMOLOGY SERVICES ORDERABL ES Final Result [facility] * HIV AG/AB (04/05/2016 10:29 AM EDT) HIV Ag/AB Non-Reacti ve [facility] Blood specimen (specimen) UPPER LIMB STRUCTURE / Unknown 04/05/2016 10:29 AM EDT 04/05/2016 4:13 PM EDT us Jesu Galvin MD IMMUNOLOGY ORDERABLES Final Result [facility] [address] [place] [address] * HEPATITIS C ANTIBODY IGM + IGG (04/05/2016 10:29 AM EDT) Hep C Ab Negative Negative [facility] Blood specimen (specimen) UPPER LIMB STRUCTURE / Unknown 04/05/2016 10:29 AM EDT 04/05/2016 4:13 PM EDT us Jesu Galvin MD IMMUNOLOGY ORDERABLES Final Result Performing Organization Address City/[facility] Co de Phone Number [facility] [address] [place] [address] * POCT ALERE I INFLUENZA (12/15/2015 12:10 PM EST) Influenza A Ag neg SEP OFFICE Influenza B Ag neg SEP OFFICE Lot Number [id number] SEP OFFICE Expiration Date SEP OFFICE 12/15/2015 12:1 0 PM EST us Jesu Galvin MD POINT OF CARE TEST ORDERABL ES Final Result Performing Organization Address [facility] Co de Phone Number SEP OFFICE * PATHOLOGY TISSUE REPORT (06/15/2015 11:13 AM EDT) Pathologist [facility] Surgical Pathology Report PATIENT NAME:LINDY BUNCH Surgical Pathology Report Accession Number Collected Date/Time Received Date/Time [id number] 06/15/15 11:13 EDT 06/15/15 15:19 EDT Diagnosis Left arm mass, excision: - Mature adipose connective tissue compatible with benign lipoma. Princess Phillips (Electronically signed by) Verified: 06/16/2015 [facility] Clinical Information . Gross Description The specimen is received in formalin labeled left arm mass. Received is a lobulated portion of soft, yellow-pink fat measuring 4 x 1.7 x 1.2 cm. Sectioning shows a soft, homogeneous, and pale yellow oily cut surface consistent with lipoma. Developmental Therapist sections are submitted in one cassette labeled 1A. / QL /DE Microscopic Description Microscopic examination is performed and the findings corroborate the diagnosis. [facility] 06/15/2015 11:1 3 AM EDT us Eliseo Flowers MD PATHOLOGY ORDERABLES Final R esult Performing Organization Address [facility] Co de Phone Number [facility] [address] [place] [address] * (ABNORMAL) FRUCTOSAMINE -REF LAB (06/11/2015 2:09 PM EDT) Pathologist [facility] Fructosamine 336(H) 170 - 285 mcmol/L [facility] Comment: INTERPRETIVE INFORMATION: Fructosamine Variations in levels of serum proteins (albumin and immunoglobulins) may affect fructosamine results. Blood specimen (specimen) UPPER LIMB STRUCTURE / Unknown 06/11/2015 2:09 PM EDT 06/11/2015 11:17 PM EDT us Sheila Valdez MD CHEMISTRY ORDERABLE S Final Result [facility] [address] [place] [address] * US RIGHT UPPER QUADRANT (04/20/2015 9:32 AM EDT) Anatomical Region Laterality Modality Abdomen Ultrasound 04/20/2015 9:11 AM EDT Impressions 04/20/2015 10:07 AM EDT IMPRESSION: 1. Fatty infiltration of the liver. 2. Otherwise, unremarkable right upper quadrant ultrasound. Narrative 04/20/2015 10:07 AM EDT US RIGHT UPPER QUADRANT. Apr 20, 2015 09:32:25 AM CLINICAL HISTORY: Abdominal pain 787.01-Nausea with [id number]-8-CM FINDINGS: Comparison: None Gallbladder has an unremarkable sonographic appearance. No gallstones, pericholecystic fluid or gallbladder wall thickening. geospatial information technologist reported a negative sonographic Long sign. No intrahepatic or extrahepatic biliary dilatation. Common duct measures 5 mm. Liver is increased in echogenicity. Otherwise, the visualized portions of the liver are unremarkable. Limited visualization of the right kidney reveals no hydronephrosis. Pancreas is partially obscured by bowel gas. Visualized portions within normal limits. Procedure Note Diony Gilmore MD - 04/20/2015 US RIGHT UPPER QUADRANT. Apr 20, 2015 09:32:25 AM CLINICAL HISTORY: Abdominal pain 787.01-Nausea with qbvzsouq-CNL-3-CM FINDINGS: Comparison: None Gallbladder has an unremarkable sonographic appearance. No gallstones,pericholecystic fluid or gallbladder wall thickening. geospatial information technologist reported a negativesonographic Long sign. No intrahepatic or extrahepatic biliary dilatation. Common duct measures 5mm. Liver is increased in echogenicity. Otherwise, the visualized portions ofthe liver are unremarkable. Limited visualization of the right kidney reveals no hydronephrosis. Pancreas is partially obscured by bowel gas. Visualized portions withinnormal limits. IMPRESSION: 1. Fatty infiltration of the liver. 2. Otherwise, unremarkable right upper quadrant ultrasound. Jesu Galvin MD IMG US ORDERABLES Final Res ult * DIFFERENTIAL (04/20/2015 9:10 AM EDT) Only the most recent of9 resultswithin the time period is included. Neut Percent 53.0 % [facility] Lymph Percent 36.0 % [facility] [place] Percent 8.0 % [facility] Eos Percent 2.5 % [facility] Baso Percent 0.5 % [facility] Neut# 3.6 1.8 - 7.7 x10(3)/mcL [facility] Lymph# 2.4 0.6 - 4.8 x10(3)/mcL [facility] Roosevelt# 0.5 0.0 - 1.3 x10(3)/mcL [facility] Eos# 0.2 0.0 - 0.5 x10(3)/mcL [facility] Baso# 0.0 0.0 - 0.2 x10(3)/mcL [facility] Blood specimen (specimen) 04/20/2015 9:10 AM EDT 04/20/2015 9:17 AM EDT Jesu Galvin MD HEMATOLOGY ORDERABLES Final Result [facility] [address] [place] [address] * HEPATIC FUNCTION PANEL (04/20/2015 9:10 AM EDT) Only the most recent of16 resultswithin the time period is included. Total Protein 6.7 6.4 - 8.3 gm/dL [facility] Albumin 4.7 3.5 - 5.2 gm/dL [facility] Bili Direct <0.2 0.0 - 0.3 mg/dL [facility] Bili Total 0.4 0.1 - 1.3 mg/dL [facility] AST 32 <=40 IU/L [facility] ALT 37 <=41 IU/L [facility] Alk Phos 66 35 - 104 IU/L [facility] Blood specimen (specimen) UPPER LIMB STRUCTURE / Unknown 04/20/2015 9:10 AM EDT 04/20/2015 12:24 PM EDT us Jesu Galvin MD CHEMISTRY ORDERABLES Edited Result - Final Performing Organization Address [facility] Co de Phone Number [facility] [address] [place] [address] * SET ILLUSTRATOR CYTOLOGY REPORT (02/09/2015 10:18 PM EDT) Drawing Tracer Cytology Report PATIENT NAME:LINDY BUNCH Drawing Tracer Cytology Report Accession Number Collected Date/Time Received Date/Time [id number] 02/09/15 22:18 EDT 02/09/15 23:46 EDT GY Specimen Source Specimen Vag/Cerv/Endocx?: Cerv/Endocerv Statement of Adequacy Satisfactory for Evaluation. Transformation Zone Present. Diagnosis NEGATIVE FOR INTRAEPITHELIAL LESION OR MALIGNANCY. Comment Specimen is limited by obscuring lubricant. The Pap Smear is a screening test that aids in the detection of cervical cancer and cancer precursors. Both false positive and false negative results can occur. The test should be used at regular intervals, and positive results should be confirmed before definitive therapy. Processed using the ThinPrep Bus Person Dishwasher automated cytology screening device ([employer]). Heavy Truck Driver: DT 02/12/2015 Completed by: ELISABETH Ro (Electronically signed by) 02/12/2015 [facility] 02/09/2015 10:1 8 PM EDT us Sheila Valdez MD PATHOLOGY ORDERABLE S Final Result Performing Organization Address [facility] Co de Phone Number [facility] [address] [place] [address] * MRI CERVICAL SPINE WO CONTRAST (06/15/2014 4:31 PM EDT) Anatomical Region Laterality Modality C-spine Magnetic Resonan ce 06/15/2014 3:34 PM EDT Impressions 06/15/2014 5:08 PM EDT IMPRESSION: Disc bulge at C5-C6. Otherwise normal MRI of the cervical spine. Normal cord. Normal canal. No canal stenosis or foraminal pathology. Narrative 06/15/2014 5:08 PM EDT MRI CERVICAL SPINE WO CONTRAST Jun 15, 2014 04:31:08 PM HISTORY: 723.5-[id number]-CM Alignment is normal. Marrow signal is normal. There is no fracture, subluxation, or destructive lesion. Intervertebral discs are mildly degenerative in the mid cervical spine. There is mild disc bulge present at C5-C6. There is no evidence of disc protrusion, canal stenosis, foraminal narrowing. Procedure Note Lori Parker MD - 06/15/2014 MRI CERVICAL SPINE WO CONTRAST Jun 15, 2014 04:31:08 PM HISTORY: 723.2-[id number]-CM Alignment is normal. Marrow signal is normal. There is no fracture,subluxation, or destructive lesion. Intervertebral discs are mildly degenerative in the mid cervicalspine. There is mild disc bulge present at C5-C6. There is no evidence of disc protrusion,canal stenosis, foraminal narrowing. IMPRESSION: Disc bulge at C5-C6. Otherwise normal MRI of the cervicalspine. Normal cord. Normal canal. No canal stenosis or foraminal pathology. us Jesu Galvin MD IMG MRI ORDERABLES Final Re sult * XR CERVICAL SPINE AP LATERAL ODONTOID AND OBLIQUE (05/22/2014 11:59 PM EDT) Anatomical Region Laterality Modality C-spine Radiographic Reanna ging 05/22/2014 11:4 0 PM EDT Impressions 05/23/2014 12:18 AM EDT IMPRESSION: Essentially negative cervical spine series. Narrative 05/23/2014 12:18 AM EDT PROCEDURE: Cervical spine series, 05/22/2014. INDICATION: Neck pain. FINDINGS: AP, lateral, odontoid, and bilateral bilateral oblique views of the cervical spine. No prior. No fracture or malalignment. No prevertebral soft tissue swelling. No worrisome bony lesion or radiopaque foreign bodies. Disc spaces are relatively well-preserved. There is no bony neural foraminal narrowing. Procedure Note Carlos German MD - 05/23/2014 PROCEDURE: Cervical spine series, 05/22/2014. INDICATION: Neck pain. FINDINGS: AP, lateral, odontoid, and bilateral bilateral oblique views ofthe cervical spine. No prior. No fracture or malalignment. No prevertebral soft tissueswelling. No worrisome bony lesion or radiopaque foreign bodies. Disc spaces are relativelywell-preserved. There is no bony neural foraminal narrowing. IMPRESSION: Essentially negative cervical spine series. Riaz Ruiz MD IMG DIAGNOSTIC IMAGING ORDERAB LES Final Result * POCT URINALYSIS AUTOMATED (02/09/2014 1:33 PM EDT) Color, UA Clear, Yellow, [place], Rust SEP OFFICE Clarity, UA Clear, Cloudy SEP OFFICE Glucose, UA 3+ g/dl% SEP OFFICE Bilirubin, UA + Pos/Neg SEP OFFICE Ketones, UA + Pos/Neg SEP carousel operator Grav, UA 1.020 1.001 - 1.035 g/dl SEP OFFICE Blood, UA - Pos/Neg SEP OFFICE pH, UA 6.5 5.0 - 8 SEP OFFICE Protein, UA - Pos/Neg SEP OFFICE Urobilinogen, UA - 0.2 - 1.0 mg/dL SEP OFFICE Leukocytes, UA + Pos/Neg SEP OFFICE Nitrite, UA - Pos/Neg SEP OFFICE Appear BF Clear, Slightly Cloudy Clear, Cloudy SEP OFFICE Lot Number SEP OFFICE Expiration Date SEP OFFICE SeriAl # SEP OFFICE Urine specimen (specimen) 02/09/2014 1:33 PM EDT Jesu Galvin MD POINT OF CARE TEST ORDERABL ES Final Result SEP OFFICE * SPECIMEN VALIDITY TEST PANEL-QUEST (02/09/2014 1:27 PM EDT) Creatinine, Urine 27.9 > or = 20.0 mg/dL [facility] UA pH 5.14 4.5 - 9.0 [facility] Oxidant NEGATIVE <200 mcg/mL [facility] 02/09/2014 1:27 PM EDT 02/10/2014 2:56 AM EDT Narrative Resulting Agency Comment Performing Organization Information: Site ID: KP Name: [facility] Address: [address] [place] [address] Director: Loree Avalos PhD Jesu NDIAYE-PDM ORDERABLE (NON-SE H) Final Result Performing Organization Address [facility] Co de Phone Number [facility] [address] [place] [address], [facility] * PDM, HEROIN METAB,QN,W/MEDMATCH,U-QUEST (02/09/2014 1:27 PM EDT) Prescribed Drug 1 Tramadol [facility] [place] 6 Acetylmorphine NEGATIVE <10 ng/mL [facility] medMATCH 6 Acetylmorph CONSISTENT [facility] medMatch Comments [facility] Comment: medMATCH comments are: - present when drug test results may be the result of metabolism of one or more drugs or when results are inconsistent with prescribed medication(s) listed. - may be blank when drug results are consistent with prescribed medication(s) listed. 02/09/2014 1:27 PM EDT 02/10/2014 2:56 AM EDT Narrative Resulting Agency Comment Performing Organization Information: Site ID: Name: [facility] Address: [address] [place] [address] Director: Loree Avalos PhD Jesu NDIAYE-PDM ORDERABLE (NON-SE H) Final Result Performing Organization Address City/[facility] Co de Phone Number [facility] [address] [place] [address], [facility] * PDM,METHYLPHENIDATE METAB,QN,W/MEDMATCH,U-QUEST (02/09/2014 1:27 PM EDT) Prescribed Drug 1 Tramadol [facility] Ritalinic Acid NEGATIVE <100 ng/mL [facility] medMATCH Ritalinic Acid CONSISTENT [facility] medMatch Comments [facility] Comment: medMATCH comments are: - present when drug test results may be the result of metabolism of one or more drugs or when results are inconsistent with prescribed medication(s) listed. - may be blank when drug results are consistent with prescribed medication(s) listed. 02/09/2014 1:27 PM EDT 02/10/2014 2:56 AM EDT Narrative Resulting Agency Comment Performing Organization Information: Site ID: Name: [facility] Address: [address] [facility] [address] Director: Loree Avalos PhD us Jesu NDIAYE-PDM ORDERABLE (NON-SE H) Final Result Performing Organization Address [facility]/ZIP Co de Phone Number [facility] [address] [place] [address], [facility] * PDM, COCAINE METAB, W/CONF,W/MEDMATCH,U-QUEST (02/09/2014 1:27 PM EDT) [facility] Prescribed Drug 1 Tramadol [facility] Cocaine Metabolite NEGATIVE <150 ng/mL [facility] medMATCH Cocaine Metab CONSISTENT [facility] medMatch Comments [facility] Comment: medMATCH comments are: - present when drug test results may be the result of metabolism of one or more drugs or when results are inconsistent with prescribed medication(s) listed. - may be blank when drug results are consistent with prescribed medication(s) listed. 02/09/2014 1:27 PM EDT 02/10/2014 2:56 AM EDT Narrative Resulting Agency Comment Performing Organization Information: Site ID: Name: [facility] Address: [address] [facility] [place] [address] Director: Loree Avalos PhD us Jesu NDIAYE-PDM ORDERABLE (NON-SE H) Final Result Performing Organization Address City/[facility]/ZIP Co de Phone Number ExecJO ANNVANDALI[facility] [address] [facility] [place] [address], [facility] * PDM,BENZODIAZEPINES W/CONF,W/MEDMATCH,U-QUEST (02/09/2014 1:27 PM EDT) Prescribed Drug 1 Tramadol [facility] Benzodiazepines NEGATIVE <100 ng/mL [facility] medMATCH Benzodiazepines CONSISTENT [facility] medMatch Comments [facility] Comment: medMATCH comments are: - present when drug test results may be the result of metabolism of one or more drugs or when results are inconsistent with prescribed medication(s) listed. - may be blank when drug results are consistent with prescribed medication(s) listed. 02/09/2014 1:27 PM EDT 02/10/2014 2:56 AM EDT Narrative Resulting Agency Comment Performing Organization Information: Site ID: Name: [facility] Address: [address] [place] [address] [place] [address] Director: BBE Robbie PhD Jesu Galvin MD [facility] ORDERABLE (NON-SE H) Final Result [facility]ENT[facility] PIZARROLEEANN [address] [facility] [place] [address], [facility] * PDM, AMPHETAMINES, W/CONF,W/MEDMATCH,U-QUEST (02/09/2014 1:27 PM EDT) Prescribed Drug 1 Tramadol [facility] Amphetamines NEGATIVE <500 ng/mL [facility] medMATCH Amphetamines CONSISTENT [facility] medMatch Comments [facility] Comment: medMATCH comments are: - present when drug test results may be the result of metabolism of one or more drugs or when results are inconsistent with prescribed medication(s) listed. - may be blank when drug results are consistent with prescribed medication(s) listed. 02/09/2014 1:27 PM EDT 02/10/2014 2:56 AM EDT Narrative Resulting Agency Comment Performing Organization Information: Site ID: Name: [facility] [place] Address: [address] [place] [address] Director: Loree Avalos PhD Jesu NDIAYE-PDM ORDERABLE (NON-SE H) Final Result Performing Organization Address [facility] de Phone Number [facility] [address] [place] [address], [facility] * PDM, OXYCODONE, W/CONF,W/MEDMATCH,U-QUEST (02/09/2014 1:27 PM EDT) Prescribed Drug 1 Tramadol [facility] Oxycodone NEGATIVE <100 ng/mL [facility] medMATCH Oxycodone CONSISTENT [facility] medMatch Comments [facility] Comment: medMATCH comments are: - present when drug test results may be the result of metabolism of one or more drugs or when results are inconsistent with prescribed medication(s) listed. - may be blank when drug results are consistent with prescribed medication(s) listed. 02/09/2014 1:27 PM EDT 02/10/2014 2:56 AM EDT Narrative Resulting Agency Comment Performing Organization Information: Site ID: Name: [facility] Address: [address] [place] [address] Director: Loree Avalos PhD Jesu NDIAYE-PDM ORDERABLE (NON-SE H) Final Result Performing Organization Address [facility] de Phone Number [facility] [address] [place] [address], [facility] * PDM, OPIATES, W/CONF,W/MEDMATCH,U-QUEST (02/09/2014 1:27 PM EDT) Prescribed Drug 1 Tramadol [facility] Opiates NEGATIVE <100 ng/mL [facility] medMATCH Opiates CONSISTENT [facility] medMatch Comments [facility] Comment: medMATCH comments are: - present when drug test results may be the result of metabolism of one or more drugs or when results are inconsistent with prescribed medication(s) listed. - may be blank when drug results are consistent with prescribed medication(s) listed. 02/09/2014 1:27 PM EDT 02/10/2014 2:56 AM EDT Narrative Resulting Agency Comment Performing Organization Information: Site ID: Name: [facility] [place] Address: [address] [place] [address] Director: Loree Avalos PhD Jesu Galvin MD [facility] ORDERABLE (NON-SE H) Final Result Performing Organization Address [facility] Co de Phone Number [facility] [address] [place] [address], [facility] * PDM, METHADONE, W/CONF,W/MEDMATCH,U-QUEST (02/09/2014 1:27 PM EDT) [facility] Prescribed Drug 1 Tramadol [facility] Methadone NEGATIVE <150 ng/mL [facility] medMATCH Methadone CONSISTENT [facility] medMatch Comments [facility] Comment: medMATCH comments are: - present when drug test results may be the result of metabolism of one or more drugs or when results are inconsistent with prescribed medication(s) listed. - may be blank when drug results are consistent with prescribed medication(s) listed. 02/09/2014 1:27 PM EDT 02/10/2014 2:56 AM EDT Narrative Resulting Agency Comment Performing Organization Information: Site ID: Name: [facility] [place] Address: [address] [place] [address] Director: Loree Avalos PhD Jesu Galvin MD [facility] ORDERABLE (NON-SE H) Final Result Performing Organization Address [facility] Co de Phone Number [facility] [address] [place] [address], [place] * PDM,MARIJUANA METAB W/CONF,W/MEDMATCH,U-QUEST (02/09/2014 1:27 PM EDT) Prescribed Drug 1 Tramadol [facility] Marijuana Metabolite NEGATIVE <20 ng/mL [facility] medMATCH Marijuana Metab CONSISTENT [facility] medMatch Comments [facility] Comment: medMATCH comments are: - present when drug test results may be the result of metabolism of one or more drugs or when results are inconsistent with prescribed medication(s) listed. - may be blank when drug results are consistent with prescribed medication(s) listed. 02/09/2014 1:27 PM EDT 02/10/2014 2:56 AM EDT Narrative Resulting Agency Comment Performing Organization Information: Site ID: Name: [facility] Address: [address] [place] [address] [place] [address] Director: Loree Avalos PhD Jesu NDIAYE-PDM ORDERABLE (NON-SE H) Final Result ExecNIKKI [address] [place] [address], [facility] * NM MYOCARDIAL PERFUSION SPECT STRESS AND REST (03/10/2013 11:22 AM EDT) Pathologist [facility] Ejection Fraction 72 % PYRAMIS Anatomical Region Laterality Modality Nuclear Medicine 03/10/2013 9:31 AM EDT Impressions 03/10/2013 3:03 PM EDT SPECT RESULTS Technical Quality: Raw Data Analysis: Perfusion: No definite reversible perfusion defect. FUNCTION (calculated via Gated SPECT) Post Stress LV EF:72 % TID: 0.85 EDV: 44 ml (70-100 ml) ESV: 12 ml (30-50 ml) EDVI: 25 ml/m? (30-50 ml/m?) ESVI: 7 ml/m? (15-30 ml/m?) Technical Quality: LV Regional Function: Normal LV wall motion and function with EF approximately 60-65%. IMPRESSIONS No definite reversible perfusion defect. Normal LV wall motion and function with EF approximately 60-65%. Narrative Procedure Note Willie Nevarez MD - 03/10/2013 IMPRESSION SPECT RESULTS Technical Quality: Raw Data Analysis: Perfusion: No definite reversible perfusion defect. FUNCTION (calculated via Gated SPECT) Post Stress LV EF:72 %TID: 0.85 EDV: 44 ml (70-100 ml) ESV: 12 ml(30-50 ml) EDVI: 25 ml/m? (30-50 ml/m?) ESVI: 7ml/m? (15-30 ml/m?) Technical Quality: LV Regional Function: Normal LV wall motion and function with EFapproximately 60-65%. IMPRESSIONS No definite reversible perfusion defect. Normal LV wall motion and function with EF approximately 60-65%. Pramod Jolly MD [facility] NM CARDIAC ORDERABLES Final Result * ST STRESS TEST EXERCISE (03/10/2013 10:29 AM EDT) Anatomical Region Laterality Modality Cardiac Stress T esting 03/10/2013 10:0 6 AM EDT Pramod Jolly MD [facility] STRESS ORDERABLES Final Res ult * TROPONIN-I (03/08/2013 5:36 AM EDT) Only the most recent of2 resultswithin the time period is included. Troponin-I <0.01 <=0.06 ng/mL [facility] Blood specimen (specimen) UPPER LIMB STRUCTURE / Unknown 03/08/2013 5:36 AM EDT 03/08/2013 6:05 AM EDT Idris Melgar MD CHEMISTRY ORDERABLES Final R esult [facility] [address] [place] [address] * D-DIMER (03/07/2013 11:35 PM EDT) D-Dimer <230 <=230 ng/mL D-DU [facility] Comment: This test has been clinically validated by the spa experience coordinator and approved by the FDA for exclusion of pulmonary embolism (PE) or deep vein thrombosis (DVT) in patients with a low clinical risk assessment. The cutoff for exclusion of PE and DVT is < 230 ng/mL D-Dimer Units. Increased levels of D-dimer are associated with PE, DVT, disseminated intravascular coagulation, malignancies, inflammation, sepsis, surgery, trauma, , and advanced patient age. [SWEETIE 2006 11:295(2): 199-207] Blood specimen (specimen) UPPER LIMB STRUCTURE / Unknown 03/07/2013 11:35 PM EDT 03/08/2013 12:07 AM EDT us Rico Real MD HEMATOLOGY ORDERABLES Final Res ult [facility] [address] [place] [address] * PDM, TRAMADOL, QN,W/MEDMATCH,U-QUEST (09/18/2012 1:56 PM EST) Tramadol Scrn, Ur NEGATIVE <100 ng/mL [facility] medMATCH Tramadol CONSISTENT [facility] medMatch Comments [facility] Comment: medMATCH comments are: - present when drug test results may be the result of metabolism of one or more drugs or when results are inconsistent with prescribed medication(s) listed. - may be blank when drug results are consistent with prescribed medication(s) listed. 09/18/2012 1:56 PM EST 09/19/2012 2:32 AM EST Narrative Resulting Agency Comment Performing Organization Information: Site ID: Name: [facility] Address: [address] [place] [address] Director: Loree Avalos PhD us Jesu Galvin MD [facility]PD[facility] ORDERABLE (NON-SE H) Final Result [facility] [address] [place] [address], [facility] * PDM PROFILE 1 W/ CONF, URINE-QUEST (09/18/2012 1:56 PM EST) Pathologist [facility] Prescribed Drug 1 Tramadol [facility] Creatinine, Urine 20.6 > or = 20.0 mg/dL [facility] UA pH 5.1 4.5 - 9.0 [facility] Oxidant NEGATIVE <200 mcg/mL [facility] Amphetamines NEGATIVE <500 ng/mL [facility] medMATCH Amphetamines CONSISTENT [facility] Barbiturates NEGATIVE <300 ng/mL [facility] medMATCH Barbiturates CONSISTENT [facility] Benzodiazepines NEGATIVE <100 ng/mL [facility] medMATCH Benzodiazepines CONSISTENT [facility] Marijuana Metabolite NEGATIVE <20 ng/mL [facility] medMATCH Marijuana Metab CONSISTENT [facility] Cocaine Metabolite NEGATIVE <150 ng/mL [facility] medMATCH Cocaine Metab CONSISTENT [facility] Methadone NEGATIVE <150 ng/mL [facility] medMATCH Methadone CONSISTENT [facility] Opiates NEGATIVE <100 ng/mL [facility] medMATCH Opiates CONSISTENT [facility] Oxycodone NEGATIVE <100 ng/mL [facility] medMATCH Oxycodone CONSISTENT [facility] Phencyclidine NEGATIVE <25 ng/mL [facility] medMATCH Phencyclidine CONSISTENT [facility] Propoxyphene, Screen NEGATIVE <300 ng/mL [facility] medMATCH Propoxyphene CONSISTENT [facility] medMatch Comments [facility] Comment: medMATCH comments are: - present when drug test results may be the result of metabolism of one or more drugs or when results are inconsistent with prescribed medication(s) listed. - may be blank when drug results are consistent with prescribed medication(s) listed. Urine specimen (specimen) 09/18/2012 1:56 PM EST 09/19/2012 2:32 AM EST Narrative Resulting Agency Comment Performing Organization Information: Site ID: [id number] Name: [facility] Address: [address] [place] [address] Director: Loree Avalos PhD us Jesu Galvin MD [facility]-PDM ORDERABLE (NON-SE H) Final Result [facility] [address] [place] [address], [facility] * MRI LUMBAR SPINE WO CONTRAST (06/12/2012 4:54 PM EDT) Anatomical Region Laterality Modality L-spine Magnetic Resonan ce 06/12/2012 Impressions 06/13/2012 1:14 PM EDT Impression: Possible transitional vertebra. There appears to be partial lumbarization of S1. Please see images, as the levels are annotated. Image review recommended if spinal injection or surgery planned. Given this nomenclature, there are subligamentous disc protrusions noted at L4- L5 and L5-S1. In addition, at L5-S1, there is advanced facet joint osteoarthritis and spondylolisthesis, which results in spinal stenosis that is moderately severe. The foramina are narrowed but most prominently narrowed at L5-S1 on the right. Narrative 06/13/2012 1:14 PM EDT MRI lumbosacral spine, 06/12/2012 history: Spasms extending into the left leg. Pinched nerve. There may be a transitional vertebra present. The most inferiorly positioned L5 vertebral body is referred to as S1 because of its orientation. The images and levels are annotated. Direct review of the images suggested prior to any intervention. Given this nomenclature, there is a spondylolisthesis present at L5-S1. This measures approximately 4 mm in the neutral supine position. Flexion-extension views may add further information. This appears to relate to advanced facet joint osteoarthritis, which is present at this level. The combination of processes of facet joint osteoarthritis, spondylolisthesis and broad-based subligamentous disc protrusion which does extend into the foramina, results in moderately severe spinal stenosis at L5-S1. There is narrowing of the left foramen that is mild to moderate and narrowing of the right foramen that is moderate. The subligamentous disc protrusion is broad-based and mild but does extend into the right foramen and is the primary cause of the right foraminal narrowing. At L4-L5, a broad-based subligamentous disc protrusion is noted. There is mild mass effect on the thecal sac. There is mild extension into the right foramen with a probable annular tear. There is no significant canal stenosis at this level. At L3-L4, L2-L3 and L1-L2 levels, no obvious abnormalities are seen. Procedure Note Lori Parker MD - 06/13/2012 MRI lumbosacral spine, 06/12/2012 history: Spasms extending into the left leg. Pinched nerve. There may be a transitional vertebra present. The most inferiorlypositioned L5 vertebral body is referred to as S1 because of its orientation. The images and levels areannotated. Direct review of the images suggested prior to any intervention. Given this nomenclature, there is a spondylolisthesis present at L5-S1.This measures approximately 4 mm in the neutral supine position. Flexion-extension viewsmay add further information. This appears to relate to advanced facet jointosteoarthritis, which is present at this level. The combination of processes of facet joint osteoarthritis,spondylolisthesis and broad-based subligamentous disc protrusion which does extend into theforamina, results in moderately severe spinal stenosis at L5-S1. There is narrowing of the leftforamen that is mild to moderate and narrowing of the right foramen that is moderate. Thesubligamentous disc protrusion is broad-based and mild but does extend into the right foramenand is the primary cause of the right foraminal narrowing. At L4-L5, a broad-based subligamentous disc protrusion is noted. There ismild mass effect on the thecal sac. There is mild extension into the right foramen with aprobable annular tear. There is no significant canal stenosis at this level. At L3-L4, L2-L3 and L1-L2 levels, no obvious abnormalities are seen. Impression: Possible transitional vertebra. There appears to be partiallumbarization of S1. Please see images, as the levels are annotated. Image review recommendedif spinal injection or surgery planned. Given this nomenclature, there are subligamentous disc protrusions notedat L4-L5 and L5-S1. In addition, at L5-S1, there is advanced facet joint osteoarthritis andspondylolisthesis, which results in spinal stenosis that is moderately severe. The foramina arenarrowed but most prominently narrowed at L5-S1 on the right. Jesu Galvin MD IMG MRI ORDERABLES Final Re sult * IRON LEVEL AND TIBC (12/21/2011 12:27 PM EST) Only the most recent of2 resultswithin the time period is included. Iron 78 19 - 153 mcg/dL [facility] TIBC 292 260 - 495 mcg/dL [facility] %Saturation 27 20 - 50 % [facility] Blood specimen (specimen) UPPER LIMB STRUCTURE / Unknown 12/21/2011 12:27 PM EST 12/21/2011 5:28 PM EST Johnson Young MD CHEMISTRY ORDERABLES Edited Performing Organization Address [facility] Co de Phone Number [facility] [address] [place] [address] * F-ACTIN (SMOOTH MUSCLE) AB, IGG W/REFLEX (12/21/2011 12:27 PM EST) F Actin IgG 5 0 - 19 [facility] Comment: If F-Actin (Smooth Muscle) Antibody, IgG is negative, the Smooth Muscle Antibody titer by IFA is not performed. INTERPRETIVE INFORMATION: F-Actin Antibody, IgG 19 Units or less ....... Negative 20 - 30 Units .......... Weak Positive-Suggest repeat testing in two to three weeks with fresh specimen. 31 Units or greater..... Positive-Suggestive of autoimmune hepatitis type 1 or chronic active hepatitis. F-actin antibodies have been shown to have greater sensitivity and specificity for autoimmune liver disease than anti-smooth muscle antibodies. Blood specimen (specimen) UPPER LIMB STRUCTURE / Unknown 12/21/2011 12:27 PM EST 12/21/2011 8:54 PM EST Johnson Young MD IMMUNOLOGY ORDERABLES Final Result Performing Organization Address [facility]/ZIP Co de Phone Number [facility] [address] [place] [address] * SVWPY-3-[id number]-ARUP (12/21/2011 12:27 PM EST) A1AT 105 100 - 200 mg/dL [facility] Comment:To convert to umol/L , multiply mg/dL by 0.185 Blood specimen (specimen) UPPER LIMB STRUCTURE / Unknown 12/21/2011 12:27 PM EST 12/21/2011 8:54 PM EST us Johnson Young MD CHEMISTRY ORDERABLES Final Result Performing Organization Address [facility] de Phone Number [facility] [address] [place] [address] * HEPATITIS C VIRUS ANTIBODY, RIBA-ARUP (12/21/2011 12:27 PM EST) Pathologist [facility] HCV by RIBA-ARUP Negative Negative [facility] Comment: anti-HCV 3.0 Immunoblot Assay (0-4, 0=neg ... 4=strong pos) 5-1-1p c100p c33c c22p NS5 hSOD 0 0 0 0 0 INTERPRETATION: Negative for HCV antibodies. No antibodies were detected to the HCV proteins. hSOD is a control that detects autoantibodies to human superoxide dismutase. HCV causes the majority of parenterally transmitted non-A, non-B hepatitis. Most patients infected with HCV develop antibodies within 3 months of infection. Recent studies show that nearly 90% of HCV infections become chronic. If this specimen has a repeatedly reactive EIA result, testing for HCV RNA will determine if the patient is currently infected. An FDA licensed recombinant immunoblot assay was used. INTERPRETIVE INFORMATION: Hepatitis C Antibody, RIBA This assay should not be used for blood donor screening, associated re-entry protocols, or for screening Human Cells, Tissues and Cellular and Tissue-Based Products (HCT/P). Blood specimen (specimen) UPPER LIMB STRUCTURE / Unknown 12/21/2011 12:27 PM EST 12/21/2011 8:54 PM EST us Johnson Young MD IMMUNOLOGY ORDERABLES Final Result Performing Organization Address [facility] Co de Phone Number [facility] [address] [place] [address] * CERULOPLASMIN-ARUP (12/21/2011 12:27 PM EST) Pathologist [facility] Ceruloplasmin 28 17 - 54 mg/dL [facility] Blood specimen (specimen) UPPER LIMB STRUCTURE / Unknown 12/21/2011 12:27 PM EST 12/21/2011 10:52 PM EST us Johnson Young MD CHEMISTRY ORDERABLES Final Result Performing Organization Address [facility] Phone Number [facility] [address] [place] [address] * HEPATITIS B SURFACE ANTIGEN (12/21/2011 12:27 PM EST) Pathologist [facility] Hep Bs Ag Negative Negative [facility] Blood specimen (specimen) UPPER LIMB STRUCTURE / Unknown 12/21/2011 12:27 PM EST 12/21/2011 5:28 PM EST us Johnson Young MD CHEMISTRY ORDERABLES Final Result Performing Organization Address [facility] Phone Number [facility] [address] [place] [address] * ANTINUCLEAR ANTIBODY SCREEN (12/21/2011 12:27 PM EST) Only the most recent of2 resultswithin the time period is included. Pathologist [facility] MARK Screen Negative [facility] Comment: MARK samples are screened using an automated EIA assay. All samples that screen positive are titered by an IFA method and will include an MARK pattern. A titer of < 1:80 is considered clinically insignificant. In general, a titer >= 1:160 is considered significant positive. Blood specimen (specimen) UPPER LIMB STRUCTURE / Unknown 12/21/2011 12:27 PM EST 12/21/2011 5:28 PM EST us Johnson Young MD IMMUNOLOGY ORDERABLES Final Result Performing Organization Address [facility] de Phone Number [facility] [address] [place] [address] * SCANNED LABS (09/06/2010 12:00 AM EDT) Only the most recent of3 resultswithin the time period is included. Narrative 09/06/2010 3:34 PM EDT Ordered by an unspecified provider. Transcriptions Unknown, U - 09/06/2010 3:32 PM EDT us U Unknown HEMATOLOGY ORDERABLES Final Resu lt * SCANNED PATHOLOGY REPORT (08/18/2010 12:00 AM EDT) Narrative 08/18/2010 7:42 PM EDT Ordered by an unspecified provider. Transcriptions Unknown, U - 08/18/2010 7:42 PM EDT us U Unknown PATHOLOGY ORDERABLES Final Resul t * SCANNED CARDIAC SVP RESEARCH & EBUSINESS OPERATIONS (05/31/2010 12:00 AM EDT) Only the most recent of2 resultswithin the time period is included. Narrative 06/01/2010 3:17 PM EDT Ordered by an unspecified provider. Transcriptions Unknown, U - 05/31/2010 1:30 PM EDT us U Unknown [facility] CARDIAC CATH ORDERABLES Lula l Result * NON-SET ILLUSTRATOR CYTOLOGY REPORT (05/02/2010 10:47 AM EDT) Non-Drawing Tracer Cytology Report PATIENT NAME:LINDY BUNCH Non-Drawing Tracer Cytology Report Accession Number Collected Date/Time Received Date/Time [id number] 05/02/10 10:47 EDT 05/03/10 10:49 EDT Specimen Source Esophageal Brushing Diagnosis Negative for Malignancy. Comment No malignant cells identified. Fungal organisms morphologically consistent with Sherry species present. 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 Referring Provider: Jesu Galvin MD Johnson Young MD GI PROCEDURE ORDERABLES Fin al Result Performing Organization Address [facility] de Phone Number [facility] [address] [address] * GMED COLONOSCOPY (05/02/2010 12:00 AM EDT) 05/02/2010 Impressions - 11/28/2012 1:12 PM EST Normal colonoscopy to cecum Narrative - 11/28/2012 1:12 PM EST Performing Provider: Johnson Young M.D. Referring Provider: Jesu Galvin MD Johnson Young MD GI PROCEDURE ORDERABLES Fin al Result Performing Organization Address [facility] Phone Number [facility] [address], [place] [address] * CC CARDIAC PROCEDURE (04/13/2010 1:07 PM EDT) Only the most recent of2 resultswithin the time period is included. Anatomical Region Laterality Modality Other 04/13/2010 1:07 PM EDT Narrative 04/14/2010 8:02 AM EDT See Cardiac Catheterization Lab Report in eClin/[facility]. In eClin.. 1. Click on med rec tab. 2. Locate medical record. 3. See Cardiac Radio Division Captain folder. Medical Records Director- POLLO Santana Physician- NILS GORDON MD Released Date Time- 04/14/10801 Procedure Note Nils Gordon MD - 04/14/2010 See Cardiac Catheterization Lab Report in eClin/[facility]. In eClin.. 1. Click on med rec tab. 2. Locate medical record. 3. See Cardiac Radio Division Captain folder. Medical Records Director- POLLO Santana Physician- NILS GORDON MD Released Date Time- 04/14/10801 us Nils Gordon MD [facility] [place] Final Result * SCANNED OR REPORT STL (04/08/2010 12:00 AM EDT) Narrative 04/08/2010 9:08 PM EDT Ordered by an unspecified provider. Transcriptions Unknown, Unknown - 04/08/2010 4:27 PM EDT us Unknown Unknown PROCEDURE/MINOR SURGICAL ORDERAB LES Final Result * MM SCREENING DIRECT DIGITAL (10/01/2009 12:00 AM EST) Anatomical Region Laterality Modality Other 10/01/2009 10/01/2009 Narrative 10/01/2009 12:00 AM EST Name: JULIO C Arreaga : 1960 VERIFIED [facility] Reason: SCREENING Dict.Staff: LESLEE EDMONDS [id number] Verified By: MOY GARCIA Marybeth: 10/08/09 4:14 pm Exams: REMIGIO-SCREENING DIRECT DIGITAL DIRECT DIGITAL BILATERAL SCREENING MAMMOGRAPHY WITH CAD, 10-08-09: Comparison with earlier studies, the most recent being 2005. FINDINGS: The breasts are of average fibroglandular density. In the posterior upper-outer quadrant of the left breast there are loosely grouped regional calcifications. On the CC view of the left breast in the anterior third deep to the level of the nipple there is a questionable focal group of faint calcifications which may in fact be artifactual as they are not seen on the oblique view. No dominant masses or areas of distortion are seen. IMPRESSION: Calcifications in the left breast which warrant further evaluation with spot magnification and true lateral projections. This additional imaging should be obtained within the next two to three weeks. CATEGORY 0-INCOMPLETE. NEED ADDITIONAL IMAGING EVALUATION. EDMONDS/ BECAUSE MAMMOGRAPHY HAS A 15% FALSE NEGATIVE RATE, MANAGEMENT OF A PALPABLE ABNORMALITY MUST BE BASED ON CLINICAL FINDINGS. THIS EXAMINATION WAS REVIEWED BY A RADIOLOGIST AND BY CAD. DICTATED 10-08-09 @ 11:45 AM end of result Procedure Note Unknown, U - 02/25/2010 Name: JULIO C Arreaga : 1960 VERIFIED [facility] Reason: SCREENING Dict.Staff: LESLEE EDMONDS [id number] Verified By: MOY GARCIA Marybeth: 10/08/09 4:14 pm Exams: REMIGIO-SCREENING DIRECT DIGITAL DIRECT DIGITAL BILATERAL SCREENING MAMMOGRAPHY WITH CAD, 10-08-09: Comparison with earlier studies, the most recent being 2005. FINDINGS: The breasts are of average fibroglandular density. In the posterior upper-outer quadrant of the left breast there are loosely grouped regional calcifications. On the CC view of the left breast in the anterior third deep to the level of the nipple there is a questionable focal group of faint calcifications which may in fact be artifactual as they are not seen on the oblique view. No dominant masses or areas of distortion are seen. IMPRESSION: Calcifications in the left breast which warrant further evaluation with spot magnification and true lateral projections. This additional imaging should be obtained within the next two to three weeks. CATEGORY 0-INCOMPLETE. NEED ADDITIONAL IMAGING EVALUATION. EDMONDS/ BECAUSE MAMMOGRAPHY HAS A 15% FALSE NEGATIVE RATE, MANAGEMENT OF A PALPABLE ABNORMALITY MUST BE BASED ON CLINICAL FINDINGS. THIS EXAMINATION WAS REVIEWED BY A RADIOLOGIST AND BY CAD. DICTATED 10-08-09 @ 11:45 AM end of result us U Unknown [facility] RAD HISTORICAL Final Result * MR UPPER EXTREMITY JNT W/O CONTRAST LT MRI (06/08/2008 12:00 AM EDT) Anatomical Region Laterality Modality Other 06/08/2008 06/08/2008 Narrative 06/08/2008 12:00 AM EDT Name: JULIO C Arreaga : 1960 VERIFIED [facility] Reason: LIMITED MOBILITY, PAINFUL TO RAISE ARM ABOVE HEAD Dict.Staff: BRANDON GOODMAN [id number] Verified By: MOY GARCIA Marybeth: 06/09/08 7:40 am Exams: MRI-UPPER EXT JOINT W/O LT MRI LEFT SHOULDER 06-08-08 HISTORY: DECREASED RANGE OF MOTION. EVALUATED FOR ROTATOR CUFF TEAR Moderate hypertrophic AC joint changes are present. Mild to moderate tendonosis changes are present in the supraspinatus and infraspinatus tendons. There is some bursal surface spraying of the supraspinatus tendon. No evidence of high grade or full thickness tear. There is small amount of fluid in the subacromial bursa. Biceps tendon is normally seated. IMPRESSION: AC JOINT ARTHROPATHY. TENDONOSIS CHANGES SUPRASPINATUS AND INFRASPINATUS TENDON WITH SOME BURSAL SURFACE SPRAYING OF THE SUPRASPINATUS TENDON. NO GROSS LABRAL ABNORMALITY. GS/pp DICTATED ON 06-08-08 AT 1643 HOURS end of result Procedure Note Unknown, U - 02/25/2010 Name: JULIO C Arreaga : 1960 VERIFIED [facility] Reason: LIMITED MOBILITY, PAINFUL TO RAISE ARM ABOVE HEAD Dict.Staff: BRANDON GOODMAN [id number] Verified By: MOY GARCIA Marybeth: 06/09/08 7:40 am Exams: MRI-UPPER EXT JOINT W/O LT MRI LEFT SHOULDER 06-08-08 HISTORY: DECREASED RANGE OF MOTION. EVALUATED FOR ROTATOR CUFF TEAR Moderate hypertrophic AC joint changes are present. Mild to moderate tendonosis changes are present in the supraspinatus and infraspinatus tendons. There is some bursal surface spraying of the supraspinatus tendon. No evidence of high grade or full thickness tear. There is small amount of fluid in the subacromial bursa. Biceps tendon is normally seated. IMPRESSION: AC JOINT ARTHROPATHY. TENDONOSIS CHANGES SUPRASPINATUS AND INFRASPINATUS TENDON WITH SOME BURSAL SURFACE SPRAYING OF THE SUPRASPINATUS TENDON. NO GROSS LABRAL ABNORMALITY. GS/pp DICTATED ON 06-08-08 AT 1643 HOURS end of result us U Unknown [facility] Final Result * XR TIBIA AND FIBULA 2 VIEWS LT (11/14/2007 12:00 AM EST) Anatomical Region Laterality Modality Other 11/14/2007 11/14/2007 Narrative 11/14/2007 12:00 AM EST VERIFIED [facility] Reason: slipped on steps felt pop l lower leg Dict.Staff: MOY GARCIA [id number] Verified By: MOY GARCIA Marybeth: 11/14/07 2:59 pm Exams: DIAG-TIB/FIB MIN 2-VIEWS LT TWO VIEW LEFT TIB-FIB: 11-14-07 History: Slipped, pain. No significant osseous, joint, or soft tissue abnormality is seen. JOSE:ps Dictated 11-14-07 @ 14:25 end of result Procedure Note Unknown, U - 02/25/2010 VERIFIED [facility] Reason: slipped on steps felt pop l lower leg Dict.Staff: MOY GARCIA [id number] Verified By: MOY GARCIA Marybeth: 11/14/07 2:59 pm Exams: DIAG-TIB/FIB MIN 2-VIEWS LT TWO VIEW LEFT TIB-FIB: 11-14-07 History: Slipped, pain. No significant osseous, joint, or soft tissue abnormality is seen. JOSE:ps Dictated 11-14-07 @ 14:25 end of result us U Unknown [facility] RAD HISTORICAL Final Result * DIAG ANKLE - MIN 3 VIEWS LT (11/14/2007 12:00 AM EST) Anatomical Region Laterality Modality Other 11/14/2007 11/14/2007 Narrative 11/14/2007 12:00 AM EST VERIFIED [facility] Reason: slipped on steps/felt pop in l lower leg Dict.Staff: EVERARDO GIBSON [id number] Verified By: MOY GARCIA Marybeth: 11/14/07 4:03 pm Exams: DIAG-ANKLE MIN 3-VIEWS LT LEFT ANKLE, FOUR VIEWS, 11-14-07: HISTORY: Slipped on stairs. FINDINGS: There is a moderate plantar heel spur. There is no evidence of fracture or dislocation. No deep soft tissue swelling. IMPRESSION: NO ACUTE OSSEOUS ABNORMALITY. CK/rh DICTATED 11-14-07 @14:49 end of result Procedure Note Unknown, U - 02/25/2010 VERIFIED [facility] Reason: slipped on steps/felt pop in l lower leg Dict.Staff: EVERARDO GIBSON [id number] Verified By: MOY GARCIA Marybeth: 11/14/07 4:03 pm Exams: DIAG-ANKLE MIN 3-VIEWS LT LEFT ANKLE, FOUR VIEWS, 11-14-07: HISTORY: Slipped on stairs. FINDINGS: There is a moderate plantar heel spur. There is no evidence of fracture or dislocation. No deep soft tissue swelling. IMPRESSION: NO ACUTE OSSEOUS ABNORMALITY. CK/rh DICTATED 11-14-07 @14:49 end of result us U Unknown [facility] RAD HISTORICAL Final Result * US TRANSVAGINAL (08/15/2007 12:00 AM EDT) Anatomical Region Laterality Modality Other 08/15/2007 08/15/2007 Narrative 08/15/2007 12:00 AM EDT VERIFIED [facility] Reason: LT OV CYST Dict.Staff: DIONY GILMORE [id number] Verified By: PEG GOODMAN Marybeth: 08/16/07 3:51 pm Exams: US-TRANSVAGINAL US-PELVIS NON-OB COMPLETE TRANSABDOMINAL AND TRANSVAGINAL PELVIC ULTRASOUND, 08-15-07: HISTORY: Ovarian cyst. Note: Because of the limited adnexal visualization on transabdominal imaging, transvaginal scanning was also performed. FINDINGS: 1. The uterus is normal in size and echogenicity. No focal lesions. The right ovary measures 2.5 x 1.1 x 1.8 cm. No adnexal lesions. The left ovary measures 1.8 x 1.7 x 2.3 cm and is unremarkable. 2. Direct comparison to prior study of 04-26-07 demonstrates interval resolution of the complex cystic lesion demonstrated on the prior study. IMPRESSION: INTERVAL RESOLUTION OF COMPLEX CYSTIC LESION WITHIN THE LEFT ADNEXA LIKELY REPRESENTING RESOLUTION OF A HEMORRHAGIC CYST. JOHN DAY/ DICTATED ON 08-15-07 @14:15 end of result Procedure Note Unknown, U - 02/25/2010 VERIFIED [facility] Reason: LT OV CYST Dict.Staff: DIONY GILMORE [id number] Verified By: PEG GOODMAN Marybeth: 08/16/07 3:51 pm Exams: US-TRANSVAGINAL US-PELVIS NON-OB COMPLETE TRANSABDOMINAL AND TRANSVAGINAL PELVIC ULTRASOUND, 08-15-07: HISTORY: Ovarian cyst. Note: Because of the limited adnexal visualization on transabdominal imaging, transvaginal scanning was also performed. FINDINGS: 1. The uterus is normal in size and echogenicity. No focal lesions. The right ovary measures 2.5 x 1.1 x 1.8 cm. No adnexal lesions. The left ovary measures 1.8 x 1.7 x 2.3 cm and is unremarkable. 2. Direct comparison to prior study of 04-26-07 demonstrates interval resolution of the complex cystic lesion demonstrated on the prior study. IMPRESSION: INTERVAL RESOLUTION OF COMPLEX CYSTIC LESION WITHIN THE LEFT ADNEXA LIKELY REPRESENTING RESOLUTION OF A HEMORRHAGIC CYST. JOHN DAY/ DICTATED ON 08-15-07 @14:15 end of result us U Unknown [facility] RAD HISTORICAL Final Result * US PELVIS NON-OB COMPLETE (08/15/2007 12:00 AM EDT) Only the most recent of2 resultswithin the time period is included. Anatomical Region Laterality Modality Other 08/15/2007 08/15/2007 Narrative 08/15/2007 12:00 AM EDT VERIFIED [facility] Reason: LT OV CYST Dict.Staff: DIONY GILMORE [id number] Verified By: PEG GOODMAN Marybeth: 08/16/07 3:51 pm Exams: US-TRANSVAGINAL US-PELVIS NON-OB COMPLETE TRANSABDOMINAL AND TRANSVAGINAL PELVIC ULTRASOUND, 08-15-07: HISTORY: Ovarian cyst. Note: Because of the limited adnexal visualization on transabdominal imaging, transvaginal scanning was also performed. FINDINGS: 1. The uterus is normal in size and echogenicity. No focal lesions. The right ovary measures 2.5 x 1.1 x 1.8 cm. No adnexal lesions. The left ovary measures 1.8 x 1.7 x 2.3 cm and is unremarkable. 2. Direct comparison to prior study of 04-26-07 demonstrates interval resolution of the complex cystic lesion demonstrated on the prior study. IMPRESSION: INTERVAL RESOLUTION OF COMPLEX CYSTIC LESION WITHIN THE LEFT ADNEXA LIKELY REPRESENTING RESOLUTION OF A HEMORRHAGIC CYST. ARNALDO/jimenez DICTATED ON 08-15-07 @14:15 end of result Procedure Note Unknown, U - 02/25/2010 VERIFIED [facility] Reason: LT OV CYST Dict.Staff: DIONY GILMORE [id number] Verified By: PEG GOODMAN Marybeth: 08/16/07 3:51 pm Exams: US-TRANSVAGINAL US-PELVIS NON-OB COMPLETE TRANSABDOMINAL AND TRANSVAGINAL PELVIC ULTRASOUND, 08-15-07: HISTORY: Ovarian cyst. Note: Because of the limited adnexal visualization on transabdominal imaging, transvaginal scanning was also performed. FINDINGS: 1. The uterus is normal in size and echogenicity. No focal lesions. The right ovary measures 2.5 x 1.1 x 1.8 cm. No adnexal lesions. The left ovary measures 1.8 x 1.7 x 2.3 cm and is unremarkable. 2. Direct comparison to prior study of 04-26-07 demonstrates interval resolution of the complex cystic lesion demonstrated on the prior study. IMPRESSION: INTERVAL RESOLUTION OF COMPLEX CYSTIC LESION WITHIN THE LEFT ADNEXA LIKELY REPRESENTING RESOLUTION OF A HEMORRHAGIC CYST. HURST/rh DICTATED ON 08-15-07 @14:15 end of result us U Unknown [facility] RAD HISTORICAL Final Result * US ABDOMEN-COMPLETE (04/26/2007 12:00 AM EDT) Anatomical Region Laterality Modality Other 04/26/2007 04/26/2007 Narrative 04/26/2007 12:00 AM EDT VERIFIED [facility] Reason: EVALUATION OF ABD PN/DISTENTION Dict.Staff: FAISAL IRVIN Verified By: KOFI COMBS Marybeth: 04/29/07 10:18 am Exams: US-ABDOMEN COMPLETE RIGHT UPPER QUADRANT ULTRASOUND: 04-26-07 Comparison: Report from abdomen and pelvis CT, 10-21-04. CLINICAL INDICATION FOR STUDY: 46 year old female, abdominal pain, distention. History of cervical cancer. FINDINGS: The liver echogenicity is increased. No discrete liver lesion is identified. There is no intrahepatic ductal dilatation. Common bile duct is mildly enlarged at 8 mm. No endoluminal shadowing stones or echogenic defects are observed. Gallbladder is normal. No shadowing stones or echogenic sludge is present. Gallbladder wall thickness is normal. Patient was not tender while scanning over the gallbladder. Proximal pancreas is not well visualized. Right kidney measures 12.4 cm in length, left kidney measures 12.1 cm in length. Both kidneys are normal in appearance. No hydronephrosis, solid or cystic lesions are observed. Proximal and mid AP diameter of the aorta taken from sagittal views is 1.6 cm. Distal abdominal aorta AP diameter is 1.7 cm. Spleen measures 10.1 cm in length. IMPRESSION: 1. Diffuse fatty liver infiltration. 2. Prominent common bile duct without evidence of stones, sludge or associated gallbladder disease. 3. Normal kidneys, spleen and aorta. MARII:essie end of result Procedure Note Unknown, U - 02/25/2010 VERIFIED [facility] Reason: EVALUATION OF ABD PN/DISTENTION Dict.Staff: FAISAL IRVIN Verified By: KOFI COMBS Marybeth: 04/29/07 10:18 am Exams: US-ABDOMEN COMPLETE RIGHT UPPER QUADRANT ULTRASOUND: 04-26-07 Comparison: Report from abdomen and pelvis CT, 10-21-04. CLINICAL INDICATION FOR STUDY: 46 year old female, abdominal pain, distention. History of cervical cancer. FINDINGS: The liver echogenicity is increased. No discrete liver lesion is identified. There is no intrahepatic ductal dilatation. Common bile duct is mildly enlarged at 8 mm. No endoluminal shadowing stones or echogenic defects are observed. Gallbladder is normal. No shadowing stones or echogenic sludge is present. Gallbladder wall thickness is normal. Patient was not tender while scanning over the gallbladder. Proximal pancreas is not well visualized. Right kidney measures 12.4 cm in length, left kidney measures 12.1 cm in length. Both kidneys are normal in appearance. No hydronephrosis, solid or cystic lesions are observed. Proximal and mid AP diameter of the aorta taken from sagittal views is 1.6 cm. Distal abdominal aorta AP diameter is 1.7 cm. Spleen measures 10.1 cm in length. IMPRESSION: 1. Diffuse fatty liver infiltration. 2. Prominent common bile duct without evidence of stones, sludge or associated gallbladder disease. 3. Normal kidneys, spleen and aorta. MARII:essie end of result us U Unknown IMG SE LW RAD HISTORICAL Final Result * MM SCREENING (08/09/2006 12:00 AM EDT) Anatomical Region Laterality Modality Other 08/09/2006 08/09/2006 Narrative 08/09/2006 12:00 AM EDT VERIFIED [facility] Reason: SCREENING Dict.Staff: ELVI MINOR Verified By: BRANDON GOODMAN Marybeth: 08/14/06 8:00 am Exams: REMIGIO-SCREENING SCREENING MAMMOGRAM WITH CAD 08-10-06 CLINICAL HISTORY: SCREENING Comparison is made with films of 07-25-04 and 07-24-01. There is a fibroglandular pattern present. No mass lesions seen. No malignant type calcifications are identified. IMPRESSION: NO SPECIFIC MAMMOGRAPHIC EVIDENCE OF MALIGNANCY. SCREENING MAMMOGRAM RECOMMENDED IN ONE YEAR. IMAGES REVIEWED BY THE RADIOLOGIST AND CAD BECAUSE MAMMOGRAPHY HAS A 15% FALSE NEGATIVE RATE, MANAGEMENT OF A PALPABLE ABNORMALITY MUST BE BASED ON CLINICAL GROUNDS. CORNELIODINGER/pp/CATEGORY 1-NEGATIVE end of result Procedure Note Unknown, U - 02/24/2010 VERIFIED [facility] Reason: SCREENING Dict.Staff: ELVI MINOR Verified By: BRANDON GOODMAN Marybeth: 08/14/06 8:00 am Exams: REMIGIO-SCREENING SCREENING MAMMOGRAM WITH CAD 08-10-06 CLINICAL HISTORY: SCREENING Comparison is made with films of 07-25-04 and 07-24-01. There is a fibroglandular pattern present. No mass lesions seen. No malignant type calcifications are identified. IMPRESSION: NO SPECIFIC MAMMOGRAPHIC EVIDENCE OF MALIGNANCY. SCREENING MAMMOGRAM RECOMMENDED IN ONE YEAR. IMAGES REVIEWED BY THE RADIOLOGIST AND CAD BECAUSE MAMMOGRAPHY HAS A 15% FALSE NEGATIVE RATE, MANAGEMENT OF A PALPABLE ABNORMALITY MUST BE BASED ON CLINICAL GROUNDS. LUCYER/pp/CATEGORY 1-NEGATIVE end of result us U Unknown IM [facility] LW RAD HISTORICAL Final Result * CT CHEST W CONTRAST (09/06/2005 12:00 AM EDT) Anatomical Region Laterality Modality Other 09/06/2005 09/06/2005 Narrative 09/06/2005 12:00 AM EDT VERIFIED [facility] Reason: Other:Please Specify Dict.Staff: KOFI COMBS Verified By: MOY GARCIA Marybeth: 09/06/05 4:02 pm Exams: CT-CHEST W CONTRAST 09-06-05 CT CHEST HISTORY: SHORTNESS OF BREATH I do not have a prior study for comparison. 100ml of Isovue 370 were injected intravenously. There is a little linear atelectasis or scarring in the anterior segment of the left lower lobe. The lungs appear otherwise essentially clear with a small calcified granuloma in the left lower lobe. No hilar or mediastinal masses are seen. No pleural effusion is seen. The adrenals and visualized portions of the liver and spleen appear normal. CONCLUSION: SMALL AREA OF ATELECTASIS OR SCARRING IN THE LEFT LOWER LOBE. OTHERWISE UNREMARKABLE STUDY. DG/pp end of result Procedure Note Unknown, U - 02/24/2010 VERIFIED [facility] Reason: Other:Please Specify Dict.Staff: KOFI COMBS Verified By: MOY GARCIA Marybeth: 09/06/05 4:02 pm Exams: CT-CHEST W CONTRAST 09-06-05 CT CHEST HISTORY: SHORTNESS OF BREATH I do not have a prior study for comparison. 100ml of Isovue 370 were injected intravenously. There is a little linear atelectasis or scarring in the anterior segment of the left lower lobe. The lungs appear otherwise essentially clear with a small calcified granuloma in the left lower lobe. No hilar or mediastinal masses are seen. No pleural effusion is seen. The adrenals and visualized portions of the liver and spleen appear normal. CONCLUSION: SMALL AREA OF ATELECTASIS OR SCARRING IN THE LEFT LOWER LOBE. OTHERWISE UNREMARKABLE STUDY. DG/pp end of result us U Unknown IMG SE LW RAD HISTORICAL Final Result * XR CHEST PA & LAT (09/05/2005 12:00 AM EDT) Only the most recent of2 resultswithin the time period is included. Anatomical Region Laterality Modality Other 09/05/2005 09/05/2005 Narrative 09/05/2005 12:00 AM EDT VERIFIED [facility] Reason: Shortness of Breath Dict.Staff: MOY GARCIA Verified By: KOFI COMBS Marybeth: 09/06/05 9:46 am Exams: DIAG-CHEST PA & LATERAL PA AND LATERAL CHEST: 09/06/05 HISTORY: SHORTNESS OF BREATH The heart and lungs are within normal limits. IMPRESSION: NORMAL CHEST. JOSE/emily end of result Procedure Note Unknown, U - 02/24/2010 VERIFIED [facility] Reason: Shortness of Breath Dict.Staff: MOY GARCIA Verified By: KOFI COMBS Marybeth: 09/06/05 9:46 am Exams: DIAG-CHEST PA & LATERAL PA AND LATERAL CHEST: 09/06/05 HISTORY: SHORTNESS OF BREATH The heart and lungs are within normal limits. IMPRESSION: NORMAL CHEST. JOSE/emily end of result us U Unknown IMG SE LW RAD HISTORICAL Final Result Visit Diagnoses Diagnosis Start Date Cervical dysplasia Dysplasia of cervix, unspecified 07/13/2010 Narcolepsy Narcolepsy without cataplexy 07/13/2010 EAGLE (obstructive sleep apnea) Obstructive sleep apnea (adult) (pediatric) 07/13/2010 Type II or unspecified type diabetes mellitus without mention of complication, not stated as uncontrolled 07/13/2010 DDD (degenerative disc disease) Degeneration of intervertebral disc, site unspecified 07/13/2010 Osteoarthritis, knee Osteoarthrosis, unspecified whether generalized or localized, lower leg 07/13/2010 Dyslipidemia Other and unspecified hyperlipidemia 07/13/2010 Venous insufficiency Unspecified venous (peripheral) insufficiency 07/13/2010 Asthma Unspecified asthma 07/13/2010 Carpal tunnel syndrome 07/13/2010 Arthropathy of shoulder region Unspecified arthropathy, shoulder region 07/13/2010 Diabetes Type II or unspecified type diabetes mellitus without mention of complication, not stated as uncontrolled 09/16/2010 Rash Rash and other nonspecific skin eruption 09/16/2010 Hyperlipemia Other and unspecified hyperlipidemia 09/16/2010 Arthritis Arthropathy, unspecified, site unspecified 09/16/2010 Hyperlipidemia NEC/NOS Other and unspecified hyperlipidemia 09/21/2010 Type II or unspecified type diabetes mellitus without mention of complication, uncontrolled 09/21/2010 Joint pain-unspec Pain in joint, site unspecified 09/21/2010 Encounter for long-term (current) use of other medications 09/21/2010 Other and unspecified hyperlipidemia 09/21/2010 Type II or unspecified type diabetes mellitus without mention of complication, uncontrolled 09/21/2010 residential (current) use of anticoagulants Long-term (current) use of anticoagulants 09/21/2010 Pain in joint, site unspecified 09/21/2010 Arthritis Arthropathy, unspecified, site unspecified 10/14/2010 Conjunctivitis of both eyes Conjunctivitis, unspecified 10/19/2010 Flu Influenza with other respiratory manifestations 11/28/2010 Diabetes Type II or unspecified type diabetes mellitus without mention of complication, not stated as uncontrolled 12/05/2010 Arthritis Arthropathy, unspecified, site unspecified 12/05/2010 Type II or unspecified type diabetes mellitus without mention of complication, not stated as uncontrolled 04/14/2011 Dyslipidemia Other and unspecified hyperlipidemia 04/14/2011 Screening mammogram for high-risk patient 04/14/2011 Dyslipidemia Other and unspecified hyperlipidemia 04/14/2011 Type II or unspecified type diabetes mellitus without mention of complication, not stated as uncontrolled 04/14/2011 Hamstring injury Injury, other and unspecified, hip and thigh 04/14/2011 Diabetes mellitus (HCC) Type II or unspecified type diabetes mellitus without mention of complication, not stated as uncontrolled 11/16/2011 Dyslipidemia Other and unspecified hyperlipidemia 11/16/2011 Anemia Anemia, unspecified 11/16/2011 Folliculitis Other specified disease of hair and hair follicles 11/16/2011 Rash Rash and other nonspecific skin eruption 11/16/2011 Diabetes mellitus (HCC) Type II or unspecified type diabetes mellitus without mention of complication, not stated as uncontrolled 11/16/2011 Dyslipidemia Other and unspecified hyperlipidemia 11/16/2011 Anemia Anemia, unspecified 11/16/2011 Other screening mammogram 11/16/2011 Rotator cuff disorder Disorders of bursae and tendons in shoulder region, unspecified 11/16/2011 Need for prophylactic vaccination and inoculation against influenza 11/16/2011 Elevated liver function tests Other abnormal blood chemistry 11/20/2011 Elevated liver function tests Other abnormal blood chemistry 11/20/2011 Elevated liver function tests Other abnormal blood chemistry 12/06/2011 Elevated liver function tests Other abnormal blood chemistry 12/06/2011 Arthritis Arthropathy, unspecified, site unspecified 12/11/2011 Elevated liver function tests Other abnormal blood chemistry 12/21/2011 Elevated liver function tests Other abnormal blood chemistry 12/21/2011 Elevated LFTs Other abnormal blood chemistry 02/08/2012 Diabetes mellitus (HCC) Type II or unspecified type diabetes mellitus without mention of complication, not stated as uncontrolled 02/08/2012 Elevated LFTs Other abnormal blood chemistry 02/08/2012 Diabetes mellitus (HCC) Type II or unspecified type diabetes mellitus without mention of complication, not stated as uncontrolled 05/02/2012 Elevated liver enzymes Nonspecific elevation of levels of transaminase or lactic acid dehydrogenase (LDH) 05/02/2012 Dyslipidemia Other and unspecified hyperlipidemia 05/02/2012 Other screening mammogram 05/02/2012 Eczema, allergic Contact dermatitis and other eczema, due to unspecified cause 05/02/2012 Dyslipidemia Other and unspecified hyperlipidemia 05/02/2012 Elevated liver enzymes Nonspecific elevation of levels of transaminase or lactic acid dehydrogenase (LDH) 05/02/2012 Diabetes mellitus (HCC) Type II or unspecified type diabetes mellitus without mention of complication, not stated as uncontrolled 05/02/2012 Back pain Backache, unspecified 05/02/2012 Dental caries Unspecified dental caries 05/02/2012 Low back pain Lumbago 05/10/2012 Low back pain Lumbago 06/07/2012 Low back pain Lumbago 06/12/2012 Diabetes mellitus (HCC) Type II or unspecified type diabetes mellitus without mention of complication, not stated as uncontrolled 09/18/2012 Dyslipidemia Other and unspecified hyperlipidemia 09/18/2012 Low back pain Lumbago 09/18/2012 Arthritis Arthropathy, unspecified, site unspecified 09/18/2012 Encounter for long-term (current) use of other medications 09/18/2012 DDD (degenerative disc disease) Degeneration of intervertebral disc, site unspecified 09/18/2012 Radiculopathy Neuralgia, neuritis, and radiculitis, unspecified 09/18/2012 Diabetes mellitus (HCC) Type II or unspecified type diabetes mellitus without mention of complication, not stated as uncontrolled 09/18/2012 Dyslipidemia Other and unspecified hyperlipidemia 09/18/2012 Anemia Anemia, unspecified 09/18/2012 Diabetes mellitus (HCC) Type II or unspecified type diabetes mellitus without mention of complication, not stated as uncontrolled 09/20/2012 DM w/o complication type II Type II or unspecified type diabetes mellitus without mention of complication, not stated as uncontrolled 01/29/2013 Anemia Anemia, unspecified 01/29/2013 Elevated liver function tests Other abnormal blood chemistry 01/29/2013 Dyslipidemia Other and unspecified hyperlipidemia 01/29/2013 Other screening mammogram 01/29/2013 DM w/o complication type II Type II or unspecified type diabetes mellitus without mention of complication, not stated as uncontrolled 01/29/2013 Dyslipidemia Other and unspecified hyperlipidemia 01/29/2013 Anemia Anemia, unspecified 01/29/2013 Elevated liver function tests Other abnormal blood chemistry 01/29/2013 Arthritis Arthropathy, unspecified, site unspecified 02/12/2013 Diabetes mellitus (HCC) Type II or unspecified type diabetes mellitus without mention of complication, not stated as uncontrolled 02/12/2013 Chest pain Chest pain, unspecified 03/07/2013 Diabetes mellitus (HCC) Type II or unspecified type diabetes mellitus without mention of complication, not stated as uncontrolled 05/21/2013 Arthritis Arthropathy, unspecified, site unspecified 05/21/2013 Low back pain Lumbago 05/21/2013 Foot pain Pain in limb 05/21/2013 Diabetes mellitus (HCC) Type II or unspecified type diabetes mellitus without mention of complication, not stated as uncontrolled 05/21/2013 Dyslipidemia Other and unspecified hyperlipidemia 05/21/2013 Neuropathy Mononeuritis of unspecified site 05/21/2013 Narcolepsy Narcolepsy without cataplexy 05/21/2013 EAGLE (obstructive sleep apnea) Obstructive sleep apnea (adult) (pediatric) 05/21/2013 Diabetes mellitus Type II or unspecified type diabetes mellitus without mention of complication, not stated as uncontrolled 08/12/2013 Anemia Anemia, unspecified 08/12/2013 Low back pain Lumbago 08/12/2013 Back pain Backache, unspecified 08/12/2013 Peripheral neuropathy Unspecified hereditary and idiopathic peripheral neuropathy 08/12/2013 Other screening mammogram 08/27/2013 Dyslipidemia Other and unspecified hyperlipidemia 09/17/2013 DM w/o complication type II Type II or unspecified type diabetes mellitus without mention of complication, not stated as uncontrolled 09/17/2013 Cellulitis Cellulitis and abscess of unspecified site 09/17/2013 Shingles Herpes zoster without mention of complication 09/22/2013 Type II or unspecified type diabetes mellitus without mention of complication, not stated as uncontrolled 02/09/2014 Other and unspecified hyperlipidemia 02/09/2014 Low back pain Lumbago 02/09/2014 Neck pain Cervicalgia 02/09/2014 Drowsiness Other alteration of consciousness 02/09/2014 DM w/o complication type II Type II or unspecified type diabetes mellitus without mention of complication, not stated as uncontrolled 02/11/2014 Diabetes mellitus (HCC) Type II or unspecified type diabetes mellitus without mention of complication, not stated as uncontrolled 02/17/2014 Dyslipidemia Other and unspecified hyperlipidemia 02/17/2014 Neck pain Cervicalgia 02/17/2014 Neuropathy Mononeuritis of unspecified site 02/17/2014 Cervical strain, acute, initial encounter 05/22/2014 DDD (degenerative disc disease) Degeneration of intervertebral disc, site unspecified 05/26/2014 DM w/o complication type II Type II or unspecified type diabetes mellitus without mention of complication, not stated as uncontrolled 06/01/2014 DM w/o complication type II Type II or unspecified type diabetes mellitus without mention of complication, not stated as uncontrolled 06/01/2014 Anemia Anemia, unspecified 06/01/2014 Dyslipidemia Other and unspecified hyperlipidemia 06/01/2014 GERD (gastroesophageal reflux disease) Esophageal reflux 06/01/2014 Dyslipidemia Other and unspecified hyperlipidemia 06/08/2014 Diabetes mellitus (HCC) Type II or unspecified type diabetes mellitus without mention of complication, not stated as uncontrolled 06/10/2014 Neck pain Cervicalgia 06/10/2014 Neck pain Cervicalgia 06/15/2014 DM w/o complication type II Type II or unspecified type diabetes mellitus without mention of complication, not stated as uncontrolled 09/09/2014 Other screening mammogram 09/09/2014 Anemia Anemia, unspecified 09/09/2014 Dyslipidemia Other and unspecified hyperlipidemia 09/09/2014 GERD (gastroesophageal reflux disease) Esophageal reflux 09/09/2014 Neck pain Cervicalgia 09/09/2014 Other screening mammogram 09/09/2014 DM w/o complication type II Type II or unspecified type diabetes mellitus without mention of complication, not stated as uncontrolled 09/09/2014 Anemia Anemia, unspecified 09/09/2014 Dyslipidemia Other and unspecified hyperlipidemia 09/09/2014 GERD (gastroesophageal reflux disease) Esophageal reflux 09/09/2014 Neck pain Cervicalgia 09/09/2014 Influenza A Influenza with other respiratory manifestations 11/09/2014 Bronchitis Bronchitis, not specified as acute or chronic 11/09/2014 Shingles Herpes zoster without mention of complication 01/06/2015 DM w/o complication type II Type II or unspecified type diabetes mellitus without mention of complication, not stated as uncontrolled 01/06/2015 Sinusitis Unspecified sinusitis (chronic) 01/06/2015 Dyslipidemia Other and unspecified hyperlipidemia 01/06/2015 Anemia Anemia, unspecified 01/06/2015 AR (allergic rhinitis) Allergic rhinitis, cause unspecified 01/06/2015 Dyslipidemia Other and unspecified hyperlipidemia 02/09/2015 Anemia Anemia, unspecified 02/09/2015 DM w/o complication type II Type II or unspecified type diabetes mellitus without mention of complication, not stated as uncontrolled 02/09/2015 Screening for malignant neoplasm of the cervix 02/09/2015 Screening for malignant neoplasm of the cervix 02/09/2015 Diabetes mellitus type 2, uncontrolled Type II or unspecified type diabetes mellitus without mention of complication, uncontrolled 02/09/2015 Polyneuropathy in diabetes(357.2) Polyneuropathy in diabetes 02/24/2015 Diabetes mellitus with complication (HCC) Type II or unspecified type diabetes mellitus with unspecified complication, not stated as uncontrolled 02/24/2015 Poorly controlled diabetes mellitus (HCC) Type II or unspecified type diabetes mellitus without mention of complication, not stated as uncontrolled 02/24/2015 Diabetes mellitus type 2 with neurological manifestations (HCC) Type II or unspecified type diabetes mellitus with neurological manifestations, not stated as uncontrolled 04/07/2015 Encounter for long-term (current) use of other medications 04/07/2015 Diabetes mellitus type 2 with neurological manifestations (HCC) Type II or unspecified type diabetes mellitus with neurological manifestations, not stated as uncontrolled 04/07/2015 Polyneuropathy Unspecified hereditary and idiopathic peripheral neuropathy 04/07/2015 Encounter for long-term (current) use of other medications 04/07/2015 Foot pain, unspecified laterality 04/07/2015 Lipoma Lipoma of unspecified site 04/07/2015 Cramp of both lower extremities 04/09/2015 Nausea and vomiting Nausea with vomiting 04/15/2015 Other constipation 04/15/2015 Gastroesophageal reflux disease with esophagitis 04/15/2015 Visit for screening mammogram Other screening mammogram 04/15/2015 Epigastric pain Abdominal pain, epigastric 04/15/2015 Diabetes mellitus type 2 with neurological manifestations (HCC) Type II or unspecified type diabetes mellitus with neurological manifestations, not stated as uncontrolled 04/15/2015 Nausea and vomiting Nausea with vomiting 04/20/2015 Other constipation 04/20/2015 Epigastric pain Abdominal pain, epigastric 04/20/2015 Diabetes mellitus type 2 with neurological manifestations (HCC) Type II or unspecified type diabetes mellitus with neurological manifestations, not stated as uncontrolled 04/20/2015 Other screening mammogram 04/20/2015 Nausea and vomiting Nausea with vomiting 04/20/2015 Epigastric pain Abdominal pain, epigastric 04/20/2015 Plantar fascial fibromatosis 04/21/2015 Arch pain, unspecified laterality 04/21/2015 Arm mass, left 05/10/2015 Poorly controlled type 2 diabetes mellitus (HCC) Type II or unspecified type diabetes mellitus without mention of complication, not stated as uncontrolled 05/20/2015 Gastroparesis 05/20/2015 Dyspepsia Dyspepsia and other specified disorders of function of stomach 05/20/2015 Benign neoplasm of choroid, unspecified laterality 05/27/2015 Type 2 diabetes mellitus with other specified complication (HCC) 06/11/2015 HLD (hyperlipidemia) Other and unspecified hyperlipidemia 06/11/2015 Cramp of both lower extremities 06/11/2015 Type 2 diabetes mellitus with other specified complication (HCC) 06/11/2015 HLD (hyperlipidemia) Other and unspecified hyperlipidemia 06/11/2015 Pre-op evaluation Preoperative examination, unspecified 06/11/2015 Localized superficial swelling, mass, or lump 06/15/2015 Arm mass, left 06/28/2015 Pain of right upper extremity 08/06/2015 Dyslipidemia Other and unspecified hyperlipidemia 09/24/2015 Poorly controlled type 2 diabetes mellitus (HCC) Type II or unspecified type diabetes mellitus without mention of complication, not stated as uncontrolled 09/24/2015 Poorly controlled type 2 diabetes mellitus (HCC) Type II or unspecified type diabetes mellitus without mention of complication, not stated as uncontrolled 09/24/2015 History of cervical dysplasia Personal history of cervical dysplasia 09/24/2015 DDD (degenerative disc disease), cervical Degeneration of cervical intervertebral disc 09/24/2015 Polyneuropathy Unspecified hereditary and idiopathic peripheral neuropathy 09/24/2015 Primary osteoarthritis involving multiple joints 09/24/2015 DDD (degenerative disc disease), lumbar Degeneration of lumbar or lumbosacral intervertebral disc 09/24/2015 Dyslipidemia Other and unspecified hyperlipidemia 09/24/2015 Mild intermittent asthma without complication Unspecified asthma 09/24/2015 Gastroesophageal reflux disease without esophagitis Esophageal reflux 09/24/2015 Polypharmacy Issue of repeat prescriptions 09/24/2015 Fatty liver Other chronic nonalcoholic liver disease 09/24/2015 Diabetic polyneuropathy associated with type 2 diabetes mellitus (HCC) 09/24/2015 Acute bronchitis, unspecified organism 10/01/2015 Cough 12/15/2015 Diabetic polyneuropathy associated with type 2 diabetes mellitus (HCC) 12/15/2015 Acute bronchitis, unspecified organism 12/15/2015 Cough 12/20/2015 Statin intolerance Other drug allergy 12/20/2015 Well controlled type 2 diabetes mellitus (HCC) Type II or unspecified type diabetes mellitus without mention of complication, not stated as uncontrolled 12/20/2015 Primary osteoarthritis involving multiple joints 12/20/2015 Polyneuropathy Unspecified hereditary and idiopathic peripheral neuropathy 12/20/2015 EAGLE (obstructive sleep apnea) Obstructive sleep apnea (adult) (pediatric) 12/20/2015 Mild intermittent asthma without complication Unspecified asthma 12/20/2015 History of cervical dysplasia Personal history of cervical dysplasia 12/20/2015 Gastroesophageal reflux disease without esophagitis Esophageal reflux 12/20/2015 Fatty liver Other chronic nonalcoholic liver disease 12/20/2015 Dyslipidemia Other and unspecified hyperlipidemia 12/20/2015 Diabetic polyneuropathy associated with type 2 diabetes mellitus (HCC) 12/20/2015 DDD (degenerative disc disease), lumbar Degeneration of lumbar or lumbosacral intervertebral disc 12/20/2015 DDD (degenerative disc disease), cervical Degeneration of cervical intervertebral disc 12/20/2015 Chronic pain syndrome 12/20/2015 Health care maintenance Unspecified general medical examination 12/20/2015 Cough 12/20/2015 Screening for HIV (human immunodeficiency virus) Special screening examination for other specified viral diseases 04/05/2016 Need for hepatitis C screening test Special screening examination for other specified viral diseases 04/05/2016 Well controlled type 2 diabetes mellitus (HCC) Type II or unspecified type diabetes mellitus without mention of complication, not stated as uncontrolled 04/05/2016 Dyslipidemia Other and unspecified hyperlipidemia 04/05/2016 Well adult exam Routine general medical examination at a health care facility 04/05/2016 Health care maintenance Unspecified general medical examination 04/05/2016 Visit for screening mammogram Other screening mammogram 04/05/2016 Screening for depression 04/05/2016 Alcohol screening Screening for alcoholism 04/05/2016 Encounter for dietary counseling and surveillance 04/05/2016 Exercise counseling 04/05/2016 Need for hepatitis C screening test Special screening examination for other specified viral diseases 04/05/2016 Screening for HIV (human immunodeficiency virus) Special screening examination for other specified viral diseases 04/05/2016 Chronic pain syndrome 04/05/2016 DDD (degenerative disc disease), cervical Degeneration of cervical intervertebral disc 04/05/2016 DDD (degenerative disc disease), lumbar Degeneration of lumbar or lumbosacral intervertebral disc 04/05/2016 Diabetic polyneuropathy associated with type 2 diabetes mellitus (HCC) 04/05/2016 Dyslipidemia Other and unspecified hyperlipidemia 04/05/2016 Fatty liver Other chronic nonalcoholic liver disease 04/05/2016 Gastroesophageal reflux disease without esophagitis Esophageal reflux 04/05/2016 History of cervical dysplasia Personal history of cervical dysplasia 04/05/2016 Mild intermittent asthma without complication Unspecified asthma 04/05/2016 EAGLE (obstructive sleep apnea) Obstructive sleep apnea (adult) (pediatric) 04/05/2016 Polyneuropathy Unspecified hereditary and idiopathic peripheral neuropathy 04/05/2016 Primary osteoarthritis involving multiple joints 04/05/2016 Statin intolerance Other drug allergy 04/05/2016 Well controlled type 2 diabetes mellitus (HCC) Type II or unspecified type diabetes mellitus without mention of complication, not stated as uncontrolled 04/05/2016 Other allergic rhinitis 04/17/2016 Acute bronchitis, unspecified organism 04/17/2016 Acute bronchitis, unspecified organism 04/21/2016 Acute bacterial sinusitis Acute sinusitis, unspecified 05/01/2016 Acute bronchitis, unspecified organism 05/01/2016 History of cervical dysplasia Personal history of cervical dysplasia 05/24/2016 DDD (degenerative disc disease), cervical Degeneration of cervical intervertebral disc 05/24/2016 Polyneuropathy Unspecified hereditary and idiopathic peripheral neuropathy 05/24/2016 DDD (degenerative disc disease), lumbar Degeneration of lumbar or lumbosacral intervertebral disc 05/24/2016 Acute non-recurrent maxillary sinusitis 08/10/2016 Need for influenza vaccination Need for prophylactic vaccination and inoculation against influenza 08/10/2016 Well controlled type 2 diabetes mellitus (HCC) Type II or unspecified type diabetes mellitus without mention of complication, not stated as uncontrolled 12/01/2016 Well controlled type 2 diabetes mellitus (HCC) Type II or unspecified type diabetes mellitus without mention of complication, not stated as uncontrolled 12/01/2016 Diabetic polyneuropathy associated with type 2 diabetes mellitus (HCC) 12/01/2016 Polyneuropathy Unspecified hereditary and idiopathic peripheral neuropathy 12/01/2016 Visit for screening mammogram Other screening mammogram 12/01/2016 Statin intolerance Other drug allergy 12/01/2016 Primary osteoarthritis involving multiple joints 12/01/2016 Mild intermittent asthma without complication Unspecified asthma 12/01/2016 Gastroesophageal reflux disease without esophagitis Esophageal reflux 12/01/2016 Fatty liver Other chronic nonalcoholic liver disease 12/01/2016 Dyslipidemia Other and unspecified hyperlipidemia 12/01/2016 DDD (degenerative disc disease), lumbar Degeneration of lumbar or lumbosacral intervertebral disc 12/01/2016 DDD (degenerative disc disease), cervical Degeneration of cervical intervertebral disc 12/01/2016 Chronic pain syndrome 12/01/2016 Screening for depression 12/01/2016 Acute bacterial sinusitis Acute sinusitis, unspecified 12/22/2016 Paronychia, left 01/29/2017 Well controlled type 2 diabetes mellitus (HCC) Type II or unspecified type diabetes mellitus without mention of complication, not stated as uncontrolled 01/29/2017 Flank pain Abdominal pain, unspecified site 03/12/2017 Diabetic polyneuropathy associated with type 2 diabetes mellitus (HCC) 04/12/2017 Polyneuropathy Unspecified hereditary and idiopathic peripheral neuropathy 04/12/2017 Dyslipidemia Other and unspecified hyperlipidemia 04/12/2017 Diabetic polyneuropathy associated with type 2 diabetes mellitus (HCC) 04/12/2017 Visit for screening mammogram Other screening mammogram 04/12/2017 Well adult exam Routine general medical examination at a health care facility 04/12/2017 Polyneuropathy Unspecified hereditary and idiopathic peripheral neuropathy 04/12/2017 Dyslipidemia Other and unspecified hyperlipidemia 04/12/2017 Poorly controlled diabetes mellitus (HCC) Type II or unspecified type diabetes mellitus without mention of complication, not stated as uncontrolled 04/12/2017 Mild intermittent asthma without complication Unspecified asthma 04/12/2017 Primary osteoarthritis involving multiple joints 04/12/2017 DDD (degenerative disc disease), cervical Degeneration of cervical intervertebral disc 04/12/2017 DDD (degenerative disc disease), lumbar Degeneration of lumbar or lumbosacral intervertebral disc 04/12/2017 Gastroesophageal reflux disease without esophagitis Esophageal reflux 04/12/2017 Fatty liver Other chronic nonalcoholic liver disease 04/12/2017 Statin intolerance Other drug allergy 04/12/2017 Chronic pain syndrome 04/12/2017 Alcohol screening Screening for alcoholism 04/12/2017 Screening for depression 04/12/2017 Encounter for dietary counseling and surveillance 04/12/2017 Exercise counseling 04/12/2017 EAGLE (obstructive sleep apnea) Obstructive sleep apnea (adult) (pediatric) 04/12/2017 Cough 04/12/2017 Poorly controlled diabetes mellitus (HCC) Type II or unspecified type diabetes mellitus without mention of complication, not stated as uncontrolled 04/17/2017 Mild intermittent asthma without complication Unspecified asthma 04/17/2017 Poorly controlled diabetes mellitus (HCC) Type II or unspecified type diabetes mellitus without mention of complication, not stated as uncontrolled 06/01/2017 Acute right-sided low back pain with bilateral sciatica 06/14/2017 Polyneuropathy Unspecified hereditary and idiopathic peripheral neuropathy 08/21/2017 Poorly controlled diabetes mellitus (HCC) Type II or unspecified type diabetes mellitus without mention of complication, not stated as uncontrolled 09/25/2017 Polyneuropathy Unspecified hereditary and idiopathic peripheral neuropathy 10/15/2017 Chronic right-sided low back pain with right-sided sciatica 10/22/2017 Polyneuropathy (HCC) Unspecified hereditary and idiopathic peripheral neuropathy 10/26/2017 Primary osteoarthritis involving multiple joints 10/26/2017 DDD (degenerative disc disease), cervical Degeneration of cervical intervertebral disc 10/26/2017 DDD (degenerative disc disease), lumbar Degeneration of lumbar or lumbosacral intervertebral disc 10/26/2017 Encounter for long-term current use of high risk medication 10/26/2017 Poorly controlled diabetes mellitus (HCC) Type II or unspecified type diabetes mellitus without mention of complication, not stated as uncontrolled 10/26/2017 Diabetic polyneuropathy associated with type 2 diabetes mellitus (HCC) 10/26/2017 EAGLE (obstructive sleep apnea) Obstructive sleep apnea (adult) (pediatric) 10/26/2017 Polyneuropathy (HCC) Unspecified hereditary and idiopathic peripheral neuropathy 10/26/2017 Mild intermittent asthma without complication Unspecified asthma 10/26/2017 Dyslipidemia Other and unspecified hyperlipidemia 10/26/2017 Primary osteoarthritis involving multiple joints 10/26/2017 History of cervical dysplasia Personal history of cervical dysplasia 10/26/2017 DDD (degenerative disc disease), cervical Degeneration of cervical intervertebral disc 10/26/2017 DDD (degenerative disc disease), lumbar Degeneration of lumbar or lumbosacral intervertebral disc 10/26/2017 Gastroesophageal reflux disease without esophagitis Esophageal reflux 10/26/2017 Statin intolerance Other drug allergy 10/26/2017 Screening for depression 10/26/2017 Alcohol screening Screening for alcoholism 10/26/2017 Encounter for dietary counseling and surveillance 10/26/2017 Exercise counseling 10/26/2017 Visit for screening mammogram Other screening mammogram 10/26/2017 Right foot pain Pain in limb 10/26/2017 Encounter for long-term current use of high risk medication 10/26/2017 Need for prophylactic vaccination with combined [id number] (DTP) vaccine 10/26/2017 Dysuria 10/26/2017 Polyneuropathy Unspecified hereditary and idiopathic peripheral neuropathy 11/08/2017 Poorly controlled diabetes mellitus (HCC) Type II or unspecified type diabetes mellitus without mention of complication, not stated as uncontrolled 11/10/2017 Polyneuropathy Unspecified hereditary and idiopathic peripheral neuropathy 11/15/2017 Herpes zoster without complication 12/25/2017 Obstructive sleep apnea Obstructive sleep apnea (adult) (pediatric) 12/25/2017 Poorly controlled diabetes mellitus (HCC) Type II or unspecified type diabetes mellitus without mention of complication, not stated as uncontrolled 12/25/2017 Diabetic polyneuropathy associated with type 2 diabetes mellitus (HCC) 12/25/2017 Polyneuropathy Unspecified hereditary and idiopathic peripheral neuropathy 01/18/2018 Obstructive sleep apnea Obstructive sleep apnea (adult) (pediatric) 01/23/2018 Polyneuropathy Unspecified hereditary and idiopathic peripheral neuropathy 01/26/2018 Polyneuropathy Unspecified hereditary and idiopathic peripheral neuropathy 02/04/2018 Diabetic polyneuropathy associated with type 2 diabetes mellitus (HCC) 02/09/2018 Chronic right-sided low back pain with right-sided sciatica 02/13/2018 Poorly controlled diabetes mellitus (HCC) Type II or unspecified type diabetes mellitus without mention of complication, not stated as uncontrolled 02/13/2018 Polyneuropathy Unspecified hereditary and idiopathic peripheral neuropathy 02/16/2018 Obstructive sleep apnea Obstructive sleep apnea (adult) (pediatric) 02/26/2018 Poorly controlled diabetes mellitus (HCC) Type II or unspecified type diabetes mellitus without mention of complication, not stated as uncontrolled 02/26/2018 Pre-op examination Preoperative examination, unspecified 02/28/2018 DDD (degenerative disc disease), lumbar Degeneration of lumbar or lumbosacral intervertebral disc 02/28/2018 Poorly controlled diabetes mellitus (HCC) Type II or unspecified type diabetes mellitus without mention of complication, not stated as uncontrolled 02/28/2018 Dyslipidemia Other and unspecified hyperlipidemia 02/28/2018 Poorly controlled diabetes mellitus (HCC) Type II or unspecified type diabetes mellitus without mention of complication, not stated as uncontrolled 03/01/2018 Polyneuropathy Unspecified hereditary and idiopathic peripheral neuropathy 03/02/2018 Preop testing Preoperative examination, unspecified 03/06/2018 DDD (degenerative disc disease), cervical Degeneration of cervical intervertebral disc 03/06/2018 Vitamin D deficiency Unspecified vitamin D deficiency 03/06/2018 Spinal stenosis, lumbar region with neurogenic claudication 03/14/2018 Spondylolisthesis, lumbar region 03/14/2018 Chronic right-sided low back pain with right-sided sciatica 03/20/2018 Spinal stenosis of lumbar region with neurogenic claudication Spinal stenosis, lumbar region, with neurogenic claudication 03/20/2018 Chronic pain syndrome 03/20/2018 Diabetic polyneuropathy associated with type 2 diabetes mellitus (HCC) 03/20/2018 Type 2 diabetes mellitus with peripheral neuropathy (HCC) 03/20/2018 EAGLE (obstructive sleep apnea) Obstructive sleep apnea (adult) (pediatric) 03/20/2018 Bereavement reaction Bereavement, uncomplicated 03/20/2018 Chronic right-sided low back pain with right-sided sciatica 03/25/2018 Chronic pain syndrome 03/25/2018 Diabetic polyneuropathy associated with type 2 diabetes mellitus (HCC) 03/25/2018 Altered level of consciousness Other alteration of consciousness 03/29/2018 Confusion caused by a drug Drug-induced delirium 04/01/2018 Chronic right-sided low back pain with right-sided sciatica 04/01/2018 Type 2 diabetes mellitus with peripheral neuropathy (HCC) 04/01/2018 S/P lumbar laminectomy 04/02/2018 Poorly controlled diabetes mellitus (HCC) Type II or unspecified type diabetes mellitus without mention of complication, not stated as uncontrolled 04/02/2018 Diabetic polyneuropathy associated with type 2 diabetes mellitus (HCC) 04/02/2018 EAGLE (obstructive sleep apnea) Obstructive sleep apnea (adult) (pediatric) 04/02/2018 Bereavement reaction Bereavement, uncomplicated 04/02/2018 Polyneuropathy Unspecified hereditary and idiopathic peripheral neuropathy 04/05/2018 Diabetic polyneuropathy associated with type 2 diabetes mellitus (HCC) 04/14/2018 DDD (degenerative disc disease), cervical Degeneration of cervical intervertebral disc 05/01/2018 DDD (degenerative disc disease), lumbar Degeneration of lumbar or lumbosacral intervertebral disc 05/01/2018 Diabetic polyneuropathy associated with type 2 diabetes mellitus (HCC) 05/02/2018 Polyneuropathy Unspecified hereditary and idiopathic peripheral neuropathy 05/02/2018 Polyneuropathy Unspecified hereditary and idiopathic peripheral neuropathy 05/06/2018 Diabetic polyneuropathy associated with type 2 diabetes mellitus (HCC) 05/06/2018 Poorly controlled diabetes mellitus (HCC) Type II or unspecified type diabetes mellitus without mention of complication, not stated as uncontrolled 05/06/2018 DDD (degenerative disc disease), cervical Degeneration of cervical intervertebral disc 05/06/2018 DDD (degenerative disc disease), lumbar Degeneration of lumbar or lumbosacral intervertebral disc 05/06/2018 Gastroesophageal reflux disease without esophagitis Esophageal reflux 05/06/2018 Well adult exam Routine general medical examination at a health care facility 05/06/2018 Visit for screening mammogram Other screening mammogram 05/06/2018 Type 2 diabetes mellitus with peripheral neuropathy (HCC) 05/06/2018 Hospital discharge follow-up Other follow-up examination 05/06/2018 Vasovagal syncope Syncope and collapse 05/06/2018 Bereavement reaction Bereavement, uncomplicated 05/06/2018 Spinal stenosis of lumbar region with neurogenic claudication Spinal stenosis, lumbar region, with neurogenic claudication 05/06/2018 Chronic right-sided low back pain with right-sided sciatica 05/06/2018 EAGLE (obstructive sleep apnea) Obstructive sleep apnea (adult) (pediatric) 05/06/2018 Mild intermittent asthma without complication Unspecified asthma 05/06/2018 Dyslipidemia Other and unspecified hyperlipidemia 05/06/2018 Primary osteoarthritis involving multiple joints 05/06/2018 History of cervical dysplasia Personal history of cervical dysplasia 05/06/2018 Fatty liver Other chronic nonalcoholic liver disease 05/06/2018 Statin intolerance Other drug allergy 05/06/2018 Chronic pain syndrome 05/06/2018 Screening for depression 05/06/2018 Alcohol screening Screening for alcoholism 05/06/2018 Exercise counseling 05/06/2018 Encounter for dietary counseling and surveillance 05/06/2018 Full code status Other specified conditions influencing health status 05/06/2018 Living will, counseling/discussion Other specified counseling 05/06/2018 Thyroid nodule Nontoxic uninodular goiter 05/22/2018 Vasovagal syncope Syncope and collapse 05/22/2018 Grief reaction Adjustment disorder with depressed mood 05/22/2018 Thyroid nodule Nontoxic uninodular goiter 05/28/2018 Thyroid nodule Nontoxic uninodular goiter 05/29/2018 Polyneuropathy Unspecified hereditary and idiopathic peripheral neuropathy 06/04/2018 Gastroesophageal reflux disease without esophagitis Esophageal reflux 06/10/2018 Bereavement reaction Bereavement, uncomplicated 07/04/2018 Polyneuropathy Unspecified hereditary and idiopathic peripheral neuropathy 08/12/2018 Vasovagal syncope Syncope and collapse 08/12/2018 Grief reaction Adjustment disorder with depressed mood 08/12/2018 Vasovagal syncope Syncope and collapse 08/28/2018 Grief reaction Adjustment disorder with depressed mood 08/28/2018 Gastroesophageal reflux disease without esophagitis Esophageal reflux 09/12/2018 Vasovagal syncope Syncope and collapse 09/12/2018 Grief reaction Adjustment disorder with depressed mood 09/12/2018 Visit for screening mammogram Other screening mammogram 09/12/2018 Well controlled diabetes mellitus (HCC) 09/12/2018 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 with type 2 diabetes mellitus (HCC) 09/12/2018 Type 2 diabetes mellitus with peripheral neuropathy (HCC) 09/12/2018 Spinal stenosis of lumbar region with neurogenic claudication Spinal stenosis, lumbar region, with neurogenic claudication 09/12/2018 Primary osteoarthritis involving multiple joints 09/12/2018 Polyneuropathy (HCC) Unspecified hereditary and idiopathic peripheral neuropathy 09/12/2018 EAGLE (obstructive sleep apnea) Obstructive sleep apnea (adult) (pediatric) 09/12/2018 Mild intermittent asthma without complication Unspecified asthma 09/12/2018 Living will, counseling/discussion Other specified counseling 09/12/2018 History of cervical dysplasia Personal history of cervical dysplasia 09/12/2018 Fatty liver Other chronic nonalcoholic liver disease 09/12/2018 Dyslipidemia Other and unspecified hyperlipidemia 09/12/2018 Diabetic polyneuropathy associated with type 2 diabetes mellitus (HCC) 09/12/2018 DDD (degenerative disc disease), cervical Degeneration of cervical intervertebral disc 09/12/2018 Chronic right-sided low back pain with right-sided sciatica 09/12/2018 Chronic pain syndrome 09/12/2018 Bereavement reaction Bereavement, uncomplicated 09/12/2018 Alcohol screening Screening for alcoholism 09/12/2018 Need for shingles vaccine Need for prophylactic vaccination and inoculation against varicella 09/12/2018 Rhinosinusitis Unspecified sinusitis (chronic) 10/10/2018 Poorly controlled diabetes mellitus (HCC) Type II or unspecified type diabetes mellitus without mention of complication, not stated as uncontrolled 10/12/2018 Poorly controlled type 2 diabetes mellitus (HCC) Type II or unspecified type diabetes mellitus without mention of complication, not stated as uncontrolled 11/21/2018 Folliculitis Other specified disease of hair and hair follicles 11/21/2018 Diabetic polyneuropathy associated with type 2 diabetes mellitus (HCC) 11/21/2018 Skin lesion Unspecified disorder of skin and subcutaneous tissue 11/29/2018 Polyneuropathy Unspecified hereditary and idiopathic peripheral neuropathy 12/25/2018 Rash Rash and other nonspecific skin eruption 12/25/2018 Polyneuropathy Unspecified hereditary and idiopathic peripheral neuropathy 12/27/2018 High risk medications (not anticoagulants) long-term use Encounter for long-term (current) use of other medications 01/01/2019 High risk medications (not anticoagulants) long-term use Encounter for long-term (current) use of other medications 01/01/2019 Polyneuropathy Unspecified hereditary and idiopathic peripheral neuropathy 01/01/2019 Gastroesophageal reflux disease without esophagitis Esophageal reflux 02/06/2019 Poorly controlled diabetes mellitus (HCC) Type II or unspecified type diabetes mellitus without mention of complication, not stated as uncontrolled 02/17/2019 Rhinosinusitis Unspecified sinusitis (chronic) 02/17/2019 Polyneuropathy Unspecified hereditary and idiopathic peripheral neuropathy 02/24/2019 Upper respiratory tract infection, unspecified type 03/01/2019 Acute bronchitis, unspecified organism 03/12/2019 Type 2 diabetes mellitus with peripheral neuropathy (HCC) 03/12/2019 Acute bronchitis, unspecified organism 03/13/2019 Allergic rhinitis, unspecified seasonality, unspecified trigger 04/02/2019 Post-nasal drainage Unspecified sinusitis (chronic) 04/02/2019 Cough 04/02/2019 Visit for screening mammogram Other screening mammogram 04/15/2019 Polyneuropathy Unspecified hereditary and idiopathic peripheral neuropathy 05/02/2019 Diabetic polyneuropathy associated with type 2 diabetes mellitus (HCC) 05/23/2019 Well woman exam with routine gynecological exam Routine gynecological examination 06/24/2019 Diabetic polyneuropathy associated with type 2 diabetes mellitus (HCC) 06/24/2019 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 with type 2 diabetes mellitus (HCC) 06/24/2019 Type 2 diabetes mellitus with peripheral neuropathy (HCC) 06/24/2019 Hyperlipidemia with target LDL less than 70 Other and unspecified hyperlipidemia 06/24/2019 Screening for deficiency anemia Screening for other and unspecified deficiency anemia 06/24/2019 Screening for thyroid disorder 06/24/2019 Vitamin D deficiency Unspecified vitamin D deficiency 06/24/2019 Fatty liver Other chronic nonalcoholic liver disease 06/24/2019 Bartholin gland cyst Cyst of Bartholin's gland 06/24/2019 Generalized osteoarthritis of multiple sites Generalized osteoarthrosis, involving multiple sites 06/24/2019 Irritable bowel syndrome with constipation and diarrhea Irritable bowel syndrome 06/24/2019 Abnormal cytological finding in specimen from cervix uteri Other nonspecific abnormal histological findings 06/24/2019 Diabetic polyneuropathy associated with type 2 diabetes mellitus (HCC) 07/09/2019 Vasovagal syncope Syncope and collapse 07/09/2019 Grief reaction Adjustment disorder with depressed mood 07/09/2019 Poorly controlled diabetes mellitus (HCC) Type II or unspecified type diabetes mellitus without mention of complication, not stated as uncontrolled 08/04/2019 Irritable bowel syndrome with constipation and diarrhea Irritable bowel syndrome 08/27/2019 Polyneuropathy Unspecified hereditary and idiopathic peripheral neuropathy 10/28/2019 Irritable bowel syndrome with constipation and diarrhea Irritable bowel syndrome 11/02/2019 Gastroesophageal reflux disease without esophagitis Esophageal reflux 11/14/2019 Open fracture of left wrist, initial encounter 11/26/2019 Open fracture of left wrist with routine healing, subsequent encounter 12/03/2019 Type 2 diabetes mellitus with peripheral neuropathy (HCC) 12/04/2019 Encounter for long-term current use of high risk medication 12/04/2019 Type 2 diabetes mellitus without complication, unspecified whether longterm insulin use 12/04/2019 Well adult exam Routine general medical examination at a health care facility 12/04/2019 Exercise counseling 12/04/2019 Encounter for dietary counseling and surveillance 12/04/2019 Full code status Other specified conditions influencing health status 12/04/2019 Living will, counseling/discussion Other specified counseling 12/04/2019 Screening for depression 12/04/2019 Alcohol screening Screening for alcoholism 12/04/2019 Anemia, unspecified type 12/04/2019 Colon cancer screening Special screening for malignant neoplasms, colon 12/04/2019 Vitamin D deficiency Unspecified vitamin D deficiency 12/04/2019 Immunity status testing Antibody response examination 12/04/2019 Dyslipidemia Other and unspecified hyperlipidemia 12/04/2019 Poorly controlled type 2 diabetes mellitus (HCC) Type II or unspecified type diabetes mellitus without mention of complication, not stated as uncontrolled 12/04/2019 Type 2 diabetes mellitus with peripheral neuropathy (HCC) 12/04/2019 Statin intolerance Other drug allergy 12/04/2019 Encounter for long-term current use of high risk medication 12/04/2019 Spinal stenosis of lumbar region with neurogenic claudication Spinal stenosis, lumbar region, with neurogenic claudication 12/04/2019 Retinal edema 12/04/2019 Polyneuropathy (HCC) Unspecified hereditary and idiopathic peripheral neuropathy 12/04/2019 EAGLE (obstructive sleep apnea) Obstructive sleep apnea (adult) (pediatric) 12/04/2019 Open fracture of left wrist with routine healing, subsequent encounter 12/04/2019 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 with type 2 diabetes mellitus (HCC) 12/04/2019 Mild intermittent asthma without complication Unspecified asthma 12/04/2019 History of cervical dysplasia Personal history of cervical dysplasia 12/04/2019 Gastroesophageal reflux disease without esophagitis Esophageal reflux 12/04/2019 Fatty liver Other chronic nonalcoholic liver disease 12/04/2019 Diabetic polyneuropathy associated with type 2 diabetes mellitus (HCC) 12/04/2019 DDD (degenerative disc disease), cervical Degeneration of cervical intervertebral disc 12/04/2019 Chronic right-sided low back pain with right-sided sciatica 12/04/2019 Open fracture of left wrist with routine healing, subsequent encounter 12/10/2019 Open fracture of left wrist with routine healing, subsequent encounter 12/17/2019 Open fracture of left wrist with routine healing, subsequent encounter 12/29/2019 Open fracture of left wrist with routine healing, subsequent encounter 01/21/2020 Irritable bowel syndrome with constipation and diarrhea Irritable bowel syndrome 01/29/2020 Diabetic polyneuropathy associated with type 2 diabetes mellitus (HCC) 02/10/2020 Diabetic polyneuropathy associated with type 2 diabetes mellitus (HCC) 02/23/2020 Dysuria 03/29/2020 Visit for screening mammogram Other screening mammogram 03/29/2020 Family history of breast cancer Family history of malignant neoplasm of breast 03/29/2020 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 with type 2 diabetes mellitus (HCC) 03/29/2020 Poorly controlled type 2 diabetes mellitus (HCC) Type II or unspecified type diabetes mellitus without mention of complication, not stated as uncontrolled 03/29/2020 Retinal edema 03/29/2020 Dyslipidemia Other and unspecified hyperlipidemia 03/29/2020 Well woman exam with routine gynecological exam Routine gynecological examination 03/30/2020 Hyperlipidemia with target LDL less than 70 Other and unspecified hyperlipidemia 03/30/2020 Fatty liver Other chronic nonalcoholic liver disease 03/30/2020 Poorly controlled type 2 diabetes mellitus (HCC) Type II or unspecified type diabetes mellitus without mention of complication, not stated as uncontrolled 03/30/2020 Dyslipidemia Other and unspecified hyperlipidemia 03/30/2020 Rhinosinusitis Unspecified sinusitis (chronic) 04/15/2020 Polyneuropathy Unspecified hereditary and idiopathic peripheral neuropathy 04/29/2020 Gastroesophageal reflux disease without esophagitis Esophageal reflux 05/08/2020 Diabetic polyneuropathy associated with type 2 diabetes mellitus (HCC) 05/17/2020 Poorly controlled diabetes mellitus (HCC) Type II or unspecified type diabetes mellitus without mention of complication, not stated as uncontrolled 05/17/2020 Visit for screening mammogram Other screening mammogram 05/18/2020 Family history of breast cancer Family history of malignant neoplasm of breast 05/18/2020 Diabetic polyneuropathy associated with type 2 diabetes mellitus (HCC) 05/19/2020 Urinary incontinence, unspecified type 05/19/2020 Poorly controlled type 2 diabetes mellitus (HCC) Type II or unspecified type diabetes mellitus without mention of complication, not stated as uncontrolled 05/19/2020 UTI (urinary tract infection), uncomplicated Urinary tract infection, site not specified 05/19/2020 Poorly controlled diabetes mellitus (HCC) Type II or unspecified type diabetes mellitus without mention of complication, not stated as uncontrolled 05/21/2020 Vasovagal syncope Syncope and collapse 05/25/2020 Grief reaction Adjustment disorder with depressed mood 05/25/2020 Poorly controlled diabetes mellitus (HCC) Type II or unspecified type diabetes mellitus without mention of complication, not stated as uncontrolled 06/01/2020 Screening for colon cancer Special screening for malignant neoplasms, colon 06/04/2020 Screening for cancer of the rectum Screening for malignant neoplasm of the rectum 06/04/2020 Polyneuropathy Unspecified hereditary and idiopathic peripheral neuropathy 07/06/2020 Polyneuropathy Unspecified hereditary and idiopathic peripheral neuropathy 07/12/2020 Need for hepatitis B vaccination Need for prophylactic vaccination and inoculation against viral hepatitis 07/21/2020 Burning with urination Dysuria 07/21/2020 Incomplete bladder emptying 08/26/2020 Urinary urgency Urgency of urination 08/26/2020 Urge urinary incontinence Urge incontinence 08/26/2020 ANITA (stress urinary incontinence, female) Female stress incontinence 08/26/2020 Frequent UTI Urinary tract infection, site not specified 08/26/2020 E. coli UTI Urinary tract infection, site not specified 08/30/2020 Irritable bowel syndrome with constipation and diarrhea Irritable bowel syndrome 09/05/2020 Cough 09/13/2020 Rhinosinusitis Unspecified sinusitis (chronic) 09/13/2020 Recurrent UTI (urinary tract infection) Urinary tract infection, site not specified 09/23/2020 UTI (urinary tract infection), uncomplicated Urinary tract infection, site not specified 09/27/2020 Recurrent UTI (urinary tract infection) Urinary tract infection, site not specified 09/27/2020 Gastroesophageal reflux disease without esophagitis Esophageal reflux 10/26/2020 History of UTI Personal history of urinary (tract) infection 10/28/2020 Need for hepatitis B vaccination Need for prophylactic vaccination and inoculation against viral hepatitis 11/22/2020 Poorly controlled diabetes mellitus (HCC) Type II or unspecified type diabetes mellitus without mention of complication, not stated as uncontrolled 11/22/2020 Irritable bowel syndrome with constipation and diarrhea Irritable bowel syndrome 11/23/2020 Medicare annual wellness visit, subsequent Routine general medical examination at a health care facility 11/24/2020 Diabetic polyneuropathy associated with type 2 diabetes mellitus (HCC) 11/24/2020 Vitamin D deficiency Unspecified vitamin D deficiency 11/24/2020 Narcolepsy due to underlying condition without cataplexy 11/24/2020 Type 2 diabetes mellitus with peripheral neuropathy (HCC) 11/24/2020 Spinal stenosis of lumbar region with neurogenic claudication Spinal stenosis, lumbar region, with neurogenic claudication 11/24/2020 Screening for depression 11/24/2020 Retinal edema 11/24/2020 Primary osteoarthritis involving multiple joints 11/24/2020 Poorly controlled type 2 diabetes mellitus (HCC) Type II or unspecified type diabetes mellitus without mention of complication, not stated as uncontrolled 11/24/2020 Polyneuropathy (HCC) Unspecified hereditary and idiopathic peripheral neuropathy 11/24/2020 EAGLE (obstructive sleep apnea) Obstructive sleep apnea (adult) (pediatric) 11/24/2020 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 with type 2 diabetes mellitus (HCC) 11/24/2020 Mild intermittent asthma without complication Unspecified asthma 11/24/2020 Living will on file 11/24/2020 Gastroesophageal reflux disease without esophagitis Esophageal reflux 11/24/2020 Full code status Other specified conditions influencing health status 11/24/2020 Fatty liver Other chronic nonalcoholic liver disease 11/24/2020 Dyslipidemia Other and unspecified hyperlipidemia 11/24/2020 DDD (degenerative disc disease), cervical Degeneration of cervical intervertebral disc 11/24/2020 Chronic right-sided low back pain with right-sided sciatica 11/24/2020 Alcohol screening Screening for alcoholism 11/24/2020 Vertigo Dizziness and giddiness 12/27/2020 Incomplete bladder emptying 01/11/2021 Urinary urgency Urgency of urination 01/11/2021 Urge urinary incontinence Urge incontinence 01/11/2021 ANITA (stress urinary incontinence, female) Female stress incontinence 01/11/2021 Poorly controlled type 2 diabetes mellitus (HCC) Type II or unspecified type diabetes mellitus without mention of complication, not stated as uncontrolled 01/11/2021 Diabetic polyneuropathy associated with type 2 diabetes mellitus (HCC) 02/24/2021 Encounter for long-term current use of high risk medication 02/24/2021 Narcolepsy due to underlying condition without cataplexy 02/24/2021 Malaise and fatigue Other malaise and fatigue 02/24/2021 Poorly controlled type 2 diabetes mellitus (HCC) Type II or unspecified type diabetes mellitus without mention of complication, not stated as uncontrolled 02/24/2021 Diabetic polyneuropathy associated with type 2 diabetes mellitus (HCC) 03/06/2021 Dysuria 03/11/2021 Acute lower UTI Urinary tract infection, site not specified 03/11/2021 Poorly controlled diabetes mellitus (HCC) Type II or unspecified type diabetes mellitus without mention of complication, not stated as uncontrolled 03/21/2021 Immunity status testing Antibody response examination 04/15/2021 Vitamin D deficiency Unspecified vitamin D deficiency 04/15/2021 Poorly controlled type 2 diabetes mellitus (HCC) Type II or unspecified type diabetes mellitus without mention of complication, not stated as uncontrolled 04/15/2021 Dyslipidemia Other and unspecified hyperlipidemia 04/15/2021 Gastroesophageal reflux disease, unspecified whether esophagitis present 04/15/2021 Gastroesophageal reflux disease without esophagitis Esophageal reflux 04/18/2021 Polyneuropathy Unspecified hereditary and idiopathic peripheral neuropathy 04/26/2021 Vasovagal syncope Syncope and collapse 05/22/2021 Grief reaction Adjustment disorder with depressed mood 05/22/2021 Diabetic polyneuropathy associated with type 2 diabetes mellitus (HCC) 05/22/2021 Irritable bowel syndrome with constipation and diarrhea Irritable bowel syndrome 05/22/2021 Colon cancer screening Special screening for malignant neoplasms, colon 05/23/2021 UTI (urinary tract infection), uncomplicated Urinary tract infection, site not specified 05/23/2021 Dyslipidemia Other and unspecified hyperlipidemia 05/23/2021 Diabetic polyneuropathy associated with type 2 diabetes mellitus (HCC) 05/23/2021 Poorly controlled type 2 diabetes mellitus (HCC) Type II or unspecified type diabetes mellitus without mention of complication, not stated as uncontrolled 05/23/2021 Tinnitus of right ear Unspecified tinnitus 05/23/2021 Polyneuropathy Unspecified hereditary and idiopathic peripheral neuropathy 05/23/2021 Type 2 diabetes mellitus with peripheral neuropathy (HCC) 05/23/2021 Chronic right-sided low back pain with right-sided sciatica 05/23/2021 EAGLE (obstructive sleep apnea) Obstructive sleep apnea (adult) (pediatric) 05/23/2021 Narcolepsy due to underlying condition without cataplexy 05/23/2021 Encounter for long-term current use of high risk medication 05/23/2021 Encounter for screening mammogram for malignant neoplasm of breast Other screening mammogram 06/02/2021 UTI (urinary tract infection), uncomplicated Urinary tract infection, site not specified 06/03/2021 Acute lower UTI Urinary tract infection, site not specified 06/04/2021 Irritable bowel syndrome with constipation and diarrhea Irritable bowel syndrome 07/06/2021 Acute bacterial sinusitis Acute sinusitis, unspecified 07/28/2021 Mild persistent asthma with exacerbation Unspecified asthma, with exacerbation 07/28/2021 Cough 07/28/2021 Rhinosinusitis Unspecified sinusitis (chronic) 08/10/2021 Gastroesophageal reflux disease, unspecified whether esophagitis present 09/11/2021 Diabetic polyneuropathy associated with type 2 diabetes mellitus (HCC) 09/11/2021 Vasovagal syncope Syncope and collapse 09/11/2021 Grief reaction Adjustment disorder with depressed mood 09/11/2021 Irritable bowel syndrome with constipation and diarrhea Irritable bowel syndrome 09/14/2021 Dysuria 09/26/2021 UTI (urinary tract infection), uncomplicated Urinary tract infection, site not specified 09/26/2021 Cellulitis of right eyelid 10/17/2021 Acute bacterial conjunctivitis of right eye 10/17/2021 Tinnitus of right ear Unspecified tinnitus 10/19/2021 Poorly controlled type 2 diabetes mellitus (HCC) Type II or unspecified type diabetes mellitus without mention of complication, not stated as uncontrolled 10/19/2021 Dyslipidemia Other and unspecified hyperlipidemia 10/19/2021 Cellulitis of right eyelid 10/19/2021 Poorly controlled type 2 diabetes mellitus (HCC) Type II or unspecified type diabetes mellitus without mention of complication, not stated as uncontrolled 10/27/2021 Irritable bowel syndrome with constipation and diarrhea Irritable bowel syndrome 10/27/2021 Polyneuropathy Unspecified hereditary and idiopathic peripheral neuropathy 12/05/2021 Cough 12/05/2021 Poorly controlled type 2 diabetes mellitus (HCC) Type II or unspecified type diabetes mellitus without mention of complication, not stated as uncontrolled 12/05/2021 Dyslipidemia Other and unspecified hyperlipidemia 12/05/2021 Tinnitus of right ear Unspecified tinnitus 12/05/2021 Medicare annual wellness visit, subsequent Routine general medical examination at a health care facility 12/19/2021 Polyneuropathy Unspecified hereditary and idiopathic peripheral neuropathy 12/19/2021 Poorly controlled type 2 diabetes mellitus (HCC) Type II or unspecified type diabetes mellitus without mention of complication, not stated as uncontrolled 12/19/2021 Diabetic polyneuropathy associated with type 2 diabetes mellitus (HCC) 12/19/2021 Type 2 diabetes mellitus with peripheral neuropathy (HCC) 12/19/2021 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 with type 2 diabetes mellitus (HCC) 12/19/2021 Mild intermittent asthma without complication Unspecified asthma 12/19/2021 Dyslipidemia Other and unspecified hyperlipidemia 12/19/2021 Primary osteoarthritis involving multiple joints 12/19/2021 History of cervical dysplasia Personal history of cervical dysplasia 12/19/2021 Gastroesophageal reflux disease without esophagitis Esophageal reflux 12/19/2021 DDD (degenerative disc disease), cervical Degeneration of cervical intervertebral disc 12/19/2021 Fatty liver Other chronic nonalcoholic liver disease 12/19/2021 Statin intolerance Other drug allergy 12/19/2021 Screening for depression 12/19/2021 Alcohol screening Screening for alcoholism 12/19/2021 Chronic right-sided low back pain with right-sided sciatica 12/19/2021 Spinal stenosis of lumbar region with neurogenic claudication Spinal stenosis, lumbar region, with neurogenic claudication 12/19/2021 Full code status Other specified conditions influencing health status 12/19/2021 Living will on file 12/19/2021 Retinal edema 12/19/2021 Vitamin D deficiency Unspecified vitamin D deficiency 12/19/2021 Narcolepsy due to underlying condition without cataplexy 12/19/2021 Irritable bowel syndrome with constipation and diarrhea Irritable bowel syndrome 01/15/2022 Dyslipidemia Other and unspecified hyperlipidemia 02/17/2022 Poorly controlled type 2 diabetes mellitus (HCC) Type II or unspecified type diabetes mellitus without mention of complication, not stated as uncontrolled 03/06/2022 Dysuria 03/06/2022 Rhinosinusitis Unspecified sinusitis (chronic) 03/06/2022 Vertigo Dizziness and giddiness 03/06/2022 Gastroesophageal reflux disease, unspecified whether esophagitis present 03/09/2022 Irritable bowel syndrome with constipation and diarrhea Irritable bowel syndrome 03/18/2022 Low vitamin B12 level Other B-complex deficiencies 03/20/2022 Poorly controlled type 2 diabetes mellitus (HCC) Type II or unspecified type diabetes mellitus without mention of complication, not stated as uncontrolled 03/20/2022 Diabetic polyneuropathy associated with type 2 diabetes mellitus (HCC) 03/20/2022 Type 2 diabetes mellitus with peripheral neuropathy (HCC) 03/20/2022 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 with type 2 diabetes mellitus (HCC) 03/20/2022 EAGLE (obstructive sleep apnea) Obstructive sleep apnea (adult) (pediatric) 03/20/2022 Polyneuropathy (HCC) Unspecified hereditary and idiopathic peripheral neuropathy 03/20/2022 Mild intermittent asthma without complication Unspecified asthma 03/20/2022 Dyslipidemia Other and unspecified hyperlipidemia 03/20/2022 Primary osteoarthritis involving multiple joints 03/20/2022 History of cervical dysplasia Personal history of cervical dysplasia 03/20/2022 DDD (degenerative disc disease), cervical Degeneration of cervical intervertebral disc 03/20/2022 Gastroesophageal reflux disease without esophagitis Esophageal reflux 03/20/2022 Fatty liver Other chronic nonalcoholic liver disease 03/20/2022 Statin intolerance Other drug allergy 03/20/2022 Chronic right-sided low back pain with right-sided sciatica 03/20/2022 Spinal stenosis of lumbar region with neurogenic claudication Spinal stenosis, lumbar region, with neurogenic claudication 03/20/2022 Vitamin D deficiency Unspecified vitamin D deficiency 03/20/2022 Narcolepsy due to underlying condition without cataplexy 03/20/2022 Retinal edema 03/20/2022 Poorly controlled type 2 diabetes mellitus (HCC) Type II or unspecified type diabetes mellitus without mention of complication, not stated as uncontrolled 03/20/2022 Cervical cancer screening Screening for malignant neoplasm of the cervix 03/29/2022 Postmenopausal Asymptomatic postmenopausal status (age-related) (natural) 03/29/2022 Screening for osteoporosis Special screening for osteoporosis 03/29/2022 Type 2 diabetes mellitus without complication, unspecified whether longterm insulin use 04/25/2022 Encounter for support and coordination of transition of care 04/25/2022 Seasonal allergic rhinitis, unspecified trigger 04/25/2022 Type 2 diabetes mellitus with peripheral neuropathy (HCC) 04/25/2022 Poorly controlled type 2 diabetes mellitus (HCC) Type II or unspecified type diabetes mellitus without mention of complication, not stated as uncontrolled 05/03/2022 Encounter for routine gynecological examination with Papanicolaou smear of cervix 05/03/2022 Vaginal prolapse Unspecified prolapse of vaginal zacarias 05/03/2022 Postmenopausal Asymptomatic postmenopausal status (age-related) (natural) 05/09/2022 Screening for osteoporosis Special screening for osteoporosis 05/09/2022 Diabetic polyneuropathy associated with type 2 diabetes mellitus (HCC) 05/17/2022 Irritable bowel syndrome with constipation and diarrhea Irritable bowel syndrome 05/17/2022 Encounter for support and coordination of transition of care 05/19/2022 Poorly controlled type 2 diabetes mellitus (HCC) Type II or unspecified type diabetes mellitus without mention of complication, not stated as uncontrolled 05/21/2022 Poorly controlled type 2 diabetes mellitus (HCC) Type II or unspecified type diabetes mellitus without mention of complication, not stated as uncontrolled 05/25/2022 Poorly controlled type 2 diabetes mellitus (HCC) Type II or unspecified type diabetes mellitus without mention of complication, not stated as uncontrolled 05/31/2022 Type 2 diabetes mellitus without complication, unspecified whether clay miner insulin use 06/05/2022 Seasonal allergic rhinitis, unspecified trigger 06/13/2022 Diabetic polyneuropathy associated with type 2 diabetes mellitus (HCC) 06/20/2022 Irritable bowel syndrome with constipation and diarrhea Irritable bowel syndrome 06/28/2022 Gastroesophageal reflux disease, unspecified whether esophagitis present 06/28/2022 Seasonal allergic rhinitis, unspecified trigger 06/28/2022 Diabetic polyneuropathy associated with type 2 diabetes mellitus (HCC) 06/28/2022 Poorly controlled diabetes mellitus (HCC) Type II or unspecified type diabetes mellitus without mention of complication, not stated as uncontrolled 06/28/2022 Vertigo Dizziness and giddiness 06/28/2022 Poorly controlled type 2 diabetes mellitus (HCC) Type II or unspecified type diabetes mellitus without mention of complication, not stated as uncontrolled 06/28/2022 Poorly controlled type 2 diabetes mellitus (HCC) Type II or unspecified type diabetes mellitus without mention of complication, not stated as uncontrolled 06/29/2022 Seasonal allergic rhinitis, unspecified trigger 07/05/2022 Poorly controlled type 2 diabetes mellitus (HCC) Type II or unspecified type diabetes mellitus without mention of complication, not stated as uncontrolled 07/24/2022 Encounter for support and coordination of transition of care 08/07/2022 History of COVID-19 08/07/2022 Poorly controlled type 2 diabetes mellitus (HCC) Type II or unspecified type diabetes mellitus without mention of complication, not stated as uncontrolled 08/07/2022 Poorly controlled type 2 diabetes mellitus (HCC) Type II or unspecified type diabetes mellitus without mention of complication, not stated as uncontrolled 08/08/2022 Irritable bowel syndrome with constipation and diarrhea Irritable bowel syndrome 08/15/2022 Narcolepsy due to underlying condition without cataplexy 09/11/2022 Narcolepsy due to underlying condition without cataplexy 09/15/2022 Vasovagal syncope Syncope and collapse 11/22/2022 Grief reaction Adjustment disorder with depressed mood 11/22/2022 Polyneuropathy Unspecified hereditary and idiopathic peripheral neuropathy 11/22/2022 Seasonal allergic rhinitis, unspecified trigger 11/22/2022 Herpes simplex vulvovaginitis 11/28/2022 Vaginal yeast infection Candidiasis of vulva and vagina 11/28/2022 Inguinal lymphadenopathy Enlargement of lymph nodes 11/28/2022 Adverse effect of antihyperlipidemic and antiarteriosclerotic drugs, initial encounter 12/13/2022 Drug-induced myopathy Toxic myopathy 12/13/2022 Poorly controlled type 2 diabetes mellitus (HCC) Type II or unspecified type diabetes mellitus without mention of complication, not stated as uncontrolled 01/15/2023 Visit for screening mammogram Other screening mammogram 01/15/2023 Adverse effect of antihyperlipidemic and antiarteriosclerotic drugs, initial encounter 01/15/2023 Alcohol screening Screening for alcoholism 01/15/2023 Chronic right-sided low back pain with right-sided sciatica 01/15/2023 DDD (degenerative disc disease), cervical Degeneration of cervical intervertebral disc 01/15/2023 Diabetic polyneuropathy associated with type 2 diabetes mellitus (HCC) 01/15/2023 Drug-induced myopathy Toxic myopathy 01/15/2023 Dyslipidemia Other and unspecified hyperlipidemia 01/15/2023 Fatty liver Other chronic nonalcoholic liver disease 01/15/2023 Full code status Other specified conditions influencing health status 01/15/2023 Gastroesophageal reflux disease without esophagitis Esophageal reflux 01/15/2023 History of cervical dysplasia Personal history of cervical dysplasia 01/15/[address] Reserved for inherently not codable concepts WITHOUT codable children 01/15/2023 Mild intermittent asthma without complication Unspecified asthma 01/15/2023 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 with type 2 diabetes mellitus (HCC) 01/15/2023 Polyneuropathy (HCC) Unspecified hereditary and idiopathic peripheral neuropathy 01/15/2023 EAGLE (obstructive sleep apnea) Obstructive sleep apnea (adult) (pediatric) 01/15/2023 Primary osteoarthritis involving multiple joints 01/15/2023 Retinal edema 01/15/2023 Screening for depression 01/15/2023 Spinal stenosis of lumbar region with neurogenic claudication Spinal stenosis, lumbar region, with neurogenic claudication 01/15/2023 Type 2 diabetes mellitus with peripheral neuropathy (HCC) 01/15/2023 Vitamin D deficiency Unspecified vitamin D deficiency 01/15/2023 Chronic fatigue Other malaise and fatigue 01/15/2023 Chest pain, unspecified type 01/15/2023 Encounter for long-term current use of high risk medication 01/15/2023 Medicare annual wellness visit, subsequent Routine general medical examination at a health care facility 01/15/2023 Acute cough 01/29/2023 Pneumonia of right lower lobe due to infectious organism 01/29/2023 Poorly controlled type 2 diabetes mellitus (HCC) Type II or unspecified type diabetes mellitus without mention of complication, not stated as uncontrolled 01/29/2023 Pneumonia of right lower lobe due to infectious organism 01/29/2023 Delirium Other alteration of consciousness 01/29/2023 Syncope and collapse 01/29/2023 Community acquired pneumonia of right lower lobe of lung 02/08/2023 Hospital discharge follow-up Other follow-up examination 02/08/2023 Poorly controlled type 2 diabetes mellitus (HCC) Type II or unspecified type diabetes mellitus without mention of complication, not stated as uncontrolled 02/08/2023 Sepsis, due to unspecified organism, unspecified whether acute organ dysfunction present (HCC) 02/08/2023 Pneumonia of right lower lobe due to infectious organism 02/15/2023 Subacute cough Cough 02/15/2023 UTI (urinary tract infection), uncomplicated Urinary tract infection, site not specified 02/21/2023 Gastroesophageal reflux disease, unspecified whether esophagitis present 03/21/2023 Irritable bowel syndrome with constipation and diarrhea Irritable bowel syndrome 03/21/2023 Poorly controlled diabetes mellitus (HCC) Type II or unspecified type diabetes mellitus without mention of complication, not stated as uncontrolled 03/21/2023 Diabetic polyneuropathy associated with type 2 diabetes mellitus (HCC) 03/21/2023 Vasovagal syncope Syncope and collapse 03/21/2023 Grief reaction Adjustment disorder with depressed mood 03/21/2023 Community acquired pneumonia of right lower lobe of lung 03/23/2023 Malaise and fatigue Other malaise and fatigue 04/02/2023 BRBPR (bright red blood per rectum) Hemorrhage of rectum and anus 04/02/2023 UTI (urinary tract infection), uncomplicated Urinary tract infection, site not specified 04/02/2023 Incontinence of feces, unspecified fecal incontinence type 04/02/2023 Poorly controlled type 2 diabetes mellitus (HCC) Type II or unspecified type diabetes mellitus without mention of complication, not stated as uncontrolled 04/02/2023 Malaise and fatigue Other malaise and fatigue 04/03/2023 Polyneuropathy Unspecified hereditary and idiopathic peripheral neuropathy 04/04/2023 Iron deficiency Other disorders of iron metabolism 04/16/2023 Polyneuropathy Unspecified hereditary and idiopathic peripheral neuropathy 04/18/2023 Poorly controlled type 2 diabetes mellitus (HCC) Type II or unspecified type diabetes mellitus without mention of complication, not stated as uncontrolled 04/18/2023 Vasovagal syncope Syncope and collapse 04/18/2023 Grief reaction Adjustment disorder with depressed mood 04/18/2023 Chronic right-sided low back pain with right-sided sciatica 04/18/2023 DDD (degenerative disc disease), cervical Degeneration of cervical intervertebral disc 04/18/2023 Diabetic polyneuropathy associated with type 2 diabetes mellitus (HCC) 04/18/2023 Spinal stenosis of lumbar region with neurogenic claudication Spinal stenosis, lumbar region, with neurogenic claudication 04/18/2023 Type 2 diabetes mellitus with peripheral neuropathy (HCC) 04/18/2023 Dysuria 04/24/2023 UTI (urinary tract infection), uncomplicated Urinary tract infection, site not specified 04/26/2023 Encounter for support and coordination of transition of care 05/14/2023 Diabetic polyneuropathy associated with type 2 diabetes mellitus (HCC) 05/16/2023 Dyslipidemia Other and unspecified hyperlipidemia 05/16/2023 Encounter for support and coordination of transition of care 05/22/2023 Irritable bowel syndrome with constipation and diarrhea Irritable bowel syndrome 05/23/2023 Encounter for support and coordination of transition of care 06/06/2023 Dyslipidemia Other and unspecified hyperlipidemia 06/07/2023 Poorly controlled type 2 diabetes mellitus (HCC) Type II or unspecified type diabetes mellitus without mention of complication, not stated as uncontrolled 06/07/2023 Gastroesophageal reflux disease without esophagitis Esophageal reflux 06/07/2023 Urinary tract infection without hematuria, site unspecified 06/22/2023 Hyperglycemia Other abnormal glucose 06/22/2023 Hospital discharge follow-up Other follow-up examination 07/04/2023 Diabetic ketoacidosis without coma associated with type 2 diabetes mellitus (HCC) 07/04/2023 Poorly controlled type 2 diabetes mellitus (HCC) Type II or unspecified type diabetes mellitus without mention of complication, not stated as uncontrolled 07/04/2023 UTI (urinary tract infection), uncomplicated Urinary tract infection, site not specified 07/04/2023 Dehydration 07/04/2023 Poorly controlled diabetes mellitus (HCC) Type II or unspecified type diabetes mellitus without mention of complication, not stated as uncontrolled 07/04/2023 Drug-induced myopathy Toxic myopathy 07/04/2023 Dyslipidemia Other and unspecified hyperlipidemia 07/04/2023 Vasovagal syncope Syncope and collapse 07/04/2023 Left foot pain Pain in limb 07/04/2023 Left foot pain Pain in limb 07/05/2023 Gastroesophageal reflux disease without esophagitis Esophageal reflux 07/11/2023 Encounter for screening mammogram for breast cancer 07/30/2023 Cough, unspecified type 07/30/2023 Rhinosinusitis Unspecified sinusitis (chronic) 07/30/2023 Cough, unspecified type 08/02/2023 Cataract of both eyes, unspecified cataract type 08/27/2023 Pre-op exam Preoperative examination, unspecified 08/27/2023 Poorly controlled type 2 diabetes mellitus (HCC) Type II or unspecified type diabetes mellitus without mention of complication, not stated as uncontrolled 08/27/2023 Combined forms of age-related cataract of right eye Other and combined forms of senile cataract 09/03/2023 Gastroesophageal reflux disease without esophagitis Esophageal reflux 09/19/2023 Dysuria 09/19/2023 UTI (urinary tract infection), uncomplicated Urinary tract infection, site not specified 09/20/2023 Combined 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 Other and combined forms of senile cataract 09/24/2023 Polyneuropathy Unspecified hereditary and idiopathic peripheral neuropathy 09/25/2023 Poorly controlled type 2 diabetes mellitus (HCC) Type II or unspecified type diabetes mellitus without mention of complication, not stated as uncontrolled 09/25/2023 Fall, initial encounter 11/11/2023 Polyneuropathy Unspecified hereditary and idiopathic peripheral neuropathy 11/17/2023 Primary osteoarthritis involving multiple joints 11/17/2023 Fall, initial encounter 11/09/2023 Closed fracture of multiple ribs of left side, initial encounter 11/09/2023 Unspecified mood (affective) disorder 11/09/2023 Type 2 diabetes mellitus with hyperglycemia, with long-term current use of insulin (HCC) 11/09/2023 Closed fracture of multiple ribs of left side with routine healing, subsequent encounter 11/19/2023 Type 2 diabetes mellitus with peripheral neuropathy (HCC) 11/19/2023 Poorly controlled type 2 diabetes mellitus (HCC) Type II or unspecified type diabetes mellitus without mention of complication, not stated as uncontrolled 11/19/2023 Urinary retention Retention of urine, unspecified 11/19/2023 Narcolepsy due to underlying condition without cataplexy 11/19/2023 Iron deficiency anemia, unspecified iron deficiency anemia type 11/19/2023 Mild intermittent asthma without complication Unspecified asthma 11/19/2023 Hypotension, unspecified hypotension type 11/19/2023 Dyslipidemia Other and unspecified hyperlipidemia 11/19/2023 Gastroesophageal reflux disease without esophagitis Esophageal reflux 11/19/2023 History of falling Personal history of fall 11/22/2023 Closed fracture of multiple ribs of left side, sequela 11/22/2023 Urinary retention Retention of urine, unspecified 11/22/2023 Hypotension, unspecified hypotension type 11/22/2023 Type 2 diabetes mellitus with diabetic nephropathy, unspecified whether clay miner insulin use (HCC) 11/22/2023 Anemia, unspecified type 11/22/2023 History of asthma Personal history of other diseases of respiratory system 11/22/2023 Gastroesophageal reflux disease with esophagitis, unspecified whether hemorrhage 11/22/2023 Hyperlipidemia, unspecified hyperlipidemia type 11/22/2023 EAGLE (obstructive sleep apnea) Obstructive sleep apnea (adult) (pediatric) 11/22/2023 Primary narcolepsy without cataplexy 11/22/2023 Closed fracture of multiple ribs, unspecified laterality, sequela 11/26/2023 History of falling Personal history of fall 12/05/2023 Closed fracture of multiple ribs of left side with routine healing, subsequent encounter 12/05/2023 Visit for screening mammogram Other screening mammogram 12/05/2023 Vitamin D deficiency Unspecified vitamin D deficiency 12/05/2023 Poorly controlled type 2 diabetes mellitus (HCC) Type II or unspecified type diabetes mellitus without mention of complication, not stated as uncontrolled 12/05/2023 Polyneuropathy Unspecified hereditary and idiopathic peripheral neuropathy 12/05/2023 Chronic right-sided low back pain with right-sided sciatica 12/05/2023 History of anemia Personal history of diseases of blood and blood-forming organs 12/05/2023 Hospital discharge follow-up Other follow-up examination 12/05/2023 Poorly controlled type 2 diabetes mellitus (HCC) Type II or unspecified type diabetes mellitus without mention of complication, not stated as uncontrolled 01/30/2024 Gastroesophageal reflux disease without esophagitis Esophageal reflux 01/30/2024 Visit for screening mammogram Other screening mammogram 02/18/2024 Alcohol screening Screening for alcoholism 02/18/2024 Chronic right-sided low back pain with right-sided sciatica 02/18/2024 DDD (degenerative disc disease), cervical Degeneration of cervical intervertebral disc 02/18/2024 Diabetic polyneuropathy associated with type 2 diabetes mellitus (HCC) 02/18/2024 Drug-induced myopathy Toxic myopathy 02/18/2024 Dyslipidemia Other and unspecified hyperlipidemia 02/18/2024 Fatty liver Other chronic nonalcoholic liver disease 02/18/2024 Full code status Other specified conditions influencing health status 02/18/2024 Gastroesophageal reflux disease without esophagitis Esophageal reflux 02/18/2024 History of cervical dysplasia Personal history of cervical dysplasia 02/18/[address] Reserved for inherently not codable concepts WITHOUT codable children 02/18/2024 Mild intermittent asthma without complication Unspecified asthma 02/18/2024 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 with type 2 diabetes mellitus (HCC) 02/18/2024 Recurrent major depressive disorder, in partial remission 02/18/2024 Screening for depression 02/18/2024 Spinal stenosis of lumbar region with neurogenic claudication Spinal stenosis, lumbar region, with neurogenic claudication 02/18/2024 Statin intolerance Other drug allergy 02/18/2024 Type 2 diabetes mellitus with peripheral neuropathy (HCC) 02/18/2024 Vitamin D deficiency Unspecified vitamin D deficiency 02/18/2024 Narcolepsy due to underlying condition without cataplexy 02/18/2024 EAGLE (obstructive sleep apnea) Obstructive sleep apnea (adult) (pediatric) 02/18/2024 Well controlled type 2 diabetes mellitus (HCC) Type II or unspecified type diabetes mellitus without mention of complication, not stated as uncontrolled 02/18/2024 Medicare annual wellness visit, subsequent Routine general medical examination at a health care facility 02/18/2024 Colon cancer screening Special screening for malignant neoplasms, colon 02/18/2024 Primary narcolepsy with cataplexy 03/27/2024 Atypical syncope 03/27/2024 Polypharmacy Issue of repeat prescriptions 03/27/2024 Atypical syncope 04/03/2024 Primary narcolepsy with cataplexy 04/03/2024 Diabetic polyneuropathy associated with type 2 diabetes mellitus (HCC) 04/24/2024 UTI (urinary tract infection), uncomplicated Urinary tract infection, site not specified 04/24/2024 Atypical syncope 04/29/2024 Primary narcolepsy with cataplexy 04/29/2024 Atypical syncope 04/29/2024 Primary narcolepsy with cataplexy 04/29/2024 Atypical syncope 04/29/2024 Atypical syncope 05/05/2024 Dyslipidemia Other and unspecified hyperlipidemia 06/16/2024 Cough, unspecified type 06/23/2024 UTI (urinary tract infection), uncomplicated Urinary tract infection, site not specified 06/23/2024 COVID-19 virus infection 06/23/2024 Flank pain Abdominal pain, unspecified site 07/02/2024 Flank pain Abdominal pain, unspecified site 07/02/2024 Flank pain Abdominal pain, unspecified site 07/02/2024 Diabetic polyneuropathy associated with type 2 diabetes mellitus (HCC) 07/03/2024 Poorly controlled type 2 diabetes mellitus (HCC) Type II or unspecified type diabetes mellitus without mention of complication, not stated as uncontrolled 07/09/2024 Poorly controlled type 2 diabetes mellitus (HCC) Type II or unspecified type diabetes mellitus without mention of complication, not stated as uncontrolled 07/15/2024 Rib injury Sprain of ribs 09/02/2024 Injury of back, initial encounter 09/02/2024 UTI (urinary tract infection), uncomplicated Urinary tract infection, site not specified 09/02/2024 Type 2 diabetes mellitus with peripheral neuropathy (HCC) 09/02/2024 Injury of back, initial encounter 09/02/2024 Rib injury Sprain of ribs 09/02/2024 Poorly controlled type 2 diabetes mellitus (HCC) Type II or unspecified type diabetes mellitus without mention of complication, not stated as uncontrolled 09/07/2024 Diabetic polyneuropathy associated with type 2 diabetes mellitus (HCC) 09/07/2024 Primary narcolepsy with cataplexy 09/09/2024 Primary narcolepsy with cataplexy 09/09/2024 Primary narcolepsy with cataplexy 09/11/2024 Primary narcolepsy with cataplexy 10/11/2024 Primary narcolepsy with cataplexy 11/15/2024 Gastroesophageal reflux disease without esophagitis Esophageal reflux 11/19/2024 Type 2 diabetes mellitus with peripheral neuropathy (HCC) 11/19/2024 Type 2 diabetes mellitus with peripheral neuropathy (HCC) 11/28/2024 Gastroesophageal reflux disease without esophagitis Esophageal reflux 12/02/2024 Gastroesophageal reflux disease without esophagitis Esophageal reflux 12/05/2024 Primary narcolepsy with cataplexy 12/05/2024 UTI (urinary tract infection), uncomplicated Urinary tract infection, site not specified 12/19/2024 Pneumonia of both lungs due to infectious organism, unspecified part of lung 12/19/2024 Poorly controlled type 2 diabetes mellitus (HCC) Type II or unspecified type diabetes mellitus without mention of complication, not stated as uncontrolled 12/19/2024 Burning with urination Dysuria 12/19/2024 Cough, unspecified type 12/19/2024 UTI (urinary tract infection), uncomplicated Urinary tract infection, site not specified 12/22/2024 Pneumonia of both lungs due to infectious organism, unspecified part of lung 12/23/2024 Bronchitis Bronchitis, not specified as acute or chronic 12/31/2024 Well controlled type 2 diabetes mellitus (HCC) Type II or unspecified type diabetes mellitus without mention of complication, not stated as uncontrolled 01/19/2025 Vitamin D deficiency Unspecified vitamin D deficiency 01/19/2025 Type 2 diabetes mellitus with peripheral neuropathy (HCC) 01/19/2025 Statin intolerance Other drug allergy 01/19/2025 Spinal stenosis of lumbar region with neurogenic claudication Spinal stenosis, lumbar region, with neurogenic claudication 01/19/2025 Recurrent major depressive disorder, in partial remission 01/19/2025 Primary narcolepsy with cataplexy 01/19/2025 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 with type 2 diabetes mellitus (HCC) 01/19/2025 Chronic right-sided low back pain with right-sided sciatica 01/19/2025 DDD (degenerative disc disease), cervical Degeneration of cervical intervertebral disc 01/19/2025 Drug-induced myopathy Toxic myopathy 01/19/2025 Dyslipidemia Other and unspecified hyperlipidemia 01/19/2025 Fatty liver Other chronic nonalcoholic liver disease 01/19/2025 Gastroesophageal reflux disease without esophagitis Esophageal reflux 01/19/2025 EAGLE (obstructive sleep apnea) Obstructive sleep apnea (adult) (pediatric) 01/19/2025 Mild intermittent asthma without complication Unspecified asthma 01/19/2025 History of anemia Personal history of diseases of blood and blood-forming organs 01/19/2025 Encounter for long-term current use of high risk medication 01/19/2025 Head, face & neck injury, initial encounter 04/03/2025 Rib pain on left side Chest pain, unspecified 04/03/2025 Cough, unspecified type 04/03/2025 Head, face & neck injury, initial encounter 04/03/2025 Rib pain on left side Chest pain, unspecified 04/03/2025 Cough, unspecified type 04/03/2025 Acute bacterial sinusitis Acute sinusitis, unspecified 04/07/2025 Primary narcolepsy with cataplexy 05/04/2025 Full code status Other specified conditions influencing health status 05/07/2025 Living will, counseling/discussion Other specified counseling 05/07/2025 Medicare annual wellness visit, subsequent Routine general medical examination at a health care facility 05/07/2025 Visit for screening mammogram Other screening mammogram 05/07/2025 Drug-induced myopathy Toxic myopathy 05/07/2025 Alcohol screening Screening for alcoholism 05/07/2025 Chronic right-sided low back pain with right-sided sciatica 05/07/2025 DDD (degenerative disc disease), cervical Degeneration of cervical intervertebral disc 05/07/2025 Dyslipidemia Other and unspecified hyperlipidemia 05/07/2025 Gastroesophageal reflux disease without esophagitis Esophageal reflux 05/07/[address] Reserved for inherently not codable concepts WITHOUT codable children 05/07/2025 Mild intermittent asthma without complication Unspecified asthma 05/07/2025 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 with type 2 diabetes mellitus (HCC) 05/07/2025 Primary narcolepsy with cataplexy 05/07/2025 EAGEL (obstructive sleep apnea) Obstructive sleep apnea (adult) (pediatric) 05/07/2025 Primary osteoarthritis involving multiple joints 05/07/2025 Recurrent major depressive disorder, in partial remission 05/07/2025 Screening for depression 05/07/2025 Spinal stenosis of lumbar region with neurogenic claudication Spinal stenosis, lumbar region, with neurogenic claudication 05/07/2025 Statin intolerance Other drug allergy 05/07/2025 Type 2 diabetes mellitus with peripheral neuropathy (HCC) 05/07/2025 Well controlled type 2 diabetes mellitus (HCC) Type II or unspecified type diabetes mellitus without mention of complication, not stated as uncontrolled 05/07/2025 Post-menopausal Asymptomatic postmenopausal status (age-related) (natural) 05/07/2025 Screening for osteoporosis Special screening for osteoporosis 05/07/2025 History of anemia Personal history of diseases of blood and blood-forming organs 05/07/2025 Vitamin D deficiency Unspecified vitamin D deficiency 05/07/2025 Primary narcolepsy with cataplexy 05/25/2025 Poorly controlled type 2 diabetes mellitus (HCC) Type II or unspecified type diabetes mellitus without mention of complication, not stated as uncontrolled 05/25/2025 Arm mass Localized superficial swelling, mass, or lump 06/15/2015 Spinal stenosis Spinal stenosis, unspecified region other than cervical 03/14/2018 Pneumonia of right lower lobe due to infectious organism 01/29/2023 Poorly controlled type 2 diabetes mellitus (HCC) Type II or unspecified type diabetes mellitus without mention of complication, not stated as uncontrolled 01/29/2023 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 with type 2 diabetes mellitus (HCC) 01/29/2023 Gastroesophageal reflux disease without esophagitis Esophageal reflux 01/29/2023 Diabetic polyneuropathy associated with type 2 diabetes mellitus (HCC) 01/29/2023 Type 2 diabetes mellitus with peripheral neuropathy (HCC) 01/29/2023 Narcolepsy Narcolepsy without cataplexy 01/29/2023 Polyneuropathy (HCC) Unspecified hereditary and idiopathic peripheral neuropathy 01/29/2023 Sepsis without acute organ dysfunction (HCC) 01/29/2023 Mood disorder Unspecified episodic mood disorder 01/29/2023 Urinary tract infection without hematuria, site unspecified 06/22/2023 Polyneuropathy Unspecified hereditary and idiopathic peripheral neuropathy 06/22/2023 EAGLE (obstructive sleep apnea) Obstructive sleep apnea (adult) (pediatric) 06/22/2023 Mild intermittent asthma without complication Unspecified asthma 06/22/2023 Dyslipidemia Other and unspecified hyperlipidemia 06/22/2023 Primary osteoarthritis involving multiple joints 06/22/2023 Gastroesophageal reflux disease without esophagitis Esophageal reflux 06/22/2023 Type 2 diabetes mellitus with peripheral neuropathy (HCC) 06/22/2023 Narcolepsy Narcolepsy without cataplexy 06/22/2023 Mood disorder Unspecified episodic mood disorder 06/22/2023 Diabetic ketoacidosis without coma associated with type 2 diabetes mellitus (HCC) 06/22/2023 Fall, initial encounter 11/09/2023 EAGLE (obstructive sleep apnea) Obstructive sleep apnea (adult) (pediatric) 11/09/2023 Poorly controlled type 2 diabetes mellitus (HCC) Type II or unspecified type diabetes mellitus without mention of complication, not stated as uncontrolled 11/09/2023 Mild intermittent asthma without complication Unspecified asthma 11/09/2023 Dyslipidemia Other and unspecified hyperlipidemia 11/09/2023 Gastroesophageal reflux disease without esophagitis Esophageal reflux 11/09/2023 Multiple closed fractures of ribs of left side Closed fracture of multiple ribs, unspecified 11/09/2023 Urinary retention Retention of urine, unspecified 11/09/2023 Goals Goal Patient Goal Type Associated Problems [...] 10:03 AM EDT) No Haven Patrick LPN Care Teams 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
[2025-08-22 15:25] VITALS: O2SAT 95
[2025-08-22 15:30] VITALS: BP 142/71
--- NOTE | 2025-08-22 15:31 | PC.NURSE ---
Spoke with poison control. Mikayla from poison control reported that the ph was back to normal. Mikayla advised to flush the eyes and check for any abrasions or injury to the eyes. pt needs to follow-up with [facility]. Provider notified.
--- NOTE | 2025-08-22 15:56 | PC.NURSE ---
Torres lense used and flushed with sodium chloride bilaterally. pt tolerated 800mls. Eyes checked with ph strip. Left and right eye with a ph of 7 on both eyes. MD notified.
[2025-08-22] MEDS: TETRACAINE 0.5% OPTH SOL 15ML OP (16:26)
[2025-08-22] MEDS: EYE WASH IRRIGATION SOLN 118ML BOTTLE 120 ML OP (16:28)
[2025-08-22] MEDS: FLUORESCEIN SODIUM 1MG STRIP 1 MG OP (16:28)
[2025-08-22] MEDS: ERYTHROMYCIN BASE 1 GM OINT...G. 0.5 GM OP (16:28)
[2025-08-22 16:30] VITALS: BP 132/75; PULSE 77; RESP 17; TEMP 36.6; O2SAT 98
== END 2025-08-22 16:30 | disposition home or self-care (01) ==
PROVIDERS: Emergency Provider Student in an Organized Health Care Education/Training Program; PCP Internal Medicine Cardiovascular Disease
DX: S05.01XA Injury of conjunctiva and corneal abrasion without foreign body, right eye, initial encounter (principal); S05.02XA Injury of conjunctiva and corneal abrasion without foreign body, left eye, initial encounter; H57.13 Ocular pain, bilateral; T59.4X1A Toxic effect of chlorine gas, accidental (unintentional), initial encounter
CPT/HCPCS: 99284